=== PATIENT | male | born 1940 | race Caucasian/White ===

== ENCOUNTER 2017-07-15 05:42 | Outpatient (CLI) | payer MEDICARE, OTHER ==
[~2017-07-15] VITALS: Ht 167.6 cm; Wt 80.7 kg
[2017-07-15] MEDS ORDERED: LEVO112T55 PO (14:05)
== END 2017-07-15 14:18 ==
LOC: PREOP 05:42
PROVIDERS: ATTEND Urology
DX: Z01.818 Encounter for other preprocedural examination (principal); N40.0 Benign prostatic hyperplasia without lower urinary tract symptoms

== ENCOUNTER 2018-02-01 04:05 | Inpatient (IN) | payer MEDICARE, OTHER ==
[2018-02-01] VITALS (12 sets, daily range): BP systolic 106–178; BP diastolic 63–125
[~2018-02-01] VITALS: Ht 167.6 cm; Wt 79.9 kg
[~2018-02-01 04:05] MED LIST: LEVO112T55 PO
[2018-02-01] MEDS ORDERED: DESM0.2T2 PO (04:23)
[2018-02-01] MEDS ORDERED: METO-387 PO (04:23)
[2018-02-01] MEDS ORDERED: ATOR10TA66 PO (04:23)
--- NOTE | 2018-02-01 04:43 | ED General ---
General Chief Complaint: Cardiac/General Problems Stated Complaint: HIGH BLOOD PRESSURE, 160/88 Nursing Triage Note: reflux, leg cramps, "light headed" Nursing Sepsis Screen: No Definite Risk Source of Information: Patient, Spouse Exam Limitations: Other (PT IS EXTREMELY POOR AND VAGUE HISTORIAN AND CANNOT GIVE ANY RELEVANT INFORMATION ABOUT PT'S CURRENT CONDITION OR HISTORY EITHER. ) History of Present Illness Date Seen by Provider: February 01, 2018 Time Seen by Provider: 04:22 Initial Comments PT ARRIVES VIA POV FROM HOME STATES "STARTED OUT WITH ACID REFLUX" --STATES HE HAS HAS IT ALL EVENING. HAS FREQUENT PROBLEMS WITH THIS, BUT HAS NOT TAKEN ANYTHING FOR SYMPTOMS. CANNOT DESCRIBE HIS SYMPTOMS. HAS NOT HAD EGD OR ANY TESTING AND HAS NEVER BEEN PRESCRIBED MEDICATIONS FOR ACID REFLUX "THEN MY FEET STARTED CRAMPING" --IS CHRONIC PROBLEM, BUT TONIGHT WAS A LITTLE WORSE "THEN I ERICK HAD A WOOZY FEELING" --CANNOT DESCRIBE, BUT STATES "MAYBE ERICK NAUSEATED I THINK" AND DENIES FEELING DIZZY. PT STATES HE IS NOT HAVING ANY SYMPTOMS RIGHT NOW STATES HE HAS BEEN TAKING HIS BP TONIGHT AND IT HAS BEEN "HIGH" BUT CANNOT GIVE ANY OF HIS READINGS, NOR CAN . PT STATES "IT WAS IN THE MARGINAL AREA-IN THE YELLOW" --PT STATES HE HAS HAD A BLOOD PRESSURE MEDICATION ADDED, BUT CANNOT STATE WHAT MEDICATION IS, WHEN IT WAS PRESCRIBED OR BY WHOM. PT DOES NOT KNOW ANY OF HIS MEDICATIONS, NOR DOES . PT DOES STATE HE TAKES MEDICATION FOR BLOOD PRESSURE, THYROID AND CHOLESTEROL, BUT DOES NOT KNOW ANY OF THEIR NAMES. PT STATES HE HAS HAD ALL THESE SYMPTOMS BEFORE AND NONE OF THEM ARE A NEW PROBLEM PT STATES HE HASN'T SLEPT MUCH TONIGHT--JUST DOZED, AND LEG / FOOT CRAMPS WOULD WAKE HIM UP--AGAIN IS NOT A NEW PROBLEM, AND IS A FREQUENT PROBLEM, JUST A LITTLE WORSE TONIGHT --HAS NOT TAKEN ANYTHING FOR PAIN ONLY THING CAN REPORT IS THAT "HE JUST DOESN'T FEEL RIGHT" PT DENIES CHEST PAIN--ONLY C/O "ACID REFLUX" PT DENIES SHORTNESS OF BREATH DENIES PALPITATIONS BUT STATES HE HAS AN IRREGULAR HEARTBEAT DENIES SWEATS NO SWELLING IN LEGS/ FEET OR PAIN IN CALVES--ONLY FOOT CRAMPS BILATERALLY PT DID TAKE NORMAL DOSE OF 81 MG BABY ASPIRIN AT BEDTIME PCP: DR. GRAY BARREL PAINTER: DR. NELSON--PT STATES HE DOES NOT HAVE ANY HEART PROBLEMS. STATES HE WAS HAVING A PROBLEM WITH HIS EYES, AND HIS EYE TOLD HIM THAT HE NEEDED TO SEE A BARREL PAINTER, BUT PT / CANNOT STATE WHAT KIND OF EYE PROBLEMS HE HAS Allergies and Home Medications Allergies Coded Allergies: No Known Drug Allergies (Unverified , 07/15/17) Home Medications Levothyroxine Sodium 112 Mcg Tablet, 112 MCG PO DAILY, (Reported) Patient Home Medication List Home Medication List Reviewed: Yes (OBTAINED PER MED RECONCILIATION/EXTERNAL MED HX) Review of Systems Constitutional: see HPI Respiratory: no symptoms reported Cardiovascular: no symptoms reported Gastrointestinal: see HPI Genitourinary: no symptoms reported Musculoskeletal: see HPI Skin: no symptoms reported Psychiatric/Neurological: No Symptoms Reported Hematologic/Lymphatic: No Symptoms Reported Immunological/Allergic: no symptoms reported Past Xtirlmx-Gabfto-Rphppu Hx Patient Social History Alcohol Use: Denies Use Recreational Drug Use: No Smoking Status: Former Smoker Type Used: Cigarettes Former Smoker, Quit: Jul 15, 1974 2nd Hand Smoke Exposure: No Recent Foreign Travel: No Contact w/Someone Who Travel: No Recent Infectious Disease Expo: No Recent Hopitalizations: No Immunizations Up To Date Tetanus Booster (TDap): Unknown PED Vaccines UTD: No Date of Pneumonia Vaccine: Jul 15, 2015 Date of Influenza Vaccine: Jul 14, 2016 Seasonal Allergies Seasonal Allergies: No Past Medical History Surgeries: Yes (PILONIDAL CYST, LEFT LEG FX 5 SURGERIES TOTAL, COLONOSCOPY; TURP) Transurethral Resection Respiratory: No Currently Using CPAP: No Currently Using BIPAP: No Cardiac: Yes High Cholesterol, Hypertension Neurological: No Reproductive Disorders: No Genitourinary: Yes (S/P TURP) Benign Prostatic Hyperpl, Prostate Problems Gastrointestinal: Yes Gastroesophageal Reflux Musculoskeletal: Yes Arthritis Endocrine: Yes Hypothyroidsim HEENT: Yes Cataract Cancer: No Psychosocial: No Integumentary: No Blood Disorders: No Physical Exam Vital Signs Vital Signs - First Documented Capillary Refill : Less Than 3 Seconds General Appearance: No Apparent Distress, WD/WN, Anxious (MILDLY) Neck: Full Range of Motion, Normal Inspection, Non Tender, Supple; No Carotid Bruit, No JVD Respiratory: Chest Non Tender, Normal Breath Sounds, No Accessory Muscle Use, No Respiratory Distress Cardiovascular: No Edema, No Gallop, No JVD, No Murmur, Normal Peripheral Pulses, Irregularly Irregular Gastrointestinal: Normal Bowel Sounds, No Organomegaly, No Pulsatile Mass, Non Tender, Soft Back: No CVA Tenderness Extremity: Normal Capillary Refill, Normal Inspection, Normal Range of Motion, Non Tender, No Calf Tenderness, No Pedal Edema Neurologic/Psychiatric: Alert, Oriented x3, No Motor/Sensory Deficits, Normal Mood/Affect, epic interface analyst II-XII Norm as Tested Skin: Normal Color, Warm/Dry Progress/Results/Core Measures Suspected Sepsis Recent Fever Within 48 Hours: No Infection Criteria Present: None New/Unexplained Altered Menta: No Sepsis Screen: No Definite Risk SIRS Temperature:96.9 Pulse: 62 Respiratory Rate: 18 Laboratory Tests 02/01/18 04:30: White Blood Count 6.5 Blood Pressure 132 /113 Mean: 119 Laboratory Tests 02/01/18 04:30: Creatinine 0.74, INR Comment 0.9, Platelet Count 216, Total Bilirubin 0.8 Results/Orders Lab Results Laboratory Tests Test 02/01/18 04:30 Range/Units White Blood Count 6.5 4.3-11.0 10^3/uL Red Blood Count 3.96 L 4.35-5.85 10^6/uL Hemoglobin 12.8 L 13.3-17.7 G/DL Hematocrit 34 L 40-54 % Mean Corpuscular Volume 86 80-99 FL Mean Corpuscular Hemoglobin 32 25-34 PG Mean Corpuscular Hemoglobin Concent 38 H 32-36 G/DL Red Cell Distribution Width 11.7 10.0-14.5 % Platelet Count 216 130-400 10^3/uL Mean Platelet Volume 8.6 7.4-10.4 FL Neutrophils (%) (Auto) 61 42-75 % Lymphocytes (%) (Auto) 22 12-44 % Monocytes (%) (Auto) 11 0-12 % Eosinophils (%) (Auto) 6 0-10 % Basophils (%) (Auto) 0 0-10 % Neutrophils # (Auto) 3.9 1.8-7.8 X 10^3 Lymphocytes # (Auto) 1.5 1.0-4.0 X 10^3 Monocytes # (Auto) 0.7 0.0-1.0 X 10^3 Eosinophils # (Auto) 0.4 H 0.0-0.3 10^3/uL Basophils # (Auto) 0.0 0.0-0.1 10^3/uL Prothrombin Time 12.7 12.2-14.7 SEC INR Comment 0.9 0.8-1.4 Activated Partial Thromboplast Time 35 24-35 SEC Sodium Level 122 *L 135-145 MMOL/L Potassium Level 3.6 3.6-5.0 MMOL/L Chloride Level 89 L 98-107 MMOL/L Carbon Dioxide Level 20 L 21-32 MMOL/L Anion Gap 13 5-14 MMOL/L Blood Urea Nitrogen 9 7-18 MG/DL Creatinine 0.74 0.60-1.30 MG/DL Estimat Glomerular Filtration Rate > 60 BUN/Creatinine Ratio 12 Glucose Level 93 70-105 MG/DL Calcium Level 8.7 8.5-10.1 MG/DL Magnesium Level 1.8 1.8-2.4 MG/DL Total Bilirubin 0.8 0.1-1.0 MG/DL Aspartate Amino Transf (AST/SGOT) 24 5-34 U/L Alanine Aminotransferase (ALT/SGPT) 20 0-55 U/L Alkaline Phosphatase 55 40-136 U/L Total Creatine Kinase 205 H 30-200 U/L Creatine Kinase MB 5.5 <6.6 NG/ML Troponin I < 0.30 <0.30 NG/ML B-Type Natriuretic Peptide 102.6 H <100.0 PG/ML Total Protein 7.0 6.4-8.2 GM/DL Albumin 4.1 3.2-4.5 GM/DL Amylase Level 50 25-125 U/L Lipase 14 8-78 U/L My Orders Orders - MARNIE ZAVALA DO Amylase (02/01/18 04:36) Cbc With Automated Diff (02/01/18 04:36) Comprehensive Metabolic Panel (02/01/18 04:36) Creatine Kinase (02/01/18 04:36) Creatine Kinase Mb (02/01/18 04:36) Lipase (02/01/18 04:36) Partial Thromboplastin Time (02/01/18 04:36) Protime With Inr (02/01/18 04:36) Troponin I (02/01/18 04:36) Chest 1 View, Ap/Pa Only (02/01/18 04:36) O2 (02/01/18 04:36) Ekg Tracing (02/01/18 04:36) Aspirin Chewable Tablet (Baby Aspirin Ch (02/01/18 04:45) BNP (02/01/18 04:36) Monitor-Rhythm Ecg Trace Only (02/01/18 04:36) Magnesium (02/01/18 04:36) Pantoprazole Injection (Protonix Injecti (02/01/18 04:45) Medications Given in ED Current Medications Medications Dose Ordered Sig/Tamika Route Start Time Stop Time Status Last Admin Dose Admin Aspirin 324 mg ONCE ONCE PO 02/01/18 04:45 02/01/18 04:46 DC 02/01/18 04:45 324 MG Pantoprazole 40 mg ONCE ONCE IV 02/01/18 04:45 02/01/18 04:46 UNV 02/01/18 04:45 40 MG Vital Signs/I&O 02/01/18 02/01/18 04:23 04:23 Temp 96.9 Pulse 62 Resp 18 B/P (MAP) 132/113 (119) Pulse Ox 98 98 O2 Delivery Room Air Room Air Capillary Refill : Less Than 3 Seconds Blood Pressure Mean: 119 Progress Note : Progress Note PT DID NOT HAVE ANY COMPLAINTS DURING ER STAY ECG Initial ECG Impression Date: February 01, 2018 Initial ECG Impression Time: 04:36 Initial ECG Rate: 80 Initial ECG Rhythm: Normal Sinus (WITH PAC'S / SUPRAVENTRICULAR BIGEMINY) Initial ECG Impression: Nonspecific Changes Diagnostic Imaging Comments CXR--NO ACUTE PROCESS, PENDING RADIOLOGIST REVIEW Reviewed: Reviewed by Me Departure Communication (Admissions) [id number]--SPOKE WITH DR. GRAY, ACCEPTS PT FOR ADMIT. Impression Primary Impression: Atypical chest pain Additional Impressions: Hyponatremia HTN (hypertension) Disposition: ADMITTED INPATIENT Condition: Stable Admissions Decision to Admit Reason: Admit from ER (General) Decision to Admit/Date: February 01, 2018 Time/Decision to Admit Time: 05:10 Departure-Patient Inst. Referrals: SANJUANA GRAY DO (PCP/Family) Primary Care Physician MARNIE ZAVALA DO February 01, 2018 04:42
[2018-02-01 04:45] LABS: BASOPHILS % (AUTO) 0 % (0-10); EOSINOPHILS # (AUTO) 0.4 10^3/uL (0.0-0.3); EOSINOPHILS % (AUTO) 6 % (0-10); HEMATOCRIT 34 % (40-54); HEMOGLOBIN 12.8 G/DL (13.3-17.7); LYMPHOCYTES # (AUTO) 1.5 X 10^3 (1.0-4.0); LYMPHOCYTES % (AUTO) 22 % (12-44); MEAN CORPUSCULAR HEMOGLOBIN 32 PG (25-34); MEAN CORPUSCULAR HGB CONC 38 G/DL (32-36); MEAN CORPUSCULAR VOLUME 86 FL (80-99); MEAN PLATELET VOLUME 8.6 FL (7.4-10.4); MONOCYTES # (AUTO) 0.7 X 10^3 (0.0-1.0); MONOCYTES % (AUTO) 11 % (0-12); NEUTROPHILS # (AUTO) 3.9 X 10^3 (1.8-7.8); NEUTROPHILS % (AUTO) 61 % (42-75); PLATELET COUNT 216 10^3/uL (130-400); RED BLOOD COUNT 3.96 10^6/uL (4.35-5.85); RED CELL DISTRIBUTION WIDTH 11.7 % (10.0-14.5); WHITE BLOOD COUNT 6.5 10^3/uL (4.3-11.0)
[2018-02-01] MEDS ORDERED: PANTOPRAZOLE 40 MG/10 ML (PROTONIX) VIAL IV ONE (04:45)
[2018-02-01] MEDS ORDERED: ASPIRIN 81 MG CHEW (CHILDREN'S ASA) PO ONE (04:45)
[2018-02-01 04:50] LABS: INR 0.9 (0.8-1.4); PROTHROMBIN TIME PATIENT 12.7 SEC (12.2-14.7)
[2018-02-01 04:58] LABS: ALANINE AMINOTRANSFERASE 20 U/L (0-55); ALBUMIN 4.1 GM/DL (3.2-4.5); ALKALINE PHOSPHATASE 55 U/L (40-136); AMYLASE 50 U/L (25-125); BILIRUBIN,TOTAL 0.8 MG/DL (0.1-1.0); BUN/CREATININE RATIO 12; CALCIUM 8.7 MG/DL (8.5-10.1); CARBON DIOXIDE 20 MMOL/L (21-32); CHLORIDE 89 MMOL/L (98-107); CREATINE KINASE 205 U/L (30-200); CREATININE SERUM 0.74 MG/DL (0.60-1.30); GFR ESTIMATED > 60; GLUCOSE 93 MG/DL (70-105); LIPASE 14 U/L (8-78); MAGNESIUM 1.8 MG/DL (1.8-2.4); POTASSIUM 3.6 MMOL/L (3.6-5.0)
[2018-02-01 05:02] LABS: SODIUM 122 MMOL/L (135-145)
[2018-02-01 05:04] LABS: CREATINE KINASE MB 5.5 NG/ML (<6.6)
--- NOTE | 2018-02-01 06:04 | Diagnostic Imaging Report ---
INDICATION: Lightheaded and leg cramps. COMPARISON: None available. FINDINGS: Visualized lungs are clear. Please note that the posterior lower lobes are poorly evaluated by portable radiography. No pleural effusion or pneumothorax. Heart is on the upper limits of normal in size. Normal pulmonary vasculature. IMPRESSION: No acute cardiopulmonary process by portable radiography. Dictated by: Dictated on workstation # [id number]
[2018-02-01] MEDS ORDERED: NITROGLYCERIN 0.4 MG SL TABS BTL 25'S SL PRN (06:45)
[2018-02-01] MEDS ORDERED: morphine INJ 4 MG/ML 1 ML (VIAL/SYRINGE) IV PRN (06:45)
[2018-02-01] MEDS: NS IV 1000 ML 1,000 ML IV SCH ×2 (07:31→14:21)
--- NOTE | 2018-02-01 07:49 | Consultation-Cardiology ---
HPI-Cardiology Cardiology Consultation Date of Consultation 02/01/18 Date of Admission Time Seen by Provider: 07:44 HPI 77 years old gentleman with history of prostatism, had cataract surgery recently. Patient had an episode of sudden blurred vision in December [address] Ott in [place] and he was told that he had a poor perfusion. Had a 2-D echocardiogram and ultrasound done at [facility]. Denied any chest pain. Patient was in his usual state of health until last night when he woke up around 3 in the morning with significant leg cramps, he noted that his blood pressure was elevated. Came into the emergency room. Denied any chest pain or shortness of breath. No palpitation, no syncope or near syncopal episode. Home Medications & Allergies Allergies: Coded Allergies: No Known Drug Allergies (Unverified , 07/15/17) Home Medication List Reviewed: Yes IPX-Bhknkr-Dkldim Hx Patient Social History Marital Status: Employed/Student: retired Alcohol Use: Denies Use Recreational Drug Use: No Smoking Status: Former Smoker Type Used: Cigarettes 2nd Hand Smoke Exposure: No Recent Foreign Travel: No Recent Infectious Disease Expo: No Recent Hopitalizations: No Physical Abuse Screen: No Sexual Abuse: No Immunizations Up To Date Tetanus Booster (TDap): Unknown Date of Pneumonia Vaccine: Jul 15, 2015 Date of Influenza Vaccine: Jul 14, 2016 Past Medical History Past medical history as discussed below Family Medical History Family Medical Hx Noncontributory to his current condition Constitutional: see HPI, weakness EENTM: see HPI, vision loss; No blurred vision Respiratory: see HPI; No cough, No dyspnea on exertion, No hemoptysis, No orthopnea, No phlegm, No short of breath, No stridor, No wheezing, No other Cardiovascular: no symptoms reported, see HPI; No chest pain, No edema, No Hx of Intervention, No palpitations, No syncope, No vascular heart diseas, No other Gastrointestinal: no symptoms reported, see HPI Genitourinary: no symptoms reported, see HPI Musculoskeletal: see HPI, back pain, joint pain Skin: no symptoms reported, see HPI Psychiatric/Neurological: No Symptoms Reported, See HPI Reviewed Test Results Reviewed Test Results Lab Laboratory Tests Test 02/01/18 04:30 Range/Units White Blood Count 6.5 4.3-11.0 10^3/uL Red Blood Count 3.96 L 4.35-5.85 10^6/uL Hemoglobin 12.8 L 13.3-17.7 G/DL Hematocrit 34 L 40-54 % Mean Corpuscular Volume 86 80-99 FL Mean Corpuscular Hemoglobin 32 25-34 PG Mean Corpuscular Hemoglobin Concent 38 H 32-36 G/DL Red Cell Distribution Width 11.7 10.0-14.5 % Platelet Count 216 130-400 10^3/uL Mean Platelet Volume 8.6 7.4-10.4 FL Neutrophils (%) (Auto) 61 42-75 % Lymphocytes (%) (Auto) 22 12-44 % Monocytes (%) (Auto) 11 0-12 % Eosinophils (%) (Auto) 6 0-10 % Basophils (%) (Auto) 0 0-10 % Neutrophils # (Auto) 3.9 1.8-7.8 X 10^3 Lymphocytes # (Auto) 1.5 1.0-4.0 X 10^3 Monocytes # (Auto) 0.7 0.0-1.0 X 10^3 Eosinophils # (Auto) 0.4 H 0.0-0.3 10^3/uL Basophils # (Auto) 0.0 0.0-0.1 10^3/uL Prothrombin Time 12.7 12.2-14.7 SEC INR Comment 0.9 0.8-1.4 Activated Partial Thromboplast Time 35 24-35 SEC Sodium Level 122 *L 135-145 MMOL/L Potassium Level 3.6 3.6-5.0 MMOL/L Chloride Level 89 L 98-107 MMOL/L Carbon Dioxide Level 20 L 21-32 MMOL/L Anion Gap 13 5-14 MMOL/L Blood Urea Nitrogen 9 7-18 MG/DL Creatinine 0.74 0.60-1.30 MG/DL Estimat Glomerular Filtration Rate > 60 BUN/Creatinine Ratio 12 Glucose Level 93 70-105 MG/DL Calcium Level 8.7 8.5-10.1 MG/DL Magnesium Level 1.8 1.8-2.4 MG/DL Total Bilirubin 0.8 0.1-1.0 MG/DL Aspartate Amino Transf (AST/SGOT) 24 5-34 U/L Alanine Aminotransferase (ALT/SGPT) 20 0-55 U/L Alkaline Phosphatase 55 40-136 U/L Total Creatine Kinase 205 H 30-200 U/L Creatine Kinase MB 5.5 <6.6 NG/ML Troponin I < 0.30 <0.30 NG/ML B-Type Natriuretic Peptide 102.6 H <100.0 PG/ML Total Protein 7.0 6.4-8.2 GM/DL Albumin 4.1 3.2-4.5 GM/DL Amylase Level 50 25-125 U/L Lipase 14 8-78 U/L TSH [place] Testing 3.68 0.35-4.94 UIU/ML Physical Exam Vital Signs Vital Signs - First Documented Capillary Refill : Less Than 3 Seconds General Appearance: No Apparent Distress, WD/WN Eyes: Bilateral Eye Normal Inspection, Bilateral Eye PERRL, Bilateral Eye EOMI HEENT: PERRL/EOMI, TMs Normal, Normal ENT Inspection, Pharynx Normal Neck: Full Range of Motion, Normal Inspection, Non Tender, Supple, Carotid Bruit Respiratory: Chest Non Tender, Lungs Clear, Normal Breath Sounds, No Accessory Muscle Use, No Respiratory Distress Cardiovascular: No Edema, No Gallop, No JVD, No Murmur, Normal Peripheral Pulses, Other (Bradycardia with irregular rhythm) Gastrointestinal: Normal Bowel Sounds, No Organomegaly, No Pulsatile Mass, Non Tender, Soft Back: Normal Inspection, No CVA Tenderness, No Vertebral Tenderness Extremity: Normal Capillary Refill, Normal Inspection, Normal Range of Motion, Non Tender, No Calf Tenderness, No Pedal Edema Neurologic/Psychiatric: Alert, Oriented x3, No Motor/Sensory Deficits, Normal Mood/Affect Skin: Normal Color, Warm/Dry Lymphatic: No Adenopathy A/P-Cardiology Admission Diagnosis Hypertension Degenerative disc disease and spinal stenosis Hyperlipidemia Sinus bradycardia Atrial bigeminy Assessment/Plan Hypertension, poorly controlled, no previous history of hypertension. Started on low-dose beta blockers as an outpatient. I will restart and monitor her tolerance and response Bradycardia with atrial bigeminy, frequent atrial premature contractions. Continue to monitor telemetry after initiating beta blockers. Echocardiogram was done in December 2017 in [facility] showing mild-to- moderate left atrial dilatation measuring 4.3 cm, mild mitral regurgitation normal left ventricular function, bubble study was reported negative. Carotid ultrasound was done in [facility] in December 2017 showing mild bilateral stenosis nonobstructive disease Hyponatremia, unknown etiology. I will evaluate urine electrolytes Degenerative disc disease, MRI of the spine showed herniated disc at L2-L3, L3- L4, spinal stenosis moderate to severe. Managed by primary care physician Questionable TIA, sudden onset of blurred vision lasted for about 24 hours and resolves spontaneously occurred on December 19, 2017. Mild hyperlipidemia, lipid profile showed LDL of 134, total cholesterol of 200 Hypothyroid, managed and followed by Dr. Velez History of cataract surgery. History of benign prostatic hypertrophy, prostatism, hospitalized in July 2017 History of hemorrhoid bleed in the past. Strong family history of heart disease. Clinical Quality Measures DVT/VTE Risk/Contraindication: Risk Factor Score Per Nursin RFS Level Per Nursing on Admit: 2=Moderate MICHELLE NELSON MD February 01, 2018 07:49
[2018-02-01] MEDS: ASPIRIN E.C. 325 MG (ECOTRIN) TABLET PO SCH (08:56)
--- NOTE | 2018-02-01 08:59 | Diagnostic Imaging Report ---
INDICATION: Hyponatremia. TECHNIQUE: Two view chest 8:55 AM CORRELATION STUDY: 02/01/2018 FINDINGS: The heart size, mediastinal configuration and pulmonary vasculature are within normal limits. Irregular parenchymal density noted in the right perihilar region appears slightly changed from prior study. Remaining lung butler generally clear. Slight asymmetric areas of eventration of the diaphragm. Mildly compressed mid to lower thoracic vertebral bodies with slight accentuated thoracic kyphotic curvature. IMPRESSION: 1. Irregular parenchymal density in the right suprahilar region. This could be reflective of minimal area of atelectasis or less likely infiltrate. Mass lesion is considered less likely but not excluded at this time. Short-term followup repeat imaging is recommended for reassessment. Dictated by: Dictated on workstation # [id number]
--- NOTE | 2018-02-01 09:11 | History & Physical-Hospitalist ---
History of Present Illness HPI/Chief Complaint CC: Severe muscle cramps with palpitations HPI: This is a 77-year-old white male clinic patient of mine for the past 10 years with a past medical history of chronic orthopedic issues due to an injury of his left leg many years ago and hypothyroidism along with BPH status post management by Dr. Resendez with a TURP in the last 6 months who presented by private vehicle driven by his due to severe muscle cramps weakness and vague palpitations. Apparently I have not been in the communication loop since he was seen by Dr. Harrison ophthalmology who was concerned he had had a stroke in his left eye so is sent for heart test and he saw Dr. Jarvis and he was placed on metoprolol and was getting along fine but multiple med changes by urology included desmopressin initiated recently and that is the likely cause of the severe hyponatremia of 122 this morning. We have fluid restricted him to 1000 mL of oral fluid per day maintained a normal saline at 100 mL an hour and will hold desmopressin of which I have spoken to and updated the urologist nurse regarding that change. Source: patient, family Exam Limitations: other (vague details on medical issues chronic issue) Date Seen 02/01/18 Time Seen by Provider: 08:40 Attending Physician Jered Kaye MD PCP Katy Gray DO Referring Physician Date of Admission February 01, 2018 at 05:10 Home Medications & Allergies Home Medications Reviewed patient Home Medication Reconciliation performed by pharmacy medication reconciliations digital imaging technician and/or nursing. Patients Allergies have been reviewed. Allergies Allergies Coded Allergies No Known Drug Allergies (Onqapxnean33/2/17) Past Keyozym-Xtmldn-Topbsk Hx Past Med/Social Hx: Reviewed Nursing Past Med/Soc Hx, Reviewed and Corrections made Patient Social History Marrital Status: Employed/Student: retired Alcohol Use: Denies Use Recreational Drug Use: No Smoking Status: Former Smoker Former Smoker, Quit: Jul 15, 1974 Type Used: Cigarettes 2nd Hand Smoke Exposure: No Physical Abuse Screen: No Sexual Abuse: No Recent Foreign Travel: No Contact w/other who traveled: No Recent Hopitalizations: No Recent Infectious Disease Expo: No Immunizations Up To Date Tetanus Booster (TDap): Unknown Pediatric: No Date of Pneumonia Vaccine: Jul 15, 2015 Date of Influenza Vaccine: Jul 14, 2016 Seasonal Allergies Seasonal Allergies: No Past Medical History Surgeries: Transurethral Resection Currently Using CPAP: No Currently Using BIPAP: No Cardiac: High Cholesterol, Hypertension Reproductive: No Genitourinary: Benign Prostatic Hyperpl, Prostate Problems Gastrointestinal: Gastroesophageal Reflux Musculoskeletal: Arthritis Endocrine: Hypothyroidsim HEENT: Cataract History of Blood Disorders: No Review of Systems Constitutional: see HPI, dizziness, weakness EENTM: no symptoms reported Respiratory: no symptoms reported Cardiovascular: no symptoms reported Gastrointestinal: no symptoms reported Genitourinary: no symptoms reported Musculoskeletal: no symptoms reported Skin: no symptoms reported Psychiatric/Neurological: No Symptoms Reported All Other Systems Reviewed Negative Unless Noted: Yes Physical Exam Physical Exam Vital Signs Vital Signs - First Documented Capillary Refill : Less Than 3 Seconds General Appearance: No Apparent Distress, WD/WN, Chronically ill Eyes: Bilateral Eye Normal Inspection, Bilateral Eye PERRL HEENT: PERRL/EOMI, Normal ENT Inspection, Pharynx Normal Neck: Full Range of Motion, Normal Inspection, Non Tender, Supple, Carotid Bruit Respiratory: Chest Non Tender, Lungs Clear, Normal Breath Sounds, No Accessory Muscle Use, No Respiratory Distress Cardiovascular: Regular Rate, Rhythm, No Edema, No Gallop, No JVD, No Murmur, Normal Peripheral Pulses Gastrointestinal: Normal Bowel Sounds, No Organomegaly, No Pulsatile Mass, Non Tender, Soft Back: Normal Inspection, No CVA Tenderness, No Vertebral Tenderness Extremity: Normal Capillary Refill, Normal Inspection, Normal Range of Motion, Non Tender, No Calf Tenderness, No Pedal Edema Neurologic/Psychiatric: Alert, Oriented x3, No Motor/Sensory Deficits, Normal Mood/Affect Skin: Normal Color, Warm/Dry Lymphatic: No Adenopathy Results Results/Procedures Labs Laboratory Tests 02/01/18 04:30 Patient resulted labs reviewed. Assessment/Plan Admission Diagnosis Assessment: Severe hyponatremia Palpitations placed on BB Urinary frequency placed on Desmopressin by Dr Resendez Hypothyroidism Admission Status: Inpatient Order (span 2 midnights) Reason for Inpatient Admission: Severe hyponatremia at seizurfe risk will take 3 days of fluid restriction and NS IVF Assessment and Plan IVF Monitor sodium level Cardiology input Home meds except Desmopressin Diagnosis/Problems Diagnosis/Problems (1) Hyponatremia Status: Acute (2) Atypical chest pain Status: Acute (3) BPH (benign prostatic hyperplasia) Status: Chronic Qualifiers: Lower urinary tract symptom presence: symptoms present Lower urinary tract symptom detail: urinary frequency Qualified Codes: N40.1 - Benign prostatic hyperplasia with lower urinary tract symptoms; R35.0 - Frequency of micturition (4) S/P TURP Status: Chronic (5) Hypothyroidism Status: Chronic Qualifiers: Hypothyroidism type: acquired Qualified Codes: E03.9 - Hypothyroidism, unspecified (6) Hypertension Status: Acute Qualifiers: Hypertension type: essential hypertension Qualified Codes: I10 - Essential (primary) hypertension Clinical Quality Measures DVT/VTE Risk/Contraindication: Risk Factor Score Per Nursin RFS Level Per Nursing on Admit: 2=Moderate KATY GRAY DO February 01, 2018 09:11
[2018-02-01] MEDS ORDERED: MULT-35 PO (09:16)
[2018-02-01] MEDS ORDERED: ASPI-983 PO (09:16)
[2018-02-01] MEDS ORDERED: CALC-676 PO (09:16)
[2018-02-01] MEDS ORDERED: OMG1KC PO (09:16)
--- OUTSIDE RECORDS SUMMARY | 2018-02-01 10:03 | XMS REPORT | Continuity of Care Document ---
Author Author [facility] Organization [facility] Address Unknown Phone Unavailable Allergies Active Description Code Type Severity Reaction Onset Reported/Identified Relationship to Patient Clinical Status Yes No Known Drug Allergies [id number] Drug Allergy Unknown N/A 07/15/2017 Medications There is no data. Problems Date Dx Coded Attending Type Code Diagnosis Diagnosed By 08/21/2015 MICHAEL FERNANDEZ MD Ot M48.00 07/15/2017 DEVEN HECTOR MD Ot N40.0 BENIGN PROSTATIC HYPERPLASIA WITHOUT LOW 07/15/2017 DEVEN HECTOR MD Ot Z01.818 ENCOUNTER FOR OTHER PREPROCEDURAL EXAMIN 07/15/2017 DEVEN HECTOR MD Ot N40.0 BENIGN PROSTATIC HYPERPLASIA WITHOUT LOW 07/15/2017 DEVEN HECTOR MD Ot Z01.818 ENCOUNTER FOR OTHER PREPROCEDURAL EXAMIN 07/15/2017 DEVEN HECTOR MD Ot N40.0 BENIGN PROSTATIC HYPERPLASIA WITHOUT LOW 07/15/2017 DEVEN HECTOR MD Ot Z01.818 ENCOUNTER FOR OTHER PREPROCEDURAL EXAMIN 07/16/2017 MICHAEL FERNANDEZ MD Ot M48.00 SPINAL STENOSIS, SITE UNSPECIFIED 07/20/2017 MICHAEL FERNANDEZ MD Ot M48.00 SPINAL STENOSIS, SITE UNSPECIFIED 07/21/2017 DEVEN HECTOR MD Ot E03.9 HYPOTHYROIDISM, UNSPECIFIED 07/21/2017 DEVEN HECTOR MD, Ot N40.0 BENIGN PROSTATIC HYPERPLASIA WITHOUT LOW 07/21/2017 DEVEN HECTOR MD Ot N52.9 MALE ERECTILE DYSFUNCTION, UNSPECIFIED 07/21/2017 DEVEN HECTOR MD Ot Z23 ENCOUNTER FOR IMMUNIZATION 07/21/2017 DEVEN HECTOR MD Ot Z79.899 OTHER INSTRUCTIONAL TECHNOLOGY INSTRUCTOR (CURRENT) DRUG THERAPY 07/21/2017 DEVEN HECTOR MD Ot Z87.891 PERSONAL HISTORY OF NICOTINE DEPENDENCE 07/22/2017 DEVEN HECTOR MD Ot E03.9 HYPOTHYROIDISM, UNSPECIFIED 07/22/2017 DEVEN HECTOR MD Ot N40.0 BENIGN PROSTATIC HYPERPLASIA WITHOUT LOW 07/22/2017 DEVEN HECTOR MD Ot N52.9 MALE ERECTILE DYSFUNCTION, UNSPECIFIED 07/22/2017 DEVEN HECTOR MD Ot Z79.899 OTHER SKILLED NURSING (CURRENT) DRUG THERAPY 07/22/2017 DEVEN HECTOR MD Ot Z87.891 PERSONAL HISTORY OF NICOTINE DEPENDENCE 07/23/2017 DEVEN HECTOR MD Ot E03.9 HYPOTHYROIDISM, UNSPECIFIED 07/23/2017 DEVEN HECTOR MD Ot N40.0 BENIGN PROSTATIC HYPERPLASIA WITHOUT LOW 07/23/2017 DEVEN HECTOR MD Ot N52.9 MALE ERECTILE DYSFUNCTION, UNSPECIFIED 07/23/2017 DEVEN HECTOR MD Ot Z79.899 OTHER INSTRUCTIONAL TECHNOLOGY INSTRUCTOR (CURRENT) DRUG THERAPY 07/23/2017 DEVEN HECTOR MD Ot Z87.891 PERSONAL HISTORY OF NICOTINE DEPENDENCE 07/27/2017 DEVEN HECTOR MD Ot E03.9 HYPOTHYROIDISM, UNSPECIFIED 07/27/2017 DEVEN HECTOR MD Ot N40.0 BENIGN PROSTATIC HYPERPLASIA WITHOUT LOW 07/27/2017 DEVEN HECTOR MD Ot N52.9 MALE ERECTILE DYSFUNCTION, UNSPECIFIED 07/27/2017 DEVEN HECTOR MD Ot Z23 ENCOUNTER FOR IMMUNIZATION 07/27/2017 DEVEN HECTOR MD Ot Z79.899 OTHER INSTRUCTIONAL TECHNOLOGY INSTRUCTOR (CURRENT) DRUG THERAPY 07/27/2017 DEVEN HECTOR MD Ot Z87.891 PERSONAL HISTORY OF NICOTINE DEPENDENCE 08/04/2017 DEVEN HECTOR MD Ot E03.9 HYPOTHYROIDISM, UNSPECIFIED 08/04/2017 DEVEN HECTOR MD Ot N40.0 BENIGN PROSTATIC HYPERPLASIA WITHOUT LOW 08/04/2017 DEVEN HECTOR MD Ot N52.9 MALE ERECTILE DYSFUNCTION, UNSPECIFIED 08/04/2017 DEVEN HECTOR MD Ot Z23 ENCOUNTER FOR IMMUNIZATION 08/04/2017 DEVEN HECTOR MD Ot Z79.899 OTHER INSTRUCTIONAL TECHNOLOGY INSTRUCTOR (CURRENT) DRUG THERAPY 08/04/2017 DEVEN HECTOR MD Ot Z87.891 PERSONAL HISTORY OF NICOTINE DEPENDENCE Procedures There is no data. Results Test Result Range Methicillin resistant Staphylococcus aureus (MRSA) screening culture - 07:45 Methicillin resistant Staphylococcus aureus (MRSA) screening culture NEG NRG Automated blood complete blood count (hemogram) panel - 07/20/17 07:50 Blood leukocytes automated count (number/volume) 6.4 10*3/uL 4.3-11.0 Blood erythrocytes automated count (number/volume) 4.50 10*6/uL 4.35-5.85 Venous blood hemoglobin measurement (mass/volume) 14.4 g/dL 13.3-17.7 Blood hematocrit (volume fraction) 41 % 40-54 Automated erythrocyte mean corpuscular volume 90 [foz_us] 80-99 Automated erythrocyte mean corpuscular hemoglobin (mass per erythrocyte) 32 pg 25-34 Automated erythrocyte mean corpuscular hemoglobin concentration measurement ( mass/volume) 36 g/dL 32-36 Automated erythrocyte distribution width ratio 12.5 % 10.0-14.5 Automated blood platelet count (count/volume) 274 10*3/uL 130-400 Automated blood platelet mean volume measurement 9.0 [foz_us] 7.4-10.4 Blood type T Indirect antibody screen panel - 07/20/17 07:50 ABO+Rh group AP NRG Transfusion band number [id number] NRG Blood group antibody screen NEGATIVE NRG Encounters ACCT No. Visit Date/Time Discharge Status Pt. Type Provider Facility Loc./Unit Complaint [id number] 07/20/2017 07:20:00 07/21/2017 17:13:00 DIS Outpatient DEVEN HECTOR MD [facility] BPH; PROSTATISM [id number] 07/15/2017 05:42:00 07/15/2017 14:18:00 DIS Outpatient DEVEN HECTOR MD [facility] PREOP BPH; PROSTATISM [id number] 07/29/2015 13:37:00 07/29/2015 23:59:59 CLS Outpatient MICHAEL FERNANDEZ MD [facility] RAD STENOSIS [id number] 07/16/2017 14:31:00 Document Registration
--- OUTSIDE RECORDS SUMMARY | 2018-02-01 10:04 | XMS REPORT | Continuity of Care Document ---
Author Author [facility] Organization [facility] Address Unknown Phone Unavailable Allergies Active Description Code Type Severity Reaction Onset Reported/Identified Relationship to Patient Clinical Status Yes No Known Drug Allergies [id number] Drug Allergy Unknown N/A 07/15/2017 Medications There [...] 07/21/2017 DEVEN HECTOR MD Ot Z79.899 OTHER ALCOHOL AND DRUG COUNSELOR (CURRENT) DRUG THERAPY 07/21/2017 DEVEN HECTOR MD Ot Z87.891 PERSONAL HISTORY OF NICOTINE DEPENDENCE 07/22/2017 DEVEN HECTOR MD Ot E03.9 HYPOTHYROIDISM, UNSPECIFIED 07/22/2017 DEVEN HECTOR MD Ot N40.0 BENIGN PROSTATIC HYPERPLASIA WITHOUT LOW 07/22/2017 DEVEN HECTOR MD Ot N52.9 MALE ERECTILE DYSFUNCTION, UNSPECIFIED 07/22/2017 DEVEN HECTOR MD Ot Z79.899 OTHER LONGTERM (CURRENT) DRUG THERAPY 07/22/2017 DEVEN HECTOR MD Ot Z87.891 PERSONAL HISTORY OF NICOTINE DEPENDENCE 07/23/2017 DEVEN HECTOR MD Ot E03.9 HYPOTHYROIDISM, UNSPECIFIED 07/23/2017 DEVEN HECTOR MD Ot N40.0 BENIGN PROSTATIC HYPERPLASIA WITHOUT LOW 07/23/2017 DEVEN HECTOR MD Ot N52.9 MALE ERECTILE DYSFUNCTION, UNSPECIFIED 07/23/2017 DEVEN HECTOR MD Ot Z79.899 OTHER ALCOHOL AND DRUG COUNSELOR (CURRENT) DRUG THERAPY 07/23/2017 DEVEN HECTOR MD Ot Z87.891 PERSONAL HISTORY OF NICOTINE DEPENDENCE 07/27/2017 DEVEN HECTOR MD Ot E03.9 HYPOTHYROIDISM, UNSPECIFIED 07/27/2017 DEVEN HECTOR MD Ot N40.0 BENIGN PROSTATIC HYPERPLASIA WITHOUT LOW 07/27/2017 DEVEN HECTOR MD Ot N52.9 MALE ERECTILE DYSFUNCTION, UNSPECIFIED 07/27/2017 DEVEN HECTOR MD Ot Z23 ENCOUNTER FOR IMMUNIZATION 07/27/2017 DEVEN HECTOR MD Ot Z79.899 OTHER ALCOHOL AND DRUG COUNSELOR (CURRENT) DRUG THERAPY 07/27/2017 DEVEN HECTOR MD Ot Z87.891 PERSONAL HISTORY OF NICOTINE DEPENDENCE 08/04/2017 DEVEN HECTOR MD Ot E03.9 HYPOTHYROIDISM, UNSPECIFIED 08/04/2017 DEVEN HECTOR MD Ot N40.0 BENIGN PROSTATIC HYPERPLASIA WITHOUT LOW 08/04/2017 DEVEN HECTOR MD Ot N52.9 MALE ERECTILE DYSFUNCTION, UNSPECIFIED 08/04/2017 DEVEN HECTOR MD Ot Z23 ENCOUNTER FOR IMMUNIZATION 08/04/2017 DEVEN HECTOR MD Ot Z79.899 OTHER ALCOHOL AND DRUG COUNSELOR (CURRENT) DRUG THERAPY 08/04/2017 DEVEN HECTOR MD [...] ABO+Rh group AP NRG Transfusion band number [id number] NRG Blood group antibody screen NEGATIVE NRG Encounters ACCT No. Visit Date/Time Discharge Status Pt. Type Provider Facility Loc./Unit Complaint [id number] 07/20/2017 07:20:00 07/21/2017 17:13:00 DIS Outpatient DEVEN HECTOR MD [facility] BPH; PROSTATISM [id number] 07/15/2017 05:42:00 07/15/2017 14:18:00 DIS Outpatient DEVEN HECTOR MD [facility] PREOP BPH; PROSTATISM [id number] 07/29/2015 13:37:00 07/29/2015 23:59:59 CLS Outpatient MICHAEL FERNANDEZ MD [facility] RAD STENOSIS [id number] 07/16/2017 14:31:00 Document Registration
[2018-02-01 11:00] LABS: BILIRUBIN,URINE NEGATIVE (NEGATIVE); CLARITY,URINE SLIGHTLY CLOUDY; COLOR,URINE YELLOW; GLUCOSE, URINE (UA) NEGATIVE (NEGATIVE); KETONES,URINE 1+ (NEGATIVE); LEUKOCYTE ESTERASE ,URINE NEGATIVE (NEGATIVE); NITRITE,URINE NEGATIVE (NEGATIVE); PH,URINE 8 (5-9); PROTEIN,URINE 1+ (NEGATIVE); UROBILINOGEN,URINE NORMAL (NORMAL)
[2018-02-01 11:01] LABS: CREATINE KINASE 203 U/L (30-200)
[2018-02-01 11:10] LABS: CHLORIDE URINE RANDOM 108 MMOL/L (110-250); SODIUM URINE RANDOM 118 MMOL/L (50-200)
[2018-02-01 11:11] LABS: AMORPHOUS SEDIMENT,UR MOD AMOR PHOSPHATE /LPF; BACTERIA,URINE NEGATIVE /HPF; WBC,URINE RARE /HPF
[2018-02-01 18:01] LABS: CREATINE KINASE 242 U/L (30-200)
[2018-02-01] MEDS ORDERED: lisINopril 5 MG (PRINIVIL) TABLET PO ONE (22:00)
[2018-02-02 00:15] VITALS: BP 155/80
[2018-02-02] MEDS: NS IV 1000 ML 1,000 ML IV SCH (01:35)
[2018-02-02 03:38] VITALS: BP 148/69
[2018-02-02 03:42] LABS: BASOPHILS % (AUTO) 0 % (0-10); EOSINOPHILS # (AUTO) 0.4 10^3/uL (0.0-0.3); EOSINOPHILS % (AUTO) 5 % (0-10); HEMATOCRIT 35 % (40-54); HEMOGLOBIN 13.2 G/DL (13.3-17.7); LYMPHOCYTES # (AUTO) 1.3 X 10^3 (1.0-4.0); LYMPHOCYTES % (AUTO) 18 % (12-44); MEAN CORPUSCULAR HEMOGLOBIN 33 PG (25-34); MEAN CORPUSCULAR HGB CONC 38 G/DL (32-36); MEAN CORPUSCULAR VOLUME 86 FL (80-99); MEAN PLATELET VOLUME 9.1 FL (7.4-10.4); MONOCYTES # (AUTO) 0.8 X 10^3 (0.0-1.0); MONOCYTES % (AUTO) 11 % (0-12); NEUTROPHILS # (AUTO) 4.5 X 10^3 (1.8-7.8); NEUTROPHILS % (AUTO) 65 % (42-75); PLATELET COUNT 220 10^3/uL (130-400); RED BLOOD COUNT 4.02 10^6/uL (4.35-5.85); RED CELL DISTRIBUTION WIDTH 11.6 % (10.0-14.5)
[2018-02-02 04:09] LABS: BUN/CREATININE RATIO 8; CALCIUM 8.4 MG/DL (8.5-10.1); CARBON DIOXIDE 22 MMOL/L (21-32); CHLORIDE 99 MMOL/L (98-107); CHOLESTEROL 142 MG/DL (< 200); CREATININE SERUM 0.71 MG/DL (0.60-1.30); GFR ESTIMATED > 60; GLUCOSE 85 MG/DL (70-105); HDL CHOLESTEROL 38 MG/DL (40-60); MAGNESIUM 1.9 MG/DL (1.8-2.4); SODIUM 129 MMOL/L (135-145); TRIGLYCERIDES 132 MG/DL (<150); VLDL CHOLESTEROL 26 MG/DL (5-40)
[2018-02-02] MEDS ORDERED: lisINopril 5 MG (PRINIVIL) TABLET PO SCH (09:00)
[2018-02-02 09:38] VITALS: BP 146/82
[2018-02-02] MEDS ORDERED: lisINopril 5 MG (PRINIVIL) TABLET PO NR (09:45)
[2018-02-02] MEDS: ASPIRIN E.C. 325 MG (ECOTRIN) TABLET PO SCH (09:49)
[2018-02-02] MEDS ORDERED: LISI10TA2 PO (10:59)
--- NOTE | 2018-02-02 11:06 | Discharge Summary-Hospitalist ---
Diagnosis/Chief Complaint Date of Admission February 01, 2018 at 11:25 Date of Discharge Discharge Date: February 02, 2018 Admission Diagnosis Assessment: Severe hyponatremia Palpitations placed on BB Urinary frequency placed on Desmopressin by Dr Resendez Hypothyroidism Discharge Diagnosis (1) Hyponatremia Status: Acute (2) Atypical chest pain Status: Acute (3) BPH (benign prostatic hyperplasia) Status: Chronic (4) S/P TURP Status: Chronic (5) Hypothyroidism Status: Chronic (6) Hypertension Status: Acute Discharge Summary Discharge Physical Exam Allergies: Coded Allergies: No Known Drug Allergies (Unverified , 07/15/17) Vitals & I&Os Vital Signs Date Time Temp Pulse Resp B/P (MAP) Pulse Ox O2 Delivery O2 Flow Rate FiO2 02/02/18 09:38 97.6 55 16 146/82 (103) 97 02/02/18 09:15 Room Air General Appearance: Alert, Oriented X3, Cooperative HEENT: Atraumatic, PERRLA Respiratory: Clear to Auscultation, Normal Air Movement Cardiovascular: Regular Rate, Normal S1, Normal S2 Neuro: Normal Gait, Normal Speech, Strength at 5/5 X4 Ext Psych/Mental Status: Mental Status NL Hospital Course Hospital course: He had a brief hospital course he was admitted due to severe muscle cramps and leg pain and was found to have severe hyponatremia of 122 and the likely source of that was the desmopressin medication that was given by urology so urology was updated and I discontinue that medication immediately. He was placed on normal saline IV fluid at 100cc/hr and due to the severity of his symptoms and the severity of the hyponatremia near seizure threshold he was changed to inpatient because estimation time of correction of the sodium level in order to be able to go home would be 2-3 days but on day of discharge on 02/02 he was found to have sodium level 129 which had recovered sooner than expected and ambulating well and had no symptoms of hyponatremia and since it was past the seizure threshold he was deemed stable for discharge as cardiology approved and will have close follow-up at the clinic and check BMP on Wednesday. We will need to assess for lumbar stenosis considering his orthopedic injuries in the past and will recheck out to fourth therefore state since he had been seen by Dr. Dunne in the past for the left leg that had horrific orthopedic injury in the years past. Considering for nerve pain he was having Dr. Jarvis assessed possible source as spinal stenosis. Labs (last 24 hrs) Laboratory Tests 02/01/18 17:35: Total Creatine Kinase 242H, Troponin I < 0.30 02/02/18 03:10: White Blood Count 7.0, Red Blood Count 4.02L, Hemoglobin 13.2L, Hematocrit 35L, Mean Corpuscular Volume 86, Mean Corpuscular Hemoglobin 33, Mean Corpuscular Hemoglobin Concent 38H, Red Cell Distribution Width 11.6, Platelet Count 220, Mean Platelet Volume 9.1, Neutrophils (%) (Auto) 65, Lymphocytes (%) (Auto) 18, Monocytes (%) (Auto) 11, Eosinophils (%) (Auto) 5, Basophils (%) (Auto) 0, Neutrophils # (Auto) 4.5, Lymphocytes # (Auto) 1.3, Monocytes # (Auto) 0.8, Eosinophils # (Auto) 0.4H, Basophils # (Auto) 0.0, Sodium Level 129L, Potassium Level 4.0, Chloride Level 99, Carbon Dioxide Level 22, Anion Gap 8, Blood Urea Nitrogen 6L, Creatinine 0.71, Estimat Glomerular Filtration Rate > 60, BUN/ Creatinine Ratio 8, Glucose Level 85, Calcium Level 8.4L, Magnesium Level 1.9, Triglycerides Level 132, Cholesterol Level 142, LDL Cholesterol Direct 89, VLDL Cholesterol 26, HDL Cholesterol 38L Patient resulted labs reviewed. Pending Labs Discussion & Recommendations Discharge Planning: <30 minutes discharge planning Discharge Home Medications: Active Scripts Active Lisinopril 10 Mg Tablet 10 Mg PO DAILY@0900 Reported Fish Oil 1,000 mg Capsule ([place] 3 Polyunsat Fatty Acids) 1,000 Mg Cap 1,000 Mg PO BID Daily Multiple Vitamin (Multivitamin) 1 Each Tablet 1 Tab PO DAILY Calcium 500 + Vit D 200 Caplet (Calcium Carbonate/Vitamin D3) 1 Each Tablet 1 Tab PO BID Aspirin EC (Aspirin) 81 Mg Tablet.dr 81 Mg PO HS Metoprolol Succinate 25 Mg Tab.er.24h 25 Mg PO HS Atorvastatin Calcium 10 Mg Tablet 10 Mg PO DAILY Levothyroxine Sodium 112 Mcg Tablet 112 Mcg PO DAILY Instructions to patient/family Please see electronic discharge instructions given to patient. Clinical Quality Measures DVT/VTE Risk/Contraindication: Risk Factor Score Per Nursin RFS Level Per Nursing on Admit: 2=Moderate Problem Qualifiers (1) BPH (benign prostatic hyperplasia): Lower urinary tract symptom presence: symptoms present Lower urinary tract symptom detail: urinary frequency Qualified Codes: N40.1 - Benign prostatic hyperplasia with lower urinary tract symptoms; R35.0 - Frequency of micturition (2) Hypothyroidism: Hypothyroidism type: acquired Qualified Codes: E03.9 - Hypothyroidism, unspecified (3) Hypertension: Hypertension type: essential hypertension Qualified Codes: I10 - Essential ( primary) hypertension SANJUANA GRAY DO February 02, 2018 11:06
--- NOTE | 2018-02-02 11:28 | Cardiology Progress Note ---
Subjective Date Seen by Provider: February 02, 2018 Time Seen by Provider: 11:26 Subjective/Events-last exam Patient is laying down in bed, feeling better, sustained a fall this morning while he was trying to walk to the sink and wash his hand. Denied any injury, denied any pain. Patient has history of chronic back pain and leg pain from herniated disc in the past. Review of Systems General: No Chills, No Night Sweats, No Fatigue, No Malaise, No Appetite, No Other HEENT: No Head Aches, No Visual Changes, No Eye Pain, No Ear Pain, No Dysphasia , No Sinus Congestion, No Post Nasal Drip, No Sore Throat, No Other Pulmonary: No Dyspnea, No Cough, No Pleuritic Chest Pain, No Other Cardiovascular: No: Chest Pain, Palpitations, Orthopnea, Paroxysmal Noc. Dyspnea, Edema, Lt Headedness, Other Objective-Cardiology Exam Last Set of Vital Signs Vital Signs 02/02/18 02/02/18 09:15 09:38 Temp 97.6 Pulse 55 Resp 16 B/P (MAP) 146/82 (103) Pulse Ox 97 O2 Delivery Room Air Capillary Refill : Less Than 3 Seconds I&O Intake and Output 02/02/18 00:00 Intake Total 1780 ml Output Total 3425 ml Balance -1645 ml Intake Oral 780 ml IV Total 1000 ml Output Urine Total 3425 ml # Voids 1 Daily Weight Change No General: Alert, Oriented X3, Cooperative HEENT: Atraumatic, PERRLA Neck: Supple, No JVD, No Thyromegaly Lungs: Clear to Auscultation, Normal Air Movement Heart: Normal S1, Normal S2, No Murmurs, Other (Frequent APCs) Abdomen: Normal Bowel Sounds, Soft, No Tenderness, No Hepatosplenomegaly, No Masses Extremities: No Clubbing, No Cyanosis, No Edema, Normal Pulses, No Tenderness/ Swelling Skin: No Rashes, No Breakdown, No Significant Lesion Neuro: Normal Gait, Normal Speech, Strength at 5/5 X4 Ext, Normal Tone, Sensation Intact Psych/Mental Status: Mental Status NL, Mood NL Results Lab Laboratory Tests 02/02/18 03:10 A/P-Cardiology Admission Diagnosis Hypertension Degenerative disc disease and spinal stenosis Hyperlipidemia Sinus bradycardia Atrial bigeminy Assessment/Plan Hypertension, poorly controlled, I added lisinopril 5 mg then increase it to 10 mg daily, continue on metoprolol and monitor blood pressure as an outpatient Bradycardia with atrial bigeminy, frequent atrial premature contractions. Tolerating metoprolol well. Continue to monitor as an outpatient Echocardiogram was done in December 2017 in [facility] showing mild-to- moderate left atrial dilatation measuring 4.3 cm, mild mitral regurgitation normal left ventricular function, bubble study was reported negative. Carotid ultrasound was done in [facility] in December 2017 showing mild bilateral stenosis nonobstructive disease Hyponatremia, secondary to medication, better today. Monitor as an outpatient Degenerative disc disease, MRI of the spine showed herniated disc at L2-L3, L3- L4, spinal stenosis moderate to severe. Managed by primary care physician Questionable TIA, sudden onset of blurred vision lasted for about 24 hours and resolves spontaneously occurred on December 19, 2017. Mild hyperlipidemia, lipid profile showed LDL of 134, total cholesterol of 200 Hypothyroid, managed and followed by Dr. Velez History of cataract surgery. History of benign prostatic hypertrophy, prostatism, hospitalized in July 2017 History of hemorrhoid bleed in the past. Strong family history of heart disease. Clinical Quality Measures DVT/VTE Risk/Contraindication: Risk Factor Score Per Nursin RFS Level Per Nursing on Admit: 2=Moderate MICHELLE NELSON MD February 02, 2018 11:27
[2018-02-02 11:52] VITALS: BP 146/82
[2018-02-03] MEDS ORDERED: lisINopril 10 MG (PRINIVIL) TABLET PO SCH (09:00)
[2018-02-03] MEDS ORDERED: lisINopril 5 MG (PRINIVIL) TABLET PO SCH (09:00)
== END 2018-02-02 11:52 | disposition home or self-care (01) | DRG 641 ==
LOC: EDUNIT# 04:05 → ER 04:07 → ICU 05:10 → UNDOADMOB 05:10 → ICU 05:47 → OBSVTOIN 11:24 → INTOOBSV 11:25 → UNDODISIN 02-02 11:52
PROVIDERS: ADMIT Internal Medicine; ATTEND Internal Medicine
DX: E87.1 Hypo-osmolality and hyponatremia (principal); T38.895A Adverse effect of other hormones and synthetic substitutes, initial encounter; R07.89 Other chest pain; I10 Essential (primary) hypertension; E03.9 Hypothyroidism, unspecified; N40.0 Benign prostatic hyperplasia without lower urinary tract symptoms; R35.0 Frequency of micturition; R00.1 Bradycardia, unspecified; I49.1 Atrial premature depolarization; M51.36 Other intervertebral disc degeneration, lumbar region; M51.26 Other intervertebral disc displacement, lumbar region; M48.061 Spinal stenosis, lumbar region without neurogenic claudication; Z87.891 Personal history of nicotine dependence; Z79.899 Other long term (current) drug therapy; Z79.82 Long term (current) use of aspirin
CPT/HCPCS: 36415; 71045; 71046; 80048; 80053; 80061; 81000; 82150; 82436; 82550; 82553; 83690; 83735; 83880; 83930; 83935; 84300; 84443; 84484; 85025; 85027; 85610; 85730; 93005; 93041; 96374

== ENCOUNTER → 2018-06-06 | Outpatient (CLI) | payer MEDICARE, OTHER ==
[~2018-06-06] MED LIST changes: +ASPI-983 PO; +ATOR10TA66 PO; +CALC-676 PO; +CIPR-225 PO; +DESM0.2T2 PO; +HYDR-3870 PO; +LISI10TA2 PO; +METO-387 PO; +MULT-35 PO; +OMG1KC PO; +PHEN-640 PO
--- NOTE | 2018-06-06 16:06 | Diagnostic Imaging Report ---
PROCEDURE: CT head without contrast. TECHNIQUE: Multiple contiguous axial images were obtained through the brain without the use of intravenous contrast. INDICATION: Headache, unqualified visual loss in the left eye. FINDINGS: There is prominence of the ventricles and sulci. There is some chronic microvascular ischemic disease. There is no hydrocephalus. There is no midline shift. There is no intracranial mass, hemorrhage, or extra-axial fluid collection. Calvarium is intact. There is moderate mucosal thickening in the maxillary sinuses bilaterally. The remaining sinuses and mastoid air cells are clear. IMPRESSION: Atrophy and some chronic microvascular ischemic disease without acute intracranial abnormality. If there is high clinical concern for an acute CVA, further evaluation with MRI should be considered. Dictated by: Dictated on workstation # [id number]
== END ==
LOC: RAD 14:53
PROVIDERS: ATTEND Family Medicine
DX: I67.82 Cerebral ischemia (principal); H54.62 Unqualified visual loss, left eye, normal vision right eye; I10 Essential (primary) hypertension; R00.8 Other abnormalities of heart beat; E78.4 Other hyperlipidemia; E03.9 Hypothyroidism, unspecified
CPT/HCPCS: 70450

== ENCOUNTER 2020-11-12 02:32 | Emergency (ER) | payer MEDICARE, OTHER ==
[~2020-11-12] VITALS: Ht 170 cm; Wt 74.4 kg
[~2020-11-12 02:32] MED LIST changes: +ASPI-1238 PO; -ASPI-983 PO; -DESM0.2T2 PO; +DESM0.2T29 PO; -LISI10TA2 PO; +LISI10TA25 PO; -METO-387 PO; +MTP25TSR PO
--- NOTE | 2020-11-12 03:21 | ED General ---
General Chief Complaint: General Problems/Pain Stated Complaint: BLOOD PRESSURE ISSUES,DID NOT TAKE MEDICINE TODAY Source of Information: Patient, Family Exam Limitations: No Limitations History of Present Illness Date Seen by Provider: Nov 12, 2020 Time Seen by Provider: 02:51 Initial Comments Complicated case here with presentation of weakness, low-grade fever and overall not feeling well. We have his second dose of Materna COVID-19 vaccination yesterday at about 9 AM. At about 7 to 7:30 PM, patient was feeling quite fatigued and went to bed. At 1 AM he awoke and was almost too weak to walk. Ultimately they decided to bring him in for further evaluation. Not specifically weak to any one area but globally weak. Family noted the low-grade fever and thought fatigue and fever related to second vaccination in the time frame is consistent with typical. No recent injuries or illness otherwise. Denies chest pain, breathing problems but does have mild cough. His entire close family has recently had COVID-19 but he did not get it. He had no problems with the first vaccination series. 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 This has not interfered with him and he remains quite active typically.Last last known well time 7:30 PM last night. Of note, patient did forget to take his blood pressure medicines yesterday and his daughter gave those just prior to arrival this morning including lisinopril 10 mg and metoprolol Timing/Duration: 4-6 Hours Severity: Moderate Associated Systoms: No Chest Pain; Cough, Fever/Chills, Malaise; No Nausea/Vomiting, No Shortness of Air; Weakness Allergies and Home Medications Allergies Coded Allergies: No Known Drug Allergies (Unverified , 05/06/18) Home Medications Atorvastatin Calcium 10 Mg Tablet, 10 MG PO DAILY, (Reported) Calcium Carbonate/Vitamin D3 1 Each Tablet, 1 TAB PO BID, (Reported) Ciprofloxacin HCl 500 Mg Tablet, 500 MG PO BID Prescribed by: FANNY JANSEN on 05/11/18 112 Hydrocodone/Acetaminophen 1 Each Tablet, 1-2 EACH PO Q4H PRN for PAIN Prescribed by: FANNY JANSEN on 05/11/18 112 Levothyroxine Sodium 112 Mcg Tablet, 112 MCG PO DAILY, (Reported) Lisinopril 10 Mg Tablet, 10 MG PO DAILY@0900 Prescribed by: SANJUANA GRAY on 02/02/18 1059 Metoprolol Succinate 25 Mg Tab.er.24h, 25 MG PO HS, (Reported) Multivitamin 1 Each Tablet, 1 TAB PO DAILY, (Reported) [place] 3 Polyunsat Fatty Acids 1,000 Mg Cap, 1,000 MG PO BID, (Reported) Phenazopyridine HCl 200 Mg Tablet, 1 TAB PO TID PRN for SPASMS Prescribed by: FANNY JANSEN on 05/11/18 1127 Patient Home Medication List Home Medication List Reviewed: Yes Review of Systems Review of Systems Constitutional: see HPI; No chills; fever, weakness EENTM: No nose congestion, No throat pain Respiratory: cough; No short of breath Cardiovascular: No chest pain; vascular heart diseas Gastrointestinal: No abdominal pain, No nausea, No vomiting Genitourinary: no symptoms reported Musculoskeletal: muscle pain, muscle weakness Skin: no symptoms reported Psychiatric/Neurological: See HPI Past Mtywtuc-Tjubtk-Vovluk Hx Past Med/Social Hx: Reviewed Nursing Past Med/Soc Hx Patient Social History Alcohol Use: Denies Use Type Used: Cigarettes Former Smoker, Quit: Jul 15, 1974 2nd Hand Smoke Exposure: No Recent Hopitalizations: Yes (JANUARY 2018-LOW SODIUM) Immunizations Up To Date Tetanus Booster (TDap): Unknown PED Vaccines UTD: No Date of Pneumonia Vaccine: Jul 15, 2015 Date of Influenza Vaccine: Jun 28, 2017 Seasonal Allergies Seasonal Allergies: No Past Medical History Surgeries: Yes (PILONIDAL CYST, LEFT LEG FX 5 SURGERIES TOTAL, TURP) Transurethral Resection Respiratory: No Currently Using CPAP: No Currently Using BIPAP: No Cardiac: Yes High Cholesterol, Hypertension, Irregular Heartbeat Neurological: No Reproductive Disorders: No Sexually Transmitted Disease: No HIV/AIDS: No Genitourinary: Yes (S/P TURP) Benign Prostatic Hyperpl, Prostate Problems Gastrointestinal: No Gastroesophageal Reflux Musculoskeletal: Yes Arthritis Endocrine: Yes Hypothyroidsim HEENT: Yes Cataract Loss of Vision: Bilateral Cancer: No Psychosocial: No Integumentary: No Blood Disorders: No Adverse Reaction/Blood Tranf: No (N/A) Family Medical History Reviewed Nursing Family Hx Patient reports no known family medical history. Physical Exam-Suspected Sepsis Physical Exam Vital Signs Vital Signs - First Documented 11/12/20 02:40 Temp 38.4 Pulse 105 Resp 26 B/P (MAP) 158/68 (98) Pulse Ox 96 O2 Delivery Room Air Capillary Refill : Height, Weight, BMI Height: 5'6.00" Weight: 178lbs. 4.0oz. 80.673741ug; 28.8 BMI Method:Stated General Appearance: No Apparent Distress, WD/WN HEENT: PERRL/EOMI, TMs Normal, Pharynx Normal Neck: Non Tender, Supple Respiratory: Lungs Clear, Normal Breath Sounds Cardiovascular: Tachycardia, Other (Irregularly regular with alternating beat) Gastrointestinal: Non Tender, Soft Extremity: Normal Range of Motion, Non Tender Neurologic/Psychiatric: Alert, Oriented x3, Motor Weakness (Global) Skin: normal color, warm/dry Focused Exam Lactate Level 11/12/20 03:03: Lactic Acid Level 0.92 Lactic Acid Level Laboratory Tests Test 11/12/20 03:03 Lactic Acid Level 0.92 MMOL/L (0.50-2.00) Progress/Results/Core Measures Suspected Sepsis SIRS Temperature: Pulse: Respiratory Rate: Laboratory Tests 11/12/20 02:53: White Blood Count 10.5 Blood Pressure / Mean: 11/12/20 03:03: Lactic Acid Level 0.92 Laboratory Tests 11/12/20 02:53: Creatinine 1.03, INR Comment 1.0, Platelet Count 206, Total Bilirubin 0.6 Results/Orders Lab Results Laboratory Tests Test 11/12/20 02:53 11/12/20 03:03 11/12/20 03:08 11/12/20 04:31 Range/Units White Blood Count 10.5 4.3-11.0 10^3/uL Red Blood Count 4.13 L 4.30-5.52 10^6/uL Hemoglobin 13.1 L 13.3-17.7 g/dL Hematocrit 38 L 40-54 % Mean Corpuscular Volume 92 80-99 fL Mean Corpuscular Hemoglobin 32 25-34 pg Mean Corpuscular Hemoglobin Concent 35 32-36 g/dL Red Cell Distribution Width 12.4 10.0-14.5 % Platelet Count 206 130-400 10^3/uL Mean Platelet Volume 9.0 9.0-12.2 fL Immature Granulocyte % (Auto) 0 % Neutrophils (%) (Auto) 88 H 42-75 % Lymphocytes (%) (Auto) 5 L 12-44 % Monocytes (%) (Auto) 7 0-12 % Eosinophils (%) (Auto) 0 0-10 % Basophils (%) (Auto) 1 0-10 % Neutrophils # (Auto) 9.2 H 1.8-7.8 10^3/uL Lymphocytes # (Auto) 0.5 L 1.0-4.0 10^3/uL Monocytes # (Auto) 0.7 0.0-1.0 10^3/uL Eosinophils # (Auto) 0.0 0.0-0.3 10^3/uL Basophils # (Auto) 0.1 0.0-0.1 10^3/uL Immature Granulocyte # (Auto) 0.0 0.0-0.1 10^3/uL Neutrophils % (Manual) 89 % Lymphocytes % (Manual) 4 % Monocytes % (Manual) 6 % Basophils % (Manual) 1 % Blood Morphology Comment NORMAL Prothrombin Time 13.5 12.2-14.7 SEC INR Comment 1.0 0.8-1.4 Activated Partial Thromboplast Time 33 24-35 SEC D-Dimer 0.67 H 0.00-0.49 UG/ML Sodium Level 130 L 135-145 MMOL/L Potassium Level 4.4 3.6-5.0 MMOL/L Chloride Level 98 98-107 MMOL/L Carbon Dioxide Level 21 21-32 MMOL/L Anion Gap 11 5-14 MMOL/L Blood Urea Nitrogen 10 7-18 MG/DL Creatinine 1.03 0.60-1.30 MG/DL Estimat Glomerular Filtration Rate > 60 BUN/Creatinine Ratio 10 Glucose Level 106 H 70-105 MG/DL Calcium Level 8.9 8.5-10.1 MG/DL Corrected Calcium 8.7 8.5-10.1 MG/DL Total Bilirubin 0.6 0.1-1.0 MG/DL Aspartate Amino Transf (AST/SGOT) 26 5-34 U/L Alanine Aminotransferase (ALT/SGPT) 28 0-55 U/L Alkaline Phosphatase 71 40-136 U/L Troponin I < 0.028 <0.028 NG/ML C-Reactive Protein High Sensitivity 0.88 H 0.00-0.50 MG/DL Total Protein 7.8 6.4-8.2 GM/DL Albumin 4.3 3.2-4.5 GM/DL Procalcitonin 0.06 <0.10 NG/ML Lactic Acid Level 0.92 0.50-2.00 MMOL/L Coronavirus 2019 ([facility]) Negative Negative Urine Color YELLOW Urine Clarity CLEAR Urine pH 7.0 5-9 Urine Specific [place] 1.010 L 1.016-1.022 Urine Protein TRACE H NEGATIVE Urine Glucose (UA) NEGATIVE NEGATIVE Urine Ketones NEGATIVE NEGATIVE Urine Nitrite NEGATIVE NEGATIVE Urine Bilirubin NEGATIVE NEGATIVE Urine Urobilinogen 0.2 < = 1.0 MG/DL Urine Leukocyte Esterase NEGATIVE NEGATIVE Urine RBC (Auto) NEGATIVE NEGATIVE Urine RBC NONE /HPF Urine WBC NONE /HPF Urine Crystals NONE /LPF Urine Bacteria NEGATIVE /HPF Urine Casts NONE /LPF Urine Mucus NEGATIVE /LPF Urine Culture Indicated CULTURE PENDING Micro Results Microbiology 11/12/20 Influenza Types A,B Antigen (MATT) - Final, Complete My Orders Orders - CELESTINE CHIN MD Cbc With Automated Diff (11/12/20 03:06) Comprehensive Metabolic Panel (11/12/20 03:06) Blood Culture (11/12/20 03:06) Sputum Culture (11/12/20 03:06) Urinalysis (11/12/20 03:06) Urine Culture (11/12/20 03:06) Protime With Inr (11/12/20 03:06) Partial Thromboplastin Time (11/12/20 03:06) Chest 1 View, Ap/Pa Only (11/12/20 03:06) Ed Iv/Invasive Line Start (11/12/20 03:06) Ekg Tracing (11/12/20 03:06) Vital Signs Adult Sepsis Patie Q15M (11/12/20 03:06) Remove Rings In Anticipation O (11/12/20 03:06) Lactic Acid Analyzer (11/12/20 03:06) Influenza A And B Antigens (11/12/20 03:06) Fibrin Degradation Products (11/12/20 03:06) Procalcitonin (Pct) (11/12/20 03:06) Hs C Reactive Protein (11/12/20 03:06) Covid 19 Inhouse Test (11/12/20 03:06) Troponin I (11/12/20 03:06) Nothing By Mouth (11/12/20 Breakfast) Vital Signs Stroke Patient Q15M (11/12/20 03:06) Ct Head Wo-R/O Stroke (11/12/20 03:06) Intake & Output 06,14,22 (11/12/20 03:06) Monitor-Rhythm Ecg Trace Only (11/12/20 03:06) Dysphagia Screening Tool (11/12/20 03:06) Lipid Panel (11/13/20 06:00) Ns Iv 500 Ml (Sodium Chloride 0.9%) (11/12/20 03:30) Manual Differential (11/12/20 02:53) Ketorolac Injection (Toradol Injection) (11/12/20 04:06) Acetaminophen Tablet (Tylenol Tablet) (11/12/20 04:06) Ketorolac Injection (Toradol Injection) (11/12/20 04:02) Acetaminophen Tablet (Tylenol Tablet) (11/12/20 04:02) Medications Given in ED Current Medications Medications Dose Ordered Sig/Tamika Route Start Time Stop Time Status Last Admin Dose Admin Sodium Chloride 500 ml @ 0 mls/hr Q0M ONCE IV 11/12/20 03:30 11/12/20 03:31 DC 11/12/20 03:31 500 MLS/HR Vital Signs/I&O 11/12/20 11/12/20 11/12/20 11/12/20 02:40 03:03 04:35 04:37 Temp 38.4 38.4 38.4 38.4 Pulse 105 105 75 75 Resp 26 22 17 17 B/P (MAP) 158/68 (98) 158/68 (98) 137/82 137/82 (100) Pulse Ox 96 96 95 95 O2 Delivery Room Air Room Air Room Air Room Air 11/12/20 05:14 Temp 38.1 Pulse 77 Resp 20 B/P (MAP) 129/62 Pulse Ox 95 O2 Delivery Room Air Capillary Refill : Progress Note : Progress Note Seen and evaluated. Complicated case given history with concerns for typical vaccine reaction, stroke and or sepsis. Stroke and sepsis order sets have been initiated with addition of influenza and we will get COVID-19 rapid testing as well. Monitor patient. Patient is outside of window to give TPA and this was discussed with the patient's daughter who agrees given his last known well time was around 8 hours prior to arrival. Does not have physical exam findings suggestive of large vessel occlusion. We will get the CT head given his altered state. Does have mild low-grade fever currently. Normal saline 500 mL bolus ordered. Monitor patient. 0520: Patient did receive Toradol 30 mg IV as well as Tylenol 1 g p.o. Heart rate down to 70s. He is able to stand and transfer on own accord now. CT is negative. No other significant abnormalities. This does appear to be vaccination related illness is influenza and Covid screen are also negative. All of this was discussed with patient and family. Discharged home with return precautions. Patient and family verbalized understanding of instructions and agreement with plan. ECG Initial ECG Impression Date: Nov 12, 2020 Initial ECG Impression Time: 02:58 Initial ECG Rate: 100 Initial ECG Rhythm: S.Tach Comment Sinus tachycardia with supraventricular bigeminy and left axis deviation. Left atrial abnormality. No evidence of ST elevation [place]. Morphology similar but faster rate to 02/01/18. Interpreted by me. Diagnostic Imaging Diagonstic Imaging: Xray Plain Films/CT/US/NM/MRI: chest Comments No acute findings Reviewed: Reviewed by Me Diagonstic Imaging: CT Plain Films/CT/US/NM/MRI: head Comments No acute findings per CT report. See Darryn report for details. 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 Decision time for Depature: 05:22 Referrals: SANJUANA GRAY DO (PCP/Family) Primary Care Physician Patient Instructions: COVID-19 Vaccine (mRNA) Moderna FDA Fact Sheet, Coronavirus Disease 2019 (COVID-19) Vaccines Add. Discharge Instructions: All discharge instructions reviewed with patient and/or family. Voiced understanding. Drink plenty of fluids and get plenty of rest. You may take Tylenol and/or ibuprofen as needed for fever or pain. Diet as tolerated. Follow-up with your doctor in a few days for recheck. Return for worse pain, fever, vomiting, weakness, breathing problems or other concerns as needed. Copy Copies To 1: SANJUANA GRAY TIMOTHY D MD Nov 12, 2020 03:21
[2020-11-12 03:23] LABS: ALBUMIN 4.3 GM/DL (3.2-4.5); CHLORIDE 98 MMOL/L (98-107); POTASSIUM 4.4 MMOL/L (3.6-5.0); SODIUM 130 MMOL/L (135-145)
[2020-11-12 03:24] LABS: BASOPHILS # (AUTO) 0.1 10^3/uL (0.0-0.1); BASOPHILS % (AUTO) 1 % (0-10); CALCIUM 8.9 MG/DL (8.5-10.1); EOSINOPHILS % (AUTO) 0 % (0-10); HEMATOCRIT 38 % (40-54); HEMOGLOBIN 13.1 g/dL (13.3-17.7); LYMPHOCYTES # (AUTO) 0.5 10^3/uL (1.0-4.0); LYMPHOCYTES % (AUTO) 5 % (12-44); MEAN CORPUSCULAR HEMOGLOBIN 32 pg (25-34); MEAN CORPUSCULAR HGB CONC 35 g/dL (32-36); MEAN CORPUSCULAR VOLUME 92 fL (80-99); MONOCYTES # (AUTO) 0.7 10^3/uL (0.0-1.0); MONOCYTES % (AUTO) 7 % (0-12); NEUTROPHILS # (AUTO) 9.2 10^3/uL (1.8-7.8); NEUTROPHILS % (AUTO) 88 % (42-75); PLATELET COUNT 206 10^3/uL (130-400); WHITE BLOOD COUNT 10.5 10^3/uL (4.3-11.0)
[2020-11-12 03:26] LABS: GLUCOSE 106 MG/DL (70-105); TOTAL PROTEIN 7.8 GM/DL (6.4-8.2)
[2020-11-12 03:27] LABS: BILIRUBIN,TOTAL 0.6 MG/DL (0.1-1.0); CARBON DIOXIDE 21 MMOL/L (21-32)
[2020-11-12 03:29] LABS: ALKALINE PHOSPHATASE 71 U/L (40-136); CREATININE SERUM 1.03 MG/DL (0.60-1.30); GFR ESTIMATED > 60
[2020-11-12 03:30] LABS: BUN/CREATININE RATIO 10
[2020-11-12] MEDS ORDERED: NS IV 500 ML 500 ML IV ONE (03:30)
[2020-11-12 03:32] LABS: ALANINE AMINOTRANSFERASE 28 U/L (0-55)
[2020-11-12 03:57] LABS: BASOPHILS % (MANUAL) 1 %; LYMPHOCYTES % (MANUAL) 4 %; MONOCYTES % (MANUAL) 6 %; NEUTROPHILS % (MANUAL) 89 %; RBC MORPH NORMAL
[2020-11-12 04:00] LABS: FIBRIN DEGRADATION PRODUCTS 0.67 UG/ML (0.00-0.49); PROTHROMBIN TIME PATIENT 13.5 SEC (12.2-14.7)
[2020-11-12] MEDS ORDERED: KETOROLAC 30 MG/ML VIAL ONE (04:02)
[2020-11-12] MEDS ORDERED: ACETAMINOPHEN 500 MG TAB (TYLENOL) ONE (04:02)
[2020-11-12] MEDS ORDERED: ACETAMINOPHEN 500 MG TAB (TYLENOL) PO STA (04:06)
[2020-11-12] MEDS ORDERED: KETOROLAC 30 MG/ML VIAL IVP STA (04:06)
[2020-11-12 04:50] LABS: BILIRUBIN,URINE NEGATIVE (NEGATIVE); CLARITY,URINE CLEAR; COLOR,URINE YELLOW; GLUCOSE, URINE (UA) NEGATIVE (NEGATIVE); KETONES,URINE NEGATIVE (NEGATIVE); LEUKOCYTE ESTERASE ,URINE NEGATIVE (NEGATIVE); NITRITE,URINE NEGATIVE (NEGATIVE); PROTEIN,URINE TRACE (NEGATIVE)
[2020-11-12 04:57] LABS: BACTERIA,URINE NEGATIVE /HPF
[2020-11-12 05:34] VITALS: BP 130/70
--- NOTE | 2020-11-12 06:00 | Diagnostic Imaging Report ---
EXAMINATION: Chest 1 view HISTORY: Sepsis. Low-grade fever. COMPARISON: 02/01/2018. FINDINGS: The lung volumes are normal. No focal consolidation is seen. No large pleural effusion or pneumothorax is seen. The cardiomediastinal silhouette is normal in size and contour. No acute osseous abnormality is seen. IMPRESSION: 1. No acute pleuroparenchymal process. Dictated by: Dictated on workstation # [id number]
--- NOTE | 2020-11-12 06:02 | Diagnostic Imaging Report ---
EXAMINATION: CT head without contrast. TECHNIQUE: Multiple contiguous axial images were obtained through the brain without the use of intravenous contrast. All CT scans use one or more of the following dose optimizing techniques: automated exposure control, MA and/or KvP adjustment based on a patient size and exam type, or iterative reconstruction. HISTORY: Weakness and confusion. COMPARISON: 06/06/2018. FINDINGS: No large acute territorial ischemia, mass, or hemorrhage. No midline shift or mass effect. Decreased attenuation is seen in the periventricular and subcortical white matter. The ventricles and cortical sulci are prominent. The basilar cisterns are patent and unremarkable. The orbits are normal. Retained secretions are seen in the left maxillary sinus. Mastoid air cells are clear. No soft tissue abnormality is seen. No osseus lesions or fractures are seen. IMPRESSION: 1. No large acute territorial ischemia, mass, or hemorrhage. 2. Chronic microvascular disease. 3. Generalized parenchymal volume loss. Agree with overnight report. Dictated by: Dictated on workstation # [id number]
== END 2020-11-12 05:34 | disposition home or self-care (01) ==
LOC: EDUNIT# 02:32 → ER 02:38
DX: T88.1XXA Other complications following immunization, not elsewhere classified, initial encounter (principal); E78.00 Pure hypercholesterolemia, unspecified; E03.9 Hypothyroidism, unspecified; I10 Essential (primary) hypertension; Z20.822 Contact with and (suspected) exposure to COVID-19; Z87.891 Personal history of nicotine dependence; Z79.890 Hormone replacement therapy
CPT/HCPCS: 51702; 70450; 71045; 80053; 81000; 83605; 84145; 84484; 85007; 85027; 85379; 85610; 85730; 86141; 87040; 87088; 87804; 93005; 93041; 99284; U0002; 36415; 87635; 96361; 96374

== ENCOUNTER 2020-12-04 16:24 | Inpatient (IN) | payer MEDICARE, OTHER ==
[~2020-12-04] VITALS: Ht 175 cm; Wt 79.7 kg
[2020-12-04] MEDS ORDERED: fentaNYL INJ 100 MCG/2 ML AMP IVP ONE ×2 (16:30→17:30)
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
[2020-12-04 16:39] LABS: BASOPHILS % (AUTO) 1 % (0-10); EOSINOPHILS # (AUTO) 0.1 10^3/uL (0.0-0.3); EOSINOPHILS % (AUTO) 2 % (0-10); HEMATOCRIT 36 % (40-54); LYMPHOCYTES # (AUTO) 2.1 10^3/uL (1.0-4.0); LYMPHOCYTES % (AUTO) 34 % (12-44); MEAN CORPUSCULAR HEMOGLOBIN 32 pg (25-34); MEAN CORPUSCULAR HGB CONC 34 g/dL (32-36); MEAN CORPUSCULAR VOLUME 93 fL (80-99); MEAN PLATELET VOLUME 8.6 fL (9.0-12.2); MONOCYTES # (AUTO) 0.6 10^3/uL (0.0-1.0); MONOCYTES % (AUTO) 11 % (0-12); NEUTROPHILS # (AUTO) 3.2 10^3/uL (1.8-7.8); NEUTROPHILS % (AUTO) 53 % (42-75); PLATELET COUNT 187 10^3/uL (130-400); WHITE BLOOD COUNT 6.1 10^3/uL (4.3-11.0)
[2020-12-04 16:54] LABS: ALBUMIN 4.2 GM/DL (3.2-4.5); CHLORIDE 96 MMOL/L (98-107); POTASSIUM 3.6 MMOL/L (3.6-5.0); SODIUM 131 MMOL/L (135-145)
[2020-12-04 16:55] LABS: CALCIUM 8.9 MG/DL (8.5-10.1)
[2020-12-04 16:56] LABS: GLUCOSE 129 MG/DL (70-105)
[2020-12-04 16:57] LABS: TOTAL PROTEIN 7.4 GM/DL (6.4-8.2)
[2020-12-04 16:58] LABS: BILIRUBIN,TOTAL 0.3 MG/DL (0.1-1.0); CARBON DIOXIDE 23 MMOL/L (21-32)
[2020-12-04 17:00] LABS: ALKALINE PHOSPHATASE 66 U/L (40-136); CREATININE SERUM 0.89 MG/DL (0.60-1.30); GFR ESTIMATED > 60
[2020-12-04 17:01] LABS: BILIRUBIN,URINE NEGATIVE (NEGATIVE); CLARITY,URINE CLEAR; COLOR,URINE YELLOW; GLUCOSE, URINE (UA) NEGATIVE (NEGATIVE); KETONES,URINE NEGATIVE (NEGATIVE); LEUKOCYTE ESTERASE ,URINE NEGATIVE (NEGATIVE); NITRITE,URINE NEGATIVE (NEGATIVE); PH,URINE 7.5 (5-9); PROTEIN,URINE NEGATIVE (NEGATIVE)
[2020-12-04 17:01] LABS: BUN/CREATININE RATIO 12
[2020-12-04 17:03] LABS: ALANINE AMINOTRANSFERASE 26 U/L (0-55)
[2020-12-04 17:05] LABS: AMORPHOUS SEDIMENT,UR FEW AMOR PHOSPHATE /LPF; BACTERIA,URINE NEGATIVE /HPF; SQUAMOUS EPITHELIAL CELL,UR RARE /HPF
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
--- NOTE | 2020-12-04 17:53 | Diagnostic Imaging Report ---
INDICATION: Pain after fall. TECHNIQUE: AP pelvis along with 2 views left hip, 5:35 p.m. CORRELATION STUDY: None. FINDINGS: There is a relatively nondisplaced intertrochanteric fracture of the proximal left femur. Slight medial displacement of the lesser trochanter fragment. Femoral head acetabular relationship otherwise demonstrates minimal narrowing but maintained. The remainder of the pelvis is intact. The pectineal lines and obturator rings are preserved. Mild/moderate joint space narrowing at the right hip. IMPRESSION: Relatively nondisplaced intertrochanteric fracture involving the proximal left femur. Dictated by: Dictated on workstation # [id number]
[2020-12-04 19:51] VITALS: BP 194/93
[2020-12-04] MEDS ORDERED: ONDANSETRON 4 MG/2 ML (SDV) Z0FRAN IV PRN (20:00)
[2020-12-04] MEDS ORDERED: CATHETER FLUSH 10 ML SYR IV PRN (20:00)
[2020-12-04 20:30] VITALS: BP 151/73
[2020-12-04] MEDS ORDERED: HYDROcodone/APAP 5 MG/325 MG (LORTAB) TAB PO PRN (20:30)
[2020-12-04] MEDS: LACTATED RINGERS 1,000 ML IV SCH (20:36)
[2020-12-04] MEDS: fentaNYL INJ 100 MCG/2 ML AMP IV PRN ×2 (20:40→22:45)
[2020-12-05] VITALS (16 sets, daily range): BP systolic 99–180; BP diastolic 50–92
[2020-12-05] MEDS ORDERED: meTOprolol 5 MG/5 ML (LOPRESSOR) VIAL IV ONE (04:30)
[2020-12-05] MEDS: LACTATED RINGERS 1,000 ML IV SCH ×3 (04:34→18:29)
[2020-12-05] MEDS: meTOproloL SUCCINATE 50 MG (TOPROL XL) TAB PO SCH (08:06)
[2020-12-05] MEDS ORDERED: LIDOCAINE PF 2% 5 ML (XYLOCAINE) VIAL ONE (08:07)
[2020-12-05] MEDS ORDERED: ONDANSETRON 4 MG/2 ML (SDV) Z0FRAN ONE (08:07)
[2020-12-05] MEDS ORDERED: proPOfol 200 MG/20 ML (DIPRIVAN) VIAL IV ONE (08:07)
[2020-12-05] MEDS ORDERED: MIDAZOLAM 2 MG/2 ML (VERSED) VIAL ONE (08:07)
[2020-12-05] MEDS ORDERED: ROCURONIUM 10 MG/ML 5 ML SYRINGE IV ONE (08:07)
[2020-12-05] MEDS ORDERED: fentaNYL INJ 100 MCG/2 ML AMP ONE (08:07)
[2020-12-05] MEDS ORDERED: NEOSTIGMINE 3 MG/3 ML VIAL ONE (08:08)
[2020-12-05] MEDS ORDERED: SEVOFLURANE (ULTANE) 15 ML INHAL SOLN ONE ×3 (08:08→10:31)
[2020-12-05] MEDS ORDERED: GLYCOPYRROLATE 0.2 MG/ML (ROBINUL) 2 ML VIAL ONE (08:08)
[2020-12-05] MEDS ORDERED: lisINopril 10 MG (PRINIVIL) TABLET PO SCH (09:00)
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
[2020-12-05] MEDS ORDERED: BUPIVACAINE 0.25% 30 ML (SENSORCAINE) VIAL ONE (09:40)
[2020-12-05] MEDS: LACTATED RINGERS 1,000 ML IV PRN ×2 (09:42→12:09)
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
[2020-12-05] MEDS ORDERED: NEO/POLY/BAC (NEOSPORIN) OINT 15 GM TUBE ONE (09:50)
[2020-12-05] MEDS ORDERED: ceFAZolin 2 GM IV Premixed 50 ML ONE (09:59)
[2020-12-05] MEDS ORDERED: MEPERIDINE (DEMEROL) INJ 50 MG/ML IVP ONE (11:45)
[2020-12-05] MEDS ORDERED: fentaNYL INJ 100 MCG/2 ML AMP IVP ONE (11:45)
[2020-12-05] MEDS ORDERED: morphine INJ 10 MG/ML 1ML (SYR OR VIAL) IVP ONE (11:45)
[2020-12-05] MEDS ORDERED: ONDANSETRON 4 MG/2 ML (SDV) Z0FRAN IVP PRN (11:45)
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
--- NOTE | 2020-12-05 12:02 | Diagnostic Imaging Report ---
Fluoroscopy. Indication: Left hip pain. Fluoroscopic assistance was provided for Dr. Ovalle during his hip pinning procedure. 40.8 seconds of fluoroscopy time was utilized. 4 spot films of the left hip were received from the OR. The prior exam of 12/04/2020 noted an intertrochanteric fracture left femur with avulsion of the lesser trochanter. In the interval since the prior study an intramedullary meng and orthopedic fixation screw have been inserted into the left femur. The orthopedic hardware appears to be in good position and the main fracture fragments are near anatomic in alignment. Impression: Fluoroscopic assistance was provided for Dr. Ovalle. Dictated by: Dictated on workstation # [id number]
[2020-12-05] MEDS ORDERED: fentaNYL INJ 100 MCG/2 ML AMP IVP PRN (12:15)
[2020-12-05] MEDS ORDERED: LISI10TA25 PO (15:52)
[2020-12-05] MEDS ORDERED: MULT-1136 PO (15:52)
[2020-12-05] MEDS ORDERED: METO50TA7 PO (15:52)
[2020-12-05] MEDS ORDERED: LEVO112T55 PO (15:52)
[2020-12-05] MEDS: TAMSULOSIN 0.4 MG (FLOMAX) CAP PO SCH (18:28)
[2020-12-05] MEDS: ceFAZolin 2 GM IV Premixed 50 ML IV SCH (18:28)
[2020-12-05] MEDS: FAMOTIDINE 20 MG (PEPCID) TABLET PO SCH (20:08)
[2020-12-05] MEDS: ENOXAPARIN 40 MG/0.4 ML (LOVENOX) SYR SC SCH (23:05)
[2020-12-06] VITALS (7 sets, daily range): BP systolic 135–175; BP diastolic 64–82
[2020-12-06] MEDS: ceFAZolin 2 GM IV Premixed 50 ML IV SCH ×2 (02:55→10:19)
[2020-12-06] MEDS: LACTATED RINGERS 1,000 ML IV SCH ×3 (03:52→20:01)
[2020-12-06 05:34] LABS: HEMOGLOBIN 9.1 g/dL (13.3-17.7)
[2020-12-06] MEDS: lisINopril 20 MG (PRINIVIL) TABLET PO SCH (09:33)
[2020-12-06] MEDS: FAMOTIDINE 20 MG (PEPCID) TABLET PO SCH ×2 (09:33→20:19)
[2020-12-06] MEDS: meTOproloL SUCCINATE 50 MG (TOPROL XL) TAB PO SCH (09:33)
[2020-12-06] MEDS: LEVOTHYROXINE 112 MCG (LEVOTHROID) TAB PO SCH (09:33)
--- NOTE | 2020-12-06 09:49 | Progress Note - Ortho ---
Progress Note Subjective Date of Exam 12/06/20 Chief Complaint POD#1 Short TFN left hip for a three-part intertrochanteric fracture HPI/Events since last exam Mr. Coyle is 1 day postopShort TFN for a three-part intertrochanteric fracture. When I saw him he was up sitting in the chair and had just finished physical therapy. I talked to the therapist and she stated he had a moderate amount of pain which did limit his ability to ambulate. Knee is weightbearing as tolerated. Other than that,He states he is having no problems Review of Systems Reviewed and no additions or changes Allergies: Coded Allergies: No Known Drug Allergies (Unverified , 05/06/18) Home Meds Reported Medications Multivitamin (Multivitamin) 1 Each Tablet, 1 EACH PO DAILY, TAB 12/05/20 Metoprolol Succinate (Metoprolol Succinate) 50 Mg Tab.er.24h, 50 MG PO DAILY, TA B 12/05/20 Lisinopril (Lisinopril) 10 Mg Tablet, 10 MG PO DAILY, TAB 12/05/20 Levothyroxine Sodium (Levothyroxine Sodium) 112 Mcg Tablet, 112 MCG PO DAILY, TAB 12/05/20 Atorvastatin Calcium (Atorvastatin Calcium) 10 Mg Tablet, 10 MG PO DAILY, TAB 02/01/18 Discontinued Reported Medications [place] 3 Polyunsat Fatty Acids (Fish Oil 1,000 mg Capsule) 1,000 Mg Cap, 1000 MG PO BID, CAP 02/01/18 Multivitamin (Daily Multiple Vitamin) 1 Each Tablet, 1 TAB PO DAILY, TAB 02/01/18 Calcium Carbonate/Vitamin D3 (Calcium 500 + Vit D 200 Caplet) 1 Each Tablet, 1 TAB PO BID, TAB 02/01/18 Metoprolol Succinate (Metoprolol Succinate) 25 Mg Tab.er.24h, 25 MG PO HS, TAB 02/01/18 Levothyroxine Sodium (Levothyroxine Sodium) 112 Mcg Tablet, 112 MCG PO DAILY, TAB 07/15/17 Discontinued Scripts Hydrocodone/Acetaminophen (Lorcet 5-325 mg Tablet) 1 Each Tablet, 1-2 EACH PO Q4H PRN for PAIN, #20 TAB Prov:DEVEN HECTOR MD 05/11/18 Phenazopyridine HCl (Pyridium) 200 Mg Tablet, 1 TAB PO TID PRN for SPASMS, #15 TAB Prov:DEVEN HECTOR MD 05/11/18 Ciprofloxacin HCl (Cipro) 500 Mg Tablet, 500 MG PO BID, #14 TAB Prov:DEVEN HECTOR MD 05/11/18 Lisinopril (Lisinopril) 10 Mg Tablet, 10 MG PO DAILY@0900, #30 TAB 5 Refills Prov:SANJUANA GRAY DO 02/02/18 Objective Exam Constitutional: [] HEENT: [] Neck: [] Cardiovascular: [] Respiratory: [] Gastrointestinal: [] Genitourinary: [] Skin: [] Back/Spine: [] Extremities: [Dressing is intact.He can dorsiflex and plantarflex foot and ankle without any weakness. Normal sensation to the foot and toes. Equal pulses. No calf tenderness and negative Homans.] Neurologic: [] Psychiatric: [] Hematologic/lymphatic/immunologic: [] Vital Signs Vital Signs Date Time Temp Pulse Resp B/P (MAP) Pulse Ox O2 Delivery O2 Flow Rate FiO2 12/06/20 08:00 36.8 69 18 175/82 (113) 93 Room Air 12/06/20 08:00 Room Air 12/06/20 07:00 78 12/06/20 03:54 36.8 69 18 158/81 (106) 100 Room Air 12/06/20 01:00 71 12/05/20 23:24 98 Room Air 12/05/20 23:03 36.8 67 18 143/69 (93) 98 Room Air 12/05/20 20:00 Room Air 12/05/20 19:00 36.6 80 18 142/67 (92) 99 Room Air 12/05/20 19:00 87 12/05/20 15:56 36.2 63 18 139/67 (91) 99 Room Air 12/05/20 15:22 Nasal Cannula 1.00 12/05/20 12:56 35.5 66 146/73 (97) 100 Nasal Cannula 1.00 12/05/20 12:25 36.4 12 139/71 (93) 98 Nasal Cannula 2 12/05/20 12:25 Nasal Cannula 4 12/05/20 12:20 12 139/71 (93) 98 Nasal Cannula 2 12/05/20 12:20 Nasal Cannula 4 12/05/20 12:10 15 129/74 (92) 100 Nasal Cannula 4 12/05/20 12:05 Nasal Cannula 4 12/05/20 12:00 12 104/67 (79) 100 Nasal Cannula 4 12/05/20 11:50 15 107/67 (80) 100 Nasal Cannula 4 12/05/20 11:50 Nasal Cannula 4 12/05/20 11:40 16 99/63 (75) 100 OxyMask 5 12/05/20 11:35 OxyMask 5 12/05/20 11:30 14 112/63 (79) 100 OxyMask 5 12/05/20 11:24 OxyMask 10 12/05/20 11:24 36.3 14 102/50 (67) 99 OxyMask 10 I & O 12/06/20 07:00 Intake Total 4335 ml Output Total 3550 ml Balance 785 ml Lab Results Laboratory Tests 12/06/20 05:03: Hemoglobin 9.1#L, Hematocrit 27L Microbiology 12/05/20 MRSA Screen - Final, Complete MRSA not isolated Assessment and Plan Assessment Doing well first day postop Problem List Unchanged Plan Continue with physical therapy, walker ambulation weight-bear as tolerated on the left. Hemoglobin this morning was 9.1. Has repeat hemoglobin In the a.m. x2. Dressing change tomorrow Final Diagonsis Three-part intertrochanteric fracture left hip status post short TFN Level of the visit: Level 3 DONATO MUNGUIA MD Dec 06, 2020 09:49
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
--- NOTE | 2020-12-06 10:42 | Anesthesia-General Post-Op ---
General Patient Condition Mental Status/LOC: Same as Preop Cardiovascular: Satisfactory Nausea/Vomiting: Absent Respiratory: Satisfactory Pain: Controlled Complications: Absent Post Op Complications Complications None Follow Up Care/Instructions Patient Instructions None needed. Anesthesia/Patient Condition Patient Condition Patient is doing well, no complaints, stable vital signs, no apparent adverse anesthesia problems. No complications reported per nursing. STARLA NIETO CRNA Dec 06, 2020 10:42
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
--- NOTE | 2020-12-06 11:52 | Physical Therapy Daily Note ---
PT Daily Note-Current Subjective Patient reports unrated pain in L quad during hip flexion and knee extension. Patient consents to PT. Pain Numeric Pain Scale: 10-Worst Possible Pain Location: Left Location Body Site: Thigh Pain Description: Acute Appearance Patient was upright in chair, with call button within reach, and tray table positioned beside him post tx. Mental Status Patient Orientation: Normal For Age Attachments: Jamison Catheter, IV Transfers SCALE: Activities may be completed with or without assistive devices. 9-Uwtdfckpun-ysfiotw completes the activity by him/herself with no assistance from a helper. 5-Set-up or Clean-up Assistance-helper sets up or cleans up; patient completes activity. [place] assists only prior to or following the activity. 4-Supervision or Touching Assistance-helper provides verbal cues and/or touching/steadying and/or contact guard assistance as patient completes activity. Assistance may be provided throughout the activity or intermittently. 3-Partial/Moderate Assistance-helper does LESS THAN HALF the effort. [place] lifts, holds or supports trunk or limbs, but provides less than half the effort. 2-Substantial/Maximal Assistance-helper does MORE THAN HALF the effort. [place] lifts or holds trunk or limbs and provides more than half the effort. 7-Ldbmojgnx-ernqln does ALL the effort. Patient does none of the effort to complete the activity. Or, the assistance of 2 or more helpers is required for the patient to complete the activity. If activity was not attempted, code reason: 7-Patient Refused. 9-Not Applicable-not attempted and the patient did not perform the activity before the current illness, exacerbation or injury. 10-Not Attempted due to Environmental Limitations-(lack of equipment, weather restraints, etc.). 88-Not Attempted due to Medical Conditions or Safety Concerns. Sit to Stand (QC): 3 Min to CGA x1. Patient was able to perform sit <-> stand transfer slowly, but with less assistance required from previous treatment session earlier this morning. Weight Bearing Right Lower Extremity: Right Full Weight Bearing Left Lower Extremity: Left Weight Bearing/Tolerated Gait Training Distance: 10 Walk 10 feet (QC): 3 Gait Assistive Device: FWW Patient requires Min - CGA x1. Gait is slow and mildly unsteady. Patient is not confident with weight shifts, and has difficulty weight-bearing through the L LE . Patient also notes quad tenderness/spasm that is preventing him from moving L LE through gait cycle. Patient requires frequent rest breaks, and utilizes an antalgic, step-to gait pattern. Patient was able to ambulate a few more steps this afternoon. Exercises Seated Therapy Exercises: Long arc quads, Hip flexion (5 reps onto PF toes to simulate hip raise) Seated Reps: 15 Patient is slow with exercise repetitions, and guards movements secondary to francisco n. Assessment Current Status: Fair Progress Improve LE strength, functional mobility, and endurance to allow safe return home to spouse. PT Nursing Home Goals Bread Wrapper Goals PT Nursing Home Goals Time Frame: Dec 20, 2020 Roll Left & Right (QC): 6 Sit to Lying (QC): 6 Lying-Sitting on Side/Bed(QC): 6 Sit to Stand (QC): 6 Chair/Mpf-yc-Kmltq Xfer(QC): 6 Toilet Transfer (QC): 6 Car Transfer (QC): 6 Does the Patient Walk: Yes Walk 10 feet (QC): 6 Walk 50ft with 2 Turns (QC): 6 Walk 150 ft (QC): 6 1 Step (curb) (QC): 6 PT Plan Problem List Problem List: Activity Tolerance, Functional Strength, Safety, Balance, Gait, ROM Treatment/Plan Treatment Plan: Continue Plan of Care Treatment Plan: Bed Mobility, Education, Functional Activity Jose, Functional Strength, Gait, Therapeutic Exercise, Transfers Treatment Duration: Dec 20, 2020 Frequency: 11 times per week Estimated Hrs Per Day: .5 hour per day Patient and/or Family Agrees t: Yes Time/GCodes Time In: 1125 Time Out: 1148 Total Billed Treatment Time: 23 Total Billed Treatment 1 visit: GT: 13' EX: 10' CORONA ZAMBRANO PT Dec 06, 2020 11:52
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
[2020-12-06] MEDS: TAMSULOSIN 0.4 MG (FLOMAX) CAP PO SCH (17:36)
[2020-12-06] MEDS: ENOXAPARIN 40 MG/0.4 ML (LOVENOX) SYR SC SCH (23:37)
[2020-12-07] MEDS: LACTATED RINGERS 1,000 ML IV SCH (04:34)
[2020-12-07 04:44] VITALS: BP 101/79
[2020-12-07 04:55] LABS: HEMOGLOBIN 8.6 g/dL (13.3-17.7)
[2020-12-07 08:00] VITALS: BP 157/71
[2020-12-07] MEDS: lisINopril 20 MG (PRINIVIL) TABLET PO SCH (08:22)
[2020-12-07] MEDS: FAMOTIDINE 20 MG (PEPCID) TABLET PO SCH (08:22)
[2020-12-07] MEDS: meTOproloL SUCCINATE 50 MG (TOPROL XL) TAB PO SCH (08:23)
[2020-12-07] MEDS: LEVOTHYROXINE 112 MCG (LEVOTHROID) TAB PO SCH (08:23)
--- NOTE | 2020-12-07 08:31 | Discharge Summary ---
Diagnosis/Chief Complaint Date of Admission Dec 04, 2020 at 18:08 Date of Discharge Discharge Date: Dec 07, 2020 Primary Care Katy Velez DO Discharge Diagnosis (1) Hypothyroidism Status: Chronic (2) Hypertension Status: Chronic (3) Closed left hip fracture Status: Acute (4) BPH (benign prostatic hyperplasia) Status: Chronic (5) Hyperlipidemia Status: Chronic Discharge Summary Procedures/Consulations Ortho Discharge Physical Exam Allergies: Coded Allergies: No Known Drug Allergies (Unverified , 05/06/18) Vitals & I&Os Vital Signs Date Time Temp Pulse Resp B/P (MAP) Pulse Ox O2 Delivery O2 Flow Rate FiO2 12/07/20 08:00 36.7 77 16 157/71 (99) 100 Room Air 12/05/20 15:22 1.00 General Appearance: No Apparent Distress, Chronically ill Cardiovascular: Regular Rate, Rhythm, No Murmur Neurologic/Psychiatric: Alert, Oriented x3 Hospital Course Pt was admitted to the hospital due to left hip fracture. He underwent operative repair and did well postoperatively. He was seen by PT/OT and was deemed an appropriate candidate for IRU. He was discharged there in stable condition for continued intensive therapy. Labs (last 24 hrs) Laboratory Tests 12/07/20 04:40: Hemoglobin 8.6L, Hematocrit 26L Microbiology 12/05/20 MRSA Screen - Final, Complete MRSA not isolated Patient resulted labs reviewed. Pending Labs Discussion & Recommendations Discharge Planning: >30 minutes discharge planning Discharge Home Medications: Active Scripts Active Reported Multivitamin 1 Each Tablet 1 Each PO DAILY Metoprolol Succinate 50 Mg Tab.er.24h 50 Mg PO DAILY Lisinopril 10 Mg Tablet 10 Mg PO DAILY Levothyroxine Sodium 112 Mcg Tablet 112 Mcg PO DAILY Atorvastatin Calcium 10 Mg Tablet 10 Mg PO DAILY Instructions to patient/family Please see electronic discharge instructions given to patient. BEA MARC MD Dec 07, 2020 08:31
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
== END 2020-12-07 10:10 | DRG 482 ==
LOC: EDUNIT# 16:24 → ER 16:28 → 4TH 18:08
PROVIDERS: ADMIT Family Medicine; ATTEND Family Medicine
PROC: 0QS734Z Reposition Left Upper Femur with Internal Fixation Device, Percutaneous Approach (ICD-10-PCS; principal; 2020-12-05 10:02)
DX: S72.145A Nondisplaced intertrochanteric fracture of left femur, initial encounter for closed fracture (principal); E78.00 Pure hypercholesterolemia, unspecified; I10 Essential (primary) hypertension; N40.0 Benign prostatic hyperplasia without lower urinary tract symptoms; K21.9 Gastro-esophageal reflux disease without esophagitis; M19.90 Unspecified osteoarthritis, unspecified site; E03.9 Hypothyroidism, unspecified; F03.90 Unspecified dementia, unspecified severity, without behavioral disturbance, psychotic disturbance, mood disturbance, and anxiety; V19.9XXA Pedal cyclist (driver) (passenger) injured in unspecified traffic accident, initial encounter; Z87.891 Personal history of nicotine dependence
CPT/HCPCS: 36415; 71045; 76000; 80053; 81000; 85014; 85018; 85025; 87081; 94664; 94760

== ENCOUNTER 2020-12-07 10:25 | Inpatient (IN) | payer MEDICARE, OTHER ==
[~2020-12-07] VITALS: Ht 175.3 cm; Wt 76.2 kg
[~2020-12-07 10:25] MED LIST changes: +ALPRAZolam 0.25 MG (XANAX) TAB PO PRN; +BISACODYL 10 MG SUPP (DULCOLAX) PR PRN; +CALCIUM CARBONATE 500 MG (TUMS) TAB.CHEW PO PRN; +DOCUSATE SODIUM 100 MG (COLACE) CAP PO PRN; +FLEET ENEMA ADULT 1 EA BTL PR PRN; +LOPERAMIDE 2 MG (IMODIUM) TABLET PO PRN; +METO50TA7 PO; +MULT-1136 PO; +ONDANSETRON 4 MG (ZOFRAN) ORAL DISSOLVE TAB PO PRN; +diphenhydrAMINE 25 MG TAB (BENADRYL) PO PRN; +guaiFENesin/CODEINE (ROBITUSSIN AC) 10ML UDC PO PRN
[2020-12-07 10:30] VITALS: BP 130/82
[2020-12-07] MEDS: polyethylene glycoL POWDER 17 GM (MIRALAX) PACK PO SCH ×2 (10:33→20:43)
[2020-12-07] MEDS: SENNA W/DOCUSATE (SENOKOT S) TABLET PO SCH ×3 (10:33→20:39)
[2020-12-07] MEDS: DOCUSATE SODIUM 100 MG (COLACE) CAP PO SCH ×2 (10:33→20:39)
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
[2020-12-07] MEDS ORDERED: ONDANSETRON 4 MG/2 ML (SDV) Z0FRAN IV PRN (11:30)
[2020-12-07] MEDS ORDERED: CATHETER FLUSH 10 ML SYR IV PRN (11:30)
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
[2020-12-07 16:16] VITALS: BP 133/76
[2020-12-07] MEDS: TAMSULOSIN 0.4 MG (FLOMAX) CAP PO SCH (17:52)
[2020-12-07] MEDS: FAMOTIDINE 20 MG (PEPCID) TABLET PO SCH (20:39)
[2020-12-07] MEDS: ENOXAPARIN 40 MG/0.4 ML (LOVENOX) SYR SC SCH (22:20)
[2020-12-08 05:10] VITALS: BP 151/67
[2020-12-08 05:55] LABS: BASOPHILS % (AUTO) 1 % (0-10); EOSINOPHILS # (AUTO) 0.1 10^3/uL (0.0-0.3); EOSINOPHILS % (AUTO) 1 % (0-10); HEMATOCRIT 23 % (40-54); HEMOGLOBIN 7.7 g/dL (13.3-17.7); LYMPHOCYTES # (AUTO) 2.1 10^3/uL (1.0-4.0); LYMPHOCYTES % (AUTO) 24 % (12-44); MEAN CORPUSCULAR HEMOGLOBIN 32 pg (25-34); MEAN CORPUSCULAR HGB CONC 33 g/dL (32-36); MEAN CORPUSCULAR VOLUME 96 fL (80-99); MEAN PLATELET VOLUME 9.1 fL (9.0-12.2); MONOCYTES # (AUTO) 0.9 10^3/uL (0.0-1.0); MONOCYTES % (AUTO) 10 % (0-12); NEUTROPHILS # (AUTO) 5.4 10^3/uL (1.8-7.8); NEUTROPHILS % (AUTO) 63 % (42-75); PLATELET COUNT 168 10^3/uL (130-400); WHITE BLOOD COUNT 8.5 10^3/uL (4.3-11.0)
[2020-12-08 06:08] LABS: ALBUMIN 3.1 GM/DL (3.2-4.5); CHLORIDE 102 MMOL/L (98-107); POTASSIUM 3.9 MMOL/L (3.6-5.0); SODIUM 135 MMOL/L (135-145)
[2020-12-08 06:09] LABS: CALCIUM 8.2 MG/DL (8.5-10.1)
[2020-12-08 06:10] LABS: GLUCOSE 109 MG/DL (70-105); TOTAL PROTEIN 5.6 GM/DL (6.4-8.2)
[2020-12-08 06:11] LABS: CARBON DIOXIDE 24 MMOL/L (21-32)
[2020-12-08 06:12] LABS: BILIRUBIN,TOTAL 0.6 MG/DL (0.1-1.0)
[2020-12-08 06:14] LABS: ALKALINE PHOSPHATASE 48 U/L (40-136); CREATININE SERUM 0.72 MG/DL (0.60-1.30); GFR ESTIMATED > 60
[2020-12-08 06:15] LABS: BUN/CREATININE RATIO 17
[2020-12-08 06:17] LABS: ALANINE AMINOTRANSFERASE 17 U/L (0-55)
--- NOTE | 2020-12-08 07:19 | PM&R Progress Note ---
Subjective HPI/CC On Admission Date Seen by Provider: Dec 08, 2020 Time Seen by Provider: 13:30 Subjective/Events-last exam 12/08/20: Patient doing well Increase pain when moved left leg Difficulty ambulating Hgb low so will give 1 unit of blood today and Venofer iron infusions Baclofen will be given for muscle spasms Checked meds and labs Review of Systems General: Fatigue, Malaise Musculoskeletal: leg pain Objective Exam Vital Signs Vital Signs Date Time Temp Pulse Resp B/P (MAP) Pulse Ox O2 Delivery O2 Flow Rate FiO2 12/08/20 17:05 37.4 76 16 169/76 (107) 97 Room Air Capillary Refill : General Appearance: No Apparent Distress, WD/WN, Chronically ill, Obese HEENT: PERRL/EOMI, Normal ENT Inspection, Pharynx Normal Neck: Full Range of Motion, Normal Inspection, Non Tender, Supple, Carotid Bruit Respiratory: Chest Non Tender, Lungs Clear, Normal Breath Sounds, No Accessory Muscle Use, No Respiratory Distress Cardiovascular: Regular Rate, Rhythm, No Edema, No Gallop, No JVD, No Murmur, Normal Peripheral Pulses Gastrointestinal: Normal Bowel Sounds, No Organomegaly, No Pulsatile Mass, Non Tender, Soft Back: Normal Inspection, No CVA Tenderness, No Vertebral Tenderness Extremity: Normal Capillary Refill, Normal Inspection, Normal Range of Motion (except left leg), Non Tender, No Calf Tenderness, No Pedal Edema Neurologic/Psychiatric: Alert, Oriented x3, No Motor/Sensory Deficits, Normal Mood/Affect, Disoriented (poor recall) Skin: Normal Color, Warm/Dry Lymphatic: No Adenopathy Results/Procedures Lab Laboratory Tests 12/08/20 05:44 Patient resulted labs reviewed. FIM Transfers Therapy Code Descriptions/Definitions Functional Friendship Measure: 0=Not Assessed/NA 4=Minimal Assistance 1=Total Assistance 5=Supervision or Setup 2=Maximal Assistance 6=Modified [place] 3=Moderate Assistance 7=Complete IndependenceSCALE: Activities may be completed with or without assistive devices. 4-Mtghlggvzp-nccodbz completes the activity by him/herself with no assistance from a helper. 5-Set-up or Clean-up Assistance-helper sets up or cleans up; patient completes activity. [place] assists only prior to or following the activity. 4-Supervision or Touching Assistance-helper provides verbal cues and/or touching/steadying and/or contact guard assistance as patient completes activity. Assistance may be provided throughout the activity or intermittently. 3-Partial/Moderate Assistance-helper does LESS THAN HALF the effort. [place] lifts, holds or supports trunk or limbs, but provides less than half the effort. 2-Substantial/Maximal Assistance-helper does MORE THAN HALF the effort. [place] lifts or holds trunk or limbs and provides more than half the effort. 8-Gcuoydmoo-saicyh does ALL the effort. Patient does none of the effort to complete the activity. Or, the assistance of 2 or more helpers is required for the patient to complete the activity. If activity was not attempted, code reason: 7-Patient Refused. 9-Not Applicable-not attempted and the patient did not perform the activity before the current illness, exacerbation or injury. 10-Not Attempted due to Environmental Limitations-(lack of equipment, weather restraints, etc.). 88-Not Attempted due to Medical Conditions or Safety Concerns. Roll Left to Right (QC): 2 Sit to Lying (QC): 1 Sit to Stand (QC): 2 Chair/Qtn-gx-Rgthf Xfer(QC): 88 Car Transfer (QC): 88 Gait Training Does the Patient Walk?: Yes Walk 10 feet (QC): 88 Walk 50 ft with 2 Turns(QC): 88 Walk 150 ft (QC): 88 Walking 10ft/uneven surface-QC: 88 Gait Assistive Device: FWW Wheelchair Training Does the Pt Use a Wheelchair?: No Wheel 50 ft with 2 turns (QC): 9 Wheel 150 ft (QC): 9 Stair Training #of Steps: 0 1 Step (curb) (QC): 88 4 Steps (QC): 88 12 Steps (QC): 88 Balance Picking up an Object (QC): 88 Assessment/Plan Assessment and Plan Assess & Plan/Chief Complaint Assessment: s/p left hip fracture Post op anemia from acute blood loss requiring iron infusions and transfusion 1 unit of blood 12/08/20 HTN Hypothyroidism s/p altman cath DC Plan: Monitor pain Monitor confusion Fall risk 12/08/20: Transfuse 1 unit of blood Venofer Pain control Baclofen (1) Closed left hip fracture Status: Acute (2) BPH (benign prostatic hyperplasia) Status: Chronic (3) Hypertension Status: Chronic (4) Hypothyroidism Status: Chronic (5) Hyperlipidemia Status: Chronic SANJUANA GRAY DO Dec 08, 2020 07:19
[2020-12-08] MEDS: lisINopril 20 MG (PRINIVIL) TABLET PO SCH (08:36)
[2020-12-08] MEDS: DOCUSATE SODIUM 100 MG (COLACE) CAP PO SCH ×2 (08:36→20:05)
[2020-12-08] MEDS: SENNA W/DOCUSATE (SENOKOT S) TABLET PO SCH ×2 (08:36→20:05)
[2020-12-08] MEDS: meTOproloL SUCCINATE 50 MG (TOPROL XL) TAB PO SCH (08:36)
[2020-12-08] MEDS: FAMOTIDINE 20 MG (PEPCID) TABLET PO SCH ×2 (08:36→20:05)
[2020-12-08] MEDS: LEVOTHYROXINE 112 MCG (LEVOTHROID) TAB PO SCH (08:36)
[2020-12-08] MEDS: polyethylene glycoL POWDER 17 GM (MIRALAX) PACK PO SCH ×2 (08:37→20:06)
[2020-12-08 08:42] VITALS: BP 129/65
[2020-12-08] MEDS ORDERED: NS IV 500 ML 500 ML IV SCH ×2 (13:00)
[2020-12-08] MEDS: BACLOFEN 10 MG (LIORESAL) TAB PO SCH ×2 (13:27→20:05)
[2020-12-08 14:07] VITALS: BP 135/81
[2020-12-08 14:28] VITALS: BP 131/87
[2020-12-08] MEDS ORDERED: PATIENT MAY USE OWN MED,SINGLE MED TP PRN (15:30)
[2020-12-08 17:00] VITALS: BP 169/76
[2020-12-08 17:05] VITALS: BP 169/76
[2020-12-08] MEDS: TAMSULOSIN 0.4 MG (FLOMAX) CAP PO SCH (17:10)
[2020-12-08] MEDS: LACTULOSE SYRUP 10GM/15ML (ENULOSE) 30ML UDC PO PRN (17:13)
[2020-12-08] MEDS: [UNRECOGNIZED DRUG - REMARK] TOP PRN (17:46)
[2020-12-08] MEDS: ENOXAPARIN 40 MG/0.4 ML (LOVENOX) SYR SC SCH (22:37)
[2020-12-09 05:27] VITALS: BP 158/83
[2020-12-09 06:22] LABS: BASOPHILS # (AUTO) 0.1 10^3/uL (0.0-0.1); BASOPHILS % (AUTO) 1 % (0-10); EOSINOPHILS # (AUTO) 0.2 10^3/uL (0.0-0.3); EOSINOPHILS % (AUTO) 2 % (0-10); HEMATOCRIT 27 % (40-54); HEMOGLOBIN 9.4 g/dL (13.3-17.7); LYMPHOCYTES % (AUTO) 23 % (12-44); MEAN CORPUSCULAR HEMOGLOBIN 32 pg (25-34); MEAN CORPUSCULAR HGB CONC 35 g/dL (32-36); MEAN CORPUSCULAR VOLUME 92 fL (80-99); MEAN PLATELET VOLUME 9.1 fL (9.0-12.2); MONOCYTES # (AUTO) 0.9 10^3/uL (0.0-1.0); MONOCYTES % (AUTO) 11 % (0-12); NEUTROPHILS # (AUTO) 5.6 10^3/uL (1.8-7.8); NEUTROPHILS % (AUTO) 63 % (42-75); PLATELET COUNT 196 10^3/uL (130-400); WHITE BLOOD COUNT 8.8 10^3/uL (4.3-11.0)
[2020-12-09 06:39] LABS: ALBUMIN 3.2 GM/DL (3.2-4.5); CHLORIDE 101 MMOL/L (98-107); POTASSIUM 4.2 MMOL/L (3.6-5.0); SODIUM 134 MMOL/L (135-145)
[2020-12-09 06:41] LABS: CALCIUM 8.4 MG/DL (8.5-10.1)
[2020-12-09 06:42] LABS: GLUCOSE 106 MG/DL (70-105); TOTAL PROTEIN 6.2 GM/DL (6.4-8.2)
[2020-12-09 06:43] LABS: CARBON DIOXIDE 24 MMOL/L (21-32)
[2020-12-09 06:44] LABS: BILIRUBIN,TOTAL 0.7 MG/DL (0.1-1.0)
[2020-12-09 06:45] LABS: ALKALINE PHOSPHATASE 46 U/L (40-136); CREATININE SERUM 0.71 MG/DL (0.60-1.30); GFR ESTIMATED > 60
[2020-12-09 06:46] LABS: BUN/CREATININE RATIO 14
[2020-12-09 06:48] LABS: ALANINE AMINOTRANSFERASE 26 U/L (0-55)
[2020-12-09] MEDS: DOCUSATE SODIUM 100 MG (COLACE) CAP PO SCH ×2 (07:32→21:46)
[2020-12-09] MEDS: polyethylene glycoL POWDER 17 GM (MIRALAX) PACK PO SCH ×2 (07:32→21:45)
[2020-12-09] MEDS: LEVOTHYROXINE 112 MCG (LEVOTHROID) TAB PO SCH (07:33)
[2020-12-09] MEDS: lisINopril 20 MG (PRINIVIL) TABLET PO SCH (07:33)
[2020-12-09] MEDS: meTOproloL SUCCINATE 50 MG (TOPROL XL) TAB PO SCH (07:33)
[2020-12-09] MEDS: FAMOTIDINE 20 MG (PEPCID) TABLET PO SCH ×2 (07:33→21:48)
[2020-12-09] MEDS: IRON SUCROSE 200 MG/10 ML (VENOFER) VIAL IV SCH (07:36)
[2020-12-09] MEDS: SENNA W/DOCUSATE (SENOKOT S) TABLET PO SCH ×2 (07:36→21:46)
[2020-12-09] MEDS: BACLOFEN 10 MG (LIORESAL) TAB PO SCH ×3 (07:39→21:46)
--- NOTE | 2020-12-09 08:40 | PM&R Progress Note ---
Subjective HPI/CC On Admission Date Seen by Provider: Dec 09, 2020 Time Seen by Provider: 10:30 Subjective/Events-last exam 12/09/20: Pt doing okay Was on commode but seen after done Laxatives given since unknown when his last BM was Dementia is precluding details 12/08/20: Patient doing well Increase pain when moved left leg Difficulty ambulating Hgb low so will give 1 unit of blood today and Venofer iron infusions Baclofen will be given for muscle spasms Checked meds and labs Review of Systems General: Fatigue, Malaise Musculoskeletal: leg pain Objective Exam Vital Signs Vital Signs Date Time Temp Pulse Resp B/P (MAP) Pulse Ox O2 Delivery O2 Flow Rate FiO2 12/09/20 21:00 Room Air 12/09/20 18:00 36.2 81 18 144/66 (92) 98 Capillary Refill : General Appearance: No Apparent Distress, WD/WN, Chronically ill, Obese HEENT: PERRL/EOMI, Normal ENT Inspection, Pharynx Normal Neck: Full Range of Motion, Normal Inspection, Non Tender, Supple, Carotid Bruit Respiratory: Chest Non Tender, Lungs Clear, Normal Breath Sounds, No Accessory Muscle Use, No Respiratory Distress Cardiovascular: Regular Rate, Rhythm, No Edema, No Gallop, No JVD, No Murmur, Normal Peripheral Pulses Gastrointestinal: Normal Bowel Sounds, No Organomegaly, No Pulsatile Mass, Non Tender, Soft Back: Normal Inspection, No CVA Tenderness, No Vertebral Tenderness Extremity: Normal Capillary Refill, Normal Inspection, Normal Range of Motion (except left leg), Non Tender, No Calf Tenderness, No Pedal Edema Neurologic/Psychiatric: Alert, Oriented x3, No Motor/Sensory Deficits, Normal Mood/Affect, Disoriented (poor recall) Skin: Normal Color, Warm/Dry Lymphatic: No Adenopathy Results/Procedures Lab Laboratory Tests 12/09/20 05:51 Patient resulted labs reviewed. FIM Transfers Therapy Code Descriptions/Definitions Functional [place] Measure: 0=Not Assessed/NA 4=Minimal Assistance 1=Total Assistance 5=Supervision or Setup 2=Maximal Assistance 6=Modified [place] 3=Moderate Assistance 7=Complete IndependenceSCALE: Activities may be completed with or without assistive devices. 4-Lymabqelod-cbdntbh completes the activity by him/herself with no assistance from a helper. 5-Set-up or Clean-up Assistance-helper sets up or cleans up; patient completes activity. [place] assists only prior to or following the activity. 4-Supervision or Touching Assistance-helper provides verbal cues and/or touching/steadying and/or contact guard assistance as patient completes activity. Assistance may be provided throughout the activity or intermittently. 3-Partial/Moderate Assistance-helper does LESS THAN HALF the effort. [place] lifts, holds or supports trunk or limbs, but provides less than half the effort. 2-Substantial/Maximal Assistance-helper does MORE THAN HALF the effort. [place] lifts or holds trunk or limbs and provides more than half the effort. 2-Gtnlvsory-onzftj does ALL the effort. Patient does none of the effort to complete the activity. Or, the assistance of 2 or more helpers is required for the patient to complete the activity. If activity was not attempted, code reason: 7-Patient Refused. 9-Not Applicable-not attempted and the patient did not perform the activity before the current illness, exacerbation or injury. 10-Not Attempted due to Environmental Limitations-(lack of equipment, weather restraints, etc.). 88-Not Attempted due to Medical Conditions or Safety Concerns. Roll Left to Right (QC): 2 Sit to Lying (QC): 1 Sit to Stand (QC): 2 Chair/Sgb-pm-Rmnis Xfer(QC): 88 Car Transfer (QC): 88 Gait Training Does the Patient Walk?: Yes Walk 10 feet (QC): 88 Walk 50 ft with 2 Turns(QC): 88 Walk 150 ft (QC): 88 Walking 10ft/uneven surface-QC: 88 Gait Assistive Device: FWW Wheelchair Training Does the Pt Use a Wheelchair?: No Wheel 50 ft with 2 turns (QC): 9 Wheel 150 ft (QC): 9 Stair Training #of Steps: 0 1 Step (curb) (QC): 88 4 Steps (QC): 88 12 Steps (QC): 88 Balance Picking up an Object (QC): 88 Assessment/Plan Assessment and Plan Assess & Plan/Chief Complaint Assessment: s/p left hip fracture Post op anemia from acute blood loss requiring iron infusions and transfusion 1 unit of blood 12/08/20 HTN Hypothyroidism s/p altman cath DC Plan: Monitor pain Monitor confusion Fall risk 12/08/20: Transfuse 1 unit of blood Venofer Pain control Baclofen 12/09/20: Monitor hgb Pain control (1) Closed left hip fracture Status: Acute (2) BPH (benign prostatic hyperplasia) Status: Chronic (3) Hypertension Status: Chronic (4) Hypothyroidism Status: Chronic (5) Hyperlipidemia Status: Chronic SANJUANA GRAY DO Dec 09, 2020 08:40
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
--- NOTE | 2020-12-09 09:53 | Physical Therapy Daily Note ---
PT Daily Note-Current Subjective Patient reports 8/10 pain upon arrival. Patient laying supine in bed pre tx. Patient noted he was not sure if he had moved very much the previous day. Patient consented to therapy. Appearance Patient seated upright in chair, with call button nearby and tray table placed in front of patient. Mental Status Patient Orientation: Person, Place, Time, Normal For Age Attachments: IV Transfers SCALE: Activities may be completed with or without assistive devices. 1-Grmbhxktya-pksdqkz completes the activity by him/herself with no assistance from a helper. 5-Set-up or Clean-up Assistance-helper sets up or cleans up; patient completes activity. [place] assists only prior to or following the activity. 4-Supervision or Touching Assistance-helper provides verbal cues and/or touching/steadying and/or contact guard assistance as patient completes activity. Assistance may be provided throughout the activity or intermittently. 3-Partial/Moderate Assistance-helper does LESS THAN HALF the effort. [place] lifts, holds or supports trunk or limbs, but provides less than half the effort. 2-Substantial/Maximal Assistance-helper does MORE THAN HALF the effort. [place] lifts or holds trunk or limbs and provides more than half the effort. 0-Falvbkigf-blckbl does ALL the effort. Patient does none of the effort to complete the activity. Or, the assistance of 2 or more helpers is required for the patient to complete the activity. If activity was not attempted, code reason: 7-Patient Refused. 9-Not Applicable-not attempted and the patient did not perform the activity before the current illness, exacerbation or injury. 10-Not Attempted due to Environmental Limitations-(lack of equipment, weather restraints, etc.). 88-Not Attempted due to Medical Conditions or Safety Concerns. Roll Left & Right (QC): 3 Lying to Sitting/Side of Bed(Q: 3 Sit to Stand (QC): 1 Chair/Khc-yz-Cehdx Xfer(QC): 1 Toilet Transfer (QC): 1 Patient requires Max A x2 with transfers. Patient guards all movements secondary to pain complaints, and reports "weakness in both quads." Patient able to take a few turning steps during chair, toilet, and w/c transfers, but requires assistance with maintaining balance and weght-bearing when upright. During sit <-> stand transfer, patient winces, moans, and fidgets. Weight Bearing Left Lower Extremity: Left Weight Bearing/Tolerated Gait Training Does the Patient Walk?: No and Walking Goal IS indicated Distance: 1' Gait Persons Needed: 2 Gait Assistive Device: FWW Patient unable to take more than 1 step with ambulation. Patient self-limits due to pain and self-reported weakness. Patient also complains of weakness in bilateral UE's. Patient will not fully exhibit hip extension when standing, and is limited by excessive hip flexion with anterior COG and that makes it difficult for patient to move bilateral extremities forward. Patient does not tolerate standing position for greater than 20-30 seconds, and requests a break often. Patient attempted ambulation 3 times. Wheelchair Training Does the Pt Use a Wheelchair?: Yes Wheel 50 ft with 2 turns (QC): 4 Type of Wheelchair: Manual 120'x4 Treatments Co-treated with OT secondary to patient decreased mobility, weakness, and level of assistance required with ADL's and funcitonal activity and severe pain with activity, coordinate UE and LE during activity, safety and reduce risk of falls. PT focused on transfers to prime ambulation and with toileting, balance and weight shifting with standing, and functional mobility during session. OT focused on ADL's including bathing and dressing, UE strength for w/c and walker mobility, and energy conservation techniques. Assessment Current Status: Poor Progress Patient self-limits activity secondary to pain and weakness with all functional mobility requirements of hip. Patient will benefit from interventions involving LE strengthening, balance, and functional endurance to return to PLOF and maintain safety at home. PT Tank Stave Assembler Goals Senior Care Goals PT Senior Care Goals Time Frame: Dec 28, 2020 Roll Left & Right (QC): 5 Sit to Lying (QC): 5 Lying-Sitting on Side/Bed(QC): 5 Sit to Stand (QC): 5 Chair/Klg-pn-Qahgq Xfer(QC): 5 Toilet Transfer (QC): 5 Car Transfer (QC): 5 Does the Patient Walk: Yes Walk 10 feet (QC): 5 Walk 50ft with 2 Turns (QC): 5 Walk 150 ft (QC): 5 Walking 10ft on Uneven Surface: 5 1 Step (curb) (QC): 5 4 Steps (QC): 4 12 Steps (QC): 4 Picking up an Object (QC): 4 Wheel 50 feet with 2 turns (QC: 9 Wheel 150 feet: 9 PT Plan Problem List Problem List: Activity Tolerance, Functional Strength, Safety, Balance, Gait, Transfer, Bed Mobility, ROM Treatment/Plan Treatment Plan: Continue Plan of Care Treatment Plan: Bed Mobility, Education, Functional Activity Jose, Functional Strength, Group Therapy, Gait, Safety, Therapeutic Exercise, Transfers Treatment Duration: Dec 28, 2020 Frequency: At least 5 of 7 days/Wk (IRF) Estimated Hrs Per Day: 1.5 hours per day Patient and/or Family Agrees t: Yes Safety Risks/Education Patient Education: Gait Training, Transfer Techniques, Correct Positioning, Safety Issues Teaching Recipient: Patient Teaching Methods: Demonstration, Discussion Response to Teaching: Verbalize Understanding, Reinforcement Needed Time/GCodes Time In: 0800 Time Out: 929 Total Billed Treatment Time: 90 Total Billed Treatment 1 visit: FA 90' co-treated with OT for the whole ' JAZMIN DIEGO PT Dec 09, 2020 09:52
[2020-12-09 18:00] VITALS: BP 144/66
[2020-12-09] MEDS: TAMSULOSIN 0.4 MG (FLOMAX) CAP PO SCH (18:11)
[2020-12-09] MEDS: MELATONIN 3 MG TABLET PO PRN (21:47)
[2020-12-09] MEDS: ENOXAPARIN 40 MG/0.4 ML (LOVENOX) SYR SC SCH (22:04)
[2020-12-10 06:47] VITALS: BP 162/74
[2020-12-10] MEDS: polyethylene glycoL POWDER 17 GM (MIRALAX) PACK PO SCH ×2 (07:20→20:24)
[2020-12-10] MEDS: SENNA W/DOCUSATE (SENOKOT S) TABLET PO SCH ×2 (07:20→20:24)
[2020-12-10] MEDS: meTOproloL SUCCINATE 50 MG (TOPROL XL) TAB PO SCH (07:21)
[2020-12-10] MEDS: BACLOFEN 10 MG (LIORESAL) TAB PO SCH (07:22)
[2020-12-10] MEDS: lisINopril 20 MG (PRINIVIL) TABLET PO SCH (07:23)
[2020-12-10] MEDS: FAMOTIDINE 20 MG (PEPCID) TABLET PO SCH ×2 (07:23→20:20)
[2020-12-10] MEDS: DOCUSATE SODIUM 100 MG (COLACE) CAP PO SCH ×2 (07:23→20:24)
[2020-12-10] MEDS: LEVOTHYROXINE 112 MCG (LEVOTHROID) TAB PO SCH (07:23)
--- NOTE | 2020-12-10 08:59 | Physical Therapy Daily Note ---
PT Daily Note-Current Subjective Patient reports unrated pain in his L hip and bilateral quads. Patient constantly notes that his upper thighs "just don't want to move." Patient was seated upright in bed pre tx, and consented to PT. Will be co-treating with OT due to poor patient mobility, strength, endurance, severe pain with activity, coordinate UE and LE during activity, safety and reduce risk of falls. Appearance Patient was seated in chair post tx, with OT in room for continued treatment. Mental Status Patient Orientation: Person, Place, Time, Normal For Age Transfers SCALE: Activities may be completed with or without assistive devices. 8-Imfripmchd-voagdme completes the activity by him/herself with no assistance from a helper. 5-Set-up or Clean-up Assistance-helper sets up or cleans up; patient completes activity. [place] assists only prior to or following the activity. 4-Supervision or Touching Assistance-helper provides verbal cues and/or touching/steadying and/or contact guard assistance as patient completes activity. Assistance may be provided throughout the activity or intermittently. 3-Partial/Moderate Assistance-helper does LESS THAN HALF the effort. [place] lifts, holds or supports trunk or limbs, but provides less than half the effort. 2-Substantial/Maximal Assistance-helper does MORE THAN HALF the effort. [place] lifts or holds trunk or limbs and provides more than half the effort. 6-Kegduamxe-mpgxxb does ALL the effort. Patient does none of the effort to complete the activity. Or, the assistance of 2 or more helpers is required for the patient to complete the activity. If activity was not attempted, code reason: 7-Patient Refused. 9-Not Applicable-not attempted and the patient did not perform the activity before the current illness, exacerbation or injury. 10-Not Attempted due to Environmental Limitations-(lack of equipment, weather restraints, etc.). 88-Not Attempted due to Medical Conditions or Safety Concerns. Lying to Sitting/Side of Bed(Q: 3 Sit to Stand (QC): 1 Chair/Rud-gj-Cdpsa Xfer(QC): 1 Weight Bearing Left Lower Extremity: Left Weight Bearing/Tolerated Gait Training Does the Patient Walk?: No and Walking Goal IS indicated Distance: 5' Gait Persons Needed: 2 Gait Assistive Device: FWW Patient requires Max A x2 with ambulation. Patient requires cues to shift weight on to bilateral legs, stand up straight, and utilize upper extremities to bear weight through steps. Patient guards all movement secondary to pain, and winces with every shift in movement. Patient attempted to walk length of parallel bars 5x and was able to cumulatively attain ~8 small steps. Wheelchair Training Does the Pt Use a Wheelchair?: Yes Wheel 50 ft with 2 turns (QC): 6 Wheel 150 ft (QC): 6 Type of Wheelchair: Manual Treatments LE strengthening, gait training, endurance Assessment Current Status: Poor Progress Patient continues to demonstrate difficulty with ambulation and all functional mobility. Patient appears motivated to attempt, but self-limits activity during exercise interventions. Patient will benefit from further functional strength training to promote functional independence required to maintain safe return home and caregiver responsibilities. PT Maintenance Construction Helper Goals Correction Goals PT Correction Goals Time Frame: Dec 28, 2020 Roll Left & Right (QC): 5 Sit to Lying (QC): 5 Lying-Sitting on Side/Bed(QC): 5 Sit to Stand (QC): 5 Chair/Xii-nj-Ujfho Xfer(QC): 5 Toilet Transfer (QC): 5 Car Transfer (QC): 5 Does the Patient Walk: Yes Walk 10 feet (QC): 5 Walk 50ft with 2 Turns (QC): 5 Walk 150 ft (QC): 5 Walking 10ft on Uneven Surface: 5 1 Step (curb) (QC): 5 4 Steps (QC): 4 12 Steps (QC): 4 Picking up an Object (QC): 4 Wheel 50 feet with 2 turns (QC: 9 Wheel 150 feet: 9 PT Plan Problem List Problem List: Activity Tolerance, Functional Strength, Safety, Balance, Gait, Transfer, Bed Mobility, ROM Treatment/Plan Treatment Plan: Continue Plan of Care Treatment Plan: Bed Mobility, Education, Functional Activity Jose, Functional Strength, Group Therapy, Gait, Safety, Therapeutic Exercise, Transfers Treatment Duration: Dec 28, 2020 Frequency: At least 5 of 7 days/Wk (IRF) Estimated Hrs Per Day: 1.5 hours per day Patient and/or Family Agrees t: Yes Safety Risks/Education Patient Education: Gait Training, Transfer Techniques, Correct Positioning, Safety Issues Teaching Recipient: Patient Teaching Methods: Demonstration, Discussion Response to Teaching: Verbalize Understanding, Return Demonstration, Reinforcement Needed Time/GCodes Time In: 0800 Time Out: 0900 Total Billed Treatment Time: 60 Total Billed Treatment 1 visit: FA x4: 60' JAZMIN DIEGO PT Dec 10, 2020 08:58
--- NOTE | 2020-12-10 09:07 | Individualized Plan of Care ---
Individualized Plan of Care Rehab Nursing IPOC Order Admission Date Dec 07, 2020 at 10:25 Current Orders Orders Admission Order(Inpt,Obs,Sdc) (12/06/20 17:43) Vital Signs: Per Unit Policy ( 08,16,00 (12/06/20 17:43) Shelton Hernandez (12/06/20 17:43) Sequential Compression Device .admit (12/06/20 17:43) Bar Host-Inpt Rehab Con (12/06/20 17:43) Rehab Nursing Orders-Ipoc (12/06/20 17:43) Physical Therapy Rehab Orders (12/06/20 17:43) Occupational Therapy Rehab Ord (12/06/20 17:43) Speech Therapy Rehab Orders (12/06/20 17:43) Cbc With Automated Diff (12/08/20 06:00) Comprehensive Metabolic Panel (12/08/20 06:00) Intake & Output 06,14,22 (12/06/20 17:43) Precautions (Aru) (12/06/20 17:43) Weekly Weight WEEK (12/06/20 17:43) Rehab-Intensity Of Therapy (12/06/20 17:43) Initiate Admission Nursing Pro .admission (12/06/20 17:43) Alprazolam Tablet (Xanax Tablet) (12/06/20 17:45) Calcium Carbonate Chew Tablet (Antacid C (12/06/20 17:45) Diphenhydramine Tablet (Benadryl Tablet) (12/06/20 17:45) Docusate Sodium Capsule (Colace Capsule) (12/06/20 21:00) Docusate Sodium Capsule (Colace Capsule) (12/06/20 17:45) Bisacodyl Suppository (Dulcolax Supposit (12/06/20 17:45) Lactulose Oral Solution (Enulose Oral So (12/06/20 17:45) Na Phos/Na Biphos Enema (Fleet Enema Saroj (12/06/20 17:45) Guaifenesin/Codeine Syrup (Robitussin Ac (12/06/20 17:45) Loperamide Tablet (Imodium Tablet) (12/06/20 17:45) Melatonin Tablet (Melatonin Tablet) (12/06/20 17:45) Polyethylene Glycol Powder Pkt (Miralax (12/06/20 21:00) Ondansetron Oral Dissolve Tab (Zofran (12/06/20 17:45) Senna S Tablet (Senokot S Tablet) (12/06/20 21:00) Initiate Admission Nursing Pro .admission (12/06/20 17:43) Admission Arrival Bed Request (12/07/20 10:25) Code/Resuscitation (12/07/20 11:20) Catheter(Urinary) Discontinue (12/07/20 11:20) Incentive Spirometry (Nursing) Q2H (12/07/20 11:20) Sequential Compression Device .admit (12/07/20 11:20) Atorvastatin Tablet (Lipitor Tablet) (12/08/20 09:00) Famotidine Tablet (Pepcid Tablet) (12/07/20 21:00) Hydrocodone/Apap 10/325 Tablet (Lortab 1 (12/07/20 11:30) Levothyroxine Tablet (Synthroid Tablet) (12/08/20 09:00) Enoxaparin Injection (Lovenox Injection) (12/07/20 23:00) Ondansetron Injection (Zofran Injectio (12/07/20 11:30) Sodium Chloride Flush (Catheter Flush Sy (12/07/20 11:30) Tamsulosin Capsule (Flomax Capsule) (12/07/20 18:00) Lisinopril Tablet (Zestril Tablet) (12/08/20 09:00) Metoprolol Succinate (Xl) Tab (Toprol Xl (12/08/20 09:00) Consult Orthopedic Surgery (12/07/20 11:20) Patient Visit (12/07/20 ) Pt Eval Low Complexity (12/07/20 ) General/Regular (12/07/20 Dinner) Iron Test (Fe) (12/08/20 12:50) Vital Signs: Special (Order) (12/08/20 12:50) Consent-Obtain Consent For (12/08/20 12:50) Monitor S/S Transfusion Reacti (12/08/20 12:50) Ns Iv 500 Ml (Sodium Chloride 0.9%) (12/08/20 13:00) Type And Screen (12/08/20 12:50) Red Cells Leukocytes Reduced (12/08/20 12:50) Ns Iv 500 Ml (Sodium Chloride 0.9%) (12/08/20 13:00) Iron Sucrose Injection (Venofer Injectio (12/09/20 09:00) Baclofen Tablet (Lioresal Tablet) (12/08/20 13:00) Cbc With Automated Diff (12/09/20 06:00) Comprehensive Metabolic Panel (12/09/20 06:00) Patient May Use Own Med,Single (Patient (12/08/20 15:30) Non-Formulary Medication (Non-Formulary (12/08/20 16:00) Patient Visit (12/09/20 ) Functional Activities, Ea 15 (12/09/20 ) Baclofen Tablet (Lioresal Tablet) (12/10/20 09:00) Patient Visit (12/10/20 ) Speech Sound Lang Comp (12/10/20 ) Treat. Speech/Lang/Voice (12/10/20 ) Patient Visit (12/10/20 ) Functional Activities, Ea 15 (12/10/20 ) Exercise Therap, Ea 15 Min (12/10/20 ) Rehab Nursing Orders: Ongoing Assess. of Cognitive Status, Ongoing Assess. of Function Status, Bladder Management, Bladder Scan, Bladder Training, Bowel Management, Bowel Training, Disease Management & Educaiton, DVT Prophylaxis, Fall Prevention, Fluid/Electrolyte/Nutrition Mgmt, Infection Prevention, Medication Management & Education, Management of Risks & Complications, Management of Skin Intergrity, Nutrition Management, Pain Management, Patient/Family Support, Safety Management, Weight Bearing Precaution Intensity of Therapy to be met Patient to be seen: Min.3h per day/5 of 7d PT IPOC Problem List: Activity Tolerance, Functional Strength, Safety, Balance, Gait, Transfer, Bed Mobility, ROM Treatment Plan: Continue Plan of Care Bed Mobility, Education, Functional Activity Jose, Functional Strength, Group Therapy, Gait, Safety, Therapeutic Exercise, Transfers Treatment Duration: Dec 28, 2020 Frequency: At least 5 of 7 days/Wk (IRF) Estimated Hrs Per Day: 1.5 hours per day OT IPOC Problems: Decreased Activ Tolerance, Decreased UE Strength, Dependent Transfers, Impaired Bed Mobility, Impaired Funct Balance, Impaired I ADL's, Impaired Self-Care Skills OT Treatment, Training and Edu: Yes Plan of Care: ADL Retraining, Functional Mobility, Group Exercise/Act as Ind, UE Funct Exercise/Act Treatment Duration: Jan 03, 2021 Frequency: At least 5 of 7 days/Wk (IRF) Estimated Hrs Per Day: 1.[address] IPOC Speech Therapy Treatment Plan: Modify Plan, See Comments Treatment Duration: Dec 10, 2020 Frequency: Modified Program (IRF) Estimated Hrs Per Day: .5 hour per day Bar Host/Case Mgmt Bar Host/Case Managemen: Discharge Planning Dietitian/Cutting Machine Tender Decorative Dietitian/Cutting Machine Tender Decorative to monitor nutritional status and make changes and/or recommendations as needed and work with speech pathology on dietary upgrades as the occur. Physician IPOC Medical Issues being managed closely and that require the 24 hour availability of a physician: Recent hip fracture with dementia and high risk for falls with increased risk of issues with post op acute blood loss anemia Medical Issues: Bowel/Bladder Function, DVT Prophylaxis, Falls Precautions, Fluid/Electrolyte/Nutrition Balance, Infection Protection, Pain Management, Swallowing Precautions Brief Synthesis of Preadmission Screen, Post-Admission Evaluation, and Therapy Evaluations: PT OT and ST will hep patient regain strength and ambulation in order to return home with independent living Medical Prognosis: Fair Anticipated Length of Stay: 10 days SANJUANA GRAY DO Dec 10, 2020 09:07
--- NOTE | 2020-12-10 09:08 | PM&R Progress Note ---
Subjective HPI/CC On Admission Date Seen by Provider: Dec 10, 2020 Time Seen by Provider: 09:00 Subjective/Events-last exam 12/10/20: Pt did use the sit to stand today because of lack of strength in his legs Will DC the Baclofen but its only been 5 mg three times a day so hopefully that will help Dementia is noted Lortab used for pain His answers are really unreliable 12/09/20: Pt doing okay Was on commode but seen after done Laxatives given since unknown when his last BM was Dementia is precluding details 12/08/20: Patient doing well Increase pain when moved left leg Difficulty ambulating Hgb low so will give 1 unit of blood today and Venofer iron infusions Baclofen will be given for muscle spasms Checked meds and labs Review of Systems General: Fatigue Musculoskeletal: leg pain Neurological: Confusion Objective Exam Vital Signs Vital Signs Date Time Temp Pulse Resp B/P (MAP) Pulse Ox O2 Delivery O2 Flow Rate FiO2 12/10/20 20:15 Room Air 12/10/20 17:24 37.0 72 18 156/74 (101) 98 Capillary Refill : General Appearance: No Apparent Distress, WD/WN, Chronically ill, Obese HEENT: PERRL/EOMI, Normal ENT Inspection, Pharynx Normal Neck: Full Range of Motion, Normal Inspection, Non Tender, Supple, Carotid Bruit Respiratory: Chest Non Tender, Lungs Clear, Normal Breath Sounds, No Accessory Muscle Use, No Respiratory Distress Cardiovascular: Regular Rate, Rhythm, No Edema, No Gallop, No JVD, No Murmur, Normal Peripheral Pulses Gastrointestinal: Normal Bowel Sounds, No Organomegaly, No Pulsatile Mass, Non Tender, Soft Back: Normal Inspection, No CVA Tenderness, No Vertebral Tenderness Extremity: Normal Capillary Refill, Normal Inspection, Normal Range of Motion (except left leg), Non Tender, No Calf Tenderness, No Pedal Edema Neurologic/Psychiatric: Alert, Oriented x3, No Motor/Sensory Deficits, Normal Mood/Affect, Disoriented (poor recall) Skin: Normal Color, Warm/Dry Lymphatic: No Adenopathy Results/Procedures Lab Patient resulted labs reviewed. FIM Transfers Therapy Code Descriptions/Definitions Functional [place] Measure: 0=Not Assessed/NA 4=Minimal Assistance 1=Total Assistance 5=Supervision or Setup 2=Maximal Assistance 6=Modified [place] 3=Moderate Assistance 7=Complete IndependenceSCALE: Activities may be completed with or without assistive devices. 0-Bhgehifejw-pqqxkff completes the activity by him/herself with no assistance from a helper. 5-Set-up or Clean-up Assistance-helper sets up or cleans up; patient completes activity. [place] assists only prior to or following the activity. 4-Supervision or Touching Assistance-helper provides verbal cues and/or touching/steadying and/or contact guard assistance as patient completes activity. Assistance may be provided throughout the activity or intermittently. 3-Partial/Moderate Assistance-helper does LESS THAN HALF the effort. [place] lifts, holds or supports trunk or limbs, but provides less than half the effort. 2-Substantial/Maximal Assistance-helper does MORE THAN HALF the effort. [place] lifts or holds trunk or limbs and provides more than half the effort. 2-Zlwqeqbts-opfffi does ALL the effort. Patient does none of the effort to complete the activity. Or, the assistance of 2 or more helpers is required for the patient to complete the activity. If activity was not attempted, code reason: 7-Patient Refused. 9-Not Applicable-not attempted and the patient did not perform the activity before the current illness, exacerbation or injury. 10-Not Attempted due to Environmental Limitations-(lack of equipment, weather restraints, etc.). 88-Not Attempted due to Medical Conditions or Safety Concerns. Roll Left to Right (QC): 3 Sit to Stand (QC): 1 Chair/Eeu-mz-Dpryh Xfer(QC): 1 Car Transfer (QC): 88 Gait Training Does the Patient Walk?: No and Walking Goal IS indicated Distance: 5' Walk 10 feet (QC): 88 Walk 50 ft with 2 Turns(QC): 88 Walk 150 ft (QC): 88 Walking 10ft/uneven surface-QC: 88 Gait Persons Needed: 2 Gait Assistive Device: FWW Wheelchair Training Does the Pt Use a Wheelchair?: Yes Wheel 50 ft with 2 turns (QC): 6 Wheel 150 ft (QC): 6 Type of Wheelchair: Manual Stair Training #of Steps: 0 1 Step (curb) (QC): 88 4 Steps (QC): 88 12 Steps (QC): 88 Balance Picking up an Object (QC): 88 ADL-Treatment Eating (QC): 6 (based on clinical judgement, pt would be independent with task) Oral Hygiene (QC): 5 (Based on clinical judgement, pt would require set up assist with task.) Shower/Bathe Self (QC): 1 (Pt able to wash BUEs, chest/abdomen, and periarea. Assist x2 in stand at FWW to wash buttocks, assist with BLEs.) Upper Body Dressing (QC): 5 (set up) Lower Body Dressing (QC): 1 (Assist x2 in stand for pant hike, assist with all parts.) On/Off Footwear (QC): 1 (assist to megan/doff bilateral gripper socks.) Toileting Hygiene (QC): 1 (Assist with all parts, assist x2 in stand) Assessment/Plan Assessment and Plan Assess & Plan/Chief Complaint Assessment: s/p left hip fracture Post op anemia from acute blood loss requiring iron infusions and transfusion 1 unit of blood 12/08/20 HTN Hypothyroidism s/p altman cath DC Plan: Monitor pain Monitor confusion Fall risk 12/08/20: Transfuse 1 unit of blood Venofer Pain control Baclofen 12/09/20: Monitor hgb Pain control 11/13/20: Monitor pain DC Baclofen Monitor for falls (1) Closed left hip fracture Status: Acute (2) BPH (benign prostatic hyperplasia) Status: Chronic (3) Hypertension Status: Chronic (4) Hypothyroidism Status: Chronic (5) Hyperlipidemia Status: Chronic SANJUANA GRAY DO Dec 10, 2020 09:07
--- NOTE | 2020-12-10 09:12 | Occupational Ther Daily Note ---
OT Current Status-Daily Note Subjective Pt agreeable to OT/PT cotreat then OT tx. When OT asked pt how high his pain level got throughout tx, he states 3/10 ADL-Treatment Therapy Code Descriptions/Definitions Functional [place] Measure: 0=Not Assessed/NA 4=Minimal Assistance 1=Total Assistance 5=Supervision or Setup 2=Maximal Assistance 6=Modified [place] 3=Moderate Assistance 7=Complete IndependenceSCALE: Activities may be completed with or without assistive devices. 9-Qmncgiwymt-mayfqyq completes the activity by him/herself with no assistance from a helper. 5-Set-up or Clean-up Assistance-helper sets up or cleans up; patient completes activity. [place] assists only prior to or following the activity. 4-Supervision or Touching Assistance-helper provides verbal cues and/or touching/steadying and/or contact guard assistance as patient completes activity . Assistance may be provided throughout the activity or intermittently. 3-Partial/Moderate Assistance-helper does LESS THAN HALF the effort. [place] lifts, holds or supports trunk or limbs, but provides less than half the effort. 2-Substantial/Maximal Assistance-helper does MORE THAN HALF the effort. [place] lifts or holds trunk or limbs and provides more than half the effort. 8-Koyntgtpc-yprjai does ALL the effort. Patient does none of the effort to complete the activity. Or, the assistance of 2 or more helpers is required for the patient to complete the activity. If activity was not attempted, code reason: 7-Patient Refused. 9-Not Applicable-not attempted and the patient did not perform the activity before the current illness, exacerbation or injury. 10-Not Attempted due to Environmental Limitations-(lack of equipment, weather restraints, etc.). 88-Not Attempted due to Medical Conditions or Safety Concerns. Eating (QC): 6 (IND eating breakfast) Oral Hygiene (QC): 5 (set up at bed level.) Other Treatment [id number]: OT/PT cotreat due to skill of 2 clinicians required which a rn cardiac rehab could not perform in order to coordinate UE/LEs, decrease fall risk, and due to pt's limitations in strength, activity tolerance, mobility and transfers. OT focused on UE placement, cues for sequencing and safety and ADLs, PT focused on LE placement, gross overall movement, and mobility/transfers. Pt laying in bed, transferred supine to sit EOB, then used FWW to transfer to w/c. Pt propelled self to therapy gym and to parallel bars. Pt attempted to walk length of parallel bars x5 but only able to cumulatively attain ~8 small steps. Pt required cues for weight shifting on bilateral legs, weight bearing through UEs, and to stand up straight. Pt guards movement due to pain and states his legs "just don't want to move". Pt required max encouragement with activity in parallel bars, and max cues for sequencing of ambulation. All transfers/ambulation required max A x2 on this date. Pt propelled w/c back to room, transferring to recliner. [id number] OT tx: Pt completed oral care with set up assistance at recliner. In order to increase BUE strength and activity tolerance, pt placed x100 pegs into foam pegboard, alternating hands, 2 lb wrist weights BUEs. Pt took frequent rest breaks with task, groaning. OT asked pt what his pain was, he indicated he wasn't really in any pain at the moment, OT asked pt how high his pain got with ambulation in parallel bars, he indicated 3/10 was the highest. Moderate encouragement with task, and minimal cues to continue alternating hands.Post tx, pt seated in recliner, call light in reach and all needs met. Education OT Patient Education: Correct positioning, Modified ADL techniques, Progress toward Goal/Update tx plan, Purpose of tx/functional activities Teaching Recipient: Patient Teaching Methods: Discussion Response to Teaching: Verbalize Understanding OT Short Term Goals Short Term Goals Time Frame: Dec 20, 2020 Shower/bathe self: 3 Lower body dressin Putting on/taking off footwear: 3 OT Halfway Goals Rail Operator Goals Time Frame: Jan 03, 2021 Eating (QC): 6 Oral Hygiene (QC): 6 Toileting Hygiene (QC): 6 Shower/Bathe Self (QC): 6 Upper Body Dressing (QC): 6 Lower Body Dressing (QC): 6 On/Off Footwear (QC): 6 Additional Goals: 1-Demonstrate ADL Tasks, 2-Verbalize Understanding, 3- ImproveStrength/Jose 1=Demonstrate adherence to instructed precautions during ADL tasks. 2=Patient will verbalize/demonstrate understanding of assistive devices/modifications for ADL. 3=Patient will improve strength/tolerance for activity to enable patient to perform ADL's. OT Education/Plan Problem List/Assessment Assessment: Decreased Activ Tolerance, Decreased Safety Aware, Decreased UE Strength, Dependent Transfers, Impaired Bed Mobility, Impaired Funct Balance, Impaired I ADL's, Impaired Self-Care Skills Discharge Recommendations Plan/Recommendations: Continue POC Treatment Plan/Plan of Care Patient would benefit from OT for education, treatment and training to promote independence in ADL's, mobility, safety and/or upper extremity function for ADL's. Plan of Care: ADL Retraining, Functional Mobility, Group Exercise/Act as Ind, UE Funct Exercise/Act Treatment Duration: Jan 03, 2021 Frequency: At least 5 of 7 days/Wk (IRF) Estimated Hrs Per Day: 1.5 hours per day Rehab Potential: Fair Time/GCodes Start Time: 08:00 Stop Time: 09:30 Total Time Billed (hr/min): 90 Billed Treatment Time OT/PT cotreat [id number], OT tx [id number] 1, FA 6 ISADORA HUGHES OT Dec 10, 2020 09:12
--- NOTE | 2020-12-10 10:50 | ST Cognitive Linguistic Eval ---
Speech Evaluation-General Medical Diagnosis (L) hip fx Onset Date: Dec 04, 2020 Therapy Diagnosis Therapy Diagnosis: Cognitive-communication Referral Referring Physician: Dr. Velez Medical History Pertinent Medical History: Arthritis, HTN Reviewed History: Yes Social History Current Living Status: Significant Other Speech PLF-Current Status Prior Level of Function Patient lives at home with his who receives 24 hour care. Subjective Patient was pleasant and cooperative with the cognitive assessment. Language Eval: Auditory Comprehends Simple Yes/No Ques: Functional Indent/Objects Multiple Conti: Functional Ident/Pics in Multiple Conti: Functional Follows 1-Step Commands: Functional Follows Complex Directions: Mild Follows General Conversations: Mild Language Eval: Verbal Language Completes Spontaneous Greeting: Functional Produces Auto, Serial Info: Functional Imitates Simple Words/Phrases: Mild Word Finding: Functional Requests Basic Needs: Mild States Basic Personal Info: Moderate Expresses Complex Ideas: Moderate Objective Cognitive Domain Attention: WNL Memory: Moderate Problem Solving: Moderate Executive Functions: Moderate Visuospatial Skills: WNL Composite Severity Rating: Moderate Clock Drawing Severity Rating: Moderate Objective Formal/Standardized Tests [facility] ([facility]) Results 16/30, Moderate Dementia range of function Oral Motor/Speech Production Within Normal Limits Impression Patient is a pleasant 80 y/o male who was admitted to the ARU s/p fall with fractured hip. Patient was given the UMS with a score of 16/30 obtained. This score is within the Moderate Dementia range of function. Patient will receive skilled ST so that he may return home safer. Therapy focus will be on safety awareness, memory and problem solving. Speech Patient Assess Expression of Ideas/Wants: Frequently (2) Understanding Verbal Content: Sometimes Understands(2) Brief Interview-Mental Status: Yes Repetition of Three Words: Three (3) Temporal Orientation: Year: Correct (3) Temporal Orientation: Month: Accurate within 5 days(2) Temporal Orientation: Day: Correct (1) Recall : Wear to say "Sock": Yes,after cueing (1) Recall : Color: No, could not recall (0) Recall : Bed: No, could not recall (0) Memory/Recall Ability: Current season, That he or she is in a hsp/hsp unit Speech Short Term Goals Short Term Goals Short Term Goals 1) Patient will complete memory tasks related to his daily routine at 80% or greater with minimal cues. 2) Patient will complete safety awareness tasks related to his daily routine at 80% or greater with minimal cues. 3) Patient will complete problem solving tasks related to his daily routine at 80% or greater with minimal cues. Speech Fdc Goals Fdc Goals Patient will improve cognitive-communication skills necessary for safety and daily living tasks with minimal assist. Speech-Plan Patient/Family Goals Patient/Family Goals: Patient plans on returning to his home where he lives with his . He has other family near for support as needed. Treatment Plan Speech Therapy Treatment Plan: Continue Plan of Care Frequency: 4 times per week (Patient will receive skilled ST 4-5x per week) Estimated Hrs Per Day: .5 hour per day Rehab Potential: Fair Barriers to Learning: Patient's decreased cognitive function, confusion, age Pt/Family Agrees to Plan: Yes Safety Risks/Education Teaching Recipient: Patient Teaching Methods: Discussion Response to Teaching: Verbalize Understanding Education Topics Provided: Safety within his room, communication of wants/needs Time Speech Therapy Time In: 09:30 Speech Therapy Time Out: 10:00 Total Billed Time: 30 Billed Treatment Time 1, CHASE COOK [place] [facility] Dec 10, 2020 10:50
[2020-12-10] MEDS: LACTULOSE SYRUP 10GM/15ML (ENULOSE) 30ML UDC PO PRN (12:32)
--- NOTE | 2020-12-10 14:18 | Physical Therapy Daily Note ---
PT Daily Note-Current Subjective Patient seated upright in chair pre tx. Patient reported no pain at start of visit, but continued to demonstrate guarding with ther ex involving L hip and knee movements. Appearance Patient seated upright in chair, with call button within reach and and tray table nearby post tx. Mental Status Patient Orientation: Person, Place, Time, Normal For Age Transfers SCALE: Activities may be completed with or without assistive devices. 4-Rercfzketz-tdejosg completes the activity by him/herself with no assistance from a helper. 5-Set-up or Clean-up Assistance-helper sets up or cleans up; patient completes activity. [place] assists only prior to or following the activity. 4-Supervision or Touching Assistance-helper provides verbal cues and/or touching/steadying and/or contact guard assistance as patient completes activity. Assistance may be provided throughout the activity or intermittently. 3-Partial/Moderate Assistance-helper does LESS THAN HALF the effort. [place] lifts, holds or supports trunk or limbs, but provides less than half the effort. 2-Substantial/Maximal Assistance-helper does MORE THAN HALF the effort. [place] lifts or holds trunk or limbs and provides more than half the effort. 2-Nkrzzomru-zanajl does ALL the effort. Patient does none of the effort to complete the activity. Or, the assistance of 2 or more helpers is required for the patient to complete the activity. If activity was not attempted, code reason: 7-Patient Refused. 9-Not Applicable-not attempted and the patient did not perform the activity before the current illness, exacerbation or injury. 10-Not Attempted due to Environmental Limitations-(lack of equipment, weather restraints, etc.). 88-Not Attempted due to Medical Conditions or Safety Concerns. Weight Bearing Left Lower Extremity: Left Weight Bearing/Tolerated Exercises Seated Therapy Exercises: Ankle pumps, Long arc quads, Hip flexion, Glut set Seated Reps: 20 Patient was able to perform R LE therapeutic exercises without pain complaints and at fair pace. Patient reduced repetitions (10 reps) he could accomplish on L LE, demonstrating antalgic knee extension and hip flexion with LAQ and seated marching. Patient continued to guard movement secondary to pain. Patient tolerated glut sets well, and was able to complete ankle pumps at fair pace once he achieved a comfortable position. Treatments LE strengthening, LE ROM Assessment Current Status: Poor Progress, Fair Progress Patient will benefit from continued physical therapy interventions to promote improved functional mobility for safe return home. PT Retirement Goals Retirement Goals PT Retirement Goals Time Frame: Dec 28, 2020 Roll Left & Right (QC): 5 Sit to Lying (QC): 5 Lying-Sitting on Side/Bed(QC): 5 Sit to Stand (QC): 5 Chair/Yup-wu-Klyxv Xfer(QC): 5 Toilet Transfer (QC): 5 Car Transfer (QC): 5 Does the Patient Walk: Yes Walk 10 feet (QC): 5 Walk 50ft with 2 Turns (QC): 5 Walk 150 ft (QC): 5 Walking 10ft on Uneven Surface: 5 1 Step (curb) (QC): 5 4 Steps (QC): 4 12 Steps (QC): 4 Picking up an Object (QC): 4 Wheel 50 feet with 2 turns (QC: 9 Wheel 150 feet: 9 PT Plan Problem List Problem List: Activity Tolerance, Functional Strength, Safety, Balance, Gait, Transfer, Bed Mobility, ROM Treatment/Plan Treatment Plan: Continue Plan of Care Treatment Plan: Bed Mobility, Education, Functional Activity Jose, Functional Strength, Group Therapy, Gait, Safety, Therapeutic Exercise, Transfers Treatment Duration: Dec 28, 2020 Frequency: At least 5 of 7 days/Wk (IRF) Estimated Hrs Per Day: 1.5 hours per day Patient and/or Family Agrees t: Yes Safety Risks/Education Patient Education: Correct Positioning, Safety Issues Teaching Recipient: Patient Teaching Methods: Demonstration, Discussion Response to Teaching: Verbalize Understanding, Return Demonstration Continued to educate patient on importance of working through pain, and incorporating mobility throughout the day to avoid muscle stiffness and desensitize painful L quad. Time/GCodes Time In: 1315 Time Out: 1330 Total Billed Treatment Time: 15 Total Billed Treatment 1 visit: EX: 15' JAZMIN DIEGO PT Dec 10, 2020 14:18
[2020-12-10 17:24] VITALS: BP 156/74
[2020-12-10] MEDS: TAMSULOSIN 0.4 MG (FLOMAX) CAP PO SCH (17:53)
[2020-12-10] MEDS: ENOXAPARIN 40 MG/0.4 ML (LOVENOX) SYR SC SCH (22:46)
[2020-12-11] MEDS: [UNRECOGNIZED DRUG - REMARK] TOP PRN (03:26)
--- NOTE | 2020-12-11 05:32 | PM&R Progress Note ---
Subjective HPI/CC On Admission Date Seen by Provider: Dec 11, 2020 Time Seen by Provider: 09:00 Subjective/Events-last exam 12/11/20: Pt really not able to participate due to cognitive deficit Bowels moved on the Left lower extremity ultrasound will be evaluating for DVT that Dr. Ovalle ordered Overall cognition is causing a delay in his recovery 12/10/20: Pt did use the sit to stand today because of lack of strength in his legs Will DC the Baclofen but its only been 5 mg three times a day so hopefully that will help Dementia is noted Lortab used for pain His answers are really unreliable 12/09/20: Pt doing okay Was on commode but seen after done Laxatives given since unknown when his last BM was Dementia is precluding details 12/08/20: Patient doing well Increase pain when moved left leg Difficulty ambulating Hgb low so will give 1 unit of blood today and Venofer iron infusions Baclofen will be given for muscle spasms Checked meds and labs Review of Systems General: Fatigue Musculoskeletal: leg pain Neurological: Confusion Objective Exam Vital Signs Vital Signs Date Time Temp Pulse Resp B/P (MAP) Pulse Ox O2 Delivery O2 Flow Rate FiO2 12/12/20 05:04 36.7 73 18 156/78 (104) 96 Room Air Capillary Refill : General Appearance: No Apparent Distress, WD/WN, Chronically ill, Obese HEENT: PERRL/EOMI, Normal ENT Inspection, Pharynx Normal Neck: Full Range of Motion, Normal Inspection, Non Tender, Supple, Carotid Bruit Respiratory: Chest Non Tender, Lungs Clear, Normal Breath Sounds, No Accessory Muscle Use, No Respiratory Distress Cardiovascular: Regular Rate, Rhythm, No Edema, No Gallop, No JVD, No Murmur, Normal Peripheral Pulses Gastrointestinal: Normal Bowel Sounds, No Organomegaly, No Pulsatile Mass, Non Tender, Soft Back: Normal Inspection, No CVA Tenderness, No Vertebral Tenderness Extremity: Normal Capillary Refill, Normal Inspection, Normal Range of Motion (except left leg), Non Tender, No Calf Tenderness, No Pedal Edema Neurologic/Psychiatric: Alert, Oriented x3, No Motor/Sensory Deficits, Normal Mood/Affect, Disoriented (poor recall) Skin: Normal Color, Warm/Dry Lymphatic: No Adenopathy Results/Procedures Lab Laboratory Tests 12/12/20 03:14 Patient resulted labs reviewed. FIM Transfers Therapy Code Descriptions/Definitions Functional [place] Measure: 0=Not Assessed/NA 4=Minimal Assistance 1=Total Assistance 5=Supervision or Setup 2=Maximal Assistance 6=Modified [place] 3=Moderate Assistance 7=Complete IndependenceSCALE: Activities may be completed with or without assistive devices. 9-Lbvuglxitw-kbykamc completes the activity by him/herself with no assistance from a helper. 5-Set-up or Clean-up Assistance-helper sets up or cleans up; patient completes activity. [place] assists only prior to or following the activity. 4-Supervision or Touching Assistance-helper provides verbal cues and/or t ouching/steadying and/or contact guard assistance as patient completes activity. Assistance may be provided throughout the activity or intermittently. 3-Partial/Moderate Assistance-helper does LESS THAN HALF the effort. [place] lifts, holds or supports trunk or limbs, but provides less than half the effort. 2-Substantial/Maximal Assistance-helper does MORE THAN HALF the effort. [place] lifts or holds trunk or limbs and provides more than half the effort. 7-Wgebskftn-sodvyw does ALL the effort. Patient does none of the effort to complete the activity. Or, the assistance of 2 or more helpers is required for the patient to complete the activity. If activity was not attempted, code reason: 7-Patient Refused. 9-Not Applicable-not attempted and the patient did not perform the activity before the current illness, exacerbation or injury. 10-Not Attempted due to Environmental Limitations-(lack of equipment, weather restraints, etc.). 88-Not Attempted due to Medical Conditions or Safety Concerns. Roll Left to Right (QC): 3 Sit to Stand (QC): 1 Chair/Hwn-yr-Xqxta Xfer(QC): 1 Car Transfer (QC): 88 Gait Training Does the Patient Walk?: No and Walking Goal IS indicated Distance: 5' Walk 10 feet (QC): 88 Walk 50 ft with 2 Turns(QC): 88 Walk 150 ft (QC): 88 Walking 10ft/uneven surface-QC: 88 Gait Persons Needed: 2 Gait Assistive Device: FWW Wheelchair Training Does the Pt Use a Wheelchair?: Yes Wheel 50 ft with 2 turns (QC): 6 Wheel 150 ft (QC): 6 Type of Wheelchair: Manual Stair Training #of Steps: 0 1 Step (curb) (QC): 88 4 Steps (QC): 88 12 Steps (QC): 88 Balance Picking up an Object (QC): 88 ADL-Treatment Eating (QC): 6 (IND eating breakfast) Oral Hygiene (QC): 5 (set up at bed level.) Shower/Bathe Self (QC): 1 (Pt able to wash BUEs, chest/abdomen, and periarea. Assist x2 in stand at FWW to wash buttocks, assist with BLEs.) Upper Body Dressing (QC): 5 (set up) Lower Body Dressing (QC): 1 (Assist x2 in stand for pant hike, assist with all parts.) On/Off Footwear (QC): 1 (assist to megan/doff bilateral gripper socks.) Toileting Hygiene (QC): 1 (Assist with all parts, assist x2 in stand) Assessment/Plan Assessment and Plan Assess & Plan/Chief Complaint Assessment: s/p left hip fracture Post op anemia from acute blood loss requiring iron infusions and transfusion 1 unit of blood 12/08/20 HTN Hypothyroidism s/p altman cath DC Plan: Monitor pain Monitor confusion Fall risk 12/08/20: Transfuse 1 unit of blood Venofer Pain control Baclofen 12/09/20: Monitor hgb Pain control 12/10/20: Monitor pain DC Baclofen Monitor for falls 12/11/20: Monitor pain Monitor confusion Check labs in am Venofer as scheduled (1) Closed left hip fracture Status: Acute (2) BPH (benign prostatic hyperplasia) Status: Chronic (3) Hypertension Status: Chronic (4) Hypothyroidism Status: Chronic (5) Hyperlipidemia Status: Chronic SANJUANA GRAY DO Dec 11, 2020 05:32
[2020-12-11 06:40] VITALS: BP 164/90
[2020-12-11] MEDS: SENNA W/DOCUSATE (SENOKOT S) TABLET PO SCH ×2 (07:55→20:28)
[2020-12-11] MEDS: LEVOTHYROXINE 112 MCG (LEVOTHROID) TAB PO SCH (07:56)
[2020-12-11] MEDS: meTOproloL SUCCINATE 50 MG (TOPROL XL) TAB PO SCH (07:56)
[2020-12-11] MEDS: IRON SUCROSE 200 MG/10 ML (VENOFER) VIAL IV SCH (07:56)
[2020-12-11] MEDS: FAMOTIDINE 20 MG (PEPCID) TABLET PO SCH ×2 (07:56→20:28)
[2020-12-11] MEDS: polyethylene glycoL POWDER 17 GM (MIRALAX) PACK PO SCH ×2 (07:56→20:32)
[2020-12-11] MEDS: DOCUSATE SODIUM 100 MG (COLACE) CAP PO SCH ×2 (07:56→20:28)
[2020-12-11] MEDS: lisINopril 20 MG (PRINIVIL) TABLET PO SCH (07:56)
[2020-12-11 08:00] VITALS: BP 126/59
--- NOTE | 2020-12-11 09:01 | Physical Therapy Daily Note ---
PT Daily Note-Current Subjective Pt. up in recliner, Agrees to PT OT co Rx, pt. resistive of exercise in sit/supine and any movement change secondary to pain c/o Pain Numeric Pain Scale: 9 Location: Left Location Body Site: Hip Pain Description: Pressure Mental Status Patient Orientation: Person, Place Attachments: IV (currently getting iron infusion) Transfers SCALE: Activities may be completed with or without assistive devices. 9-Ezxewijzwn-iijocjf completes the activity by him/herself with no assistance from a helper. 5-Set-up or Clean-up Assistance-helper sets up or cleans up; patient completes activity. [place] assists only prior to or following the activity. 4-Supervision or Touching Assistance-helper provides verbal cues and/or touching/steadying and/or contact guard assistance as patient completes activity. Assistance may be provided throughout the activity or intermittently. 3-Partial/Moderate Assistance-helper does LESS THAN HALF the effort. [place] lifts, holds or supports trunk or limbs, but provides less than half the effort. 2-Substantial/Maximal Assistance-helper does MORE THAN HALF the effort. [place] lifts or holds trunk or limbs and provides more than half the effort. 6-Hiaaudxlz-vugoal does ALL the effort. Patient does none of the effort to complete the activity. Or, the assistance of 2 or more helpers is required for the patient to complete the activity. If activity was not attempted, code reason: 7-Patient Refused. 9-Not Applicable-not attempted and the patient did not perform the activity before the current illness, exacerbation or injury. 10-Not Attempted due to Environmental Limitations-(lack of equipment, weather restraints, etc.). 88-Not Attempted due to Medical Conditions or Safety Concerns. Sit to Stand (QC): 3 Chair/Znb-ks-Nrcqe Xfer(QC): 3 pt. with great difficulty progressing from sit to stand secondary to pain c/o, nursing informed. Weight Bearing Left Lower Extremity: Left Weight Bearing/Tolerated Gait Training Does the Patient Walk?: Yes Gait Persons Needed: 1 Gait Assistive Device: FWW Pt. ambulated 5 ft in approx 8 min mod assist of 2 every step and wt shift was instructed specifically. Pt. c/o pain and has some fear as well. Exercises Supine Ex: Ankle pumps, Quad Set, Glut sets, Heel Slides (assisted left), Short Arc Quads, Scooting (u[ in reclined recliner), Straight leg raise (assisted left), Hip abd/add (assisted left) Supine Reps: 15 Seated Therapy Exercises: Ankle pumps, Sit to stand, Long arc quads Seated Reps: 10 Treatments PT OT co Rx secondary to level of dependence and pain level. PT and OT coordianated use of UEs for sit to stand and gait . Assessment Current Status: Fair Progress pain level and anxiety limit Rx participation PT Alf Goals Alf Goals PT Organ Fixer Goals Time Frame: Dec 28, 2020 Roll Left & Right (QC): 5 Sit to Lying (QC): 5 Lying-Sitting on Side/Bed(QC): 5 Sit to Stand (QC): 5 Chair/Mhx-fp-Tadzc Xfer(QC): 5 Toilet Transfer (QC): 5 Car Transfer (QC): 5 Does the Patient Walk: Yes Walk 10 feet (QC): 5 Walk 50ft with 2 Turns (QC): 5 Walk 150 ft (QC): 5 Walking 10ft on Uneven Surface: 5 1 Step (curb) (QC): 5 4 Steps (QC): 4 12 Steps (QC): 4 Picking up an Object (QC): 4 Wheel 50 feet with 2 turns (QC: 9 Wheel 150 feet: 9 PT Plan Treatment/Plan Treatment Plan: Continue Plan of Care Treatment Plan: Bed Mobility, Education, Functional Activity Jose, Functional Strength, Group Therapy, Gait, Safety, Therapeutic Exercise, Transfers Treatment Duration: Dec 28, 2020 Frequency: At least 5 of 7 days/Wk (IRF) Estimated Hrs Per Day: 1.5 hours per day Patient and/or Family Agrees t: Yes Safety Risks/Education Patient Education: Gait Training, Transfer Techniques, Correct Positioning, Disease Process, Safety Issues Teaching Recipient: Patient Teaching Methods: Demonstration, Discussion Response to Teaching: Verbalize Understanding, Return Demonstration, Reinforcement Needed Time/GCodes Time In: 800 Time Out: 900 Total Billed Treatment Time: 60 Total Billed Treatment 1,FA25m,GT15m,EX20m (PT OT co Rx 60m) YOEL ANDERSON B[employer]W FILER Dec 11, 2020 09:00
--- NOTE | 2020-12-11 09:09 | Progress Note - Ortho ---
Progress Note Subjective Date of Exam 12/11/20 Chief Complaint POD#6 Short TFN left hip for a three-part intertrochanteric fracture HPI/Events since last exam Mr. Coyle is 6 days postop. He continues to struggle with ambulation with a walker. He is putting some weight on the leg but states he is having pain in his thigh.He denies any numbness or tingling.He does not remember when the pain increased. Review of Systems Reviewed and no additions or changes Allergies: Coded Allergies: No Known Drug Allergies (Unverified , 05/06/18) Home Meds Reported Medications Multivitamin (Multivitamin) 1 Each Tablet, 1 EACH PO DAILY, TAB 12/05/20 Metoprolol Succinate (Metoprolol Succinate) 50 Mg Tab.er.24h, 50 MG PO DAILY, TAB 12/05/20 Lisinopril (Lisinopril) 10 Mg Tablet, 10 MG PO DAILY, TAB 12/05/20 Levothyroxine Sodium (Levothyroxine Sodium) 112 Mcg Tablet, 112 MCG PO DAILY, TAB 12/05/20 Atorvastatin Calcium (Atorvastatin Calcium) 10 Mg Tablet, 10 MG PO DAILY, TAB 02/01/18 Discontinued Reported Medications [place] 3 Polyunsat Fatty Acids (Fish Oil 1,000 mg Capsule) 1,000 Mg Cap, 1000 MG PO BID, CAP 02/01/18 Multivitamin (Daily Multiple Vitamin) 1 Each Tablet, 1 TAB PO DAILY, TAB 02/01/18 Calcium Carbonate/Vitamin D3 (Calcium 500 + Vit D 200 Caplet) 1 Each Tablet, 1 TAB PO BID, TAB 02/01/18 Metoprolol Succinate (Metoprolol Succinate) 25 Mg Tab.er.24h, 25 MG PO HS, TAB 02/01/18 Levothyroxine Sodium (Levothyroxine Sodium) 112 Mcg Tablet, 112 MCG PO DAILY, TAB 07/15/17 Discontinued Scripts Hydrocodone/Acetaminophen (Lorcet 5-325 mg Tablet) 1 Each Tablet, 1-2 EACH PO Q4H PRN for PAIN, #20 TAB Prov:DEVEN HECTOR MD 05/11/18 Phenazopyridine HCl (Pyridium) 200 Mg Tablet, 1 TAB PO TID PRN for SPASMS, #15 TAB Prov:DEVEN HECTOR MD 05/11/18 Ciprofloxacin HCl (Cipro) 500 Mg Tablet, 500 MG PO BID, #14 TAB Prov:DEVEN HECTOR MD 05/11/18 Lisinopril (Lisinopril) 10 Mg Tablet, 10 MG PO DAILY@0900, #30 TAB 5 Refills Prov:SANJUANA GRAY DO 02/02/18 Objective Exam Constitutional: [] HEENT: [] Neck: [] Cardiovascular: [] Respiratory: [] Gastrointestinal: [] Genitourinary: [] Skin: [] Back/Spine: [] Extremities: [His dressings were changed and his wounds look good without redness or drainage. No drainage on the dressings. No Band-Aids were applied. He has pain in his thigh with palpation. No redness or warmth. Swelling is also noted. No calf tenderness and negative Homans. He has mild pain with gentle range of motion of his hip. Negative straight leg raise. He has good strength on dorsiflexion plantarflexion of the foot and ankle and has normal sensation to the foot and toes with good cap refill and good pulses] Neurologic: [] Psychiatric: [] Hematologic/lymphatic/immunologic: [] Vital Signs Vital Signs Date Time Temp Pulse Resp B/P (MAP) Pulse Ox O2 Delivery O2 Flow Rate FiO2 12/11/20 06:40 36.8 74 16 164/90 (114) 96 12/10/20 20:15 Room Air 12/10/20 17:24 37.0 72 18 156/74 (101) 98 Room Air l I & O 12/11/20 07:00 Intake Total 1310 ml Output Total 2300 ml Balance -990 ml Assessment and Plan Assessment Continued thigh pain postop hip fracture Problem List Unchanged Plan Continue with therapy walker ambulation weightbearing as tolerated. Due to his thigh pain and swelling I have Ordered a venous ultrasound of his left lower extremity to rule out DVT in his left thigh. Final Diagonsis Three-part intertrochanteric fracture left hip status post short TFN Level of the visit: Level 3 DONATO MUNGUIA MD Dec 11, 2020 09:09
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
--- NOTE | 2020-12-11 10:37 | Speech Therapy Daily Note ---
Speech Daily Progress Note Subjective Date Seen by Provider: Dec 11, 2020 Time Seen by Provider: 00:30 Patient was resting in his recliner watching tv when I entered his room. He stated he was worn out from all of the therapy he had this morning. Objective Patient completed general information questions with 75% accuracy given 25% verbal and/or visual cuing. Assessment Assessment Current Status: Fair Progress Treatment Plan Continue Plan of Care Speech Short Term Goals Short Term Goals Short Term Goals 1) Patient will complete memory tasks related to his daily routine at 80% or greater with minimal cues. 2) Patient will complete safety awareness tasks related to his daily routine at 80% or greater with minimal cues. 3) Patient will complete problem solving tasks related to his daily routine at 80% or greater with minimal cues. Speech Bread Dough Mixer Goals Bread Dough Mixer Goals Patient will improve cognitive-communication skills necessary for safety and daily living tasks with minimal assist. Speech-Plan Patient/Family Goals Patient/Family Goals: Patient plans on returning to his home where he lives with his . Family/caregivers are there 24 hours daily. Treatment Plan Speech Therapy Treatment Plan: Continue Plan of Care Treatment Duration: Dec 18, 2020 Frequency: 4 times per week (Patient will receive skilled ST 4-5x per week) Estimated Hrs Per Day: .5 hour per day Rehab Potential: Fair Barriers to Learning: Patient's decreased cognitive status, age Pt/Family Agrees to Plan: Yes Safety Risks/Education Teaching Recipient: Patient Teaching Methods: Demonstration, Discussion Response to Teaching: Verbalize Understanding, Return Demonstration Education Topics Provided: Continued safety and communication Time Speech Therapy Time In: 09:30 Speech Therapy Time Out: 10:00 Total Billed Time: 30 Billed Treatment Time 1, OSORIO Almendarez Dec 11, 2020 10:37
--- NOTE | 2020-12-11 13:11 | Diagnostic Imaging Report ---
PROCEDURE: US left lower extremity venous. TECHNIQUE: Multiple Real-time grayscale images were obtained over the left lower extremity in various projections. Additional duplex Doppler and color Doppler images were also obtained. INDICATION: Left eye swelling. Patient is postop for hip fracture repair. FINDINGS: There is no evidence of left lower extremity DVT. The left lower extremity deep venous system shows normal compressibility with normal response to augmentation and Valsalva. No fluid collection or mass is detected. IMPRESSION: No evidence of left lower extremity DVT. Dictated by: Dictated on workstation # [id number]
--- NOTE | 2020-12-11 14:08 | Physical Therapy Daily Note ---
PT Daily Note-Current Subjective Pt. supine in bed after just having visited with his . Pt. agrees to supine therex LEs. Pt. c/o only min discomfort this after L hip Pain Location: No Pain Reported Mental Status Patient Orientation: Normal For Age Transfers SCALE: Activities may be completed with or without assistive devices. 1-Bwwiburmju-ocqmlih completes the activity by him/herself with no assistance from a helper. 5-Set-up or Clean-up Assistance-helper sets up or cleans up; patient completes activity. [place] assists only prior to or following the activity. 4-Supervision or Touching Assistance-helper provides verbal cues and/or touching/steadying and/or contact guard assistance as patient completes activity. Assistance may be provided throughout the activity or intermittently. 3-Partial/Moderate Assistance-helper does LESS THAN HALF the effort. [place] lifts, holds or supports trunk or limbs, but provides less than half the effort. 2-Substantial/Maximal Assistance-helper does MORE THAN HALF the effort. [place] lifts or holds trunk or limbs and provides more than half the effort. 9-Ituqlsted-rnjdxy does ALL the effort. Patient does none of the effort to complete the activity. Or, the assistance of 2 or more helpers is required for the patient to complete the activity. If activity was not attempted, code reason: 7-Patient Refused. 9-Not Applicable-not attempted and the patient did not perform the activity before the current illness, exacerbation or injury. 10-Not Attempted due to Environmental Limitations-(lack of equipment, weather restraints, etc.). 88-Not Attempted due to Medical Conditions or Safety Concerns. pt. pulled self up in bed with instruction Weight Bearing Left Lower Extremity: Left Weight Bearing/Tolerated Exercises Supine Ex: Ankle pumps, Quad Set, Rolling, Glut sets, Heel Slides, Short Arc Quads, Scooting, Straight leg raise (assisted left), Hip abd/add (assisted left) Assessment Current Status: Good Progress PT Intermediate Goals [employer] Goals PT Intermediate Goals Time Frame: Dec 28, 2020 Roll Left & Right (QC): 5 Sit to Lying (QC): 5 Lying-Sitting on Side/Bed(QC): 5 Sit to Stand (QC): 5 Chair/Zoc-ay-Gryjg Xfer(QC): 5 Toilet Transfer (QC): 5 Car Transfer (QC): 5 Does the Patient Walk: Yes Walk 10 feet (QC): 5 Walk 50ft with 2 Turns (QC): 5 Walk 150 ft (QC): 5 Walking 10ft on Uneven Surface: 5 1 Step (curb) (QC): 5 4 Steps (QC): 4 12 Steps (QC): 4 Picking up an Object (QC): 4 Wheel 50 feet with 2 turns (QC: 9 Wheel 150 feet: 9 PT Plan Treatment/Plan Treatment Plan: Continue Plan of Care Treatment Plan: Bed Mobility, Education, Functional Activity Jose, Functional Strength, Group Therapy, Gait, Safety, Therapeutic Exercise, Transfers Treatment Duration: Dec 28, 2020 Frequency: At least 5 of 7 days/Wk (IRF) Estimated Hrs Per Day: 1.5 hours per day Patient and/or Family Agrees t: Yes Time/GCodes Time In: 1345 Time Out: 1405 Total Billed Treatment Time: 20 Total Billed Treatment 1,EX20m YOEL ANDERSON [employer] Dec 11, 2020 14:08
--- NOTE | 2020-12-11 17:23 | Diagnostic Imaging Report ---
INDICATION: Left hip pain 2 views of left hip show postoperative changes from internal fixation of intertrochanteric fracture of the left hip with avulsion of the lesser trochanter. Hardware appears to be secure. IMPRESSION: Stable internal fixation with a dynamic compression device of a comminuted intertrochanteric fracture of the left hip. Dictated by: Dictated on workstation # [id number]
[2020-12-11] MEDS: TAMSULOSIN 0.4 MG (FLOMAX) CAP PO SCH (17:39)
[2020-12-11] MEDS: LACTULOSE SYRUP 10GM/15ML (ENULOSE) 30ML UDC PO PRN (17:39)
[2020-12-11 18:26] VITALS: BP 147/66
[2020-12-11] MEDS: ENOXAPARIN 40 MG/0.4 ML (LOVENOX) SYR SC SCH (22:37)
[2020-12-12 03:36] LABS: BASOPHILS # (AUTO) 0.1 10^3/uL (0.0-0.1); BASOPHILS % (AUTO) 1 % (0-10); EOSINOPHILS # (AUTO) 0.3 10^3/uL (0.0-0.3); EOSINOPHILS % (AUTO) 3 % (0-10); HEMATOCRIT 29 % (40-54); HEMOGLOBIN 9.6 g/dL (13.3-17.7); LYMPHOCYTES # (AUTO) 2.7 10^3/uL (1.0-4.0); LYMPHOCYTES % (AUTO) 32 % (12-44); MEAN CORPUSCULAR HEMOGLOBIN 32 pg (25-34); MEAN CORPUSCULAR HGB CONC 33 g/dL (32-36); MEAN CORPUSCULAR VOLUME 96 fL (80-99); MEAN PLATELET VOLUME 8.9 fL (9.0-12.2); MONOCYTES # (AUTO) 0.9 10^3/uL (0.0-1.0); MONOCYTES % (AUTO) 10 % (0-12); NEUTROPHILS # (AUTO) 4.3 10^3/uL (1.8-7.8); NEUTROPHILS % (AUTO) 51 % (42-75); PLATELET COUNT 304 10^3/uL (130-400); WHITE BLOOD COUNT 8.5 10^3/uL (4.3-11.0)
[2020-12-12 03:54] LABS: ALANINE AMINOTRANSFERASE 41 U/L (0-55); ALBUMIN 3.2 GM/DL (3.2-4.5); ALKALINE PHOSPHATASE 52 U/L (40-136); BILIRUBIN,TOTAL 0.7 MG/DL (0.1-1.0); BUN/CREATININE RATIO 17; CALCIUM 8.8 MG/DL (8.5-10.1); CARBON DIOXIDE 24 MMOL/L (21-32); CHLORIDE 101 MMOL/L (98-107); CREATININE SERUM 0.72 MG/DL (0.60-1.30); GFR ESTIMATED > 60; GLUCOSE 99 MG/DL (70-105); POTASSIUM 4.3 MMOL/L (3.6-5.0); SODIUM 135 MMOL/L (135-145); TOTAL PROTEIN 6.4 GM/DL (6.4-8.2)
[2020-12-12 05:04] VITALS: BP 156/78
--- NOTE | 2020-12-12 05:53 | PM&R Progress Note ---
Subjective HPI/CC On Admission Date Seen by Provider: Dec 12, 2020 Time Seen by Provider: 10:30 Subjective/Events-last exam 12/12/20: Pt improved today Participating in therapy a lot better today X-ray of the hip and ultrasound were all within normal limits Labs checked and all okay 12/11/20: Pt really not able to participate due to cognitive deficit Bowels moved on the Left lower extremity ultrasound will be evaluating for DVT that Dr. Ovalle ordered Overall cognition is causing a delay in his recovery 12/10/20: Pt did use the sit to stand today because of lack of strength in his legs Will DC the Baclofen but its only been 5 mg three times a day so hopefully that will help Dementia is noted Lortab used for pain His answers are really unreliable 12/09/20: Pt doing okay Was on commode but seen after done Laxatives given since unknown when his last BM was Dementia is precluding details 12/08/20: Patient doing well Increase pain when moved left leg Difficulty ambulating Hgb low so will give 1 unit of blood today and Venofer iron infusions Baclofen will be given for muscle spasms Checked meds and labs Review of Systems General: Fatigue Musculoskeletal: leg pain Neurological: Confusion Objective Exam Vital Signs Vital Signs Date Time Temp Pulse Resp B/P (MAP) Pulse Ox O2 Delivery O2 Flow Rate FiO2 12/13/20 05:08 36.8 85 16 175/79 (111) 97 Room Air Capillary Refill : General Appearance: No Apparent Distress, WD/WN, Chronically ill, Obese HEENT: PERRL/EOMI, Normal ENT Inspection, Pharynx Normal Neck: Full Range of Motion, Normal Inspection, Non Tender, Supple, Carotid Bruit Respiratory: Chest Non Tender, Lungs Clear, Normal Breath Sounds, No Accessory Muscle Use, No Respiratory Distress Cardiovascular: Regular Rate, Rhythm, No Edema, No Gallop, No JVD, No Murmur, Normal Peripheral Pulses Gastrointestinal: Normal Bowel Sounds, No Organomegaly, No Pulsatile Mass, Non Tender, Soft Back: Normal Inspection, No CVA Tenderness, No Vertebral Tenderness Extremity: Normal Capillary Refill, Normal Inspection, Normal Range of Motion (except left leg), Non Tender, No Calf Tenderness, No Pedal Edema Neurologic/Psychiatric: Alert, Oriented x3, No Motor/Sensory Deficits, Normal Mood/Affect, Disoriented (poor recall) Skin: Normal Color, Warm/Dry Lymphatic: No Adenopathy Results/Procedures Lab Patient resulted labs reviewed. FIM Transfers Therapy Code Descriptions/Definitions Functional [place] Measure: 0=Not Assessed/NA 4=Minimal Assistance 1=Total Assistance 5=Supervision or Setup 2=Maximal Assistance 6=Modified [place] 3=Moderate Assistance 7=Complete IndependenceSCALE: Activities may be completed with or without assistive devices. 3-Uqwtvtwscj-xmmldgp completes the activity by him/herself with no assistance from a helper. 5-Set-up or Clean-up Assistance-helper sets up or cleans up; patient completes activity. [place] assists only prior to or following the activity. 4-Supervision or Touching Assistance-helper provides verbal cues and/or touching/steadying and/or contact guard assistance as patient completes activity. Assistance may be provided throughout the activity or intermittently. 3-Partial/Moderate Assistance-helper does LESS THAN HALF the effort. [place] lifts, holds or supports trunk or limbs, but provides less than half the effort. 2-Substantial/Maximal Assistance-helper does MORE THAN HALF the effort. [place] lifts or holds trunk or limbs and provides more than half the effort. 0-Xgqpfmroq-sxvruj does ALL the effort. Patient does none of the effort to complete the activity. Or, the assistance of 2 or more helpers is required for the patient to complete the activity. If activity was not attempted, code reason: 7-Patient Refused. 9-Not Applicable-not attempted and the patient did not perform the activity before the current illness, exacerbation or injury. 10-Not Attempted due to Environmental Limitations-(lack of equipment, weather restraints, etc.). 88-Not Attempted due to Medical Conditions or Safety Concerns. Roll Left to Right (QC): 3 Sit to Stand (QC): 3 Chair/Svr-qc-Etyss Xfer(QC): 3 Car Transfer (QC): 88 Gait Training Does the Patient Walk?: Yes Distance: 5' Walk 10 feet (QC): 88 Walk 50 ft with 2 Turns(QC): 88 Walk 150 ft (QC): 88 Walking 10ft/uneven surface-QC: 88 Gait Persons Needed: 1 Gait Assistive Device: FWW Wheelchair Training Does the Pt Use a Wheelchair?: Yes Wheel 50 ft with 2 turns (QC): 6 Wheel 150 ft (QC): 6 Type of Wheelchair: Manual Stair Training #of Steps: 0 1 Step (curb) (QC): 88 4 Steps (QC): 88 12 Steps (QC): 88 Balance Picking up an Object (QC): 88 ADL-Treatment Eating (QC): 6 (IND with breakfast) Oral Hygiene (QC): 5 (set up at recliner.) Shower/Bathe Self (QC): 1 (Pt able to wash BUEs, chest/abdomen, and periarea. Assist x2 in stand at FWW to wash buttocks, assist with BLEs.) Upper Body Dressing (QC): 5 (set up) Lower Body Dressing (QC): 1 (Assist x2 in stand for pant hike, assist with all parts.) On/Off Footwear (QC): 1 (assist to megan/doff bilateral gripper socks.) Toileting Hygiene (QC): 1 (Assist with all parts, assist x2 in stand) Assessment/Plan Assessment and Plan Assess & Plan/Chief Complaint Assessment: s/p left hip fracture Post op anemia from acute blood loss requiring iron infusions and transfusion 1 unit of blood 12/08/20 HTN Hypothyroidism s/p altman cath DC Plan: Monitor pain Monitor confusion Fall risk 12/08/20: Transfuse 1 unit of blood Venofer Pain control Baclofen 12/09/20: Monitor hgb Pain control 12/10/20: Monitor pain DC Baclofen Monitor for falls 12/11/20: Monitor pain Monitor confusion Check labs in am Venofer as scheduled 12/12/20: Labs good Monitor confusion (1) Closed left hip fracture Status: Acute (2) BPH (benign prostatic hyperplasia) Status: Chronic (3) Hypertension Status: Chronic (4) Hypothyroidism Status: Chronic (5) Hyperlipidemia Status: Chronic SANJUANA GRAY DO Dec 12, 2020 05:53
--- NOTE | 2020-12-12 08:55 | Physical Therapy Daily Note ---
PT Daily Note-Current Subjective Patient reports unrated pain in L hip. Sitting upright in bed pre tx. Consented to therapy. Appearance Patient seated upright in chair with OT in room post tx. Mental Status Patient Orientation: Person, Confused Transfers SCALE: Activities may be completed with or without assistive devices. 0-Wyfeekqstm-bujmkva completes the activity by him/herself with no assistance from a helper. 5-Set-up or Clean-up Assistance-helper sets up or cleans up; patient completes activity. [place] assists only prior to or following the activity. 4-Supervision or Touching Assistance-helper provides verbal cues and/or touc ronna/steadying and/or contact guard assistance as patient completes activity. Assistance may be provided throughout the activity or intermittently. 3-Partial/Moderate Assistance-helper does LESS THAN HALF the effort. [place] lifts, holds or supports trunk or limbs, but provides less than half the effort. 2-Substantial/Maximal Assistance-helper does MORE THAN HALF the effort. [place] lifts or holds trunk or limbs and provides more than half the effort. 7-Mdfezsqia-uqayhk does ALL the effort. Patient does none of the effort to complete the activity. Or, the assistance of 2 or more helpers is required for the patient to complete the activity. If activity was not attempted, code reason: 7-Patient Refused. 9-Not Applicable-not attempted and the patient did not perform the activity before the current illness, exacerbation or injury. 10-Not Attempted due to Environmental Limitations-(lack of equipment, weather restraints, etc.). 88-Not Attempted due to Medical Conditions or Safety Concerns. Lying to Sitting/Side of Bed(Q: 4 (CGA x1. Patient able to use R leg to aid L LE with bed mobility, but the process was slow and required rest breaks in between small movements.) Sit to Stand (QC): 3 Chair/Jnv-kc-Ihciy Xfer(QC): 3 Patient requires many attempts for sit <-> stand transfer before completing movement, however requires less assist than previous treatments. Weight Bearing Left Lower Extremity: Left Weight Bearing/Tolerated Gait Training Does the Patient Walk?: Yes Distance: 6' x2, 20' Walk 10 feet (QC): 3 Gait Persons Needed: 1 Gait Assistive Device: FWW Patient is slow and takes frequent rest breaks (every 1-2 steps) during ambulation. Patient required lest assist today and was able to shift weight without relying on assistance. Patient frequently complains of pain and notes "his muscles are not working" throughout gait cycle. During 20' ambulation, patient was instructed to bear weight through UE's and take step after step without rest breaks. Patient was unable to maintain fluid gait pattern, and continued to rest in between steps. Patient does not take instruction well, and can be argumentative. Treatments Transfers, LE strengthening, gait training Assessment Current Status: Fair Progress guarded movements secondary to pain complaints, requires frequent rest breaks with any mobility PT Tire Wrapper Goals Tire Wrapper Goals PT Tire Wrapper Goals Time Frame: Dec 28, 2020 Roll Left & Right (QC): 5 Sit to Lying (QC): 5 Lying-Sitting on Side/Bed(QC): 5 Sit to Stand (QC): 5 Chair/Erv-qr-Tebsq Xfer(QC): 5 Toilet Transfer (QC): 5 Car Transfer (QC): 5 Does the Patient Walk: Yes Walk 10 feet (QC): 5 Walk 50ft with 2 Turns (QC): 5 Walk 150 ft (QC): 5 Walking 10ft on Uneven Surface: 5 1 Step (curb) (QC): 5 4 Steps (QC): 4 12 Steps (QC): 4 Picking up an Object (QC): 4 Wheel 50 feet with 2 turns (QC: 9 Wheel 150 feet: 9 PT Plan Problem List Problem List: Activity Tolerance, Functional Strength, Safety, Balance, Gait, Transfer, Bed Mobility, ROM Treatment/Plan Treatment Plan: Continue Plan of Care Treatment Plan: Bed Mobility, Education, Functional Activity Jose, Functional Strength, Group Therapy, Gait, Safety, Therapeutic Exercise, Transfers Treatment Duration: Dec 28, 2020 Frequency: At least 5 of 7 days/Wk (IRF) Estimated Hrs Per Day: 1.5 hours per day Patient and/or Family Agrees t: Yes Safety Risks/Education Patient Education: Gait Training, Transfer Techniques, Correct Positioning, Safety Issues Teaching Recipient: Patient, Primary Caregiver Teaching Methods: Demonstration, Discussion Response to Teaching: Verbalize Understanding, Return Demonstration, Reinforcement Needed Time/GCodes Time In: 0800 Time Out: 0900 Total Billed Treatment Time: 60 Total Billed Treatment 1 visit: FA x2: 30 GT x2: 30 JAZMIN DIEGO PT Dec 12, 2020 08:55
[2020-12-12] MEDS: DOCUSATE SODIUM 100 MG (COLACE) CAP PO SCH ×2 (09:16→20:48)
[2020-12-12] MEDS: lisINopril 20 MG (PRINIVIL) TABLET PO SCH (09:17)
[2020-12-12] MEDS: LACTULOSE SYRUP 10GM/15ML (ENULOSE) 30ML UDC PO PRN ×2 (09:17→17:52)
[2020-12-12] MEDS: polyethylene glycoL POWDER 17 GM (MIRALAX) PACK PO SCH ×2 (09:17→20:56)
[2020-12-12] MEDS: FAMOTIDINE 20 MG (PEPCID) TABLET PO SCH ×2 (09:17→20:48)
[2020-12-12] MEDS: SENNA W/DOCUSATE (SENOKOT S) TABLET PO SCH ×2 (09:17→20:48)
[2020-12-12] MEDS: meTOproloL SUCCINATE 50 MG (TOPROL XL) TAB PO SCH (09:17)
[2020-12-12] MEDS: LEVOTHYROXINE 112 MCG (LEVOTHROID) TAB PO SCH (09:17)
--- NOTE | 2020-12-12 09:31 | Occupational Ther Daily Note ---
OT Current Status-Daily Note Subjective Pt agreeable to OT/PT cotreat, states that therapists are early today. Pt educated how therapists are there at 8 am as they have been since Wednesday. Mental Status/Objective Patient Orientation: Person, Confused ADL-Treatment Therapy Code Descriptions/Definitions Functional [place] Measure: 0=Not Assessed/NA 4=Minimal Assistance 1=Total Assistance 5=Supervision or Setup 2=Maximal Assistance 6=Modified [place] 3=Moderate Assistance 7=Complete IndependenceSCALE: Activities may be completed with or without assistive devices. 8-Ivdkwtginw-ryyvjse completes the activity by him/herself with no assistance from a helper. 5-Set-up or Clean-up Assistance-helper sets up or cleans up; patient completes activity. [place] assists only prior to or following the activity. 4-Supervision or Touching Assistance-helper provides verbal cues and/or touching/steadying and/or contact guard assistance as patient completes activity. Assistance may be provided throughout the activity or intermittently. 3-Partial/Moderate Assistance-helper does LESS THAN HALF the effort. [place] lifts, holds or supports trunk or limbs, but provides less than half the effort. 2-Substantial/Maximal Assistance-helper does MORE THAN HALF the effort. [place] lifts or holds trunk or limbs and provides more than half the effort. 4-Ntihsitqs-kklwcf does ALL the effort. Patient does none of the effort to complete the activity. Or, the assistance of 2 or more helpers is required for the patient to complete the activity. If activity was not attempted, code reason: 7-Patient Refused. 9-Not Applicable-not attempted and the patient did not perform the activity before the current illness, exacerbation or injury. 10-Not Attempted due to Environmental Limitations-(lack of equipment, weather restraints, etc.). 88-Not Attempted due to Medical Conditions or Safety Concerns. On/Off Footwear: 4 (SBA with moderate verbal cues to don/doff gripper socks using AE) Other Treatment [id number] OT/PT cotreat due to skill of 2 clinicians required which a rehabilitation tech could not perform in order to coordinate UE/LEs with tasks, in order to decrease fall risk, and due to limitations in pt's strength, activity tolerance, mobility and transfers. OT focused on ADLs, UE placement, cues for sequencing and safety, PT focused on LE placement, gross overall movements, and ambulation/transfers. Pt transferred supine to sit EOB, CGA. Pt able to advance LLE with UEs and RLE, required increased time due to frequent rest breaks with small movements. Pt transferred to w/c, then self propelled w/c to therapy gym. Pt ambulated 6'x2 in parallel bars, then 20' using FWW. Pt is slow with all mobility, requiring frequent rest breaks every 1-2 steps. Pt instructed not to take rest breaks with mobility using FWW and to bear more weight through UEs in order to maintain fluid mobility, but continued to take rest breaks with steps. Pt did not take instruction well, becoming argumentative. Pt propelled self back to room in w/c, then transferred to recliner. Pt appeared resistive to assistance with therapy, stating "let me do it", but then continued sitting without initiating movements. This occurred with most transfers, and when he was sitting in the recliner and wanted his foot rest elevated. [id number] OT tx: OT educated pt on AE for LE dressing/bathing. Pt doffed BLE gripper socks using dressing stick, then used sock aide to don socks. Moderate verbal cues required with donning in order to recall correct technique from demonstration. OT then educated pt on using long handled sponge in order to wash feet, pt able to use long handled sponge to reach tops/bottoms of feet in washing motion. OT informed pt continued education/practice of AE with occur through remainder of therapy sessions. Post tx, pt seated in recliner, call light in reach and all needs met. Education OT Patient Education: Correct positioning, Modified ADL techniques, Progress toward Goal/Update tx plan, Purpose of tx/functional activities, Rehab process, Safety issues, Transfer techniques, Use of adapted equipment Teaching Recipient: Patient Teaching Methods: Discussion Response to Teaching: Reinforcement Needed OT Short Term Goals Short Term Goals Time Frame: Dec 20, 2020 Shower/bathe self: 3 Lower body dressin Putting on/taking off footwear: 3 OT Snf Goals Financial Wellness Coach Goals Time Frame: Jan 03, 2021 Eating (QC): 6 Oral Hygiene (QC): 6 Toileting Hygiene (QC): 6 Shower/Bathe Self (QC): 6 Upper Body Dressing (QC): 6 Lower Body Dressing (QC): 6 On/Off Footwear (QC): 6 Additional Goals: 1-Demonstrate ADL Tasks, 2-Verbalize Understanding, 3- ImproveStrength/Jose 1=Demonstrate adherence to instructed precautions during ADL tasks. 2=Patient will verbalize/demonstrate understanding of assistive devices/modifications for ADL. 3=Patient will improve strength/tolerance for activity to enable patient to perform ADL's. OT Education/Plan Problem List/Assessment Assessment: Decreased Activ Tolerance, Decreased UE Strength, Impaired Bed Mobility, Impaired Cognition, Impaired Funct Balance, Impaired I ADL's, Impaired Self-Care Skills Discharge Recommendations Plan/Recommendations: Continue POC Treatment Plan/Plan of Care Patient would benefit from OT for education, treatment and training to promote independence in ADL's, mobility, safety and/or upper extremity function for ADL's. Plan of Care: ADL Retraining, Functional Mobility, Group Exercise/Act as Ind, UE Funct Exercise/Act Treatment Duration: Jan 03, 2021 Frequency: At least 5 of 7 days/Wk (IRF) Estimated Hrs Per Day: 1.5 hours per day Rehab Potential: Fair Time/GCodes Start Time: 08:00 Stop Time: 09:15 Total Time Billed (hr/min): 75 Billed Treatment Time OT/PT cotreat [id number], OT tx [id number] 1, FA 4 (60'), ADL (15') ISADORA HUGHES OT Dec 12, 2020 09:31
[2020-12-12] MEDS: [UNRECOGNIZED DRUG - REMARK] TOP PRN (09:33)
--- NOTE | 2020-12-12 11:37 | Speech Therapy Daily Note ---
Speech Daily Progress Note Subjective Date Seen by Provider: Dec 12, 2020 Time Seen by Provider: 00:30 Patient was resting in his recliner following his OT and PT. Objective Patient completed "fill in the blank" sentences presented verbally at 85% with 10% repetitions/cues. Assessment Assessment Current Status: Good Progress Treatment Plan Continue Plan of Care Speech Short Term Goals Short Term Goals Short Term Goals 1) Patient will complete memory tasks related to his daily routine at 80% or greater with minimal cues. 2) Patient will complete safety awareness tasks related to his daily routine at 80% or greater with minimal cues. 3) Patient will complete problem solving tasks related to his daily routine at 80% or greater with minimal cues. Speech Chcf Goals Chcf Goals Patient will improve cognitive-communication skills necessary for safety and daily living tasks with minimal assist. Speech-Plan Patient/Family Goals Patient/Family Goals: Patient plans on returning to his home where he lives with his . They have family and caregivers around the clock for assistance with daily needs. Treatment Plan Speech Therapy Treatment Plan: Continue Plan of Care Treatment Duration: Dec 18, 2020 Frequency: 4 times per week (Patient will receive skilled ST 4-5x per week) Estimated Hrs Per Day: .5 hour per day Rehab Potential: Fair Barriers to Learning: Patient's cognitive deficits, age Pt/Family Agrees to Plan: Yes Safety Risks/Education Teaching Recipient: Patient Teaching Methods: Demonstration, Discussion Response to Teaching: Verbalize Understanding, Return Demonstration Education Topics Provided: Continued safety within his room, communication of pain/needs to nursing Time Speech Therapy Time In: 09:30 Speech Therapy Time Out: 10:00 Total Billed Time: 30 Billed Treatment Time [address] [address] Dec 12, 2020 11:37
--- NOTE | 2020-12-12 11:56 | Physical Therapy Daily Note ---
PT Daily Note-Current Subjective Patient reports no pain pre tx, and was laying supine in bed. Patient agrees to PT. Appearance Patient laying supine, in bed, with call button within reach and tray table nearby. Mental Status Patient Orientation: Person, Confused Transfers SCALE: Activities may be completed with or without assistive devices. 8-Zjxcxrxrdb-oonjxge completes the activity by him/herself with no assistance from a helper. 5-Set-up or Clean-up Assistance-helper sets up or cleans up; patient completes a ctivity. [place] assists only prior to or following the activity. 4-Supervision or Touching Assistance-helper provides verbal cues and/or touching/steadying and/or contact guard assistance as patient completes activity. Assistance may be provided throughout the activity or intermittently. 3-Partial/Moderate Assistance-helper does LESS THAN HALF the effort. [place] lifts, holds or supports trunk or limbs, but provides less than half the effort. 2-Substantial/Maximal Assistance-helper does MORE THAN HALF the effort. [place] lifts or holds trunk or limbs and provides more than half the effort. 5-Ksslbggzv-pxtvwj does ALL the effort. Patient does none of the effort to complete the activity. Or, the assistance of 2 or more helpers is required for the patient to complete the activity. If activity was not attempted, code reason: 7-Patient Refused. 9-Not Applicable-not attempted and the patient did not perform the activity before the current illness, exacerbation or injury. 10-Not Attempted due to Environmental Limitations-(lack of equipment, weather restraints, etc.). 88-Not Attempted due to Medical Conditions or Safety Concerns. Roll Left & Right (QC): 4 SBA x1, was able to roll on right side briefly with mild pain complaints. Weight Bearing Left Lower Extremity: Left Weight Bearing/Tolerated Exercises Supine Ex: Ankle pumps, Quad Set, Glut sets, Heel Slides, Straight leg raise, Hip abd/add Supine Reps: 20 Patient was able to easily maneuver R leg through exercise progression. Patient required Min A x1 with L LE exercises, but demonstrated improvement in ROM as repetitions increased. Treatments LE strengthening, bed mobility, ROM Assessment Current Status: Fair Progress Poor L LE muscular activation for supine exercises; pain guarding decreased as exercise reps increased. PT Long-Term Goals Long-Term Goals PT Long-Term Goals Time Frame: Dec 28, 2020 Roll Left & Right (QC): 5 Sit to Lying (QC): 5 Lying-Sitting on Side/Bed(QC): 5 Sit to Stand (QC): 5 Chair/Ohq-dd-Onrfj Xfer(QC): 5 Toilet Transfer (QC): 5 Car Transfer (QC): 5 Does the Patient Walk: Yes Walk 10 feet (QC): 5 Walk 50ft with 2 Turns (QC): 5 Walk 150 ft (QC): 5 Walking 10ft on Uneven Surface: 5 1 Step (curb) (QC): 5 4 Steps (QC): 4 12 Steps (QC): 4 Picking up an Object (QC): 4 Wheel 50 feet with 2 turns (QC: 9 Wheel 150 feet: 9 PT Plan Problem List Problem List: Activity Tolerance, Functional Strength, Safety, Balance, Gait, Transfer, Bed Mobility, ROM Treatment/Plan Treatment Plan: Continue Plan of Care Treatment Plan: Bed Mobility, Education, Functional Activity Jose, Functional Strength, Group Therapy, Gait, Safety, Therapeutic Exercise, Transfers Treatment Duration: Dec 28, 2020 Frequency: At least 5 of 7 days/Wk (IRF) Estimated Hrs Per Day: 1.5 hours per day Patient and/or Family Agrees t: Yes Safety Risks/Education Patient Education: Correct Positioning Teaching Recipient: Patient Teaching Methods: Demonstration, Discussion Response to Teaching: Verbalize Understanding, Return Demonstration Time/GCodes Time In: 1100 Time Out: 1115 Total Billed Treatment Time: 15 Total Billed Treatment 1 visit: EX: 15' JAZMIN DIEGO PT Dec 12, 2020 11:56
[2020-12-12 16:00] VITALS: BP 138/78
[2020-12-12] MEDS: TAMSULOSIN 0.4 MG (FLOMAX) CAP PO SCH (17:52)
[2020-12-12] MEDS: ENOXAPARIN 40 MG/0.4 ML (LOVENOX) SYR SC SCH (22:18)
[2020-12-13 05:08] VITALS: BP 175/79
[2020-12-13 09:26] VITALS: BP 111/57
[2020-12-13] MEDS: SENNA W/DOCUSATE (SENOKOT S) TABLET PO SCH ×2 (09:26→21:09)
[2020-12-13] MEDS: DOCUSATE SODIUM 100 MG (COLACE) CAP PO SCH ×2 (09:27→21:09)
[2020-12-13] MEDS: LEVOTHYROXINE 112 MCG (LEVOTHROID) TAB PO SCH (09:27)
[2020-12-13] MEDS: FAMOTIDINE 20 MG (PEPCID) TABLET PO SCH ×2 (09:27→21:10)
[2020-12-13] MEDS: polyethylene glycoL POWDER 17 GM (MIRALAX) PACK PO SCH ×2 (09:27→21:07)
[2020-12-13] MEDS: lisINopril 20 MG (PRINIVIL) TABLET PO SCH (09:27)
[2020-12-13] MEDS: meTOproloL SUCCINATE 50 MG (TOPROL XL) TAB PO SCH (09:27)
[2020-12-13] MEDS: IRON SUCROSE 200 MG/10 ML (VENOFER) VIAL IV SCH (10:33)
--- NOTE | 2020-12-13 10:40 | Progress Note - Ortho ---
Progress Note Subjective Date of Exam 12/13/20 Chief Complaint POD#8 Short TFN left hip for a three-part intertrochanteric fracture HPI/Events since last exam Mr. Coyle is now 8 days since short TFN left hip for a three-part intertrochanteric fracture. He states the thigh pain that He was having is less. He still has some pain though. Review of Systems Reviewed and no additions or changes Allergies: Coded Allergies: No Known Drug Allergies (Unverified , 05/06/18) Home Meds Reported Medications Multivitamin (Multivitamin) 1 Each Tablet, 1 EACH PO DAILY, TAB 12/05/20 Metoprolol Succinate (Metoprolol Succinate) 50 Mg Tab.er.24h, 50 MG PO DAILY, TAB 12/05/20 Lisinopril (Lisinopril) 10 Mg Tablet, 10 MG PO DAILY, TAB 12/05/20 Levothyroxine Sodium (Levothyroxine Sodium) 112 Mcg Tablet, 112 MCG PO DAILY, TAB 12/05/20 Atorvastatin Calcium (Atorvastatin Calcium) 10 Mg Tablet, 10 MG PO DAILY, TAB 02/01/18 Objective Exam Constitutional: [] HEENT: [] Neck: [] Cardiovascular: [] Respiratory: [] Gastrointestinal: [] Genitourinary: [] Skin: [] Back/Spine: [] Extremities: [Still some mild swelling left thigh. Dressings intact. No calf tenderness and negative Homans. Normal sensation of the foot and toes with good cap refill. Good strength on dorsiflexion plantarflexion of the foot and ankle. Negative straight leg raise. Mild pain with gentle internal and external rotation of the hip.] Neurologic: [] Psychiatric: [] Hematologic/lymphatic/immunologic: [] Vital Signs Vital Signs Date Time Temp Pulse Resp B/P (MAP) Pulse Ox O2 Delivery O2 Flow Rate FiO2 12/13/20 09:26 66 111/57 (75) 12/13/20 05:08 36.8 85 16 175/79 (111) 97 Room Air 12/12/20 20:30 Room Air 12/12/20 16:00 36.4 71 16 138/78 (98) 99 I & O 12/13/20 07:00 Intake Total 1100 ml Output Total 1790 ml Balance -690 ml Assessment and Plan Assessment Slow improvement postop. X-rays show continued good alignment and venous Doppler was negativeFor DVT Problem List Unchanged Plan Continue with walker ambulation weightbearing as tolerated on left leg Final Diagonsis Three-part intertrochanteric fracture status post short TFN Level of the visit: Level 3 DONATO MUNGUIA MD Dec 13, 2020 10:40
--- NOTE | 2020-12-13 11:06 | PM&R Progress Note ---
Subjective HPI/CC On Admission Date Seen by Provider: Dec 13, 2020 Time Seen by Provider: 11:15 Subjective/Events-last exam 12/13/20: Improved status Minimal ambulation Pain is due to muscle soreness per ortho IV iron infusion today Pain ok otherwise 12/12/20: Pt improved today Participating in therapy a lot better today X-ray of the hip and ultrasound were all within normal limits Labs checked and all okay 12/11/20: Pt really not able to participate due to cognitive deficit Bowels moved on the Left lower extremity ultrasound will be evaluating for DVT that Dr. Ovalle ordered Overall cognition is causing a delay in his recovery 12/10/20: Pt did use the sit to stand today because of lack of strength in his legs Will DC the Baclofen but its only been 5 mg three times a day so hopefully that will help Dementia is noted Lortab used for pain His answers are really unreliable 12/09/20: Pt doing okay Was on commode but seen after done Laxatives given since unknown when his last BM was Dementia is precluding details 12/08/20: Patient doing well Increase pain when moved left leg Difficulty ambulating Hgb low so will give 1 unit of blood today and Venofer iron infusions Baclofen will be given for muscle spasms Checked meds and labs Review of Systems General: Fatigue Musculoskeletal: leg pain Neurological: Confusion Objective Exam Vital Signs Vital Signs Date Time Temp Pulse Resp B/P (MAP) Pulse Ox O2 Delivery O2 Flow Rate FiO2 12/14/20 06:00 36.8 62 16 177/86 (116) 97 Room Air Capillary Refill : General Appearance: No Apparent Distress, WD/WN, Chronically ill, Obese HEENT: PERRL/EOMI, Normal ENT Inspection, Pharynx Normal Neck: Full Range of Motion, Normal Inspection, Non Tender, Supple, Carotid Bruit Respiratory: Chest Non Tender, Lungs Clear, Normal Breath Sounds, No Accessory Muscle Use, No Respiratory Distress Cardiovascular: Regular Rate, Rhythm, No Edema, No Gallop, No JVD, No Murmur, Normal Peripheral Pulses Gastrointestinal: Normal Bowel Sounds, No Organomegaly, No Pulsatile Mass, Non Tender, Soft Back: Normal Inspection, No CVA Tenderness, No Vertebral Tenderness Extremity: Normal Capillary Refill, Normal Inspection, Normal Range of Motion (except left leg), Non Tender, No Calf Tenderness, No Pedal Edema Neurologic/Psychiatric: Alert, Oriented x3, No Motor/Sensory Deficits, Normal Mood/Affect, Disoriented (poor recall) Skin: Normal Color, Warm/Dry Lymphatic: No Adenopathy Results/Procedures Lab Patient resulted labs reviewed. FIM Transfers Therapy Code Descriptions/Definitions Functional [place] Measure: 0=Not Assessed/NA 4=Minimal Assistance 1=Total Assistance 5=Supervision or Setup 2=Maximal Assistance 6=Modified [place] 3=Moderate Assistance 7=Complete IndependenceSCALE: Activities may be completed with or without assistive devices. 7-Uwjruiokpg-yneozzg completes the activity by him/herself with no assistance from a helper. 5-Set-up or Clean-up Assistance-helper sets up or cleans up; patient completes activity. [place] assists only prior to or following the activity. 4-Supervision or Touching Assistance-helper provides verbal cues and/or touching/steadying and/or contact guard assistance as patient completes activity. Assistance may be provided throughout the activity or intermittently. 3-Partial/Moderate Assistance-helper does LESS THAN HALF the effort. [place] lifts, holds or supports trunk or limbs, but provides less than half the effort. 2-Substantial/Maximal Assistance-helper does MORE THAN HALF the effort. [place] lifts or holds trunk or limbs and provides more than half the effort. 1-Xojdfgldt-cacvxx does ALL the effort. Patient does none of the effort to complete the activity. Or, the assistance of 2 or more helpers is required for the patient to complete the activity. If activity was not attempted, code reason: 7-Patient Refused. 9-Not Applicable-not attempted and the patient did not perform the activity before the current illness, exacerbation or injury. 10-Not Attempted due to Environmental Limitations-(lack of equipment, weather restraints, etc.). 88-Not Attempted due to Medical Conditions or Safety Concerns. Roll Left to Right (QC): 4 Sit to Stand (QC): 3 Chair/Wsx-ls-Wmoqj Xfer(QC): 3 Car Transfer (QC): 88 Gait Training Does the Patient Walk?: Yes Distance: 6' x2, 20' Walk 10 feet (QC): 3 Walk 50 ft with 2 Turns(QC): 88 Walk 150 ft (QC): 88 Walking 10ft/uneven surface-QC: 88 Gait Persons Needed: 1 Gait Assistive Device: FWW Wheelchair Training Does the Pt Use a Wheelchair?: Yes Wheel 50 ft with 2 turns (QC): 6 Wheel 150 ft (QC): 6 Type of Wheelchair: Manual Stair Training #of Steps: 0 1 Step (curb) (QC): 88 4 Steps (QC): 88 12 Steps (QC): 88 Balance Picking up an Object (QC): 88 ADL-Treatment Eating (QC): 6 (IND with breakfast) Oral Hygiene (QC): 5 (set up at recliner.) Shower/Bathe Self (QC): 1 (Pt able to wash BUEs, chest/abdomen, and periarea. Assist x2 in stand at FWW to wash buttocks, assist with BLEs.) Upper Body Dressing (QC): 5 (set up) Lower Body Dressing (QC): 1 (Assist x2 in stand for pant hike, assist with all parts.) On/Off Footwear (QC): 4 (SBA with moderate verbal cues to don/doff gripper socks using AE) Toileting Hygiene (QC): 1 (Assist with all parts, assist x2 in stand) Assessment/Plan Assessment and Plan Assess & Plan/Chief Complaint Assessment: s/p left hip fracture Post op anemia from acute blood loss requiring iron infusions and transfusion 1 unit of blood 12/08/20 HTN Hypothyroidism s/p altman cath DC Plan: Monitor pain Monitor confusion Fall risk 12/08/20: Transfuse 1 unit of blood Venofer Pain control Baclofen 12/09/20: Monitor hgb Pain control 12/10/20: Monitor pain DC Baclofen Monitor for falls 12/11/20: Monitor pain Monitor confusion Check labs in am Venofer as scheduled 12/12/20: Labs good Monitor confusion 12/13/20: Monitor pain Monitor confusion (1) Closed left hip fracture Status: Acute (2) BPH (benign prostatic hyperplasia) Status: Chronic (3) Hypertension Status: Chronic (4) Hypothyroidism Status: Chronic (5) Hyperlipidemia Status: Chronic SANJUANA GRAY DO Dec 13, 2020 11:06
[2020-12-13] MEDS: [UNRECOGNIZED DRUG - REMARK] TOP PRN (11:11)
--- NOTE | 2020-12-13 12:01 | Physical Therapy Daily Note ---
PT Daily Note-Current Subjective Patient reports unrated pain in L LE, is seated in chair pre tx working on ADL's with OT. Patient consents to tx. Appearance Patient is seated upright, with nurse in room post tx, has nurse call. Mental Status Patient Orientation: Person, Confused Transfers SCALE: Activities may be completed with or without assistive devices. 8-Lprprzhwrv-ntlgetz completes the activity by him/herself with no assistance from a helper. 5-Set-up or Clean-up Assistance-helper sets up or cleans up; patient completes activity. [place] assists only prior to or following the activity. 4-Supervision or Touching Assistance-helper provides verbal cues and/or touching/steadying and/or contact guard assistance as patient completes activity. Assistance may be provided throughout the activity or intermittently. 3-Partial/Moderate Assistance-helper does LESS THAN HALF the effort. [place] lifts, holds or supports trunk or limbs, but provides less than half the effort. 2-Substantial/Maximal Assistance-helper does MORE THAN HALF the effort. [place] lifts or holds trunk or limbs and provides more than half the effort. 1-Fbvvxtrcy-tnyjex does ALL the effort. Patient does none of the effort to complete the activity. Or, the assistance of 2 or more helpers is required for the patient to complete the activity. If activity was not attempted, code reason: 7-Patient Refused. 9-Not Applicable-not attempted and the patient did not perform the activity before the current illness, exacerbation or injury. 10-Not Attempted due to Environmental Limitations-(lack of equipment, weather restraints, etc.). 88-Not Attempted due to Medical Conditions or Safety Concerns. Sit to Stand (QC): 4 Chair/Kef-gg-Venqh Xfer(QC): 4 CGA x1. Transfers are slow, painful, and require multiple attempts, but patient is able to complete sit <-> stand without assistance. Weight Bearing Left Lower Extremity: Left Weight Bearing/Tolerated Gait Training Does the Patient Walk?: Yes Distance: 15', 25', 50' Walk 10 feet (QC): 4 Walk 50 ft with 2 Turns(QC): 4 Gait Persons Needed: 1 Gait Assistive Device: FWW Patient requires several rest breaks, and recently begins to complain of pain/weakness in arms and shoulders secondary to bearing weight through UE's with ambulation. Patient instructed to put more weight through L LE to relieve pressure in arms. With more weight-bearing through LE's patient was able to take longer steps. Treatments Co-treated with OT secondary to patient decreased balance, fall risk, and ability to ambulate. PT focused on ambulation, and assisted with transfers and balance while OT focused on ADL's and UE endurance with mobility. Assessment Current Status: Fair Progress Patient demonstrated increased ambulation distance but is behind where he should be. PT Snf Goals Snf Goals PT [place] Supervisor Goals Time Frame: Dec 28, 2020 Roll Left & Right (QC): 5 Sit to Lying (QC): 5 Lying-Sitting on Side/Bed(QC): 5 Sit to Stand (QC): 5 Chair/Nwp-cf-Wvtfw Xfer(QC): 5 Toilet Transfer (QC): 5 Car Transfer (QC): 5 Does the Patient Walk: Yes Walk 10 feet (QC): 5 Walk 50ft with 2 Turns (QC): 5 Walk 150 ft (QC): 5 Walking 10ft on Uneven Surface: 5 1 Step (curb) (QC): 5 4 Steps (QC): 4 12 Steps (QC): 4 Picking up an Object (QC): 4 Wheel 50 feet with 2 turns (QC: 9 Wheel 150 feet: 9 PT Plan Problem List Problem List: Activity Tolerance, Functional Strength, Safety, Balance, Gait, Transfer, Bed Mobility, ROM Treatment/Plan Treatment Plan: Continue Plan of Care Treatment Plan: Bed Mobility, Education, Functional Activity Jose, Functional Strength, Group Therapy, Gait, Safety, Therapeutic Exercise, Transfers Treatment Duration: Dec 28, 2020 Frequency: At least 5 of 7 days/Wk (IRF) Estimated Hrs Per Day: 1.5 hours per day Patient and/or Family Agrees t: Yes Safety Risks/Education Patient Education: Gait Training, Transfer Techniques, Correct Positioning, Safety Issues Teaching Recipient: Patient Teaching Methods: Demonstration, Discussion Response to Teaching: Verbalize Understanding, Return Demonstration, Reinforcement Needed Time/GCodes Time In: 1100 Time Out: 1200 Total Billed Treatment Time: 60 Total Billed Treatment 1 visit: FA x2: 30' GT x2: 30' JAZMIN DIEGO PT Dec 13, 2020 12:01
--- NOTE | 2020-12-13 12:01 | Occupational Ther Daily Note ---
OT Current Status-Daily Note Subjective Pt reports 8/10 pain in shoulders at end of tx. ADL-Treatment Therapy Code Descriptions/Definitions Functional [place] Measure: 0=Not Assessed/NA 4=Minimal Assistance 1=Total Assistance 5=Supervision or Setup 2=Maximal Assistance 6=Modified [place] 3=Moderate Assistance 7=Complete IndependenceSCALE: Activities may be completed with or without assistive devices. 1-Garadkljkf-ibngjqn completes the activity by him/herself with no assistance from a helper. 5-Set-up or Clean-up Assistance-helper sets up or cleans up; patient completes activity. [place] assists only prior to or following the activity. 4-Supervision or Touching Assistance-helper provides verbal cues and/or touching/steadying and/or contact guard assistance as patient completes activity. Assistance may be provided throughout the activity or intermittently. 3-Partial/Moderate Assistance-helper does LESS THAN HALF the effort. [place] lifts, holds or supports trunk or limbs, but provides less than half the effort. 2-Substantial/Maximal Assistance-helper does MORE THAN HALF the effort. [place] lifts or holds trunk or limbs and provides more than half the effort. 4-Ekdqutoiv-whcvcg does ALL the effort. Patient does none of the effort to complete the activity. Or, the assistance of 2 or more helpers is required for the patient to complete the activity. If activity was not attempted, code reason: 7-Patient Refused. 9-Not Applicable-not attempted and the patient did not perform the activity before the current illness, exacerbation or injury. 10-Not Attempted due to Environmental Limitations-(lack of equipment, weather restraints, etc.). 88-Not Attempted due to Medical Conditions or Safety Concerns. Shower/Bathe Self (QC): 3 (Assist to wash buttocks and lower legs/feet for thoroughness. Pt used LH sponge as needed) Upper Body Dressing (QC): 5 (set up) Lower Body Dressing (QC): 3 (Min A with pant hike. Pt able to doff/don pants using AE, increased time) On/Off Footwear: 4 (SBA, pt able to doff/don gripper socks using AE, increased time) Pt required increased time with all ADLs due to frequent rest breaks Other Treatment [id number] OT tx, [id number] OT/PT cotreat due to skill of 2 clinicians required which a vocational rehabilitation specialist could not perform in order to coordinate UE/LEs with tasks, in order to decrease fall risk, and due to limitations in pt's strength, activity tolerance, mobility and transfers. OT focused on ADLs, UE placement, cues for sequencing and safety, PT focused on LE placement, gross overall moveme nts, and ambulation/transfers Pt completed sponge bath at recliner, using AE as needed. He then donned clothes as scored above. Pt then used FWW to ambulate out of his room and around [facility] common area, taking rest breaks in w/c as needed. Then returned to room to recliner. Post tx, pt seated in recliner, call light in reach and all needs met. Education OT Patient Education: Correct positioning, Energy conservation, Modified ADL techniques, Progress toward Goal/Update tx plan, Purpose of tx/functional activities, Rehab process, Safety issues, Transfer techniques, Use of adapted equipment Teaching Recipient: Patient Teaching Methods: Discussion Response to Teaching: Verbalize Understanding, Reinforcement Needed OT Short Term Goals Short Term Goals Time Frame: Dec 20, 2020 Shower/bathe self: 3 Lower body dressin Putting on/taking off footwear: 3 OT Ladle Cleaner Goals Ladle Cleaner Goals Time Frame: Jan 03, 2021 Eating (QC): 6 Oral Hygiene (QC): 6 Toileting Hygiene (QC): 6 Shower/Bathe Self (QC): 6 Upper Body Dressing (QC): 6 Lower Body Dressing (QC): 6 On/Off Footwear (QC): 6 Additional Goals: 1-Demonstrate ADL Tasks, 2-Verbalize Understanding, 3- ImproveStrength/Jose 1=Demonstrate adherence to instructed precautions during ADL tasks. 2=Patient will verbalize/demonstrate understanding of assistive devices/modifications for ADL. 3=Patient will improve strength/tolerance for activity to enable patient to perform ADL's. OT Education/Plan Problem List/Assessment Assessment: Decreased Activ Tolerance, Decreased UE Strength, Impaired Funct Balance, Impaired I ADL's, Impaired Self-Care Skills Discharge Recommendations Plan/Recommendations: Continue POC Treatment Plan/Plan of Care Patient would benefit from OT for education, treatment and training to promote independence in ADL's, mobility, safety and/or upper extremity function for ADL's. Plan of Care: ADL Retraining, Functional Mobility, Group Exercise/Act as Ind, UE Funct Exercise/Act Treatment Duration: Jan 03, 2021 Frequency: At least 5 of 7 days/Wk (IRF) Estimated Hrs Per Day: 1.5 hours per day Rehab Potential: Fair Time/GCodes Start Time: 10:45 Stop Time: 12:00 Total Time Billed (hr/min): 75 Billed Treatment Time [id number] OT tx, [id number] OT/PT cotreat 1, ADL 3 (40'), FA 2 (35') ISADORA HUGHES OT Dec 13, 2020 12:01
--- NOTE | 2020-12-13 13:40 | Speech Therapy Daily Note ---
Speech Daily Progress Note Subjective Date Seen by Provider: Dec 13, 2020 Time Seen by Provider: 00:30 Patient was sitting in his recliner following his PT. He was noted to rub his left thigh continuously during the session. He states he wanted his therapy rub cream put on his leg but nursing didn't like for him to use it. Objective Patient completed simple q/a and conversation with memory tasks related at 75% with min to mod verbal cuing. Assessment Assessment Current Status: Fair Progress Treatment Plan Continue Plan of Care Speech Short Term Goals Short Term Goals Short Term Goals 1) Patient will complete memory tasks related to his daily routine at 80% or greater with minimal cues. 2) Patient will complete safety awareness tasks related to his daily routine at 80% or greater with minimal cues. 3) Patient will complete problem solving tasks related to his daily routine at 80% or greater with minimal cues. Speech Penitentiary Goals Penitentiary Goals Patient will improve cognitive-communication skills necessary for safety and daily living tasks with minimal assist. Speech-Plan Patient/Family Goals Patient/Family Goals: Patient plans on returning to his home where he lives with his . They have 24 hour family/caregivers to assist with needs. Treatment Plan Speech Therapy Treatment Plan: Continue Plan of Care Treatment Duration: Dec 18, 2020 Frequency: 4 times per week (Patient will receive skilled ST 4-5x per week) Estimated Hrs Per Day: .5 hour per day Rehab Potential: Fair Barriers to Learning: Patient's decreased cognitive status Pt/Family Agrees to Plan: Yes Safety Risks/Education Teaching Recipient: Patient Teaching Methods: Demonstration, Discussion Response to Teaching: Verbalize Understanding, Return Demonstration Education Topics Provided: Continued safety and communication Time Speech Therapy Time In: 09:30 Speech Therapy Time Out: 10:00 Total Billed Time: 30 Billed Treatment Time 1, SLOSORIO Benedict Dec 13, 2020 13:40
--- NOTE | 2020-12-13 14:54 | Physical Therapy Daily Note ---
PT Daily Note-Current Subjective Patient was asleep in bed pre tx. Patient reported no pain and consented to tx. Appearance Patient was laying supine in bed post tx, with call button within reach and tray table positioned nearby. Mental Status Patient Orientation: Person, Confused Patient reported the same story ~8 min apart within tx session. Transfers SCALE: Activities may be completed with or without assistive devices. 8-Ervcoegktz-lziggra completes the activity by him/herself with no assistance from a helper. 5-Set-up or Clean-up Assistance-helper sets up or cleans up; patient completes activity. [place] assists only prior to or following the activity. 4-Supervision or Touching Assistance-helper provides verbal cues and/or touching/steadying and/or contact guard assistance as patient completes activity. Assistance may be provided throughout the activity or intermittently. 3-Partial/Moderate Assistance-helper does LESS THAN HALF the effort. [place] lifts, holds or supports trunk or limbs, but provides less than half the effort. 2-Substantial/Maximal Assistance-helper does MORE THAN HALF the effort. [place] lifts or holds trunk or limbs and provides more than half the effort. 8-Ndhrknivk-segfdr does ALL the effort. Patient does none of the effort to com plete the activity. Or, the assistance of 2 or more helpers is required for the patient to complete the activity. If activity was not attempted, code reason: 7-Patient Refused. 9-Not Applicable-not attempted and the patient did not perform the activity before the current illness, exacerbation or injury. 10-Not Attempted due to Environmental Limitations-(lack of equipment, weather restraints, etc.). 88-Not Attempted due to Medical Conditions or Safety Concerns. Weight Bearing Left Lower Extremity: Left Weight Bearing/Tolerated Exercises Supine Ex: Ankle pumps, Quad Set, Glut sets, Heel Slides, Short Arc Quads (small blue bolster), Straight leg raise, Hip abd/add Supine Reps: 20 SAQ on L LE: patient was limited with ROM initially by pain, but after the first 5 reps the patient gave no indication that pain was contributing, and his range of extension improved. When asked if pain improved after first few reps, patient agreed that it seemed to have gotten better after the intitial movement. Treatments LE strengthening, ROM Assessment Current Status: Fair Progress Patient will benefit from increased mobility to affected LE to help with pain desensitization and improved functional mobility. 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 Time Frame: Dec 28, 2020 Roll Left & Right (QC): 5 Sit to Lying (QC): 5 Lying-Sitting on Side/Bed(QC): 5 Sit to Stand (QC): 5 Chair/Lsh-km-Kgmqh Xfer(QC): 5 Toilet Transfer (QC): 5 Car Transfer (QC): 5 Does the Patient Walk: Yes Walk 10 feet (QC): 5 Walk 50ft with 2 Turns (QC): 5 Walk 150 ft (QC): 5 Walking 10ft on Uneven Surface: 5 1 Step (curb) (QC): 5 4 Steps (QC): 4 12 Steps (QC): 4 Picking up an Object (QC): 4 Wheel 50 feet with 2 turns (QC: 9 Wheel 150 feet: 9 PT Plan Problem List Problem List: Activity Tolerance, Functional Strength, Safety, Balance, Gait, Transfer, Bed Mobility, ROM Treatment/Plan Treatment Plan: Continue Plan of Care Treatment Plan: Bed Mobility, Education, Functional Activity Jose, Functional Strength, Group Therapy, Gait, Safety, Therapeutic Exercise, Transfers Treatment Duration: Dec 28, 2020 Frequency: At least 5 of 7 days/Wk (IRF) Estimated Hrs Per Day: 1.5 hours per day Patient and/or Family Agrees t: Yes Safety Risks/Education Patient Education: Correct Positioning, Safety Issues Teaching Recipient: Patient Teaching Methods: Demonstration, Discussion Response to Teaching: Verbalize Understanding, Return Demonstration Time/GCodes Time In: 1425 Time Out: 1440 Total Billed Treatment Time: 15 Total Billed Treatment 1 visit: EX: JAZMIN GRANDA PT Dec 13, 2020 14:54
[2020-12-13 16:25] VITALS: BP 159/71
[2020-12-13] MEDS: TAMSULOSIN 0.4 MG (FLOMAX) CAP PO SCH (18:44)
[2020-12-13] MEDS: MELATONIN 3 MG TABLET PO PRN (21:10)
[2020-12-13] MEDS: BACLOFEN 10 MG (LIORESAL) TAB PO PRN (21:10)
[2020-12-13] MEDS: ENOXAPARIN 40 MG/0.4 ML (LOVENOX) SYR SC SCH (23:16)
[2020-12-14 06:00] VITALS: BP 177/86
[2020-12-14 08:00] VITALS: BP 128/63
[2020-12-14] MEDS: LEVOTHYROXINE 112 MCG (LEVOTHROID) TAB PO SCH (08:23)
[2020-12-14] MEDS: SENNA W/DOCUSATE (SENOKOT S) TABLET PO SCH ×2 (08:23→21:01)
[2020-12-14] MEDS: DOCUSATE SODIUM 100 MG (COLACE) CAP PO SCH ×2 (08:23→21:00)
[2020-12-14] MEDS: meTOproloL SUCCINATE 50 MG (TOPROL XL) TAB PO SCH (08:23)
[2020-12-14] MEDS: lisINopril 20 MG (PRINIVIL) TABLET PO SCH (08:24)
[2020-12-14] MEDS: FAMOTIDINE 20 MG (PEPCID) TABLET PO SCH ×2 (08:24→21:00)
[2020-12-14] MEDS: polyethylene glycoL POWDER 17 GM (MIRALAX) PACK PO SCH ×2 (08:26→21:02)
[2020-12-14] MEDS ORDERED: CATHETER FLUSH 10 ML SYR IV PRN (08:30)
--- NOTE | 2020-12-14 08:30 | Physical Therapy Daily Note ---
PT Daily Note-Current Subjective Agreeable to PT. "I'm having a hard time waking up." Transfers SCALE: Activities may be completed with or without assistive devices. 0-Izxnvjhzqe-rdauxlm completes the activity by him/herself with no assistance from a helper. 5-Set-up or Clean-up Assistance-helper sets up or cleans up; patient completes activity. [place] assists only prior to or following the activity. 4-Supervision or Touching Assistance-helper provides verbal cues and/or touching/steadying and/or contact guard assistance as patient completes activity. Assistance may be provided throughout the activity or intermittently. 3-Partial/Moderate Assistance-helper does LESS THAN HALF the effort. [place] lifts, holds or supports trunk or limbs, but provides less than half the effort. 2-Substantial/Maximal Assistance-helper does MORE THAN HALF the effort. [place] lifts or holds trunk or limbs and provides more than half the effort. 1-Bvsayzfcl-zrjoac does ALL the effort. Patient does none of the effort to complete the activity. Or, the assistance of 2 or more helpers is required for the patient to complete the activity. If activity was not attempted, code reason: 7-Patient Refused. 9-Not Applicable-not attempted and the patient did not perform the activity before the current illness, exacerbation or injury. 10-Not Attempted due to Environmental Limitations-(lack of equipment, weather restraints, etc.). 88-Not Attempted due to Medical Conditions or Safety Concerns. Lying to Sitting/Side of Bed(Q: 4 (takes extra time and skilled cues to sequen ce and initiate transfer; uses bed rail ) Sit to Stand (QC): 3 (varies from min to CGA; skilled cues for hand placement and seqeuncing) Chair/Zyj-ud-Guxui Xfer(QC): 3 (CGA for safety.) Sit to stand multiple reps this date; able to stand with SB-CGA from elevated surface; needs min assist from wheelchair. Weight Bearing Left Lower Extremity: Left Weight Bearing/Tolerated Gait Training Gait Assistive Device: FWW Pt ambulated x 15 ft x 2 reps with FWW with CGA and cues to stay on task. Slightly forward flexed at hips and difficulty with WB on the left. Treatments Functional transfers and gait. Pt up in recliner post treatment with chair alarm activated, needs met and breakfast in front of him.. Call light in reach. Assessment Current Status: Good Progress Improved progression of transfers and gait this date. 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 Time Frame: Dec 28, 2020 Roll Left & Right (QC): 5 Sit to Lying (QC): 5 Lying-Sitting on Side/Bed(QC): 5 Sit to Stand (QC): 5 Chair/Mel-lh-Ritnr Xfer(QC): 5 Toilet Transfer (QC): 5 Car Transfer (QC): 5 Does the Patient Walk: Yes Walk 10 feet (QC): 5 Walk 50ft with 2 Turns (QC): 5 Walk 150 ft (QC): 5 Walking 10ft on Uneven Surface: 5 1 Step (curb) (QC): 5 4 Steps (QC): 4 12 Steps (QC): 4 Picking up an Object (QC): 4 Wheel 50 feet with 2 turns (QC: 9 Wheel 150 feet: 9 PT Plan Problem List Problem List: Activity Tolerance, Functional Strength, Safety, Balance, Gait, Transfer, Bed Mobility Treatment/Plan Treatment Plan: Continue Plan of Care Treatment Plan: Bed Mobility, Education, Functional Activity Jose, Functional Strength, Group Therapy, Gait, Safety, Therapeutic Exercise, Transfers Treatment Duration: Dec 28, 2020 Frequency: At least 5 of 7 days/Wk (IRF) Estimated Hrs Per Day: 1.5 hours per day Patient and/or Family Agrees t: Yes Safety Risks/Education Patient Education: Transfer Techniques, Safety Issues Teaching Recipient: Patient Teaching Methods: Demonstration, Discussion Response to Teaching: Reinforcement Needed Discharge Recommendations Therapy Discharge Recommendati: Post Acute PT Time/GCodes Time In: 730 Time Out: 800 Total Billed Treatment Time: 30 Total Billed Treatment visit FA 15 GT 15 DANIELA RODRIGUEZ PT Dec 14, 2020 08:29
--- NOTE | 2020-12-14 12:34 | PM&R Progress Note ---
Subjective HPI/CC On Admission Date Seen by Provider: Dec 14, 2020 Time Seen by Provider: 12:40 Subjective/Events-last exam 12/14/20: Patient is much improved today and walking more with therapy Incision looks good Irregular pulse per RN? 12/13/20: Improved status Minimal ambulation Pain is due to muscle soreness per ortho IV iron infusion today Pain ok otherwise 12/12/20: Pt improved today Participating in therapy a lot better today X-ray of the hip and ultrasound were all within normal limits Labs checked and all okay 12/11/20: Pt really not able to participate due to cognitive deficit Bowels moved on the Left lower extremity ultrasound will be evaluating for DVT that Dr. Ovalle ordered Overall cognition is causing a delay in his recovery 12/10/20: Pt did use the sit to stand today because of lack of strength in his legs Will DC the Baclofen but its only been 5 mg three times a day so hopefully that will help Dementia is noted Lortab used for pain His answers are really unreliable 12/09/20: Pt doing okay Was on commode but seen after done Laxatives given since unknown when his last BM was Dementia is precluding details 12/08/20: Patient doing well Increase pain when moved left leg Difficulty ambulating Hgb low so will give 1 unit of blood today and Venofer iron infusions Baclofen will be given for muscle spasms Checked meds and labs Review of Systems General: Fatigue, Malaise Musculoskeletal: leg pain Objective Exam Vital Signs Vital Signs Date Time Temp Pulse Resp B/P (MAP) Pulse Ox O2 Delivery O2 Flow Rate FiO2 12/15/20 05:58 36.4 79 17 149/70 (96) 97 Room Air Capillary Refill : General Appearance: No Apparent Distress, WD/WN, Chronically ill, Obese HEENT: PERRL/EOMI, Normal ENT Inspection, Pharynx Normal Neck: Full Range of Motion, Normal Inspection, Non Tender, Supple, Carotid Bruit Respiratory: Chest Non Tender, Lungs Clear, Normal Breath Sounds, No Accessory Muscle Use, No Respiratory Distress Cardiovascular: Regular Rate, Rhythm, No Edema, No Gallop, No JVD, No Murmur, Normal Peripheral Pulses Gastrointestinal: Normal Bowel Sounds, No Organomegaly, No Pulsatile Mass, Non Tender, Soft Back: Normal Inspection, No CVA Tenderness, No Vertebral Tenderness Extremity: Normal Capillary Refill, Normal Inspection, Normal Range of Motion (except left leg), Non Tender, No Calf Tenderness, No Pedal Edema Neurologic/Psychiatric: Alert, Oriented x3, No Motor/Sensory Deficits, Normal Mood/Affect, Disoriented (poor recall) Skin: Normal Color, Warm/Dry Lymphatic: No Adenopathy Results/Procedures Lab Patient resulted labs reviewed. FIM Transfers Therapy Code Descriptions/Definitions Functional [place] Measure: 0=Not Assessed/NA 4=Minimal Assistance 1=Total Assistance 5=Supervision or Setup 2=Maximal Assistance 6=Modified [place] 3=Moderate Assistance 7=Complete IndependenceSCALE: Activities may be completed with or without assistive devices. 5-Vveorujdgf-yadjmxu completes the activity by him/herself with no assistance from a helper. 5-Set-up or Clean-up Assistance-helper sets up or cleans up; patient completes activity. [place] assists only prior to or following the activity. 4-Supervision or Touching Assistance-helper provides verbal cues and/or touching/steadying and/or contact guard assistance as patient completes activity. Assistance may be provided throughout the activity or intermittently. 3-Partial/Moderate Assistance-helper does LESS THAN HALF the effort. [place] lifts, holds or supports trunk or limbs, but provides less than half the effort. 2-Substantial/Maximal Assistance-helper does MORE THAN HALF the effort. [place] lifts or holds trunk or limbs and provides more than half the effort. 5-Llshnyamu-opesph does ALL the effort. Patient does none of the effort to complete the activity. Or, the assistance of 2 or more helpers is required for the patient to complete the activity. If activity was not attempted, code reason: 7-Patient Refused. 9-Not Applicable-not attempted and the patient did not perform the activity before the current illness, exacerbation or injury. 10-Not Attempted due to Environmental Limitations-(lack of equipment, weather restraints, etc.). 88-Not Attempted due to Medical Conditions or Safety Concerns. Roll Left to Right (QC): 4 Sit to Stand (QC): 3 Chair/Rfz-xa-Ywrby Xfer(QC): 3 Car Transfer (QC): 88 Gait Training Does the Patient Walk?: Yes Distance: 15', 25', 50' Walk 10 feet (QC): 4 Walk 50 ft with 2 Turns(QC): 4 Walk 150 ft (QC): 88 Walking 10ft/uneven surface-QC: 88 Gait Persons Needed: 1 Gait Assistive Device: FWW Wheelchair Training Does the Pt Use a Wheelchair?: Yes Wheel 50 ft with 2 turns (QC): 6 Wheel 150 ft (QC): 6 Type of Wheelchair: Manual Stair Training #of Steps: 0 1 Step (curb) (QC): 88 4 Steps (QC): 88 12 Steps (QC): 88 Balance Picking up an Object (QC): 88 ADL-Treatment Eating (QC): 6 (IND with breakfast) Oral Hygiene (QC): 5 (set up at recliner.) Shower/Bathe Self (QC): 3 (Assist to wash buttocks and lower legs/feet for thoroughness. Pt used LH sponge as needed) Upper Body Dressing (QC): 5 (set up) Lower Body Dressing (QC): 3 (Min A with pant hike. Pt able to doff/don pants using AE, increased time) On/Off Footwear (QC): 4 (SBA, pt able to doff/don gripper socks using AE, increased time) Toileting Hygiene (QC): 1 (Assist with all parts, assist x2 in stand) Assessment/Plan Assessment and Plan Assess & Plan/Chief Complaint Assessment: s/p left hip fracture Post op anemia from acute blood loss requiring iron infusions and transfusion 1 unit of blood 12/08/20 HTN Hypothyroidism s/p altman cath DC Plan: Monitor pain Monitor confusion Fall risk 12/08/20: Transfuse 1 unit of blood Venofer Pain control Baclofen 12/09/20: Monitor hgb Pain control 12/10/20: Monitor pain DC Baclofen Monitor for falls 12/11/20: Monitor pain Monitor confusion Check labs in am Venofer as scheduled 12/12/20: Labs good Monitor confusion 12/13/20: Monitor pain Monitor confusion 12/14/20: Monitor pain Monitor hgb (1) Closed left hip fracture Status: Acute (2) BPH (benign prostatic hyperplasia) Status: Chronic (3) Hypertension Status: Chronic (4) Hypothyroidism Status: Chronic (5) Hyperlipidemia Status: Chronic SANJUANA GRAY DO Dec 14, 2020 12:34
[2020-12-14] MEDS: CATHETER FLUSH 10 ML SYR IV SCH ×2 (14:22→22:48)
[2020-12-14 17:10] VITALS: BP 119/6
[2020-12-14] MEDS: TAMSULOSIN 0.4 MG (FLOMAX) CAP PO SCH (17:41)
[2020-12-14] MEDS: BACLOFEN 10 MG (LIORESAL) TAB PO PRN (21:01)
[2020-12-14] MEDS: MELATONIN 3 MG TABLET PO PRN (21:02)
[2020-12-14] MEDS: ENOXAPARIN 40 MG/0.4 ML (LOVENOX) SYR SC SCH (22:48)
[2020-12-15 05:58] VITALS: BP 149/70
[2020-12-15] MEDS: CATHETER FLUSH 10 ML SYR IV SCH ×3 (06:26→21:46)
[2020-12-15] MEDS: lisINopril 20 MG (PRINIVIL) TABLET PO SCH (10:16)
[2020-12-15] MEDS: SENNA W/DOCUSATE (SENOKOT S) TABLET PO SCH ×2 (10:16→20:19)
[2020-12-15] MEDS: meTOproloL SUCCINATE 50 MG (TOPROL XL) TAB PO SCH (10:16)
[2020-12-15] MEDS: IRON SUCROSE 200 MG/10 ML (VENOFER) VIAL IV SCH (10:16)
[2020-12-15] MEDS: FAMOTIDINE 20 MG (PEPCID) TABLET PO SCH ×2 (10:16→20:19)
[2020-12-15] MEDS: DOCUSATE SODIUM 100 MG (COLACE) CAP PO SCH ×2 (10:16→20:19)
[2020-12-15] MEDS: LEVOTHYROXINE 112 MCG (LEVOTHROID) TAB PO SCH (10:17)
[2020-12-15] MEDS: polyethylene glycoL POWDER 17 GM (MIRALAX) PACK PO SCH ×2 (10:17→20:19)
[2020-12-15] MEDS: BACLOFEN 10 MG (LIORESAL) TAB PO PRN (10:50)
--- NOTE | 2020-12-15 14:08 | PM&R Progress Note ---
Subjective HPI/CC On Admission Date Seen by Provider: Dec 15, 2020 Time Seen by Provider: 14:15 Subjective/Events-last exam 12/15/20: Patient moving pretty well today Pain still an issues Baclofen given this am Incision looks good 4th Venofer infusion today 12/14/20: Patient is much improved today and walking more with therapy Incision looks good Irregular pulse per RN? 12/13/20: Improved status Minimal ambulation Pain is due to muscle soreness per ortho IV iron infusion today Pain ok otherwise 12/12/20: Pt improved today Participating in therapy a lot better today X-ray of the hip and ultrasound were all within normal limits Labs checked and all okay 12/11/20: Pt really not able to participate due to cognitive deficit Bowels moved on the Left lower extremity ultrasound will be evaluating for DVT that Dr. Ovalle ordered Overall cognition is causing a delay in his recovery 12/10/20: Pt did use the sit to stand today because of lack of strength in his legs Will DC the Baclofen but its only been 5 mg three times a day so hopefully that will help Dementia is noted Lortab used for pain His answers are really unreliable 12/09/20: Pt doing okay Was on commode but seen after done Laxatives given since unknown when his last BM was Dementia is precluding details 12/08/20: Patient doing well Increase pain when moved left leg Difficulty ambulating Hgb low so will give 1 unit of blood today and Venofer iron infusions Baclofen will be given for muscle spasms Checked meds and labs Review of Systems General: Fatigue Neurological: Weakness Objective Exam Vital Signs Vital Signs Date Time Temp Pulse Resp B/P (MAP) Pulse Ox O2 Delivery O2 Flow Rate FiO2 12/15/20 16:03 36.6 69 16 122/61 (81) 97 12/15/20 08:47 Room Air Capillary Refill : General Appearance: No Apparent Distress, WD/WN, Chronically ill, Obese HEENT: PERRL/EOMI, Normal ENT Inspection, Pharynx Normal Neck: Full Range of Motion, Normal Inspection, Non Tender, Supple, Carotid Bruit Respiratory: Chest Non Tender, Lungs Clear, Normal Breath Sounds, No Accessory Muscle Use, No Respiratory Distress Cardiovascular: Regular Rate, Rhythm, No Edema, No Gallop, No JVD, No Murmur, Normal Peripheral Pulses Gastrointestinal: Normal Bowel Sounds, No Organomegaly, No Pulsatile Mass, Non Tender, Soft Back: Normal Inspection, No CVA Tenderness, No Vertebral Tenderness Extremity: Normal Capillary Refill, Normal Inspection, Normal Range of Motion (except left leg), Non Tender, No Calf Tenderness, No Pedal Edema Neurologic/Psychiatric: Alert, Oriented x3, No Motor/Sensory Deficits, Normal Mood/Affect, Disoriented (poor recall) Skin: Normal Color, Warm/Dry Lymphatic: No Adenopathy Results/Procedures Lab Patient resulted labs reviewed. FIM Transfers Therapy Code Descriptions/Definitions Functional [place] Measure: 0=Not Assessed/NA 4=Minimal Assistance 1=Total Assistance 5=Supervision or Setup 2=Maximal Assistance 6=Modified [facility] 3=Moderate Assistance 7=Complete IndependenceSCALE: Activities may be completed with or without assistive devices. 0-Dyivrdnyxu-ctszjom completes the activity by him/herself with no assistance from a helper. 5-Set-up or Clean-up Assistance-helper sets up or cleans up; patient completes activity. [place] assists only prior to or following the activity. 4-Supervision or Touching Assistance-helper provides verbal cues and/or touching/steadying and/or contact guard assistance as patient completes activity. Assistance may be provided throughout the activity or intermittently. 3-Partial/Moderate Assistance-helper does LESS THAN HALF the effort. [place] lifts, holds or supports trunk or limbs, but provides less than half the effort. 2-Substantial/Maximal Assistance-helper does MORE THAN HALF the effort. [place] lifts or holds trunk or limbs and provides more than half the effort. 5-Sdcokibhf-luejsx does ALL the effort. Patient does none of the effort to complete the activity. Or, the assistance of 2 or more helpers is required for the patient to complete the activity. If activity was not attempted, code reason: 7-Patient Refused. 9-Not Applicable-not attempted and the patient did not perform the activity before the current illness, exacerbation or injury. 10-Not Attempted due to Environmental Limitations-(lack of equipment, weather restraints, etc.). 88-Not Attempted due to Medical Conditions or Safety Concerns. Roll Left to Right (QC): 4 Sit to Stand (QC): 3 Chair/Dfj-ds-Gygbq Xfer(QC): 3 Car Transfer (QC): 88 Gait Training Does the Patient Walk?: Yes Distance: 15', 25', 50' Walk 10 feet (QC): 4 Walk 50 ft with 2 Turns(QC): 4 Walk 150 ft (QC): 88 Walking 10ft/uneven surface-QC: 88 Gait Persons Needed: 1 Gait Assistive Device: FWW Wheelchair Training Does the Pt Use a Wheelchair?: Yes Wheel 50 ft with 2 turns (QC): 6 Wheel 150 ft (QC): 6 Type of Wheelchair: Manual Stair Training #of Steps: 0 1 Step (curb) (QC): 88 4 Steps (QC): 88 12 Steps (QC): 88 Balance Picking up an Object (QC): 88 ADL-Treatment Eating (QC): 6 (IND with breakfast) Oral Hygiene (QC): 5 (set up at recliner.) Shower/Bathe Self (QC): 3 (Assist to wash buttocks and lower legs/feet for thoroughness. Pt used LH sponge as needed) Upper Body Dressing (QC): 5 (set up) Lower Body Dressing (QC): 3 (Min A with pant hike. Pt able to doff/don pants using AE, increased time) On/Off Footwear (QC): 4 (SBA, pt able to doff/don gripper socks using AE, inc reased time) Toileting Hygiene (QC): 1 (Assist with all parts, assist x2 in stand) Assessment/Plan Assessment and Plan Assess & Plan/Chief Complaint Assessment: s/p left hip fracture Post op anemia from acute blood loss requiring iron infusions and transfusion 1 unit of blood 12/08/20 HTN Hypothyroidism s/p altman cath DC Plan: Monitor pain Monitor confusion Fall risk 12/08/20: Transfuse 1 unit of blood Venofer Pain control Baclofen 12/09/20: Monitor hgb Pain control 12/10/20: Monitor pain DC Baclofen Monitor for falls 12/11/20: Monitor pain Monitor confusion Check labs in am Venofer as scheduled 12/12/20: Labs good Monitor confusion 12/13/20: Monitor pain Monitor confusion 12/14/20: Monitor pain Monitor hgb 12/15/20: Monitor pain Transfers improved (1) Closed left hip fracture Status: Acute (2) BPH (benign prostatic hyperplasia) Status: Chronic (3) Hypertension Status: Chronic (4) Hypothyroidism Status: Chronic (5) Hyperlipidemia Status: Chronic SANJUANA GRAY DO Dec 15, 2020 14:08
[2020-12-15 16:03] VITALS: BP 122/61
[2020-12-15] MEDS: TAMSULOSIN 0.4 MG (FLOMAX) CAP PO SCH (17:55)
[2020-12-15] MEDS: ENOXAPARIN 40 MG/0.4 ML (LOVENOX) SYR SC SCH (23:00)
[2020-12-16] MEDS: CATHETER FLUSH 10 ML SYR IV SCH ×3 (05:12→20:54)
[2020-12-16 05:23] VITALS: BP 132/61
[2020-12-16 05:30] LABS: BASOPHILS # (AUTO) 0.1 10^3/uL (0.0-0.1); BASOPHILS % (AUTO) 1 % (0-10); EOSINOPHILS # (AUTO) 0.3 10^3/uL (0.0-0.3); EOSINOPHILS % (AUTO) 3 % (0-10); HEMATOCRIT 31 % (40-54); HEMOGLOBIN 10.3 g/dL (13.3-17.7); LYMPHOCYTES # (AUTO) 2.2 10^3/uL (1.0-4.0); LYMPHOCYTES % (AUTO) 25 % (12-44); MEAN CORPUSCULAR HEMOGLOBIN 32 pg (25-34); MEAN CORPUSCULAR HGB CONC 33 g/dL (32-36); MEAN CORPUSCULAR VOLUME 96 fL (80-99); MEAN PLATELET VOLUME 8.5 fL (9.0-12.2); MONOCYTES # (AUTO) 0.7 10^3/uL (0.0-1.0); MONOCYTES % (AUTO) 8 % (0-12); NEUTROPHILS # (AUTO) 5.1 10^3/uL (1.8-7.8); NEUTROPHILS % (AUTO) 59 % (42-75); PLATELET COUNT 374 10^3/uL (130-400); WHITE BLOOD COUNT 8.7 10^3/uL (4.3-11.0)
[2020-12-16 05:46] LABS: ALANINE AMINOTRANSFERASE 42 U/L (0-55); ALBUMIN 3.3 GM/DL (3.2-4.5); ALKALINE PHOSPHATASE 90 U/L (40-136); BILIRUBIN,TOTAL 0.6 MG/DL (0.1-1.0); BUN/CREATININE RATIO 17; CALCIUM 8.7 MG/DL (8.5-10.1); CARBON DIOXIDE 23 MMOL/L (21-32); CHLORIDE 103 MMOL/L (98-107); CREATININE SERUM 0.76 MG/DL (0.60-1.30); GFR ESTIMATED > 60; GLUCOSE 95 MG/DL (70-105); POTASSIUM 4.2 MMOL/L (3.6-5.0); SODIUM 135 MMOL/L (135-145); TOTAL PROTEIN 6.5 GM/DL (6.4-8.2)
[2020-12-16 08:00] VITALS: BP 113/64
--- NOTE | 2020-12-16 08:07 | PM&R Progress Note ---
Subjective HPI/CC On Admission Date Seen by Provider: Dec 16, 2020 Time Seen by Provider: 09:00 Subjective/Events-last exam 12/16/20: Pt having no issues Ambulating better Bowels moved yesterday Pain is controlled 12/15/20: Patient moving pretty well today Pain still an issues Baclofen given this am Incision looks good 4th Venofer infusion today 12/14/20: Patient is much improved today and walking more with therapy Incision looks good Irregular pulse per RN? 12/13/20: Improved status Minimal ambulation Pain is due to muscle soreness per ortho IV iron infusion today Pain ok otherwise 12/12/20: Pt improved today Participating in therapy a lot better today X-ray of the hip and ultrasound were all within normal limits Labs checked and all okay 12/11/20: Pt really not able to participate due to cognitive deficit Bowels moved on the Left lower extremity ultrasound will be evaluating for DVT that Dr. Ovalle ordered Overall cognition is causing a delay in his recovery 12/10/20: Pt did use the sit to stand today because of lack of strength in his legs Will DC the Baclofen but its only been 5 mg three times a day so hopefully that will help Dementia is noted Lortab used for pain His answers are really unreliable 12/09/20: Pt doing okay Was on commode but seen after done Laxatives given since unknown when his last BM was Dementia is precluding details 12/08/20: Patient doing well Increase pain when moved left leg Difficulty ambulating Hgb low so will give 1 unit of blood today and Venofer iron infusions Baclofen will be given for muscle spasms Checked meds and labs Review of Systems General: Fatigue, Malaise Neurological: Weakness Objective Exam Vital Signs Vital Signs Date Time Temp Pulse Resp B/P (MAP) Pulse Ox O2 Delivery O2 Flow Rate FiO2 12/16/20 20:15 96 Room Air 12/16/20 16:00 36.9 66 16 130/74 (92) Capillary Refill : General Appearance: No Apparent Distress, WD/WN, Chronically ill, Obese HEENT: PERRL/EOMI, Normal ENT Inspection, Pharynx Normal Neck: Full Range of Motion, Normal Inspection, Non Tender, Supple, Carotid Bruit Respiratory: Chest Non Tender, Lungs Clear, Normal Breath Sounds, No Accessory Muscle Use, No Respiratory Distress Cardiovascular: Regular Rate, Rhythm, No Edema, No Gallop, No JVD, No Murmur, Normal Peripheral Pulses Gastrointestinal: Normal Bowel Sounds, No Organomegaly, No Pulsatile Mass, Non Tender, Soft Back: Normal Inspection, No CVA Tenderness, No Vertebral Tenderness Extremity: Normal Capillary Refill, Normal Inspection, Normal Range of Motion (except left leg), Non Tender, No Calf Tenderness, No Pedal Edema Neurologic/Psychiatric: Alert, Oriented x3, No Motor/Sensory Deficits, Normal Mood/Affect, Disoriented (poor recall) Skin: Normal Color, Warm/Dry Lymphatic: No Adenopathy Results/Procedures Lab Laboratory Tests 12/16/20 05:10 Patient resulted labs reviewed. FIM Transfers Therapy Code Descriptions/Definitions Functional [place] Measure: 0=Not Assessed/NA 4=Minimal Assistance 1=Total Assistance 5=Supervision or Setup 2=Maximal Assistance 6=Modified [place] 3=Moderate Assistance 7=Complete IndependenceSCALE: Activities may be completed with or without assistive devices. 6-Rotptuhzit-bxhynbt completes the activity by him/herself with no assistance from a helper. 5-Set-up or Clean-up Assistance-helper sets up or cleans up; patient completes activity. [place] assists only prior to or following the activity. 4-Supervision or Touching Assistance-helper provides verbal cues and/or touching/steadying and/or contact guard assistance as patient completes activity. Assistance may be provided throughout the activity or intermittently. 3-Partial/Moderate Assistance-helper does LESS THAN HALF the effort. [place] lifts, holds or supports trunk or limbs, but provides less than half the effort. 2-Substantial/Maximal Assistance-helper does MORE THAN HALF the effort. [place] lifts or holds trunk or limbs and provides more than half the effort. 3-Mzjjqciut-kbndbn does ALL the effort. Patient does none of the effort to complete the activity. Or, the assistance of 2 or more helpers is required for the patient to complete the activity. If activity was not attempted, code reason: 7-Patient Refused. 9-Not Applicable-not attempted and the patient did not perform the activity before the current illness, exacerbation or injury. 10-Not Attempted due to Environmental Limitations-(lack of equipment, weather restraints, etc.). 88-Not Attempted due to Medical Conditions or Safety Concerns. Roll Left to Right (QC): 4 Sit to Stand (QC): 3 Chair/Bgv-om-Bthtr Xfer(QC): 3 Car Transfer (QC): 88 Gait Training Does the Patient Walk?: Yes Distance: 15', 25', 50' Walk 10 feet (QC): 4 Walk 50 ft with 2 Turns(QC): 4 Walk 150 ft (QC): 88 Walking 10ft/uneven surface-QC: 88 Gait Persons Needed: 1 Gait Assistive Device: FWW Wheelchair Training Does the Pt Use a Wheelchair?: Yes Wheel 50 ft with 2 turns (QC): 6 Wheel 150 ft (QC): 6 Type of Wheelchair: Manual Stair Training #of Steps: 0 1 Step (curb) (QC): 88 4 Steps (QC): 88 12 Steps (QC): 88 Balance Picking up an Object (QC): 88 ADL-Treatment Eating (QC): 6 (IND with breakfast) Oral Hygiene (QC): 5 (set up at recliner.) Shower/Bathe Self (QC): 3 (Assist to wash buttocks and lower legs/feet for thoroughness. Pt used LH sponge as needed) Upper Body Dressing (QC): 5 (set up) Lower Body Dressing (QC): 3 (Min A with pant hike. Pt able to doff/don pants using AE, increased time) On/Off Footwear (QC): 4 (SBA, pt able to doff/don gripper socks using AE, increased time) Toileting Hygiene (QC): 1 (Assist with all parts, assist x2 in stand) Assessment/Plan Assessment and Plan Assess & Plan/Chief Complaint Assessment: s/p left hip fracture Post op anemia from acute blood loss requiring iron infusions and transfusion 1 unit of blood 12/08/20 HTN Hypothyroidism s/p altman cath DC Plan: Monitor pain Monitor confusion Fall risk 12/08/20: Transfuse 1 unit of blood Venofer Pain control Baclofen 12/09/20: Monitor hgb Pain control 12/10/20: Monitor pain DC Baclofen Monitor for falls 12/11/20: Monitor pain Monitor confusion Check labs in am Venofer as scheduled 12/12/20: Labs good Monitor confusion 12/13/20: Monitor pain Monitor confusion 12/14/20: Monitor pain Monitor hgb 12/15/20: Monitor pain Transfers improved 12/16/20: Pain control Ambulate IRF protocol (1) Closed left hip fracture Status: Acute (2) BPH (benign prostatic hyperplasia) Status: Chronic (3) Hypertension Status: Chronic (4) Hypothyroidism Status: Chronic (5) Hyperlipidemia Status: Chronic SANJUANA GRAY DO Dec 16, 2020 08:07
--- NOTE | 2020-12-16 08:54 | Physical Therapy Daily Note ---
PT Daily Note-Current Subjective Patient seated upright in chair pre tx. Patient consented to PT, noted "I feel especially weak today for some reason" and noted 6/10 pain in quad. Patient needs dressed and puts on his shirt himself but needs max assist for lowers. Appearance Patient seated upright in w/c post tx, with call button within reach. Patient declined wanted tray table nearby. Mental Status Patient Orientation: Person, Confused, Place Transfers SCALE: Activities may be completed with or without assistive devices. 5-Obcdoolmxq-hzdffce completes the activity by him/herself with no assistance from a helper. 5-Set-up or Clean-up Assistance-helper sets up or cleans up; patient completes activity. [place] assists only prior to or following the activity. 4-Supervision or Touching Assistance-helper provides verbal cues and/or touching/steadying and/or contact guard assistance as patient completes activity. Assistance may be provided throughout the activity or intermittently. 3-Partial/Moderate Assistance-helper does LESS THAN HALF the effort. [place] lifts, holds or supports trunk or limbs, but provides less than half the effort. 2-Substantial/Maximal Assistance-helper does MORE THAN HALF the effort. [place] lifts or holds trunk or limbs and provides more than half the effort. 8-Ebsydfjov-ayyuer does ALL the effort. Patient does none of the effort to complete the activity. Or, the assistance of 2 or more helpers is required for the patient to complete the activity. If activity was not attempted, code reason: 7-Patient Refused. 9-Not Applicable-not attempted and the patient did not perform the activity before the current illness, exacerbation or injury. 10-Not Attempted due to Environmental Limitations-(lack of equipment, weather restraints, etc.). 88-Not Attempted due to Medical Conditions or Safety Concerns. Sit to Stand (QC): 4 Chair/Ldi-xz-Lmfpy Xfer(QC): 4 CGA x1 to SBA x1, patient demonstrated requiring fewer attempts at sit <-> stand before accomplishing transfer. Weight Bearing Left Lower Extremity: Left Weight Bearing/Tolerated Gait Training Does the Patient Walk?: Yes Distance: 120', 30' Walk 10 feet (QC): 4 Walk 50 ft with 2 Turns(QC): 4 Gait Assistive Device: FWW Patient continues to only partially bear weight through L LE, and takes up a lot of weight with B UE's. Patient constantly reports "my arms are giving out" with gait, but is hesitant to put more weight through L LE during stance phase of gait. Exercises NuStep Minutes: 15 (Patient was guarded with movement during first few minutes, but began to fasten pace as time elapsed.) NuStep Workload: 3 Treatments LE strengthening, ROM, gait training, endurance, dressing Assessment Current Status: Fair Progress Patient demonstrates increased endurance with gait, only requiring 2 standing rest breaks during first 120' of ambulation. Patient continues to complain of quad pain and weakness, but pain tolerance seems to improve as activity is increased. PT Detention Goals Detention Goals PT [employer] Goals Time Frame: Dec 28, 2020 Roll Left & Right (QC): 5 Sit to Lying (QC): 5 Lying-Sitting on Side/Bed(QC): 5 Sit to Stand (QC): 5 Chair/Jke-yv-Mcrfk Xfer(QC): 5 Toilet Transfer (QC): 5 Car Transfer (QC): 5 Does the Patient Walk: Yes Walk 10 feet (QC): 5 Walk 50ft with 2 Turns (QC): 5 Walk 150 ft (QC): 5 Walking 10ft on Uneven Surface: 5 1 Step (curb) (QC): 5 4 Steps (QC): 4 12 Steps (QC): 4 Picking up an Object (QC): 4 Wheel 50 feet with 2 turns (QC: 9 Wheel 150 feet: 9 PT Plan Problem List Problem List: Activity Tolerance, Functional Strength, Safety, Balance, Gait, Transfer, Bed Mobility, ROM Treatment/Plan Treatment Plan: Continue Plan of Care Treatment Plan: Bed Mobility, Education, Functional Activity Jose, Functional Strength, Group Therapy, Gait, Safety, Therapeutic Exercise, Transfers Treatment Duration: Dec 28, 2020 Frequency: At least 5 of 7 days/Wk (IRF) Estimated Hrs Per Day: 1.5 hours per day Patient and/or Family Agrees t: Yes Safety Risks/Education Patient Education: Gait Training, Transfer Techniques, Reviewed Precautions, Correct Positioning, Safety Issues Teaching Recipient: Patient Teaching Methods: Demonstration, Discussion Response to Teaching: Verbalize Understanding, Return Demonstration, Reinforcement Needed Time/GCodes Time In: 0800 Time Out: 0900 Total Billed Treatment Time: 60 Total Billed Treatment 1 visit: FA x3: 45' EX: 15' JAZMIN DIEGO PT Dec 16, 2020 08:54
[2020-12-16] MEDS: lisINopril 20 MG (PRINIVIL) TABLET PO SCH (09:43)
[2020-12-16] MEDS: FAMOTIDINE 20 MG (PEPCID) TABLET PO SCH ×2 (09:43→20:53)
[2020-12-16] MEDS: polyethylene glycoL POWDER 17 GM (MIRALAX) PACK PO SCH ×2 (09:43→21:00)
[2020-12-16] MEDS: SENNA W/DOCUSATE (SENOKOT S) TABLET PO SCH ×2 (09:43→20:53)
[2020-12-16] MEDS: LEVOTHYROXINE 112 MCG (LEVOTHROID) TAB PO SCH (09:43)
[2020-12-16] MEDS: meTOproloL SUCCINATE 50 MG (TOPROL XL) TAB PO SCH (09:44)
[2020-12-16] MEDS: DOCUSATE SODIUM 100 MG (COLACE) CAP PO SCH ×2 (09:45→20:54)
--- NOTE | 2020-12-16 10:30 | Occupational Ther Daily Note ---
OT Current Status-Daily Note Subjective Pt agreeable to OT tx with focus on showering. ADL-Treatment Therapy Code Descriptions/Definitions Functional [place] Measure: 0=Not Assessed/NA 4=Minimal Assistance 1=Total Assistance 5=Supervision or Setup 2=Maximal Assistance 6=Modified [place] 3=Moderate Assistance 7=Complete IndependenceSCALE: Activities may be completed with or without assistive devices. 5-Dwhnaeljiq-qbdpcdp completes the activity by him/herself with no assistance from a helper. 5-Set-up or Clean-up Assistance-helper sets up or cleans up; patient completes activity. [place] assists only prior to or following the activity. 4-Supervision or Touching Assistance-helper provides verbal cues and/or touching/steadying and/or contact guard assistance as patient completes activity. Assistance may be provided throughout the activity or intermittently. 3-Partial/Moderate Assistance-helper does LESS THAN HALF the effort. [place] lifts, holds or supports trunk or limbs, but provides less than half the effort. 2-Substantial/Maximal Assistance-helper does MORE THAN HALF the effort. [place] lifts or holds trunk or limbs and provides more than half the effort. 8-Qqxhgsgbr-crxnjn does ALL the effort. Patient does none of the effort to complete the activity. Or, the assistance of 2 or more helpers is required for the patient to complete the activity. If activity was not attempted, code reason: 7-Patient Refused. 9-Not Applicable-not attempted and the patient did not perform the activity before the current illness, exacerbation or injury. 10-Not Attempted due to Environmental Limitations-(lack of equipment, weather restraints, etc.). 88-Not Attempted due to Medical Conditions or Safety Concerns. Oral Hygiene (QC): 6 (IND seated at sink.) Shower/Bathe Self (QC): 4 (CGA in stand at GBS, pt required 1 verbal cue to wash buttocks (pt states he had already washed everything)) Upper Body Dressing (QC): 5 (set up) Lower Body Dressing (QC): 3 (min A with doffing pants using AE, CGA with donning.) On/Off Footwear: 3 (Pt able to doff using AEmin A to don LLE gripper sock using AE. Mod verbal cues overall for sequencing.) Other Treatment Pt seated in w/c, transferred from w/c to shower using GBs. Pt doffed clothes, then showered. Pt turned water off saying he was finished, OT asked if he had washed his buttocks, he replied no. CGA in stand at GBs in order for pt to wash buttocks, he then transferred to w/c to don clothes. Pt used AE as needed with LE clothing. Pt sat at sink for oral care and hair brushing, independent. Pt used FWW to ambulate to recliner, CGA. Post tx, pt seated in recliner, call light in reach and all needs met. Education OT Patient Education: Correct positioning, Energy conservation, Modified ADL techniques, Progress toward Goal/Update tx plan, Purpose of tx/functional activities, Safety issues, Transfer techniques, Use of adapted equipment Teaching Recipient: Patient Teaching Methods: Discussion Response to Teaching: Verbalize Understanding OT Short Term Goals Short Term Goals Time Frame: Dec 20, 2020 Shower/bathe self: 3 Lower body dressin Putting on/taking off footwear: 3 OT Mcfp Goals Flow Match Sofa Cutter Goals Time Frame: Jan 03, 2021 Eating (QC): 6 Oral Hygiene (QC): 6 Toileting Hygiene (QC): 6 Shower/Bathe Self (QC): 6 Upper Body Dressing (QC): 6 Lower Body Dressing (QC): 6 On/Off Footwear (QC): 6 Additional Goals: 1-Demonstrate ADL Tasks, 2-Verbalize Understanding, 3- ImproveStrength/Jose 1=Demonstrate adherence to instructed precautions during ADL tasks. 2=Patient will verbalize/demonstrate understanding of assistive devices/modifications for ADL. 3=Patient will improve strength/tolerance for activity to enable patient to perform ADL's. OT Education/Plan Problem List/Assessment Assessment: Decreased Activ Tolerance, Decreased UE Strength, Impaired Cognition, Impaired I ADL's, Impaired Self-Care Skills Discharge Recommendations Plan/Recommendations: Continue POC Treatment Plan/Plan of Care Patient would benefit from OT for education, treatment and training to promote independence in ADL's, mobility, safety and/or upper extremity function for ADL's. Plan of Care: ADL Retraining, Functional Mobility, Group Exercise/Act as Ind, UE Funct Exercise/Act Treatment Duration: Jan 03, 2021 Frequency: At least 5 of 7 days/Wk (IRF) Estimated Hrs Per Day: 1.5 hours per day Rehab Potential: Fair Time/GCodes Start Time: :00 Stop Time: 10:15 Total Time Billed (hr/min): 75 Billed Treatment Time 1, ADL 5 ISADORA HUGHES OT Dec 16, 2020 10:30
--- NOTE | 2020-12-16 11:17 | Progress Note - Ortho ---
Progress Note Subjective Date of Exam 12/16/20 Chief Complaint POD#11 Short TFN left hip for a three-part intertrochanteric fracture HPI/Events since last exam Mr. Coyle is 11 days postop short TFN left hip for a three-part intertrochanteric fracture. When I went and saw him his therapist was working with him and she states he is doing a lot better. He states he is having less pain still has some weakness and does not think he is able to put full weight on the leg because of a combination of the 2 Review of Systems Reviewed and no additions or change Allergies: Coded Allergies: No Known Drug Allergies (Unverified , 05/06/18) Home Meds Reported Medications Multivitamin (Multivitamin) 1 Each Tablet, 1 EACH PO DAILY, TAB 12/05/20 Metoprolol Succinate (Metoprolol Succinate) 50 Mg Tab.er.24h, 50 MG PO DAILY, TAB 12/05/20 Lisinopril (Lisinopril) 10 Mg Tablet, 10 MG PO DAILY, TAB 12/05/20 Levothyroxine Sodium (Levothyroxine Sodium) 112 Mcg Tablet, 112 MCG PO DAILY, TAB 12/05/20 Atorvastatin Calcium (Atorvastatin Calcium) 10 Mg Tablet, 10 MG PO DAILY, TAB 02/01/18 Objective Exam Constitutional: [] HEENT: [] Neck: [] Cardiovascular: [] Respiratory: [] Gastrointestinal: [] Genitourinary: [] Skin: [] Back/Spine: [] Extremities: [Still limited internal and external rotation with pain on extremes of motion. Still some anterior proximal to mid thigh pain. No calf tenderness negative Homans. Negative straight leg raise.] Neurologic: [] Psychiatric: [] Hematologic/lymphatic/immunologic: [] Vital Signs Vital Signs Date Time Temp Pulse Resp B/P (MAP) Pulse Ox O2 Delivery O2 Flow Rate FiO2 12/16/20 05:23 36.9 68 18 132/61 (84) 96 Room Air 12/15/20 20:27 Room Air 12/15/20 16:03 36.6 69 16 122/61 (81) 97 I & O 12/16/20 07:00 Intake Total 1230 ml Output Total 2425 ml Balance -1195 ml Lab Results Laboratory Tests 12/16/20 05:10: White Blood Count 8.7, Red Blood Count 3.21L, Hemoglobin 10.3L, Hematocrit 31L, Mean Corpuscular Volume 96, Mean Corpuscular Hemoglobin 32, Mean Corpuscular Hemoglobin Concent 33, Red Cell Distribution Width 13.4, Platelet Count 374, Mean Platelet Volume 8.5L, Immature Granulocyte % (Auto) 4, Neutrophils (%) (Auto) 59, Lymphocytes (%) (Auto) 25, Monocytes (%) (Auto) 8, Eosinophils (%) (Auto) 3, Basophils (%) (Auto) 1, Neutrophils # (Auto) 5.1, Lymphocytes # (Auto) 2.2, Monocytes # (Auto) 0.7, Eosinophils # (Auto) 0.3, Basophils # (Auto) 0.1, Immature Granulocyte # (Auto) 0.3H, Sodium Level 135, Potassium Level 4.2, Chloride Level 103, Carbon Dioxide Level 23, Anion Gap 9, Blood Urea Nitrogen 13, Creatinine 0.76, Estimat Glomerular Filtration Rate > 60, BUN/Creatinine Ratio 17, Glucose Level 95, Calcium Level 8.7, Corrected Calcium 9.3, Total Bi lirubin 0.6, Aspartate Amino Transf (AST/SGOT) 35H, Alanine Aminotransferase (ALT/SGPT) 42, Alkaline Phosphatase 90, Total Protein 6.5, Albumin 3.3 Assessment and Plan Assessment Slow gradual improvement 11 days postop Problem List Unchanged Plan Continue present treatment Final Diagonsis Three-part intertrochanteric fracture left hip status post short TFN Level of the visit: Level 3 DONATO MUNGUIA MD Dec 16, 2020 11:17
--- NOTE | 2020-12-16 14:12 | Physical Therapy Daily Note ---
PT Daily Note-Current Subjective Patient seated upright in chair pre tx. Patient reported mild unrated pain in L quad. Patient consented to tx. Appearance Patient seated upright in chair, with call button within reach and tray table in front of patient. Mental Status Patient Orientation: Person, Confused Transfers SCALE: Activities may be completed with or without assistive devices. 5-Fqdzezjopj-berdxjr completes the activity by him/herself with no assistance from a helper. 5-Set-up or Clean-up Assistance-helper sets up or cleans up; patient completes activity. [place] assists only prior to or following the activity. 4-Supervision or Touching Assistance-helper provides verbal cues and/or touching/steadying and/or contact guard assistance as patient completes activity. Assistance may be provided throughout the activity or intermittently. 3-Partial/Moderate Assistance-helper does LESS THAN HALF the effort. [place] lifts, holds or supports trunk or limbs, but provides less than half the effort. 2-Substantial/Maximal Assistance-helper does MORE THAN HALF the effort. [place] lifts or holds trunk or limbs and provides more than half the effort. 2-Naxvrsuhg-zhbsvy does ALL the effort. Patient does none of the effort to complete the activity. Or, the assistance of 2 or more helpers is required for the patient to complete the activity. If activity was not attempted, code reason: 7-Patient Refused. 9-Not Applicable-not attempted and the patient did not perform the activity before the current illness, exacerbation or injury. 10-Not Attempted due to Environmental Limitations-(lack of equipment, weather restraints, etc.). 88-Not Attempted due to Medical Conditions or Safety Concerns. Weight Bearing Left Lower Extremity: Left Weight Bearing/Tolerated Exercises Seated Therapy Exercises: Ankle pumps, Long arc quads, Hip flexion, Hip abd/add (RTB, small ball), Glut set Seated Reps: 15 (2 sets) Neuromuscular LE strengthening, ROM Assessment Current Status: Fair Progress Patient required increased rest breaks between reps with L LE exercises, specifically LAQs and hip flexion. Patient could only tolerate ~5 reps before needing a break. PT Skilled Nursing Goals Skilled Nursing Goals PT Skilled Nursing Goals Time Frame: Dec 28, 2020 Roll Left & Right (QC): 5 Sit to Lying (QC): 5 Lying-Sitting on Side/Bed(QC): 5 Sit to Stand (QC): 5 Chair/Kql-xo-Rioql Xfer(QC): 5 Toilet Transfer (QC): 5 Car Transfer (QC): 5 Does the Patient Walk: Yes Walk 10 feet (QC): 5 Walk 50ft with 2 Turns (QC): 5 Walk 150 ft (QC): 5 Walking 10ft on Uneven Surface: 5 1 Step (curb) (QC): 5 4 Steps (QC): 4 12 Steps (QC): 4 Picking up an Object (QC): 4 Wheel 50 feet with 2 turns (QC: 9 Wheel 150 feet: 9 PT Plan Problem List Problem List: Activity Tolerance, Functional Strength, Safety, Balance, Gait, Transfer, Bed Mobility, ROM Treatment/Plan Treatment Plan: Continue Plan of Care Treatment Plan: Bed Mobility, Education, Functional Activity Jose, Functional Strength, Group Therapy, Gait, Safety, Therapeutic Exercise, Transfers Treatment Duration: Dec 28, 2020 Frequency: At least 5 of 7 days/Wk (IRF) Estimated Hrs Per Day: 1.5 hours per day Patient and/or Family Agrees t: Yes Safety Risks/Education Patient Education: Correct Positioning, Safety Issues Teaching Recipient: Patient Teaching Methods: Demonstration, Discussion Response to Teaching: Verbalize Understanding, Return Demonstration Time/GCodes Time In: 1105 Time Out: 1120 Total Billed Treatment Time: 15 Total Billed Treatment 1 visit: EX: JAZMIN GRANDA PT Dec 16, 2020 14:12
--- NOTE | 2020-12-16 15:31 | Speech Therapy Daily Note ---
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 Objective Patient completed categorical naming series of 3's with 75% given 20% verbal cues. Assessment Assessment Current Status: Good Progress Treatment Plan Continue Plan of Care Speech Short Term Goals Short Term Goals Short Term Goals 1) Patient will complete memory tasks related to his daily routine at 80% or greater with minimal cues. 2) Patient will complete safety awareness tasks related to his daily routine at 80% or greater with minimal cues. 3) Patient will complete problem solving tasks related to his daily routine at 80% or greater with minimal cues. Speech Agricultural Inspector Goals Half-Way Goals Patient will improve cognitive-communication skills necessary for safety and daily living tasks with minimal assist. Speech-Plan Patient/Family Goals Patient/Family Goals: Patient plans on returning to his home where he lives with his . They have family/caregivers present for assistance as needed 05/04. Treatment Plan Speech Therapy Treatment Plan: Continue Plan of Care Treatment Duration: Dec 20, 2020 Frequency: 4 times per week (Patient will receive skilled ST 4-5x per week) Estimated Hrs Per Day: .5 hour per day Rehab Potential: Fair Barriers to Learning: Patient's cognitive deficits, age Pt/Family Agrees to Plan: Yes Safety Risks/Education Teaching Recipient: Patient Teaching Methods: Demonstration, Discussion Response to Teaching: Verbalize Understanding, Return Demonstration Education Topics Provided: Continued safety and communication of wants/needs Time Speech Therapy Time In: 14:00 Speech Therapy Time Out: 14:30 Total Billed Time: 30 Billed Treatment Time 1, SLOSORIO Benedict Dec 16, 2020 15:31
[2020-12-16 16:00] VITALS: BP 130/74
[2020-12-16] MEDS: TAMSULOSIN 0.4 MG (FLOMAX) CAP PO SCH (17:55)
[2020-12-16] MEDS: ENOXAPARIN 40 MG/0.4 ML (LOVENOX) SYR SC SCH (23:20)
--- NOTE | 2020-12-17 05:27 | PM&R Progress Note ---
Subjective HPI/CC On Admission Date Seen by Provider: Dec 17, 2020 Time Seen by Provider: 10:00 Subjective/Events-last exam 12/17/20: Pt doing much better Back to one assist Erica will be removed on Much improved overall status 12/16/20: Pt having no issues Ambulating better Bowels moved yesterday Pain is controlled 12/15/20: Patient moving pretty well today Pain still an issues Baclofen given this am Incision looks good 4th Venofer infusion today 12/14/20: Patient is much improved today and walking more with therapy Incision looks good Irregular pulse per RN? 12/13/20: Improved status Minimal ambulation Pain is due to muscle soreness per ortho IV iron infusion today Pain ok otherwise 12/12/20: Pt improved today Participating in therapy a lot better today X-ray of the hip and ultrasound were all within normal limits Labs checked and all okay 12/11/20: Pt really not able to participate due to cognitive deficit Bowels moved on the Left lower extremity ultrasound will be evaluating for DVT that Dr. Ovalle ordered Overall cognition is causing a delay in his recovery 12/10/20: Pt did use the sit to stand today because of lack of strength in his legs Will DC the Baclofen but its only been 5 mg three times a day so hopefully that will help Dementia is noted Lortab used for pain His answers are really unreliable 12/09/20: Pt doing okay Was on commode but seen after done Laxatives given since unknown when his last BM was Dementia is precluding details 12/08/20: Patient doing well Increase pain when moved left leg Difficulty ambulating Hgb low so will give 1 unit of blood today and Venofer iron infusions Baclofen will be given for muscle spasms Checked meds and labs Review of Systems General: Fatigue, Malaise Musculoskeletal: leg pain Objective Exam Vital Signs Vital Signs Date Time Temp Pulse Resp B/P (MAP) Pulse Ox O2 Delivery O2 Flow Rate FiO2 12/17/20 21:00 96 Room Air 12/17/20 16:23 36.6 69 16 145/70 (95) Capillary Refill : General Appearance: No Apparent Distress, WD/WN, Chronically ill, Obese HEENT: PERRL/EOMI, Normal ENT Inspection, Pharynx Normal Neck: Full Range of Motion, Normal Inspection, Non Tender, Supple, Carotid Bruit Respiratory: Chest Non Tender, Lungs Clear, Normal Breath Sounds, No Accessory Muscle Use, No Respiratory Distress Cardiovascular: Regular Rate, Rhythm, No Edema, No Gallop, No JVD, No Murmur, Normal Peripheral Pulses Gastrointestinal: Normal Bowel Sounds, No Organomegaly, No Pulsatile Mass, Non Tender, Soft Back: Normal Inspection, No CVA Tenderness, No Vertebral Tenderness Extremity: Normal Capillary Refill, Normal Inspection, Normal Range of Motion (except left leg), Non Tender, No Calf Tenderness, No Pedal Edema Neurologic/Psychiatric: Alert, Oriented x3, No Motor/Sensory Deficits, Normal M ood/Affect, Disoriented (poor recall) Skin: Normal Color, Warm/Dry Lymphatic: No Adenopathy Results/Procedures Lab Patient resulted labs reviewed. FIM Transfers Therapy Code Descriptions/Definitions Functional [place] Measure: 0=Not Assessed/NA 4=Minimal Assistance 1=Total Assistance 5=Supervision or Setup 2=Maximal Assistance 6=Modified [place] 3=Moderate Assistance 7=Complete IndependenceSCALE: Activities may be completed with or without assistive devices. 7-Hafbyauofq-qrbdzvz completes the activity by him/herself with no assistance from a helper. 5-Set-up or Clean-up Assistance-helper sets up or cleans up; patient completes activity. [place] assists only prior to or following the activity. 4-Supervision or Touching Assistance-helper provides verbal cues and/or touching/steadying and/or contact guard assistance as patient completes activity. Assistance may be provided throughout the activity or intermittently. 3-Partial/Moderate Assistance-helper does LESS THAN HALF the effort. [place] lifts, holds or supports trunk or limbs, but provides less than half the effort. 2-Substantial/Maximal Assistance-helper does MORE THAN HALF the effort. [place] lifts or holds trunk or limbs and provides more than half the effort. 0-Smmwrlslm-nsmekw does ALL the effort. Patient does none of the effort to comp lete the activity. Or, the assistance of 2 or more helpers is required for the patient to complete the activity. If activity was not attempted, code reason: 7-Patient Refused. 9-Not Applicable-not attempted and the patient did not perform the activity before the current illness, exacerbation or injury. 10-Not Attempted due to Environmental Limitations-(lack of equipment, weather restraints, etc.). 88-Not Attempted due to Medical Conditions or Safety Concerns. Roll Left to Right (QC): 4 Sit to Stand (QC): 4 Chair/Yxv-il-Kgwhk Xfer(QC): 4 Car Transfer (QC): 88 Gait Training Does the Patient Walk?: Yes Distance: 120', 30' Walk 10 feet (QC): 4 Walk 50 ft with 2 Turns(QC): 4 Walk 150 ft (QC): 88 Walking 10ft/uneven surface-QC: 88 Gait Persons Needed: 1 Gait Assistive Device: FWW Wheelchair Training Does the Pt Use a Wheelchair?: Yes Wheel 50 ft with 2 turns (QC): 6 Wheel 150 ft (QC): 6 Type of Wheelchair: Manual Stair Training #of Steps: 0 1 Step (curb) (QC): 88 4 Steps (QC): 88 12 Steps (QC): 88 Balance Picking up an Object (QC): 88 ADL-Treatment Eating (QC): 6 (IND with breakfast) Oral Hygiene (QC): 6 (IND seated at sink.) Shower/Bathe Self (QC): 4 (CGA in stand at GBS, pt required 1 verbal cue to wash buttocks (pt states he had already washed everything)) Upper Body Dressing (QC): 5 (set up) Lower Body Dressing (QC): 3 (min A with doffing pants using AE, CGA with donning.) On/Off Footwear (QC): 3 (Pt able to doff using AEmin A to don LLE gripper sock using AE. Mod verbal cues overall for sequencing.) Toileting Hygiene (QC): 1 (Assist with all parts, assist x2 in stand) Assessment/Plan Assessment and Plan Assess & Plan/Chief Complaint Assessment: s/p left hip fracture Post op anemia from acute blood loss requiring iron infusions and transfusion 1 unit of blood 12/08/20 HTN Hypothyroidism s/p altman cath DC Plan: Monitor pain Monitor confusion Fall risk 12/08/20: Transfuse 1 unit of blood Venofer Pain control Baclofen 12/09/20: Monitor hgb Pain control 12/10/20: Monitor pain DC Baclofen Monitor for falls 12/11/20: Monitor pain Monitor confusion Check labs in am Venofer as scheduled 12/12/20: Labs good Monitor confusion 12/13/20: Monitor pain Monitor confusion 12/14/20: Monitor pain Monitor hgb 12/15/20: Monitor pain Transfers improved 12/16/20: Pain control Ambulate IRF protocol 12/17/20: Improving more each day Pain controlled (1) Closed left hip fracture Status: Acute (2) BPH (benign prostatic hyperplasia) Status: Chronic (3) Hypertension Status: Chronic (4) Hypothyroidism Status: Chronic (5) Hyperlipidemia Status: Chronic SANJUANA GRAY DO Dec 17, 2020 05:27
[2020-12-17] MEDS: CATHETER FLUSH 10 ML SYR IV SCH ×3 (06:11→22:26)
[2020-12-17 06:20] VITALS: BP 156/73
[2020-12-17 08:00] VITALS: BP 153/54
[2020-12-17] MEDS: DOCUSATE SODIUM 100 MG (COLACE) CAP PO SCH ×2 (08:00→21:08)
[2020-12-17] MEDS: IRON SUCROSE 200 MG/10 ML (VENOFER) VIAL IV SCH (08:00)
[2020-12-17] MEDS: FAMOTIDINE 20 MG (PEPCID) TABLET PO SCH ×2 (08:01→21:09)
[2020-12-17] MEDS: polyethylene glycoL POWDER 17 GM (MIRALAX) PACK PO SCH ×2 (08:01→21:08)
[2020-12-17] MEDS: meTOproloL SUCCINATE 50 MG (TOPROL XL) TAB PO SCH (08:01)
[2020-12-17] MEDS: lisINopril 20 MG (PRINIVIL) TABLET PO SCH (08:01)
[2020-12-17] MEDS: SENNA W/DOCUSATE (SENOKOT S) TABLET PO SCH ×2 (08:01→21:08)
[2020-12-17] MEDS: LEVOTHYROXINE 112 MCG (LEVOTHROID) TAB PO SCH (08:01)
--- NOTE | 2020-12-17 09:14 | Physical Therapy Daily Note ---
PT Daily Note-Current Subjective Pt. states he has no pain unless he starts exercise or activity/walking and TRFs. Rated 8/10 with TRF, nurse brought meds and after Rx pt. states pain was 6/10. Pt. resists activity to a point , needs much encouragement and declined steps today. Pt. has steps and ramp as entrance to home. Pain Numeric Pain Scale: 8 Location: Left Location Body Site: Hip Pain Description: Ache Mental Status Patient Orientation: Person, Place, Time Attachments: Other-See Comments (msk out of room) Transfers SCALE: Activities may be completed with or without assistive devices. 1-Zcnhfazbso-axmxhux completes the activity by him/herself with no assistance from a helper. 5-Set-up or Clean-up Assistance-helper sets up or cleans up; patient completes activity. [place] assists only prior to or following the activity. 4-Supervision or Touching Assistance-helper provides verbal cues and/or touching/steadying and/or contact guard assistance as patient completes activity. Assistance may be provided throughout the activity or intermittently. 3-Partial/Moderate Assistance-helper does LESS THAN HALF the effort. [place] lifts, holds or supports trunk or limbs, but provides less than half the effort. 2-Substantial/Maximal Assistance-helper does MORE THAN HALF the effort. [place] lifts or holds trunk or limbs and provides more than half the effort. 5-Fiizefswp-cvlcid does ALL the effort. Patient does none of the effort to complete the activity. Or, the assistance of 2 or more helpers is required for the patient to complete the activity. If activity was not attempted, code reason: 7-Patient Refused. 9-Not Applicable-not attempted and the patient did not perform the activity before the current illness, exacerbation or injury. 10-Not Attempted due to Environmental Limitations-(lack of equipment, weather restraints, etc.). 88-Not Attempted due to Medical Conditions or Safety Concerns. Roll Left & Right (QC): 5 Lying to Sitting/Side of Bed(Q: 5 Sit to Stand (QC): 5 pt. uses right toes and foot to lift left foot out of bed , pt did not cross legs for this manuever Weight Bearing Left Lower Extremity: Left Weight Bearing/Tolerated Gait Training Does the Patient Walk?: Yes Walk 10 feet (QC): 4 Walk 50 ft with 2 Turns(QC): 4 Walk 150 ft (QC): 4 Gait Persons Needed: 1 Gait Assistive Device: FWW pt. with leg length discrepency ( left shorter) wt bears on toes/forefoot of left foot and states he has done this for al very long time and has never used a shoe lift etc. Pt. ambulates with heavy wt bearing on UEs and RLE., careful and takes small steps, c/o increased discomfort. Pt. this date was taken to the ramp for gait , descended 50 ft and ascended 50 ft with good control CGA Wheelchair Training Does the Pt Use a Wheelchair?: Yes Wheel 50 ft with 2 turns (QC): 5 Wheel 150 ft (QC): 5 Type of Wheelchair: Manual needed reminded to use brakes Exercises Supine Ex: Ankle pumps, Quad Set, Rolling, Glut sets, Heel Slides (with 5sec hold for stretch at end range x 5 reps), Scooting (up in bed), Straight leg raise (assisted Left), Hip abd/add (assisted left) Supine Reps: 12 Seated Therapy Exercises: Long arc quads Seated Reps: 12 NuStep Minutes: 10 NuStep Workload: 3 Assessment Current Status: Good Progress pt. is self limiting, at times confused and forgetful, needs much encouragement to participate in Rx PT Halfway Goals Halfway Goals PT Color Television Console Monitor Goals Time Frame: Dec 28, 2020 Roll Left & Right (QC): 5 Sit to Lying (QC): 5 Lying-Sitting on Side/Bed(QC): 5 Sit to Stand (QC): 5 Chair/Tku-yy-Kmvvi Xfer(QC): 5 Toilet Transfer (QC): 5 Car Transfer (QC): 5 Does the Patient Walk: Yes Walk 10 feet (QC): 5 Walk 50ft with 2 Turns (QC): 5 Walk 150 ft (QC): 5 Walking 10ft on Uneven Surface: 5 1 Step (curb) (QC): 5 4 Steps (QC): 4 12 Steps (QC): 4 Picking up an Object (QC): 4 Wheel 50 feet with 2 turns (QC: 9 Wheel 150 feet: 9 PT Plan Treatment/Plan Treatment Plan: Continue Plan of Care Treatment Plan: Bed Mobility, Education, Functional Activity Jose, Functional Strength, Group Therapy, Gait, Safety, Therapeutic Exercise, Transfers Treatment Duration: Dec 28, 2020 Frequency: At least 5 of 7 days/Wk (IRF) Estimated Hrs Per Day: 1.5 hours per day Patient and/or Family Agrees t: Yes Safety Risks/Education Patient Education: Gait Training, Transfer Techniques, Correct Positioning, W/C Management, Disease Process, Safety Issues Teaching Recipient: Patient Teaching Methods: Demonstration, Discussion Response to Teaching: Verbalize Understanding, Return Demonstration, Reinforcem ent Needed Time/GCodes Time In: 800 Time Out: 915 Total Billed Treatment Time: 75 Total Billed Treatment 1.FA15m,EX25m,WC15m,GT20m YOEL ANDERSON WAFER POLISHING LEAD WORKER Dec 17, 2020 09:14
--- NOTE | 2020-12-17 09:42 | Occupational Ther Daily Note ---
OT Current Status-Daily Note Subjective Pt on toilet with nursing, agreeable to OT Tx. Pt states he doesn't think he can do much more therapy as he is already tired. Pt already had PT tx this AM. ADL-Treatment Therapy Code Descriptions/Definitions Functional [place] Measure: 0=Not Assessed/NA 4=Minimal Assistance 1=Total Assistance 5=Supervision or Setup 2=Maximal Assistance 6=Modified [place] 3=Moderate Assistance 7=Complete IndependenceSCALE: Activities may be completed with or without assistive devices. 7-Qdgznhtaie-stytopf completes the activity by him/herself with no assistance from a helper. 5-Set-up or Clean-up Assistance-helper sets up or cleans up; patient completes activity. [place] assists only prior to or following the activity. 4-Supervision or Touching Assistance-helper provides verbal cues and/or touching/steadying and/or contact guard assistance as patient completes activity. Assistance may be provided throughout the activity or intermittently. 3-Partial/Moderate Assistance-helper does LESS THAN HALF the effort. [place] lifts, holds or supports trunk or limbs, but provides less than half the effort. 2-Substantial/Maximal Assistance-helper does MORE THAN HALF the effort. [place] lifts or holds trunk or limbs and provides more than half the effort. 1-Uinxbvrle-qqjvnj does ALL the effort. Patient does none of the effort to complete the activity. Or, the assistance of 2 or more helpers is required for the patient to complete the activity. If activity was not attempted, code reason: 7-Patient Refused. 9-Not Applicable-not attempted and the patient did not perform the activity before the current illness, exacerbation or injury. 10-Not Attempted due to Environmental Limitations-(lack of equipment, weather restraints, etc.). 88-Not Attempted due to Medical Conditions or Safety Concerns. Toileting Hygiene (QC): 4 (CGA, pt able to complete hygiene on toilet, and manage pants up in stand with CGA) Toilet Transfer (QC): 4 (CGA off of BSC over toilet) Other Treatment Pt seated on toilet, completed toileting (pt reports unable to have BM at this time). Then used FWW to ambulate towards therapy gym, CGA with 1 seated rest break. In order to increase BUE strength and functional endurance, pt completed x5 mins on arm bike, min resistance. Pt states urgent need to use bathroom, returned to room using FWW, CGA (no rest breaks). Pt completed toileting, then returned to therapy gym using FWW to return to therapy gym, CGA (1 seated rest break). Pt continued completing arm bike, x10 more minutes, with rest breaks as needed. Pt required moderate encouragement during session with functional mobility, and with UE activities. Pt returned to his room using FWW. Post tx, pt seated in recliner, call light in reach and all needs met. Education OT Patient Education: Correct positioning, Modified ADL techniques, Progress toward Goal/Update tx plan, Purpose of tx/functional activities Teaching Recipient: Patient Teaching Methods: Discussion Response to Teaching: Verbalize Understanding OT Short Term Goals Short Term Goals Time Frame: Dec 20, 2020 Shower/bathe self: 3 Lower body dressin Putting on/taking off footwear: 3 OT Correction Goals Jacquard Lace Weaver Goals Time Frame: Jan 03, 2021 Eating (QC): 6 Oral Hygiene (QC): 6 Toileting Hygiene (QC): 6 Shower/Bathe Self (QC): 6 Upper Body Dressing (QC): 6 Lower Body Dressing (QC): 6 On/Off Footwear (QC): 6 Additional Goals: 1-Demonstrate ADL Tasks, 2-Verbalize Understanding, 3- ImproveStrength/Jose 1=Demonstrate adherence to instructed precautions during ADL tasks. 2=Patient will verbalize/demonstrate understanding of assistive devices/modifications for ADL. 3=Patient will improve strength/tolerance for activity to enable patient to perform ADL's. OT Education/Plan Problem List/Assessment Assessment: Decreased Activ Tolerance, Decreased Safety Aware, Decreased UE Strength, Impaired Funct Balance, Impaired I ADL's, Impaired Self-Care Skills Discharge Recommendations Plan/Recommendations: Continue POC Treatment Plan/Plan of Care Patient would benefit from OT for education, treatment and training to promote independence in ADL's, mobility, safety and/or upper extremity function for ADL's. Plan of Care: ADL Retraining, Functional Mobility, Group Exercise/Act as Ind, UE Funct Exercise/Act Treatment Duration: Jan 03, 2021 Frequency: At least 5 of 7 days/Wk (IRF) Estimated Hrs Per Day: 1.5 hours per day Rehab Potential: Fair Time/GCodes Start Time: 09:15 Stop Time: 10:30 Total Time Billed (hr/min): 75 Billed Treatment Time 1, ADL 2 (30'), FA 2 (30'), EX (15') ISADORA HUGHES OT Dec 17, 2020 09:42
--- NOTE | 2020-12-17 11:52 | Speech Therapy Daily Note ---
Speech Daily Progress Note Subjective Date Seen by Provider: Dec 17, 2020 Time Seen by Provider: 00:30 Pt. was alert, watching television in the recliner. Objective During a word sequencing activity, Pt. required minimal verbal cueing (10%) and noted self-correction at 100%. Assessment Assessment Current Status: Good Progress Treatment Plan Continue Plan of Care Speech Short Term Goals Short Term Goals Short Term Goals 1) Patient will complete memory tasks related to his daily routine at 80% or greater with minimal cues. 2) Patient will complete safety awareness tasks related to his daily routine at 80% or greater with minimal cues. 3) Patient will complete problem solving tasks related to his daily routine at 80% or greater with minimal cues. Speech Longterm Goals Longterm Goals Patient will improve cognitive-communication skills necessary for safety and daily living tasks with minimal assist. Speech-Plan Patient/Family Goals Patient/Family Goals: Will return home to his with 24/7 at-home care. Treatment Plan Speech Therapy Treatment Plan: Continue Plan of Care Treatment Duration: Dec 20, 2020 Frequency: 4 times per week (Patient will receive skilled ST 4-5x per week) Estimated Hrs Per Day: .5 hour per day Rehab Potential: Fair Barriers to Learning: Cognitive deficits and age Pt/Family Agrees to Plan: Yes Safety Risks/Education Teaching Recipient: Patient Teaching Methods: Demonstration, Discussion Response to Teaching: Verbalize Understanding, Return Demonstration Education Topics Provided: Communication and continued safety Time Speech Therapy Time In: 11:00 Speech Therapy Time Out: 11:30 Total Billed Time: 30 Billed Treatment Time 1, SLOSORIO Benedict Dec 17, 2020 11:52
[2020-12-17 16:23] VITALS: BP 145/70
[2020-12-17] MEDS: TAMSULOSIN 0.4 MG (FLOMAX) CAP PO SCH (17:59)
[2020-12-17] MEDS: MELATONIN 3 MG TABLET PO PRN (21:09)
[2020-12-17] MEDS: BACLOFEN 10 MG (LIORESAL) TAB PO PRN (21:09)
[2020-12-17] MEDS: ENOXAPARIN 40 MG/0.4 ML (LOVENOX) SYR SC SCH (22:27)
[2020-12-18 05:57] VITALS: BP 152/71
[2020-12-18] MEDS: CATHETER FLUSH 10 ML SYR IV SCH ×3 (06:29→21:10)
[2020-12-18] MEDS: polyethylene glycoL POWDER 17 GM (MIRALAX) PACK PO SCH ×2 (07:32→20:28)
[2020-12-18] MEDS: LEVOTHYROXINE 112 MCG (LEVOTHROID) TAB PO SCH (08:29)
[2020-12-18] MEDS: lisINopril 20 MG (PRINIVIL) TABLET PO SCH (08:29)
[2020-12-18] MEDS: meTOproloL SUCCINATE 50 MG (TOPROL XL) TAB PO SCH (08:29)
[2020-12-18] MEDS: SENNA W/DOCUSATE (SENOKOT S) TABLET PO SCH ×2 (08:29→20:28)
[2020-12-18] MEDS: FAMOTIDINE 20 MG (PEPCID) TABLET PO SCH ×2 (08:29→20:27)
[2020-12-18] MEDS: DOCUSATE SODIUM 100 MG (COLACE) CAP PO SCH ×2 (08:29→20:28)
--- NOTE | 2020-12-18 08:41 | PM&R Progress Note ---
Subjective HPI/CC On Admission Date Seen by Provider: Dec 18, 2020 Time Seen by Provider: 08:45 Subjective/Events-last exam 12/18/20: Pt doing pretty well Vinson out tomorrow I dont note an irregular heart beat on exam when the nurses report that Discharge planned for Wednesday12/17/20: Pt doing much better Back to one assist Vinson will be removed on Much improved overall status 12/16/20: Pt having no issues Ambulating better Bowels moved yesterday Pain is controlled 12/15/20: Patient moving pretty well today Pain still an issues Baclofen given this am Incision looks good 4th Venofer infusion today 12/14/20: Patient is much improved today and walking more with therapy Incision looks good Irregular pulse per RN? 12/13/20: Improved status Minimal ambulation Pain is due to muscle soreness per ortho IV iron infusion today Pain ok otherwise 12/12/20: Pt improved today Participating in therapy a lot better today X-ray of the hip and ultrasound were all within normal limits Labs checked and all okay 12/11/20: Pt really not able to participate due to cognitive deficit Bowels moved on the Left lower extremity ultrasound will be evaluating for DVT that Dr. Ovalle order ed Overall cognition is causing a delay in his recovery 12/10/20: Pt did use the sit to stand today because of lack of strength in his legs Will DC the Baclofen but its only been 5 mg three times a day so hopefully that will help Dementia is noted Lortab used for pain His answers are really unreliable 12/09/20: Pt doing okay Was on commode but seen after done Laxatives given since unknown when his last BM was Dementia is precluding details 12/08/20: Patient doing well Increase pain when moved left leg Difficulty ambulating Hgb low so will give 1 unit of blood today and Venofer iron infusions Baclofen will be given for muscle spasms Checked meds and labs Review of Systems General: Fatigue, Malaise Musculoskeletal: leg pain Neurological: Weakness Objective Exam Vital Signs Vital Signs Date Time Temp Pulse Resp B/P (MAP) Pulse Ox O2 Delivery O2 Flow Rate FiO2 12/18/20 20:34 Room Air 12/18/20 18:00 36.6 77 16 159/74 (102) 94 Capillary Refill : General Appearance: No Apparent Distress, WD/WN, Chronically ill, Obese HEENT: PERRL/EOMI, Normal ENT Inspection, Pharynx Normal Neck: Full Range of Motion, Normal Inspection, Non Tender, Supple, Carotid Bruit Respiratory: Chest Non Tender, Lungs Clear, Normal Breath Sounds, No Accessory Muscle Use, No Respiratory Distress Cardiovascular: Regular Rate, Rhythm, No Edema, No Gallop, No JVD, No Murmur, Normal Peripheral Pulses Gastrointestinal: Normal Bowel Sounds, No Organomegaly, No Pulsatile Mass, Non Tender, Soft Back: Normal Inspection, No CVA Tenderness, No Vertebral Tenderness Extremity: Normal Capillary Refill, Normal Inspection, Normal Range of Motion (except left leg), Non Tender, No Calf Tenderness, No Pedal Edema Neurologic/Psychiatric: Alert, Oriented x3, No Motor/Sensory Deficits, Normal Mood/Affect, Disoriented (poor recall) Skin: Normal Color, Warm/Dry Lymphatic: No Adenopathy Results/Procedures Lab Patient resulted labs reviewed. FIM Transfers Therapy Code Descriptions/Definitions Functional [place] Measure: 0=Not Assessed/NA 4=Minimal Assistance 1=Total Assistance 5=Supervision or Setup 2=Maximal Assistance 6=Modified [place] 3=Moderate Assistance 7=Complete IndependenceSCALE: Activities may be completed with or without assistive devices. 1-Mgddxiacjj-ivhlcxm completes the activity by him/herself with no assistance from a helper. 5-Set-up or Clean-up Assistance-helper sets up or cleans up; patient completes activity. [place] assists only prior to or following the activity. 4-Supervision or Touching Assistance-helper provides verbal cues and/or touching/steadying and/or contact guard assistance as patient completes activity. Assistance may be provided throughout the activity or intermittently. 3-Partial/Moderate Assistance-helper does LESS THAN HALF the effort. [place] lifts, holds or supports trunk or limbs, but provides less than half the effort. 2-Substantial/Maximal Assistance-helper does MORE THAN HALF the effort. [place] lifts or holds trunk or limbs and provides more than half the effort. 6-Xshjomonb-biuejn does ALL the effort. Patient does none of the effort to complete the activity. Or, the assistance of 2 or more helpers is required for the patient to complete the activity. If activity was not attempted, code reason: 7-Patient Refused. 9-Not Applicable-not attempted and the patient did not perform the activity before the current illness, exacerbation or injury. 10-Not Attempted due to Environmental Limitations-(lack of equipment, weather restraints, etc.). 88-Not Attempted due to Medical Conditions or Safety Concerns. Roll Left to Right (QC): 5 Sit to Stand (QC): 5 Chair/Tah-mz-Falhm Xfer(QC): 4 Car Transfer (QC): 88 Gait Training Does the Patient Walk?: Yes Distance: 120', 30' Walk 10 feet (QC): 4 Walk 50 ft with 2 Turns(QC): 4 Walk 150 ft (QC): 4 Walking 10ft/uneven surface-QC: 88 Gait Persons Needed: 1 Gait Assistive Device: FWW Wheelchair Training Does the Pt Use a Wheelchair?: Yes Wheel 50 ft with 2 turns (QC): 5 Wheel 150 ft (QC): 5 Type of Wheelchair: Manual Stair Training #of Steps: 0 1 Step (curb) (QC): 88 4 Steps (QC): 88 12 Steps (QC): 88 Balance Picking up an Object (QC): 88 ADL-Treatment Eating (QC): 6 (IND with breakfast) Oral Hygiene (QC): 6 (IND seated at sink.) Shower/Bathe Self (QC): 4 (CGA in stand at GBS, pt required 1 verbal cue to wash buttocks (pt states he had already washed everything)) Upper Body Dressing (QC): 5 (set up) Lower Body Dressing (QC): 3 (min A with doffing pants using AE, CGA with donning.) On/Off Footwear (QC): 3 (Pt able to doff using AEmin A to don LLE gripper sock using AE. Mod verbal cues overall for sequencing.) Toileting Hygiene (QC): 4 (CGA, pt able to complete hygiene on toilet, and manage pants up in stand with CGA) Toilet Transfer (QC): 4 (CGA off of BSC over toilet) Assessment/Plan Assessment and Plan Assess & Plan/Chief Complaint Assessment: s/p left hip fracture Post op anemia from acute blood loss requiring iron infusions and transfusion 1 unit of blood 12/08/20 HTN Hypothyroidism s/p altman cath DC Plan: Monitor pain Monitor confusion Fall risk 12/08/20: Transfuse 1 unit of blood Venofer Pain control Baclofen 12/09/20: Monitor hgb Pain control 12/10/20: Monitor pain DC Baclofen Monitor for falls 12/11/20: Monitor pain Monitor confusion Check labs in am Venofer as scheduled 12/12/20: Labs good Monitor confusion 12/13/20: Monitor pain Monitor confusion 12/14/20: Monitor pain Monitor hgb 12/15/20: Monitor pain Transfers improved 12/16/20: Pain control Ambulate IRF protocol 12/17/20: Improving more each day Pain controlled 12/18/20: Monitor lungs Pain meds (1) Closed left hip fracture Status: Acute (2) BPH (benign prostatic hyperplasia) Status: Chronic (3) Hypertension Status: Chronic (4) Hypothyroidism Status: Chronic (5) Hyperlipidemia Status: Chronic SANJUANA GRAY DO Dec 18, 2020 08:40
--- NOTE | 2020-12-18 09:15 | Physical Therapy Daily Note ---
PT Daily Note-Current Subjective Pt. agrees to Rx, and stated initially that he felt like he could go home but during course of Rx pt. decided he was not. Pt. c/o increased pain in left hip that he did not rate. Pain Location: Left Location Body Site: Hip Pain Description: Ache Comment: pt. c/o pain but did not rate Mental Status Patient Orientation: Person, Place, Situation Attachments: Other-See Comments (mask while out of room) pt. has some difficulty with problem solving and safety awareness Transfers SCALE: Activities may be completed with or without assistive devices. 5-Eiygimcfim-jcrpxqr completes the activity by him/herself with no assistance from a helper. 5-Set-up or Clean-up Assistance-helper sets up or cleans up; patient completes activity. [place] assists only prior to or following the activity. 4-Supervision or Touching Assistance-helper provides verbal cues and/or touching /steadying and/or contact guard assistance as patient completes activity. Assistance may be provided throughout the activity or intermittently. 3-Partial/Moderate Assistance-helper does LESS THAN HALF the effort. [place] lifts, holds or supports trunk or limbs, but provides less than half the effort. 2-Substantial/Maximal Assistance-helper does MORE THAN HALF the effort. [place] lifts or holds trunk or limbs and provides more than half the effort. 5-Wubkdvzcx-gazqbs does ALL the effort. Patient does none of the effort to complete the activity. Or, the assistance of 2 or more helpers is required for the patient to complete the activity. If activity was not attempted, code reason: 7-Patient Refused. 9-Not Applicable-not attempted and the patient did not perform the activity before the current illness, exacerbation or injury. 10-Not Attempted due to Environmental Limitations-(lack of equipment, weather restraints, etc.). 88-Not Attempted due to Medical Conditions or Safety Concerns. Roll Left & Right (QC): 6 Sit to Lying (QC): 6 Lying to Sitting/Side of Bed(Q: 6 Sit to Stand (QC): 5 Chair/Ryc-ip-Sgast Xfer(QC): 5 Toilet Transfer (QC): 5 Car Transfer (QC): 4 needed assist with LEs in to car Weight Bearing Left Lower Extremity: Left Weight Bearing/Tolerated Gait Training Does the Patient Walk?: Yes Walk 10 feet (QC): 5 Walk 50 ft with 2 Turns(QC): 5 Walk 150 ft (QC): 4 Gait Persons Needed: 1 Gait Assistive Device: FWW pt. continues to protect LLE and only partially wt bears at times. gait is antalgic and heavy wt bearing on UEs Stair Training Stair Training: Handrails/: uses walker #of Steps: 1 Stairs: Pattern: Step to pt. was taken to steps where he felt he could not attempt them, small step was placed on floor and pt. was able to ascend it with CGA to min assist and skilled verbal instruction for sequence Exercises Seated Therapy Exercises: Ankle pumps, Sit to stand, Long arc quads, Hip flexion, Hamstring Curls Seated Reps: 15 NuStep Minutes: 10 NuStep Workload: 3 Neuromuscular Nustep with some encouragement to increase left hip flexion. Treatments toileted with assist for clean up Assessment Current Status: Good Progress pt. would likely need FT care after DC 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 Group Home Goals 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 Time Frame: Dec 28, 2020 Roll Left & Right (QC): 5 Sit to Lying (QC): 5 Lying-Sitting on Side/Bed(QC): 5 Sit to Stand (QC): 5 Chair/Ofm-qz-Mufdy Xfer(QC): 5 Toilet Transfer (QC): 5 Car Transfer (QC): 5 Does the Patient Walk: Yes Walk 10 feet (QC): 5 Walk 50ft with 2 Turns (QC): 5 Walk 150 ft (QC): 5 Walking 10ft on Uneven Surface: 5 1 Step (curb) (QC): 5 4 Steps (QC): 4 12 Steps (QC): 4 Picking up an Object (QC): 4 Wheel 50 feet with 2 turns (QC: 9 Wheel 150 feet: 9 PT Plan Treatment/Plan Treatment Plan: Continue Plan of Care Treatment Plan: Bed Mobility, Education, Functional Activity Jose, Functional Strength, Group Therapy, Gait, Safety, Therapeutic Exercise, Transfers Treatment Duration: Dec 28, 2020 Frequency: At least 5 of 7 days/Wk (IRF) Estimated Hrs Per Day: 1.5 hours per day Patient and/or Family Agrees t: Yes Safety Risks/Education Patient Education: Gait Training, Transfer Techniques, Steps, Correct Positioning, Disease Process, Safety Issues Teaching Recipient: Patient Teaching Methods: Demonstration, Discussion Response to Teaching: Verbalize Understanding, Return Demonstration, Reinforcement Needed Time/GCodes Time In: 800 Time Out: 915 Total Billed Treatment Time: 75 Total Billed Treatment 1,FA30m,GT25m,EX20m YOEL ANDERSON FOOD QUALITY TECHNICIAN Dec 18, 2020 09:15
--- NOTE | 2020-12-18 10:44 | Progress Note - Ortho ---
Progress Note Subjective Date of Exam 12/18/20 Chief Complaint POD#13 Short TFN for three-part intertrochanteric fracture left hip HPI/Events since last exam Mr. Coyle is 13 days postop short TFN left hip. He is gradually improving. Still has some left hip pain. When I saw him he was sitting on the shower stool bathing. Review of Systems Reviewed and no additions or change Allergies: Coded Allergies: No Known Drug Allergies (Unverified , 05/06/18) Home Meds Reported Medications Multivitamin (Multivitamin) 1 Each Tablet, 1 EACH PO DAILY, TAB 12/05/20 Metoprolol Succinate (Metoprolol Succinate) 50 Mg Tab.er.24h, 50 MG PO DAILY, TAB 12/05/20 Lisinopril (Lisinopril) 10 Mg Tablet, 10 MG PO DAILY, TAB 12/05/20 Levothyroxine Sodium (Levothyroxine Sodium) 112 Mcg Tablet, 112 MCG PO DAILY, TAB 12/05/20 Atorvastatin Calcium (Atorvastatin Calcium) 10 Mg Tablet, 10 MG PO DAILY, TAB 02/01/18 Objective Exam Constitutional: [] HEENT: [] Neck: [] Cardiovascular: [] Respiratory: [] Gastrointestinal: [] Genitourinary: [] Skin: [] Back/Spine: [] Extremities: Band-Aids are intact to left hip wounds. No calf tenderness negative Homans.] Neurologic: [] Psychiatric: [] Hematologic/lymphatic/immunologic: [] Vital Signs Vital Signs Date Time Temp Pulse Resp B/P (MAP) Pulse Ox O2 Delivery O2 Flow Rate FiO2 12/18/20 09:11 Room Air 12/18/20 05:57 36.5 73 16 152/71 (98) 100 12/17/20 21:00 96 Room Air 12/17/20 17:28 Room Air 12/17/20 16:23 36.6 69 16 145/70 (95) 100 I & O 12/18/20 07:00 Intake Total 900 ml Output Total 825 ml Balance 75 ml Assessment and Plan Assessment Continued improvement from left hip fracture Problem List Unchanged Plan Continue present treatment. Erica out tomorrow. Repeat x-rays tomorrow Final Diagonsis Three-part intertrochanteric fracture status post short TFN left hip Level of the visit: Level 3 DONATO MUNGUIA MD Dec 18, 2020 10:44
--- NOTE | 2020-12-18 10:45 | Occupational Ther Daily Note ---
OT Current Status-Daily Note Subjective Pt seated in recliner, on phone stating he was unable to locate phone hearing impaired teacher. Pt indicates he cannot remember if he has it here at the hospital or not, OT located phone hearing impaired teacher beside pt's bed. Pt then agreeable to OT tx. During session, pt reports lightheadedness, BP taken 99/58, Nurse notified. ADL-Treatment Therapy Code Descriptions/Definitions Functional [place] Measure: 0=Not Assessed/NA 4=Minimal Assistance 1=Total Assistance 5=Supervision or Setup 2=Maximal Assistance 6=Modified [place] 3=Moderate Assistance 7=Complete IndependenceSCALE: Activities may be completed with or without assistive devices. 2-Wfucdjjuxq-eivysef completes the activity by him/herself with no assistance from a helper. 5-Set-up or Clean-up Assistance-helper sets up or cleans up; patient completes activity. [place] assists only prior to or following the activity. 4-Supervision or Touching Assistance-helper provides verbal cues and/or touching/steadying and/or contact guard assistance as patient completes activity. Assistance may be provided throughout the activity or intermittently. 3-Partial/Moderate Assistance-helper does LESS THAN HALF the effort. [place] lifts, holds or supports trunk or limbs, but provides less than half the effort. 2-Substantial/Maximal Assistance-helper does MORE THAN HALF the effort. [place] lifts or holds trunk or limbs and provides more than half the effort. 7-Boqldslkf-uithaw does ALL the effort. Patient does none of the effort to complete the activity. Or, the assistance of 2 or more helpers is required for the patient to complete the activity. If activity was not attempted, code reason: 7-Patient Refused. 9-Not Applicable-not attempted and the patient did not perform the activity before the current illness, exacerbation or injury. 10-Not Attempted due to Environmental Limitations-(lack of equipment, weather restraints, etc.). 88-Not Attempted due to Medical Conditions or Safety Concerns. Shower/Bathe Self (QC): 4 (Pt completed sponge bath, CGA in stand. Cues to use LH sponge to wash feet.) Upper Body Dressing (QC): 5 Lower Body Dressing (QC): 4 (CGA in stand, pt able to doff/don pants/underwear) Other Treatment Pt seated in recliner, used FWW to ambulate into bathroom and onto SC, CGA. pt doffed clothes and reported weakness, agreeable to sponge bath instead of shower. Pt indicates he is unable to reach his feet to wash, requiring cue to u se LH sponge. During sponge bath, pt reports lightheadedness, BP taken 99/58, nurse notified. Pt donned clothes, (OT completed footwear in order for pt to get back to bed). Pt then used FWW to transfer to bed, CGA. With sit to supine, pt able to use RLE to assist LLE into bed. Post tx, pt laying in bed, call light in reach and all needs met. Education OT Patient Education: Correct positioning, Modified ADL techniques, Progress toward Goal/Update tx plan, Purpose of tx/functional activities, Rehab process, Safety issues, Transfer techniques, Use of adapted equipment Teaching Recipient: Patient Teaching Methods: Discussion Response to Teaching: Verbalize Understanding OT Short Term Goals Short Term Goals Time Frame: Dec 20, 2020 Shower/bathe self: 3 Lower body dressin Putting on/taking off footwear: 3 OT Fpc Goals Fpc Goals Time Frame: Jan 03, 2021 Eating (QC): 6 Oral Hygiene (QC): 6 Toileting Hygiene (QC): 6 Shower/Bathe Self (QC): 6 Upper Body Dressing (QC): 6 Lower Body Dressing (QC): 6 On/Off Footwear (QC): 6 Additional Goals: 1-Demonstrate ADL Tasks, 2-Verbalize Understanding, 3- ImproveStrength/Jose 1=Demonstrate adherence to instructed precautions during ADL tasks. 2=Patient will verbalize/demonstrate understanding of assistive devices/modifications for ADL. 3=Patient will improve strength/tolerance for activity to enable patient to perform ADL's. OT Education/Plan Problem List/Assessment Assessment: Decreased Activ Tolerance, Decreased UE Strength, Impaired Funct Balance, Impaired I ADL's, Impaired Self-Care Skills Discharge Recommendations Plan/Recommendations: Continue POC Treatment Plan/Plan of Care Patient would benefit from OT for education, treatment and training to promote independence in ADL's, mobility, safety and/or upper extremity function for ADL's. Plan of Care: ADL Retraining, Functional Mobility, Group Exercise/Act as Ind, UE Funct Exercise/Act Treatment Duration: Jan 03, 2021 Frequency: At least 5 of 7 days/Wk (IRF) Estimated Hrs Per Day: 1.5 hours per day Rehab Potential: Fair Time/GCodes Start Time: 09:15 Stop Time: 10:00 Total Time Billed (hr/min): 45 Billed Treatment Time 1, ADL 3 ISADORA HUGHES OT Dec 18, 2020 10:45
--- NOTE | 2020-12-18 11:06 | Speech Therapy Daily Note ---
Speech Daily Progress Note Subjective Date Seen by Provider: Dec 18, 2020 Time Seen by Provider: 00:30 Pt. was in his bed after completing other therapies. Pt was alert and talkative Objective Pt completed categorical naming tasks with 90% accuracy with no cueing needed. Assessment Assessment Current Status: Good Progress Treatment Plan Continue Plan of Care Speech Short Term Goals Short Term Goals Short Term Goals 1) Patient will complete memory tasks related to his daily routine at 80% or greater with minimal cues. 2) Patient will complete safety awareness tasks related to his daily routine at 80% or greater with minimal cues. 3) Patient will complete problem solving tasks related to his daily routine at 80% or greater with minimal cues. Speech Prison Goals Collision Mechanic Goals Patient will improve cognitive-communication skills necessary for safety and daily living tasks with minimal assist. Speech-Plan Patient/Family Goals Patient/Family Goals: Pt plans to return home to his where he will recieve home-health services. Treatment Plan Speech Therapy Treatment Plan: Continue Plan of Care Treatment Duration: Dec 20, 2020 Frequency: 4 times per week (Patient will receive skilled ST 4-5x per week) Estimated Hrs Per Day: .5 hour per day Rehab Potential: Fair Barriers to Learning: Cognitve deficits and age Pt/Family Agrees to Plan: Yes Safety Risks/Education Teaching Recipient: Patient Teaching Methods: Demonstration, Discussion Response to Teaching: Verbalize Understanding Education Topics Provided: safety and functional communincation Time Speech Therapy Time In: 10:30 Speech Therapy Time Out: 11:00 Total Billed Time: 30 Billed Treatment Time 1, OSORIO Almendarez Dec 18, 2020 11:06
--- NOTE | 2020-12-18 11:48 | Occupational Ther Daily Note ---
OT Current Status-Daily Note Subjective Pt laying in bed, agreeable to OT Tx. ADL-Treatment Therapy Code Descriptions/Definitions Functional [place] Measure: 0=Not Assessed/NA 4=Minimal Assistance 1=Total Assistance 5=Supervision or Setup 2=Maximal Assistance 6=Modified [place] 3=Moderate Assistance 7=Complete IndependenceSCALE: Activities may be completed with or without assistive devices. 5-Upucexuvrm-grgzndu completes the activity by him/herself with no assistance from a helper. 5-Set-up or Clean-up Assistance-helper sets up or cleans up; patient completes activity. [place] assists only prior to or following the activity. 4-Supervision or Touching Assistance-helper provides verbal cues and/or touching/steadying and/or contact guard assistance as patient completes activity. Assistance may be provided throughout the activity or intermittently. 3-Partial/Moderate Assistance-helper does LESS THAN HALF the effort. [place] lifts, holds or supports trunk or limbs, but provides less than half the effort. 2-Substantial/Maximal Assistance-helper does MORE THAN HALF the effort. [place] lifts or holds trunk or limbs and provides more than half the effort. 9-Vyrcxscxw-dioila does ALL the effort. Patient does none of the effort to com plete the activity. Or, the assistance of 2 or more helpers is required for the patient to complete the activity. If activity was not attempted, code reason: 7-Patient Refused. 9-Not Applicable-not attempted and the patient did not perform the activity before the current illness, exacerbation or injury. 10-Not Attempted due to Environmental Limitations-(lack of equipment, weather restraints, etc.). 88-Not Attempted due to Medical Conditions or Safety Concerns. Other Treatment Pt transferred supine to sit EOB, SBA (pt able to use RLE to assist LLE out of bed). Pt stood from EOB, CGA, then used FWW to ambulate to therapy gym, [facility]. In order to increase BUE strength and functional endurance, pt completed x15 mins on arm bike, min resistance, rest breaks as needed. Pt returned to his room using FWW, CGA and transferred to recliner. Post tx, pt seated in recliner, call light in reach and all needs met. Education OT Patient Education: Correct positioning, Modified ADL techniques, Progress toward Goal/Update tx plan, Purpose of tx/functional activities Teaching Recipient: Patient Teaching Methods: Discussion Response to Teaching: Verbalize Understanding OT Short Term Goals Short Term Goals Time Frame: Dec 20, 2020 Shower/bathe self: 3 Lower body dressin Putting on/taking off footwear: 3 OT Tactical Intelligence Officer Goals Tactical Intelligence Officer Goals Time Frame: Jan 03, 2021 Eating (QC): 6 Oral Hygiene (QC): 6 Toileting Hygiene (QC): 6 Shower/Bathe Self (QC): 6 Upper Body Dressing (QC): 6 Lower Body Dressing (QC): 6 On/Off Footwear (QC): 6 Additional Goals: 1-Demonstrate ADL Tasks, 2-Verbalize Understanding, 3- ImproveStrength/Jose 1=Demonstrate adherence to instructed precautions during ADL tasks. 2=Patient will verbalize/demonstrate understanding of assistive devices/modifications for ADL. 3=Patient will improve strength/tolerance for activity to enable patient to perform ADL's. OT Education/Plan Problem List/Assessment Assessment: Decreased Activ Tolerance, Decreased UE Strength, Impaired Funct Balance, Impaired I ADL's, Impaired Self-Care Skills Discharge Recommendations Plan/Recommendations: Continue POC Treatment Plan/Plan of Care Patient would benefit from OT for education, treatment and training to promote independence in ADL's, mobility, safety and/or upper extremity function for ADL's. Plan of Care: ADL Retraining, Functional Mobility, Group Exercise/Act as Ind, UE Funct Exercise/Act Treatment Duration: Jan 03, 2021 Frequency: At least 5 of 7 days/Wk (IRF) Estimated Hrs Per Day: 1.5 hours per day Rehab Potential: Fair Time/GCodes Start Time: 11:30 Stop Time: 12:00 Total Time Billed (hr/min): 30 Billed Treatment Time 1, FA (10'), EX (20') ISADORA HUGHES OT Dec 18, 2020 11:48
[2020-12-18 13:45] VITALS: BP 132/68
[2020-12-18 18:00] VITALS: BP 159/74
[2020-12-18] MEDS: TAMSULOSIN 0.4 MG (FLOMAX) CAP PO SCH (18:36)
[2020-12-18] MEDS: ENOXAPARIN 40 MG/0.4 ML (LOVENOX) SYR SC SCH (23:24)
[2020-12-19] MEDS: CATHETER FLUSH 10 ML SYR IV SCH ×2 (05:24→11:19)
[2020-12-19 05:29] VITALS: BP 140/70
[2020-12-19] MEDS: lisINopril 20 MG (PRINIVIL) TABLET PO SCH (07:20)
[2020-12-19] MEDS: meTOproloL SUCCINATE 50 MG (TOPROL XL) TAB PO SCH (07:20)
[2020-12-19] MEDS: DOCUSATE SODIUM 100 MG (COLACE) CAP PO SCH ×2 (07:21→20:06)
[2020-12-19] MEDS: FAMOTIDINE 20 MG (PEPCID) TABLET PO SCH ×2 (07:21→20:06)
[2020-12-19] MEDS: polyethylene glycoL POWDER 17 GM (MIRALAX) PACK PO SCH ×2 (07:21→21:08)
[2020-12-19] MEDS: SENNA W/DOCUSATE (SENOKOT S) TABLET PO SCH ×2 (07:21→21:08)
[2020-12-19] MEDS: LEVOTHYROXINE 112 MCG (LEVOTHROID) TAB PO SCH (07:21)
--- NOTE | 2020-12-19 08:18 | Occupational Ther Daily Note ---
OT Current Status-Daily Note Subjective Pt laying in bed, states he is tired but slept pretty well overall ADL-Treatment Therapy Code Descriptions/Definitions Functional [place] Measure: 0=Not Assessed/NA 4=Minimal Assistance 1=Total Assistance 5=Supervision or Setup 2=Maximal Assistance 6=Modified [place] 3=Moderate Assistance 7=Complete IndependenceSCALE: Activities may be completed with or without assistive devices. 7-Srxsjotsug-jevtowp completes the activity by him/herself with no assistance from a helper. 5-Set-up or Clean-up Assistance-helper sets up or cleans up; patient completes activity. [place] assists only prior to or following the activity. 4-Supervision or Touching Assistance-helper provides verbal cues and/or to uching/steadying and/or contact guard assistance as patient completes activity. Assistance may be provided throughout the activity or intermittently. 3-Partial/Moderate Assistance-helper does LESS THAN HALF the effort. [place] lifts, holds or supports trunk or limbs, but provides less than half the effort. 2-Substantial/Maximal Assistance-helper does MORE THAN HALF the effort. [place] lifts or holds trunk or limbs and provides more than half the effort. 6-Qigjzvsqd-swgxdi does ALL the effort. Patient does none of the effort to complete the activity. Or, the assistance of 2 or more helpers is required for the patient to complete the activity. If activity was not attempted, code reason: 7-Patient Refused. 9-Not Applicable-not attempted and the patient did not perform the activity before the current illness, exacerbation or injury. 10-Not Attempted due to Environmental Limitations-(lack of equipment, weather restraints, etc.). 88-Not Attempted due to Medical Conditions or Safety Concerns. Oral Hygiene (QC): 4 (SBA at sink) Other Treatment Pt transferred supine to sit EOB, SBA. SBA sit to stand transfer from EOB, then pt used FWW to ambulate to therapy gym with CGA. In order to increase BUE strength and functional endurance, pt completed arm bike x15 mins, min resistance. Pt reports too easy at first, so pt turned up resistance on arm bike. After a couple mins, pt states he can really feel it working his shoulders, OT turned resistance back to min resistance. Pt took rest breaks as needed. He then completed fine motor task, removing beads from moderate resistance theraputty in order to increase fine motor strength. Pt completed graded clothes pin task (1-5lb), placing/removing all clothespins first with R hand, then repeating with L hand. Pt used FWW to return to his room, CGA. He stood at sink to complete oral care, SBA. Pt requests coffee, using FWW to ambulate to kitchen, pt able to get a cup, then pour coffee into cup. Pt took a seated rest break in ARU common area before returning to recliner in his room. Post tx, pt seated in recliner, call light in reach and all needs met. Education OT Patient Education: Correct positioning, Modified ADL techniques, Progress toward Goal/Update tx plan, Purpose of tx/functional activities Teaching Recipient: Patient Teaching Methods: Discussion Response to Teaching: Verbalize Understanding OT Short Term Goals Short Term Goals Time Frame: Dec 20, 2020 Shower/bathe self: 3 Lower body dressin Putting on/taking off footwear: 3 OT Pattern Hanger Goals Pattern Hanger Goals Time Frame: Jan 03, 2021 Eating (QC): 6 Oral Hygiene (QC): 6 Toileting Hygiene (QC): 6 Shower/Bathe Self (QC): 6 Upper Body Dressing (QC): 6 Lower Body Dressing (QC): 6 On/Off Footwear (QC): 6 Additional Goals: 1-Demonstrate ADL Tasks, 2-Verbalize Understanding, 3- ImproveStrength/Jose 1=Demonstrate adherence to instructed precautions during ADL tasks. 2=Patient will verbalize/demonstrate understanding of assistive devices /modifications for ADL. 3=Patient will improve strength/tolerance for activity to enable patient to perform ADL's. OT Education/Plan Problem List/Assessment Assessment: Decreased Activ Tolerance, Decreased UE Strength, Impaired Funct Balance, Impaired I ADL's, Impaired Self-Care Skills Discharge Recommendations Plan/Recommendations: Continue POC Treatment Plan/Plan of Care Patient would benefit from OT for education, treatment and training to promote independence in ADL's, mobility, safety and/or upper extremity function for ADL's. Plan of Care: ADL Retraining, Functional Mobility, Group Exercise/Act as Ind, UE Funct Exercise/Act Treatment Duration: Jan 03, 2021 Frequency: At least 5 of 7 days/Wk (IRF) Estimated Hrs Per Day: 1.5 hours per day Rehab Potential: Fair Time/GCodes Start Time: 08:00 Stop Time: 09:15 Total Time Billed (hr/min): 75 Billed Treatment Time 1, EX (15'), FA 3 (45'), ADL (15') ISADORA HUGHES OT Dec 19, 2020 08:18
--- NOTE | 2020-12-19 11:14 | Physical Therapy Daily Note ---
PT Daily Note-Current Subjective Pt sitting in recliner upon arrival. Pt agrees to PT. Upon arrival pt states pain is 3/10. While amb pt describes pain as biting on the inside of his thigh. Pain Numeric Pain Scale: 3 Location: Left Location Body Site: Hip Pain Description: Ache Mental Status Patient Orientation: Person, Place, Time, Situation Transfers SCALE: Activities may be completed with or without assistive devices. 0-Gztzbsdgzq-yvxtwee completes the activity by him/herself with no assistance from a helper. 5-Set-up or Clean-up Assistance-helper sets up or cleans up; patient completes activity. [place] assists only prior to or following the activity. 4-Supervision or Touching Assistance-helper provides verbal cues and/or touching/steadying and/or contact guard assistance as patient completes activity. Assistance may be provided throughout the activity or intermittently. 3-Partial/Moderate Assistance-helper does LESS THAN HALF the effort. [place] lifts, holds or supports trunk or limbs, but provides less than half the effort. 2-Substantial/Maximal Assistance-helper does MORE THAN HALF the effort. [place] lifts or holds trunk or limbs and provides more than half the effort. 2-Zwhznhjgr-kobqdd does ALL the effort. Patient does none of the effort to complete the activity. Or, the assistance of 2 or more helpers is required for the patient to complete the activity. If activity was not attempted, code reason: 7-Patient Refused. 9-Not Applicable-not attempted and the patient did not perform the activity before the current illness, exacerbation or injury. 10-Not Attempted due to Environmental Limitations-(lack of equipment, weather restraints, etc.). 88-Not Attempted due to Medical Conditions or Safety Concerns. Sit to Lying (QC): 5 Lying to Sitting/Side of Bed(Q: 5 Sit to Stand (QC): 5 Weight Bearing Left Lower Extremity: Left Weight Bearing/Tolerated Gait Training Does the Patient Walk?: Yes Distance: 150' Walk 10 feet (QC): 4 Walk 50 ft with 2 Turns(QC): 4 Walk 150 ft (QC): 4 Gait Persons Needed: 1 Gait Assistive Device: FWW Wheelchair Training Does the Pt Use a Wheelchair?: No Stair Training #of Steps: 1 1 Step (curb) (QC): 4 Stairs: Pattern: Step to Exercises Supine Ex: Short Arc Quads (2 sets of 15), Straight leg raise (R side), Hip abd/add Supine Reps: 15 Seated Therapy Exercises: Ankle pumps, Sit to stand, Long arc quads, Hip f lexion, Kicking activity, Hamstring Curls, Glut set Seated Reps: 15 NuStep Minutes: 12 NuStep Workload: 4 Treatments TF to standing, completes 1 single step followed by amb. in hallway. Pt uses NuStep then completes Seated Ex at Therapy Mat. Pt completes Supine Ex on mat as well.Amb back to room, completes 1 single step prior to entering room and then TF to recliner. Assessment Current Status: Good Progress AAROM for L LE for AB/ADD EX. Pt demonstrated pain is more controlled today and did not need any pain meds. Pt was not able to perform full ROM while performing LAQ because of HS tightness. While performing HS stretch and nustep pt was able to improve hip flex more then previous days. PT Senior Java Software Developer Goals Senior Java Software Developer Goals PT Usp Goals Time Frame: Dec 28, 2020 Roll Left & Right (QC): 5 Sit to Lying (QC): 5 Lying-Sitting on Side/Bed(QC): 5 Sit to Stand (QC): 5 Chair/Auu-jl-Qtsqy Xfer(QC): 5 Toilet Transfer (QC): 5 Car Transfer (QC): 5 Does the Patient Walk: Yes Walk 10 feet (QC): 5 Walk 50ft with 2 Turns (QC): 5 Walk 150 ft (QC): 5 Walking 10ft on Uneven Surface: 5 1 Step (curb) (QC): 5 4 Steps (QC): 4 12 Steps (QC): 4 Picking up an Object (QC): 4 Wheel 50 feet with 2 turns (QC: 9 Wheel 150 feet: 9 PT Plan Treatment/Plan Treatment Plan: Continue Plan of Care Treatment Plan: Bed Mobility, Education, Functional Activity Jose, Functional Strength, Group Therapy, Gait, Safety, Therapeutic Exercise, Transfers Treatment Duration: Dec 28, 2020 Frequency: At least 5 of 7 days/Wk (IRF) Estimated Hrs Per Day: 1.5 hours per day Patient and/or Family Agrees t: Yes Safety Risks/Education Patient Education: Steps Teaching Recipient: Patient Teaching Methods: Discussion Response to Teaching: Verbalize Understanding Time/GCodes Time In: 1100 Time Out: 1200 Total Billed Treatment Time: 60 Total Billed Treatment 1, GT(15m), EXx3(45m) VALENTE STANFORD HOME THEATER SPECIALIST Dec 19, 2020 11:14
--- NOTE | 2020-12-19 12:00 | PM&R Progress Note ---
Subjective HPI/CC On Admission Date Seen by Provider: Dec 19, 2020 Time Seen by Provider: 11:00 Subjective/Events-last exam 12/19/20: Patient doing well Daypass at 330 BM+ Completed 5 doses of Venofer 12/18/20: Pt doing pretty well Erica out tomorrow I dont note an irregular heart beat on exam when the nurses report that Discharge planned for Wednesday12/17/20: Pt doing much better Back to one assist Oliver will be removed on Much improved overall status 12/16/20: Pt having no issues Ambulating better Bowels moved yesterday Pain is controlled 12/15/20: Patient moving pretty well today Pain still an issues Baclofen given this am Incision looks good 4th Venofer infusion today 12/14/20: Patient is much improved today and walking more with therapy Incision looks good Irregular pulse per RN? 12/13/20: Improved status Minimal ambulation Pain is due to muscle soreness per ortho IV iron infusion today Pain ok otherwise 12/12/20: Pt improved today Participating in therapy a lot better today X-ray of the hip and ultrasound were all within normal limits Labs checked and all okay 12/11/20: Pt really not able to participate due to cognitive deficit Bowels moved on the Left lower extremity ultrasound will be evaluating for DVT that Dr. Ovalle ordered Overall cognition is causing a delay in his recovery 12/10/20: Pt did use the sit to stand today because of lack of strength in his legs Will DC the Baclofen but its only been 5 mg three times a day so hopefully that will help Dementia is noted Lortab used for pain His answers are really unreliable 12/09/20: Pt doing okay Was on commode but seen after done Laxatives given since unknown when his last BM was Dementia is precluding details 12/08/20: Patient doing well Increase pain when moved left leg Difficulty ambulating Hgb low so will give 1 unit of blood today and Venofer iron infusions Baclofen will be given for muscle spasms Checked meds and labs Review of Systems General: Fatigue, Malaise Musculoskeletal: leg pain Objective Exam Vital Signs Vital Signs Date Time Temp Pulse Resp B/P (MAP) Pulse Ox O2 Delivery O2 Flow Rate FiO2 12/19/20 20:11 Room Air 12/19/20 17:11 36.6 61 18 133/85 (101) 96 Capillary Refill : General Appearance: No Apparent Distress, WD/WN, Chronically ill, Obese HEENT: PERRL/EOMI, Normal ENT Inspection, Pharynx Normal Neck: Full Range of Motion, Normal Inspection, Non Tender, Supple, Carotid Bruit Respiratory: Chest Non Tender, Lungs Clear, Normal Breath Sounds, No Accessory Muscle Use, No Respiratory Distress Cardiovascular: Regular Rate, Rhythm, No Edema, No Gallop, No JVD, No Murmur, Normal Peripheral Pulses Gastrointestinal: Normal Bowel Sounds, No Organomegaly, No Pulsatile Mass, Non Tender, Soft Back: Normal Inspection, No CVA Tenderness, No Vertebral Tenderness Extremity: Normal Capillary Refill, Normal Inspection, Normal Range of Motion (except left leg), Non Tender, No Calf Tenderness, No Pedal Edema Neurologic/Psychiatric: Alert, Oriented x3, No Motor/Sensory Deficits, Normal Mood/Affect, Disoriented (poor recall) Skin: Normal Color, Warm/Dry Lymphatic: No Adenopathy Results/Procedures Lab Patient resulted labs reviewed. FIM Transfers Therapy Code Descriptions/Definitions Functional [place] Measure: 0=Not Assessed/NA 4=Minimal Assistance 1=Total Assistance 5=Supervision or Setup 2=Maximal Assistance 6=Modified [place] 3=Moderate Assistance 7=Complete IndependenceSCALE: Activities may be completed with or without assistive devices. 7-Eodlhxevdt-ewefupy completes the activity by him/herself with no assistance from a helper. 5-Set-up or Clean-up Assistance-helper sets up or cleans up; patient completes activity. [place] assists only prior to or following the activity. 4-Supervision or Touching Assistance-helper provides verbal cues and/or touching/steadying and/or contact guard assistance as patient completes activity. Assistance may be provided throughout the activity or intermittently. 3-Partial/Moderate Assistance-helper does LESS THAN HALF the effort. [place] lifts, holds or supports trunk or limbs, but provides less than half the effort. 2-Substantial/Maximal Assistance-helper does MORE THAN HALF the effort. [place] lifts or holds trunk or limbs and provides more than half the effort. 1-Gaucasgtn-zocqyl does ALL the effort. Patient does none of the effort to complete the activity. Or, the assistance of 2 or more helpers is required for the patient to complete the activity. If activity was not attempted, code reason: 7-Patient Refused. 9-Not Applicable-not attempted and the patient did not perform the activity before the current illness, exacerbation or injury. 10-Not Attempted due to Environmental Limitations-(lack of equipment, weather restraints, etc.). 88-Not Attempted due to Medical Conditions or Safety Concerns. Roll Left to Right (QC): 6 Sit to Lying (QC): 6 Sit to Stand (QC): 5 Chair/Pgb-rc-Boahu Xfer(QC): 5 Car Transfer (QC): 4 Gait Training Does the Patient Walk?: Yes Distance: 150' Walk 10 feet (QC): 4 Walk 50 ft with 2 Turns(QC): 4 Walk 150 ft (QC): 4 Walking 10ft/uneven surface-QC: 88 Gait Persons Needed: 1 Gait Assistive Device: FWW Wheelchair Training Does the Pt Use a Wheelchair?: No Wheel 50 ft with 2 turns (QC): 5 Wheel 150 ft (QC): 5 Type of Wheelchair: Manual Stair Training Stair Training: Handrails/: uses walker #of Steps: 1 1 Step (curb) (QC): 4 4 Steps (QC): 88 12 Steps (QC): 88 Stairs: Pattern: Step to Balance Picking up an Object (QC): 88 ADL-Treatment Eating (QC): 6 (IND with breakfast) Oral Hygiene (QC): 4 (SBA at sink) Shower/Bathe Self (QC): 4 (Pt completed sponge bath, CGA in stand. Cues to use LH sponge to wash feet.) Upper Body Dressing (QC): 5 Lower Body Dressing (QC): 4 (CGA in stand, pt able to doff/don pants/underwear) On/Off Footwear (QC): 3 (Pt able to doff using AEmin A to don LLE gripper sock using AE. Mod verbal cues overall for sequencing.) Toileting Hygiene (QC): 4 (CGA, pt able to complete hygiene on toilet, and manage pants up in stand with CGA) Toilet Transfer (QC): 4 (CGA off of BSC over toilet) Assessment/Plan Assessment and Plan Assess & Plan/Chief Complaint Assessment: s/p left hip fracture Post op anemia from acute blood loss requiring iron infusions and transfusion 1 unit of blood 12/08/20 HTN Hypothyroidism s/p altman cath DC Plan: Monitor pain Monitor confusion Fall risk 12/08/20: Transfuse 1 unit of blood Venofer Pain control Baclofen 12/09/20: Monitor hgb Pain control 12/10/20: Monitor pain DC Baclofen Monitor for falls 12/11/20: Monitor pain Monitor confusion Check labs in am Venofer as scheduled 12/12/20: Labs good Monitor confusion 12/13/20: Monitor pain Monitor confusion 12/14/20: Monitor pain Monitor hgb 12/15/20: Monitor pain Transfers improved 12/16/20: Pain control Ambulate IRF protocol 12/17/20: Improving more each day Pain controlled 12/18/20: Monitor lungs Pain meds 12/19/20: Monitor closely Pain control (1) Closed left hip fracture Status: Acute (2) BPH (benign prostatic hyperplasia) Status: Chronic (3) Hypertension Status: Chronic (4) Hypothyroidism Status: Chronic (5) Hyperlipidemia Status: Chronic SANJUANA GRAY DO Dec 19, 2020 12:00
--- NOTE | 2020-12-19 14:10 | Speech Therapy Daily Note ---
Speech Daily Progress Note Subjective Date Seen by Provider: Dec 19, 2020 Time Seen by Provider: 00:30 Pt was alert and pleasant. Pt. was eager to watch his twin lana's [employer]! game. Objective Pt answered general information cognitive questions with 80% given 10% cues. Assessment Assessment Current Status: Good Progress Treatment Plan Continue Plan of Care Speech Short Term Goals Short Term Goals Short Term Goals 1) Patient will complete memory tasks related to his daily routine at 80% or greater with minimal cues. 2) Patient will complete safety awareness tasks related to his daily routine at 80% or greater with minimal cues. 3) Patient will complete problem solving tasks related to his daily routine at 80% or greater with minimal cues. Speech Bullet Lubricant Mixer Goals Bullet Lubricant Mixer Goals Patient will improve cognitive-communication skills necessary for safety and daily living tasks with minimal assist. Speech-Plan Patient/Family Goals Patient/Family Goals: Pt. plans to return home to his . Treatment Plan Speech Therapy Treatment Plan: Continue Plan of Care Treatment Duration: Dec 20, 2020 Frequency: 4 times per week (Patient will receive skilled ST 4-5x per week) Estimated Hrs Per Day: .5 hour per day Rehab Potential: Fair Barriers to Learning: Decreased cognitive function and age. Pt/Family Agrees to Plan: Yes Safety Risks/Education Teaching Recipient: Patient Teaching Methods: Discussion Response to Teaching: Verbalize Understanding, Return Demonstration Education Topics Provided: Importance of medication schedule as ordered and safety. Time Speech Therapy Time In: 10:30 Speech Therapy Time Out: 11:00 Total Billed Time: 30 Billed Treatment Time 1, OSORIO Almendarez Dec 19, 2020 14:10
--- NOTE | 2020-12-19 14:41 | Diagnostic Imaging Report ---
INDICATION: Postop left hip. TIME OF EXAM: 1:11 PM CORRELATION is made with prior study from 12/11/2020. Intramedullary meng and compression screw transfix the intertrochanteric left hip fracture. Alignment is stable when compared with prior exam. Femoral acetabular alignment is normal. IMPRESSION: Satisfactory postoperative appearance to the left hip. Dictated by: Dictated on workstation # [id number]
--- NOTE | 2020-12-19 15:50 | Physical Therapy Daily Note ---
PT Daily Note-Current Subjective Pt was at EOB upon arrival. Pt agrees to PT to get ready for planned outing. Pain Location: Left Location Body Site: Hip Comment: pt reported pain did not rate Mental Status Patient Orientation: Person, Place, Time, Situation Transfers SCALE: Activities may be completed with or without assistive devices. 4-Zhliasodzm-ljpiizb completes the activity by him/herself with no assistance from a helper. 5-Set-up or Clean-up Assistance-helper sets up or cleans up; patient completes activity. [place] assists only prior to or following the activity. 4-Supervision or Touching Assistance-helper provides verbal cues and/or touching/steadying and/or contact guard assistance as patient completes activity. Assistance may be provided throughout the activity or intermittently. 3-Partial/Moderate Assistance-helper does LESS THAN HALF the effort. [place] lifts, holds or supports trunk or limbs, but provides less than half the effort. 2-Substantial/Maximal Assistance-helper does MORE THAN HALF the effort. [place] lifts or holds trunk or limbs and provides more than half the effort. 3-Olroakzqs-byyivm does ALL the effort. Patient does none of the effort to complete the activity. Or, the assistance of 2 or more helpers is required for the patient to complete the activity. If activity was not attempted, code reason: 7-Patient Refused. 9-Not Applicable-not attempted and the patient did not perform the activity before the current illness, exacerbation or injury. 10-Not Attempted due to Environmental Limitations-(lack of equipment, weather restraints, etc.). 88-Not Attempted due to Medical Conditions or Safety Concerns. Sit to Stand (QC): 5 Toilet Transfer (QC): 5 Weight Bearing Left Lower Extremity: Left Weight Bearing/Tolerated Gait Training Does the Patient Walk?: Yes Walk 10 feet (QC): 5 Gait Assistive Device: FWW Wheelchair Training Does the Pt Use a Wheelchair?: No Treatments Pt TF from bed to use BR returning to EOB to dress for planned outing. Pt dons and doffs clothes w/ SBA. Assessment Current Status: Good Progress Pt reports L hip discomfort upon dressing. PT Snf Goals [employer] Goals PT Snf Goals Time Frame: Dec 28, 2020 Roll Left & Right (QC): 5 Sit to Lying (QC): 5 Lying-Sitting on Side/Bed(QC): 5 Sit to Stand (QC): 5 Chair/Kqa-ua-Zkhek Xfer(QC): 5 Toilet Transfer (QC): 5 Car Transfer (QC): 5 Does the Patient Walk: Yes Walk 10 feet (QC): 5 Walk 50ft with 2 Turns (QC): 5 Walk 150 ft (QC): 5 Walking 10ft on Uneven Surface: 5 1 Step (curb) (QC): 5 4 Steps (QC): 4 12 Steps (QC): 4 Picking up an Object (QC): 4 Wheel 50 feet with 2 turns (QC: 9 Wheel 150 feet: 9 PT Plan Treatment/Plan Treatment Plan: Continue Plan of Care Treatment Plan: Bed Mobility, Education, Functional Activity Jose, Functional Strength, Group Therapy, Gait, Safety, Therapeutic Exercise, Transfers Treatment Duration: Dec 28, 2020 Frequency: At least 5 of 7 days/Wk (IRF) Estimated Hrs Per Day: 1.5 hours per day Patient and/or Family Agrees t: Yes Time/GCodes Time In: 1445 Time Out: 1510 Total Billed Treatment Time: 25 Total Billed Treatment 1, FAVALENTE Harp HEAVY EQUIPMENT OPERATOR APPRENTICE Dec 19, 2020 15:50
[2020-12-19] MEDS: TAMSULOSIN 0.4 MG (FLOMAX) CAP PO SCH (16:16)
[2020-12-19 17:11] VITALS: BP 133/85
[2020-12-20] MEDS: ENOXAPARIN 40 MG/0.4 ML (LOVENOX) SYR SC SCH ×2 (00:32→23:02)
[2020-12-20 05:58] VITALS: BP 171/80
[2020-12-20 06:39] VITALS: BP 137/68
[2020-12-20] MEDS: FAMOTIDINE 20 MG (PEPCID) TABLET PO SCH ×2 (08:59→21:17)
[2020-12-20] MEDS: DOCUSATE SODIUM 100 MG (COLACE) CAP PO SCH ×2 (08:59→21:17)
[2020-12-20] MEDS: lisINopril 20 MG (PRINIVIL) TABLET PO SCH (08:59)
[2020-12-20] MEDS: SENNA W/DOCUSATE (SENOKOT S) TABLET PO SCH ×2 (08:59→21:14)
[2020-12-20] MEDS: meTOproloL SUCCINATE 50 MG (TOPROL XL) TAB PO SCH (08:59)
[2020-12-20] MEDS: polyethylene glycoL POWDER 17 GM (MIRALAX) PACK PO SCH ×2 (09:00→21:13)
[2020-12-20] MEDS: LEVOTHYROXINE 112 MCG (LEVOTHROID) TAB PO SCH (09:00)
--- NOTE | 2020-12-20 10:19 | Occupational Ther Daily Note ---
OT Current Status-Daily Note Subjective Pt up in recliner, agreeable to OT Tx. ADL-Treatment Therapy Code Descriptions/Definitions Functional [place] Measure: 0=Not Assessed/NA 4=Minimal Assistance 1=Total Assistance 5=Supervision or Setup 2=Maximal Assistance 6=Modified [place] 3=Moderate Assistance 7=Complete IndependenceSCALE: Activities may be completed with or without assistive devices. 1-Xahxexynuc-egsimct completes the activity by him/herself with no assistance from a helper. 5-Set-up or Clean-up Assistance-helper sets up or cleans up; patient completes activity. [place] assists only prior to or following the activity. 4-Supervision or Touching Assistance-helper provides verbal cues and/or touching/steadying and/or contact guard assistance as patient completes activity. Assistance may be provided throughout the activity or intermittently. 3-Partial/Moderate Assistance-helper does LESS THAN HALF the effort. [place] lifts, holds or supports trunk or limbs, but provides less than half the effort. 2-Substantial/Maximal Assistance-helper does MORE THAN HALF the effort. [place] lifts or holds trunk or limbs and provides more than half the effort. 8-Qvbaehttg-hkdqzq does ALL the effort. Patient does none of the effort to co mplete the activity. Or, the assistance of 2 or more helpers is required for the patient to complete the activity. If activity was not attempted, code reason: 7-Patient Refused. 9-Not Applicable-not attempted and the patient did not perform the activity before the current illness, exacerbation or injury. 10-Not Attempted due to Environmental Limitations-(lack of equipment, weather restraints, etc.). 88-Not Attempted due to Medical Conditions or Safety Concerns. Oral Hygiene (QC): 4 (SBA standing at sink) Shower/Bathe Self (QC): 4 (CGA, 1 LOB noted when standing at GBs) Upper Body Dressing (QC): 5 Lower Body Dressing (QC): 4 (CGA in stand, 1 LOB in stand) On/Off Footwear: 4 (cues to use sock aide) Other Treatment Pt seated in recliner, used FWW to ambulate to MT using FWW, SBA. Pt doffed clothes and completed shower. Pt stood at GBs to transfer to chair, 1 LOB in stand requiring CGA. Pt donned clothes at chair, poor retention of AE between tx. OT asked pt how he has been completing his socks, but unable to recall. OT provided pt with sock aide and he replies that he has "only used that once", although pt has used over multiple sessions. Pt then able to use sock aide to don socks. 1 LOB when pt stood to perform pant hike, pt stood without walker in front of him, CGA. OT educated pt on making sure walker is in front of him prior to all stands. Pt stood at sink to complete oral care and hair brushing, SBA. Pt ambulated to therapy gym, CGA using FWW. In order to increase BUE strength and functional endurance, pt completed x10 mins on arm bike, min resistance. OT/PT cotreat due to skill of 2 clinicians required which a rehabilitation caseworker could not perform in order to coordinate UE/LEs, decrease fall risk, and focus on higher level balance tasks. OT focused on UE placement, cues for sequencing and safety, PT focused on LE placement and dynamic standing balance. Pt stood at FWW to hit balloon back and forth with OT. Pt able to hit balloon with 1 hand off of walker at a time, 2 LOB noted with task requiring close SBA, pt able to hold onto walker with 1 hand in order to self correct. Post tx, pt seated in gym with PT, all needs met. Education OT Patient Education: Correct positioning, Energy conservation, Modified ADL techniques, Progress toward Goal/Update tx plan, Purpose of tx/functional activities Teaching Recipient: Patient Teaching Methods: Discussion Response to Teaching: Verbalize Understanding OT Short Term Goals Short Term Goals Time Frame: Dec 20, 2020 Shower/bathe self: 3 Lower body dressin Putting on/taking off footwear: 3 OT Change Attendant Goals Nursing Home Goals Time Frame: Jan 03, 2021 Eating (QC): 6 Oral Hygiene (QC): 6 Toileting Hygiene (QC): 6 Shower/Bathe Self (QC): 6 Upper Body Dressing (QC): 6 Lower Body Dressing (QC): 6 On/Off Footwear (QC): 6 Additional Goals: 1-Demonstrate ADL Tasks, 2-Verbalize Understanding, 3-ImproveStrength/Jose 1=Demonstrate adherence to instructed precautions during ADL tasks. 2=Patient will verbalize/demonstrate understanding of assistive devices/modifications for ADL. 3=Patient will improve strength/tolerance for activity to enable patient to perform ADL's. OT Education/Plan Problem List/Assessment Assessment: Decreased Activ Tolerance, Decreased UE Strength, Impaired Funct Balance, Impaired I ADL's, Impaired Self-Care Skills Discharge Recommendations Plan/Recommendations: Continue POC Treatment Plan/Plan of Care Patient would benefit from OT for education, treatment and training to promote independence in ADL's, mobility, safety and/or upper extremity function for ADL's. Plan of Care: ADL Retraining, Functional Mobility, Group Exercise/Act as Ind, UE Funct Exercise/Act Treatment Duration: Jan 03, 2021 Frequency: At least 5 of 7 days/Wk (IRF) Estimated Hrs Per Day: 1.5 hours per day Rehab Potential: Fair Time/GCodes Start Time: 09:00 Stop Time: 10:15 Total Time Billed (hr/min): 75 Billed Treatment Time 1, ADL 3 (50'), EX (10'), FA (15') ISADORA HUGHES OT Dec 20, 2020 10:19
--- NOTE | 2020-12-20 11:10 | Physical Therapy Daily Note ---
PT Daily Note-Current Subjective Pt in Therapy Gym working with OT upon arrival. Pt agrees to short PT/OT co- treat for higher functioning activity. Pain Numeric Pain Scale: 4 Location: Left Location Body Site: Hip Pain Description: Ache Mental Status Patient Orientation: Person, Place, Time, Situation Transfers SCALE: Activities may be completed with or without assistive devices. 3-Wktlsmsqdn-qnzaxxb completes the activity by him/herself with no assistance from a helper. 5-Set-up or Clean-up Assistance-helper sets up or cleans up; patient completes activity. [place] assists only prior to or following the activity. 4-Supervision or Touching Assistance-helper provides verbal cues and/or touching/steadying and/or contact guard assistance as patient completes activity. Assistance may be provided throughout the activity or intermittently. 3-Partial/Moderate Assistance-helper does LESS THAN HALF the effort. [place] lifts, holds or supports trunk or limbs, but provides less than half the effort. 2-Substantial/Maximal Assistance-helper does MORE THAN HALF the effort. [place] lifts or holds trunk or limbs and provides more than half the effort. 8-Ybvjyhkct-skqfgm does ALL the effort. Patient does none of the effort to complete the activity. Or, the assistance of 2 or more helpers is required for the patient to complete the activity. If activity was not attempted, code reason: 7-Patient Refused. 9-Not Applicable-not attempted and the patient did not perform the activity before the current illness, exacerbation or injury. 10-Not Attempted due to Environmental Limitations-(lack of equipment, weather restraints, etc.). 88-Not Attempted due to Medical Conditions or Safety Concerns. Sit to Stand (QC): 5 Weight Bearing Left Lower Extremity: Left Weight Bearing/Tolerated Gait Training Does the Patient Walk?: Yes Distance: 150' Walk 10 feet (QC): 5 Walk 50 ft with 2 Turns(QC): 5 Walk 150 ft (QC): 5 Gait Persons Needed: 1 Gait Assistive Device: FWW Wheelchair Training Does the Pt Use a Wheelchair?: No Treatments [id number]: OT/PT cotreat due to skill of 2 clinicians required which a administrative technician could not perform in order to coordinate UE/LEs, decrease fall risk, and focus on higher level balance tasks. OT focused on UE placement, cues for sequencing and safety, PT focused on LE placement and dynamic standing balance. Pt stood at FWW to hit balloon back and forth with OT. Pt able to hit balloon with 1 hand off of walker at a time, 2 LOB noted with task requiring close SBA, pt able to hold onto walker with 1 hand in order to self correct. [id number]: Pt uses NuStep then completes Seated Ex. Pt completes couple of Standing EX at //bar before amb. in hallway back to room. All needs met, call light in hand. Assessment Current Status: Good Progress Pt is fatigued by end of tx. PT Landscape Photographer Goals Group Home Goals 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 Time Frame: Dec 28, 2020 Roll Left & Right (QC): 5 Sit to Lying (QC): 5 Lying-Sitting on Side/Bed(QC): 5 Sit to Stand (QC): 5 Chair/Dqo-pw-Nnrip Xfer(QC): 5 Toilet Transfer (QC): 5 Car Transfer (QC): 5 Does the Patient Walk: Yes Walk 10 feet (QC): 5 Walk 50ft with 2 Turns (QC): 5 Walk 150 ft (QC): 5 Walking 10ft on Uneven Surface: 5 1 Step (curb) (QC): 5 4 Steps (QC): 4 12 Steps (QC): 4 Picking up an Object (QC): 4 Wheel 50 feet with 2 turns (QC: 9 Wheel 150 feet: 9 PT Plan Problem List Problem List: Activity Tolerance Treatment/Plan Treatment Plan: Continue Plan of Care Treatment Plan: Bed Mobility, Education, Functional Activity Jose, Functional Strength, Group Therapy, Gait, Safety, Therapeutic Exercise, Transfers Treatment Duration: Dec 28, 2020 Frequency: At least 5 of 7 days/Wk (IRF) Estimated Hrs Per Day: 1.5 hours per day Patient and/or Family Agrees t: Yes Safety Risks/Education Patient Education: Correct Positioning Teaching Recipient: Patient Teaching Methods: Discussion Response to Teaching: Verbalize Understanding Time/GCodes Time In: 1000 Time Out: 1100 Total Billed Treatment Time: 60 Total Billed Treatment 1, FA (15m), EX x2 (30m) & GT (15m) Co-treat w/OT for 15m ([id number]) VALENTE STANFORD ESCROW CLERK Dec 20, 2020 11:10
--- NOTE | 2020-12-20 12:23 | PM&R Progress Note ---
Subjective HPI/CC On Admission Date Seen by Provider: Dec 20, 2020 Time Seen by Provider: 12:13 Subjective/Events-last exam 12/20/20: Patient doing well BM+ Monitored closely Improved status 12/19/20: Patient doing well Daypass at 330 BM+ Completed 5 doses of Venofer 12/18/20: Pt doing pretty well [place] out tomorrow I dont note an irregular heart beat on exam when the nurses report that Discharge planned for Wednesday12/17/20: Pt doing much better Back to one assist [place] will be removed on Much improved overall status 12/16/20: Pt having no issues Ambulating better Bowels moved yesterday Pain is controlled 12/15/20: Patient moving pretty well today Pain still an issues Baclofen given this am Incision looks good 4th Venofer infusion today 12/14/20: Patient is much improved today and walking more with therapy Incision looks good Irregular pulse per RN? 12/13/20: Improved status Minimal ambulation Pain is due to muscle soreness per ortho IV iron infusion today Pain ok otherwise 12/12/20: Pt improved today Participating in therapy a lot better today X-ray of the hip and ultrasound were all within normal limits Labs checked and all okay 12/11/20: Pt really not able to participate due to cognitive deficit Bowels moved on the Left lower extremity ultrasound will be evaluating for DVT that Dr. Ovalle ordered Overall cognition is causing a delay in his recovery 12/10/20: Pt did use the sit to stand today because of lack of strength in his legs Will DC the Baclofen but its only been 5 mg three times a day so hopefully that will help Dementia is noted Lortab used for pain His answers are really unreliable 12/09/20: Pt doing okay Was on commode but seen after done Laxatives given since unknown when his last BM was Dementia is precluding details 12/08/20: Patient doing well Increase pain when moved left leg Difficulty ambulating Hgb low so will give 1 unit of blood today and Venofer iron infusions Baclofen will be given for muscle spasms Checked meds and labs Review of Systems General: Fatigue Musculoskeletal: leg pain, foot pain Objective Exam Vital Signs Vital Signs Date Time Temp Pulse Resp B/P (MAP) Pulse Ox O2 Delivery O2 Flow Rate FiO2 12/20/20 20:00 99 Room Air 12/20/20 17:06 36.7 67 18 136/64 (88) Capillary Refill : General Appearance: No Apparent Distress, WD/WN, Chronically ill, Obese HEENT: PERRL/EOMI, Normal ENT Inspection, Pharynx Normal Neck: Full Range of Motion, Normal Inspection, Non Tender, Supple, Carotid Bruit Respiratory: Chest Non Tender, Lungs Clear, Normal Breath Sounds, No Accessory Muscle Use, No Respiratory Distress Cardiovascular: Regular Rate, Rhythm, No Edema, No Gallop, No JVD, No Murmur, Normal Peripheral Pulses Gastrointestinal: Normal Bowel Sounds, No Organomegaly, No Pulsatile Mass, Non Tender, Soft Back: Normal Inspection, No CVA Tenderness, No Vertebral Tenderness Extremity: Normal Capillary Refill, Normal Inspection, Normal Range of Motion (except left leg), Non Tender, No Calf Tenderness, No Pedal Edema Neurologic/Psychiatric: Alert, Oriented x3, No Motor/Sensory Deficits, Normal Mood/Affect, Disoriented (poor recall) Skin: Normal Color, Warm/Dry Lymphatic: No Adenopathy Results/Procedures Lab Patient resulted labs reviewed. FIM Transfers Therapy Code Descriptions/Definitions Functional [place] Measure: 0=Not Assessed/NA 4=Minimal Assistance 1=Total Assistance 5=Supervision or Setup 2=Maximal Assistance 6=Modified [place] 3=Moderate Assistance 7=Complete IndependenceSCALE: Activities may be completed with or without assistive devices. 4-Vpifocoyyj-dekxtym completes the activity by him/herself with no assistance from a helper. 5-Set-up or Clean-up Assistance-helper sets up or cleans up; patient completes activity. [place] assists only prior to or following the activity. 4-Supervision or Touching Assistance-helper provides verbal cues and/or touching/steadying and/or contact guard assistance as patient completes activity. Assistance may be provided throughout the activity or intermittently. 3-Partial/Moderate Assistance-helper does LESS THAN HALF the effort. [place] lifts, holds or supports trunk or limbs, but provides less than half the effort. 2-Substantial/Maximal Assistance-helper does MORE THAN HALF the effort. [place] lifts or holds trunk or limbs and provides more than half the effort. 7-Uqtxelvci-ahgqzx does ALL the effort. Patient does none of the effort to complete the activity. Or, the assistance of 2 or more helpers is required for the patient to complete the activity. If activity was not attempted, code reason: 7-Patient Refused. 9-Not Applicable-not attempted and the patient did not perform the activity before the current illness, exacerbation or injury. 10-Not Attempted due to Environmental Limitations-(lack of equipment, weather restraints, etc.). 88-Not Attempted due to Medical Conditions or Safety Concerns. Roll Left to Right (QC): 6 Sit to Lying (QC): 5 Sit to Stand (QC): 5 Chair/Uhb-bw-Hprsk Xfer(QC): 5 Car Transfer (QC): 4 Gait Training Does the Patient Walk?: Yes Distance: 150' Walk 10 feet (QC): 5 Walk 50 ft with 2 Turns(QC): 5 Walk 150 ft (QC): 5 Walking 10ft/uneven surface-QC: 88 Gait Persons Needed: 1 Gait Assistive Device: FWW Wheelchair Training Does the Pt Use a Wheelchair?: No Wheel 50 ft with 2 turns (QC): 5 Wheel 150 ft (QC): 5 Type of Wheelchair: Manual Stair Training Stair Training: Handrails/: uses walker #of Steps: 1 1 Step (curb) (QC): 4 4 Steps (QC): 88 12 Steps (QC): 88 Stairs: Pattern: Step to Balance Picking up an Object (QC): 88 ADL-Treatment Eating (QC): 6 (IND with breakfast) Oral Hygiene (QC): 4 (SBA standing at sink) Shower/Bathe Self (QC): 4 (CGA, 1 LOB noted when standing at GBs) Upper Body Dressing (QC): 5 Lower Body Dressing (QC): 4 (CGA in stand, 1 LOB in stand) On/Off Footwear (QC): 4 (cues to use sock aide) Toileting Hygiene (QC): 4 (CGA, pt able to complete hygiene on toilet, and manage pants up in stand with CGA) Toilet Transfer (QC): 4 (CGA off of BSC over toilet) Assessment/Plan Assessment and Plan Assess & Plan/Chief Complaint Assessment: s/p left hip fracture Post op anemia from acute blood loss requiring iron infusions and transfusion 1 unit of blood 12/08/20 HTN Hypothyroidism s/p altman cath DC Plan: Monitor pain Monitor confusion Fall risk 12/08/20: Transfuse 1 unit of blood Venofer Pain control Baclofen 12/09/20: Monitor hgb Pain control 12/10/20: Monitor pain DC Baclofen Monitor for falls 12/11/20: Monitor pain Monitor confusion Check labs in am Venofer as scheduled 12/12/20: Labs good Monitor confusion 12/13/20: Monitor pain Monitor confusion 12/14/20: Monitor pain Monitor hgb 12/15/20: Monitor pain Transfers improved 12/16/20: Pain control Ambulate IRF protocol 12/17/20: Improving more each day Pain controlled 12/18/20: Monitor lungs Pain meds 12/19/20: Monitor closely Pain control 12/20/20: Monitor closely Pain control Improved status (1) Closed left hip fracture Status: Acute (2) BPH (benign prostatic hyperplasia) Status: Chronic (3) Hypertension Status: Chronic (4) Hypothyroidism Status: Chronic (5) Hyperlipidemia Status: Chronic SANJUANA GRAY DO Dec 20, 2020 12:23
--- NOTE | 2020-12-20 13:22 | Speech Therapy Daily Note ---
Speech Daily Progress Note Subjective Date Seen by Provider: Dec 20, 2020 Time Seen by Provider: 00:30 Pt was pleasant and alert, lying in the bed. He was talkative about his grandchildren's softball game the day prior. Objective On short-term memory tasks, pt recalled new information at 50% using moderate cueing (30%). Treatment Plan Continue Plan of Care Speech Short Term Goals Short Term Goals Short Term Goals 1) Patient will complete memory tasks related to his daily routine at 80% or greater with minimal cues. 2) Patient will complete safety awareness tasks related to his daily routine at 80% or greater with minimal cues. 3) Patient will complete problem solving tasks related to his daily routine at 80% or greater with minimal cues. Speech Crosscutter Goals Crosscutter Goals Patient will improve cognitive-communication skills necessary for safety and daily living tasks with minimal assist. Speech-Plan Patient/Family Goals Patient/Family Goals: Pt plans to go home to his on 12/24. Treatment Plan Speech Therapy Treatment Plan: Continue Plan of Care Treatment Duration: Dec 20, 2020 Frequency: 4 times per week (Patient will receive skilled ST 4-5x per week) Estimated Hrs Per Day: .5 hour per day Rehab Potential: Fair Barriers to Learning: Decreased cognition, difficulty with recall of new information Pt/Family Agrees to Plan: Yes Safety Risks/Education Teaching Recipient: Patient Teaching Methods: Demonstration, Discussion Response to Teaching: Verbalize Understanding, Reinforcement Needed Education Topics Provided: Safety and compensatory memory strategies. Time Speech Therapy Time In: 13:00 Speech Therapy Time Out: 13:30 Total Billed Time: 30 Billed Treatment Time 1, OSORIO Almendarez Dec 20, 2020 13:22
--- NOTE | 2020-12-20 14:02 | Physical Therapy Daily Note ---
PT Daily Note-Current Subjective Pt sitting in recliner upon arrival. Pt agrees to PT. Pain Numeric Pain Scale: 4 Location: Left Location Body Site: Hip Pain Description: Ache Mental Status Patient Orientation: Person, Place, Time, Situation Transfers SCALE: Activities may be completed with or without assistive devices. 4-Mwgudohifc-wqeaysb completes the activity by him/herself with no assistance from a helper. 5-Set-up or Clean-up Assistance-helper sets up or cleans up; patient completes activity. [place] assists only prior to or following the activity. 4-Supervision or Touching Assistance-helper provides verbal cues and/or touching/steadying and/or contact guard assistance as patient completes activity. Assistance may be provided throughout the activity or intermittently. 3-Partial/Moderate Assistance-helper does LESS THAN HALF the effort. [place] lifts, holds or supports trunk or limbs, but provides less than half the effort. 2-Substantial/Maximal Assistance-helper does MORE THAN HALF the effort. [place] lifts or holds trunk or limbs and provides more than half the effort. 7-Smmholdtr-bifsck does ALL the effort. Patient does none of the effort to comp lete the activity. Or, the assistance of 2 or more helpers is required for the patient to complete the activity. If activity was not attempted, code reason: 7-Patient Refused. 9-Not Applicable-not attempted and the patient did not perform the activity before the current illness, exacerbation or injury. 10-Not Attempted due to Environmental Limitations-(lack of equipment, weather restraints, etc.). 88-Not Attempted due to Medical Conditions or Safety Concerns. Sit to Lying (QC): 5 Sit to Stand (QC): 5 Weight Bearing Left Lower Extremity: Left Weight Bearing/Tolerated Gait Training Does the Patient Walk?: Yes Distance: 150' Walk 10 feet (QC): 5 Walk 50 ft with 2 Turns(QC): 5 Walk 150 ft (QC): 5 Gait Persons Needed: 1 Gait Assistive Device: FWW Wheelchair Training Does the Pt Use a Wheelchair?: No Stair Training Stair Training: Handrails/: uses walker #of Steps: 2 1 Step (curb) (QC): 4 Stairs: Pattern: Step to Pt completes single step due to feeling as though his L LE could not WB to lift R LE onto step. Treatments TF to standing and declines needing to use BR. Pt amb. in hallway. Pt attempts staircase x2 w/o success. Pt completes single step x2 with VC for sequencing. Pt returns to room to rest in bed at end of tx. All needs met, call light in hand. Assessment Current Status: Fair Progress Pt is more in afternoon tx. Pt demonstrates anxiousness w/steps but reports having ramp to enter house after DC. 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 Maintenance Truck Driver Goals Time Frame: Dec 28, 2020 Roll Left & Right (QC): 5 Sit to Lying (QC): 5 Lying-Sitting on Side/Bed(QC): 5 Sit to Stand (QC): 5 Chair/Otp-wf-Cmgwo Xfer(QC): 5 Toilet Transfer (QC): 5 Car Transfer (QC): 5 Does the Patient Walk: Yes Walk 10 feet (QC): 5 Walk 50ft with 2 Turns (QC): 5 Walk 150 ft (QC): 5 Walking 10ft on Uneven Surface: 5 1 Step (curb) (QC): 5 4 Steps (QC): 4 12 Steps (QC): 4 Picking up an Object (QC): 4 Wheel 50 feet with 2 turns (QC: 9 Wheel 150 feet: 9 PT Plan Problem List Problem List: Activity Tolerance Treatment/Plan Treatment Plan: Continue Plan of Care Treatment Plan: Bed Mobility, Education, Functional Activity Jose, Functional Strength, Group Therapy, Gait, Safety, Therapeutic Exercise, Transfers Treatment Duration: Dec 28, 2020 Frequency: At least 5 of 7 days/Wk (IRF) Estimated Hrs Per Day: 1.5 hours per day Patient and/or Family Agrees t: Yes Safety Risks/Education Patient Education: Steps, Correct Positioning, Safety Issues Teaching Recipient: Patient Teaching Methods: Discussion Response to Teaching: Verbalize Understanding Time/GCodes Time In: 1330 Time Out: 1400 Total Billed Treatment Time: 30 Total Billed Treatment 1, GT (15m) & FA (15m) VALENTE ST[facility]ORD [employer]GR Dec 20, 2020 14:02
[2020-12-20 17:06] VITALS: BP 136/64
[2020-12-20] MEDS: TAMSULOSIN 0.4 MG (FLOMAX) CAP PO SCH (17:53)
[2020-12-20] MEDS: MELATONIN 3 MG TABLET PO PRN (23:02)
[2020-12-21 06:15] VITALS: BP 148/71
[2020-12-21] MEDS: lisINopril 20 MG (PRINIVIL) TABLET PO SCH (07:51)
[2020-12-21] MEDS: SENNA W/DOCUSATE (SENOKOT S) TABLET PO SCH ×2 (07:51→21:22)
[2020-12-21] MEDS: meTOproloL SUCCINATE 50 MG (TOPROL XL) TAB PO SCH (07:51)
[2020-12-21] MEDS: LEVOTHYROXINE 112 MCG (LEVOTHROID) TAB PO SCH (07:51)
[2020-12-21] MEDS: DOCUSATE SODIUM 100 MG (COLACE) CAP PO SCH ×2 (07:51→21:22)
[2020-12-21] MEDS: polyethylene glycoL POWDER 17 GM (MIRALAX) PACK PO SCH ×2 (07:52→21:23)
[2020-12-21] MEDS: FAMOTIDINE 20 MG (PEPCID) TABLET PO SCH ×2 (07:52→21:23)
--- NOTE | 2020-12-21 11:49 | Physical Therapy Daily Note ---
PT Daily Note-Current Subjective Pt is up in chair in lobby drinking coffee at beginning of session, pt agreeable to PT and states his hip is bothering him "just a little." However, with ambulation he states "it sometimes bites and jumps up to 4/10." Appearance Post session, pt up in chair at table in lobby, waiting for lunch, all needs met at current time. Mental Status Patient Orientation: Person, Place, Situation Transfers SCALE: Activities may be completed with or without assistive devices. 8-Zsfbycsilb-gledlus completes the activity by him/herself with no assistance from a helper. 5-Set-up or Clean-up Assistance-helper sets up or cleans up; patient completes activity. [place] assists only prior to or following the activity. 4-Supervision or Touching Assistance-helper provides verbal cues and/or touching/steadying and/or contact guard assistance as patient completes activity. Assistance may be provided throughout the activity or intermittently. 3-Partial/Moderate Assistance-helper does LESS THAN HALF the effort. [place] lifts, holds or supports trunk or limbs, but provides less than half the effort. 2-Substantial/Maximal Assistance-helper does MORE THAN HALF the effort. [place] lifts or holds trunk or limbs and provides more than half the effort. 9-Pxxumzhox-iolgag does ALL the effort. Patient does none of the effort to complete the activity. Or, the assistance of 2 or more helpers is required for the patient to complete the activity. If activity was not attempted, code reason: 7-Patient Refused. 9-Not Applicable-not attempted and the patient did not perform the activity before the current illness, exacerbation or injury. 10-Not Attempted due to Environmental Limitations-(lack of equipment, weather restraints, etc.). 88-Not Attempted due to Medical Conditions or Safety Concerns. Sit to Stand (QC): 5 Weight Bearing Left Lower Extremity: Left Weight Bearing/Tolerated Gait Training Distance: 250' Walk 10 feet (QC): 5 Walk 50 ft with 2 Turns(QC): 5 Walk 150 ft (QC): 5 Gait Assistive Device: FWW Assessment Current Status: Good Progress Pt with good activity tolerance this date, tolerated treatment well. 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 Scientist Goals Time Frame: Dec 28, 2020 Roll Left & Right (QC): 5 Sit to Lying (QC): 5 Lying-Sitting on Side/Bed(QC): 5 Sit to Stand (QC): 5 Chair/Hmc-ir-Pznsi Xfer(QC): 5 Toilet Transfer (QC): 5 Car Transfer (QC): 5 Does the Patient Walk: Yes Walk 10 feet (QC): 5 Walk 50ft with 2 Turns (QC): 5 Walk 150 ft (QC): 5 Walking 10ft on Uneven Surface: 5 1 Step (curb) (QC): 5 4 Steps (QC): 4 12 Steps (QC): 4 Picking up an Object (QC): 4 Wheel 50 feet with 2 turns (QC: 9 Wheel 150 feet: 9 PT Plan Problem List Problem List: Activity Tolerance, Functional Strength, Safety, Balance, Gait, Transfer, Bed Mobility, ROM Treatment/Plan Treatment Plan: Continue Plan of Care Treatment Plan: Bed Mobility, Education, Functional Activity Jose, Functional Strength, Group Therapy, Gait, Safety, Therapeutic Exercise, Transfers Treatment Duration: Dec 28, 2020 Frequency: At least 5 of 7 days/Wk (IRF) Estimated Hrs Per Day: 1.5 hours per day Patient and/or Family Agrees t: Yes Time/GCodes Time In: 1135 Time Out: 1145 Total Billed Treatment Time: 10 Total Billed Treatment 1 visit GT (10') SONJA KANG PT Dec 21, 2020 11:49
--- NOTE | 2020-12-21 13:37 | PM&R Progress Note ---
Subjective HPI/CC On Admission Date Seen by Provider: Dec 21, 2020 Time Seen by Provider: 12:40 Subjective/Events-last exam 12/21/20: Patient doing very well No pain reported today Eating and drinking well 12/20/20: Patient doing well BM+ Monitored closely Improved status 12/19/20: Patient doing well Daypass at 330 BM+ Completed 5 doses of Venofer 12/18/20: Pt doing pretty well Fallon out tomorrow I dont note an irregular heart beat on exam when the nurses report that Discharge planned for Wednesday12/17/20: Pt doing much better Back to one assist Fallon will be removed on Much improved overall status 12/16/20: Pt having no issues Ambulating better Bowels moved yesterday Pain is controlled 12/15/20: Patient moving pretty well today Pain still an issues Baclofen given this am Incision looks good 4th Venofer infusion today 12/14/20: Patient is much improved today and walking more with therapy Incision looks good Irregular pulse per RN? 12/13/20: Improved status Minimal ambulation Pain is due to muscle soreness per ortho IV iron infusion today Pain ok otherwise 12/12/20: Pt improved today Participating in therapy a lot better today X-ray of the hip and ultrasound were all within normal limits Labs checked and all okay 12/11/20: Pt really not able to participate due to cognitive deficit Bowels moved on the Left lower extremity ultrasound will be evaluating for DVT that Dr. Ovalle ordered Overall cognition is causing a delay in his recovery 12/10/20: Pt did use the sit to stand today because of lack of strength in his legs Will DC the Baclofen but its only been 5 mg three times a day so hopefully that will help Dementia is noted Lortab used for pain His answers are really unreliable 12/09/20: Pt doing okay Was on commode but seen after done Laxatives given since unknown when his last BM was Dementia is precluding details 12/08/20: Patient doing well Increase pain when moved left leg Difficulty ambulating Hgb low so will give 1 unit of blood today and Venofer iron infusions Baclofen will be given for muscle spasms Checked meds and labs Review of Systems General: Fatigue Musculoskeletal: leg pain Objective Exam Vital Signs Vital Signs Date Time Temp Pulse Resp B/P (MAP) Pulse Ox O2 Delivery O2 Flow Rate FiO2 4/10/21 09:00 Room Air 12/21/20 06:15 36.2 60 18 148/71 (96) 97 Capillary Refill : General Appearance: No Apparent Distress, WD/WN, Chronically ill, Obese HEENT: PERRL/EOMI, Normal ENT Inspection, Pharynx Normal Neck: Full Range of Motion, Normal Inspection, Non Tender, Supple, Carotid Bruit Respiratory: Chest Non Tender, Lungs Clear, Normal Breath Sounds, No Accessory Muscle Use, No Respiratory Distress Cardiovascular: Regular Rate, Rhythm, No Edema, No Gallop, No JVD, No Murmur, Normal Peripheral Pulses Gastrointestinal: Normal Bowel Sounds, No Organomegaly, No Pulsatile Mass, Non Tender, Soft Back: Normal Inspection, No CVA Tenderness, No Vertebral Tenderness Extremity: Normal Capillary Refill, Normal Inspection, Normal Range of Motion (except left leg), Non Tender, No Calf Tenderness, No Pedal Edema Neurologic/Psychiatric: Alert, Oriented x3, No Motor/Sensory Deficits, Normal Mood/Affect, Disoriented (poor recall) Skin: Normal Color, Warm/Dry Lymphatic: No Adenopathy Results/Procedures Lab Patient resulted labs reviewed. FIM Transfers Therapy Code Descriptions/Definitions Functional [place] Measure: 0=Not Assessed/NA 4=Minimal Assistance 1=Total Assistance 5=Supervision or Setup 2=Maximal Assistance 6=Modified [place] 3=Moderate Assistance 7=Complete IndependenceSCALE: Activities may be completed with or without assistive devices. 7-Gvqaxbqzni-zttmphk completes the activity by him/herself with no assistance from a helper. 5-Set-up or Clean-up Assistance-helper sets up or cleans up; patient completes activity. [place] assists only prior to or following the activity. 4-Supervision or Touching Assistance-helper provides verbal cues and/or touching/steadying and/or contact guard assistance as patient completes activity. Assistance may be provided throughout the activity or intermittently. 3-Partial/Moderate Assistance-helper does LESS THAN HALF the effort. [place] lifts, holds or supports trunk or limbs, but provides less than half the effort. 2-Substantial/Maximal Assistance-helper does MORE THAN HALF the effort. [place] lifts or holds trunk or limbs and provides more than half the effort. 6-Nrxboebna-rkvfek does ALL the effort. Patient does none of the effort to complete the activity. Or, the assistance of 2 or more helpers is required for the patient to complete the activity. If activity was not attempted, code reason: 7-Patient Refused. 9-Not Applicable-not attempted and the patient did not perform the activity before the current illness, exacerbation or injury. 10-Not Attempted due to Environmental Limitations-(lack of equipment, weather restraints, etc.). 88-Not Attempted due to Medical Conditions or Safety Concerns. Roll Left to Right (QC): 6 Sit to Lying (QC): 5 Sit to Stand (QC): 5 Chair/Gcg-xo-Kgdmu Xfer(QC): 5 Car Transfer (QC): 4 Gait Training Does the Patient Walk?: Yes Distance: 250' Walk 10 feet (QC): 5 Walk 50 ft with 2 Turns(QC): 5 Walk 150 ft (QC): 5 Walking 10ft/uneven surface-QC: 88 Gait Persons Needed: 1 Gait Assistive Device: FWW Wheelchair Training Does the Pt Use a Wheelchair?: No Wheel 50 ft with 2 turns (QC): 5 Wheel 150 ft (QC): 5 Type of Wheelchair: Manual Stair Training Stair Training: Handrails/: uses walker #of Steps: 2 1 Step (curb) (QC): 4 4 Steps (QC): 88 12 Steps (QC): 88 Stairs: Pattern: Step to Balance Picking up an Object (QC): 88 ADL-Treatment Eating (QC): 6 (IND with breakfast) Oral Hygiene (QC): 4 (SBA standing at sink) Shower/Bathe Self (QC): 4 (CGA, 1 LOB noted when standing at GBs) Upper Body Dressing (QC): 5 Lower Body Dressing (QC): 4 (CGA in stand, 1 LOB in stand) On/Off Footwear (QC): 4 (cues to use sock aide) Toileting Hygiene (QC): 4 (CGA, pt able to complete hygiene on toilet, and manage pants up in stand with CGA) Toilet Transfer (QC): 4 (CGA off of BSC over toilet) Assessment/Plan Assessment and Plan Assess & Plan/Chief Complaint Assessment: s/p left hip fracture Post op anemia from acute blood loss requiring iron infusions and transfusion 1 unit of blood 12/08/20 HTN Hypothyroidism s/p altman cath DC Plan: Monitor pain Monitor confusion Fall risk 12/08/20: Transfuse 1 unit of blood Venofer Pain control Baclofen 12/09/20: Monitor hgb Pain control 12/10/20: Monitor pain DC Baclofen Monitor for falls 12/11/20: Monitor pain Monitor confusion Check labs in am Venofer as scheduled 12/12/20: Labs good Monitor confusion 12/13/20: Monitor pain Monitor confusion 12/14/20: Monitor pain Monitor hgb 12/15/20: Monitor pain Transfers improved 12/16/20: Pain control Ambulate IRF protocol 12/17/20: Improving more each day Pain controlled 12/18/20: Monitor lungs Pain meds 12/19/20: Monitor closely Pain control 12/20/20: Monitor closely Pain control Improved status 12/21/20: Monitor pain Fall risk (1) Closed left hip fracture Status: Acute (2) BPH (benign prostatic hyperplasia) Status: Chronic (3) Hypertension Status: Chronic (4) Hypothyroidism Status: Chronic (5) Hyperlipidemia Status: Chronic SANJUANA GRAY DO Dec 21, 2020 13:37
[2020-12-21] MEDS: TAMSULOSIN 0.4 MG (FLOMAX) CAP PO SCH (17:46)
[2020-12-21 18:02] VITALS: BP 162/75
[2020-12-21] MEDS: MELATONIN 3 MG TABLET PO PRN (23:36)
[2020-12-21] MEDS: ENOXAPARIN 40 MG/0.4 ML (LOVENOX) SYR SC SCH (23:36)
[2020-12-22 06:00] VITALS: BP 150/78
--- NOTE | 2020-12-22 07:06 | PM&R Progress Note ---
Subjective HPI/CC On Admission Date Seen by Provider: Dec 22, 2020 Time Seen by Provider: 12:30 Subjective/Events-last exam 12/22/20: No major issues Patient feels good Pain in legs is now at baseline 12/21/20: Patient doing very well No pain reported today Eating and drinking well 12/20/20: Patient doing well BM+ Monitored closely Improved status 12/19/20: Patient doing well Daypass at 330 BM+ Completed 5 doses of Venofer 12/18/20: Pt doing pretty well Erica out tomorrow I dont note an irregular heart beat on exam when the nurses report that Discharge planned for Wednesday12/17/20: Pt doing much better Back to one assist Erica will be removed on Much improved overall status 12/16/20: Pt having no issues Ambulating better Bowels moved yesterday Pain is controlled 12/15/20: Patient moving pretty well today Pain still an issues Baclofen given this am Incision looks good 4th Venofer infusion today 12/14/20: Patient is much improved today and walking more with therapy Incision looks good Irregular pulse per RN? 12/13/20: Improved status Minimal ambulation Pain is due to muscle soreness per ortho IV iron infusion today Pain ok otherwise 12/12/20: Pt improved today Participating in therapy a lot better today X-ray of the hip and ultrasound were all within normal limits Labs checked and all okay 12/11/20: Pt really not able to participate due to cognitive deficit Bowels moved on the Left lower extremity ultrasound will be evaluating for DVT that Dr. Ovalle ordered Overall cognition is causing a delay in his recovery 12/10/20: Pt did use the sit to stand today because of lack of strength in his legs Will DC the Baclofen but its only been 5 mg three times a day so hopefully that will help Dementia is noted Lortab used for pain His answers are really unreliable 12/09/20: Pt doing okay Was on commode but seen after done Laxatives given since unknown when his last BM was Dementia is precluding details 12/08/20: Patient doing well Increase pain when moved left leg Difficulty ambulating Hgb low so will give 1 unit of blood today and Venofer iron infusions Baclofen will be given for muscle spasms Checked meds and labs Review of Systems Musculoskeletal: leg pain Objective Exam Vital Signs Vital Signs Date Time Temp Pulse Resp B/P (MAP) Pulse Ox O2 Delivery O2 Flow Rate FiO2 12/22/20 17:15 36.6 79 16 164/69 (100) 98 Room Air Capillary Refill : General Appearance: No Apparent Distress, WD/WN, Chronically ill, Obese HEENT: PERRL/EOMI, Normal ENT Inspection, Pharynx Normal Neck: Full Range of Motion, Normal Inspection, Non Tender, Supple, Carotid Bruit Respiratory: Chest Non Tender, Lungs Clear, Normal Breath Sounds, No Accessory Muscle Use, No Respiratory Distress Cardiovascular: Regular Rate, Rhythm, No Edema, No Gallop, No JVD, No Murmur, Normal Peripheral Pulses Gastrointestinal: Normal Bowel Sounds, No Organomegaly, No Pulsatile Mass, Non Tender, Soft Back: Normal Inspection, No CVA Tenderness, No Vertebral Tenderness Extremity: Normal Capillary Refill, Normal Inspection, Normal Range of Motion (except left leg), Non Tender, No Calf Tenderness, No Pedal Edema Neurologic/Psychiatric: Alert, Oriented x3, No Motor/Sensory Deficits, Normal Mood/Affect, Disoriented (poor recall) Skin: Normal Color, Warm/Dry Lymphatic: No Adenopathy Results/Procedures Lab Patient resulted labs reviewed. FIM Transfers Therapy Code Descriptions/Definitions Functional [place] Measure: 0=Not Assessed/NA 4=Minimal Assistance 1=Total Assistance 5=Supervision or Setup 2=Maximal Assistance 6=Modified [place] 3=Moderate Assistance 7=Complete IndependenceSCALE: Activities may be completed with or without assistive devices. 0-Mynymhfkah-xwksflu completes the activity by him/herself with no assistance from a helper. 5-Set-up or Clean-up Assistance-helper sets up or cleans up; patient completes activity. [place] assists only prior to or following the activity. 4-Supervision or Touching Assistance-helper provides verbal cues and/or touching/steadying and/or contact guard assistance as patient completes activity. Assistance may be provided throughout the activity or intermittently. 3-Partial/Moderate Assistance-helper does LESS THAN HALF the effort. [place] lifts, holds or supports trunk or limbs, but provides less than half the effort. 2-Substantial/Maximal Assistance-helper does MORE THAN HALF the effort. [place] lifts or holds trunk or limbs and provides more than half the effort. 1-Scfjqbeiu-zwomqu does ALL the effort. Patient does none of the effort to complete the activity. Or, the assistance of 2 or more helpers is required for the patient to complete the activity. If activity was not attempted, code reason: 7-Patient Refused. 9-Not Applicable-not attempted and the patient did not perform the activity before the current illness, exacerbation or injury. 10-Not Attempted due to Environmental Limitations-(lack of equipment, weather restraints, etc.). 88-Not Attempted due to Medical Conditions or Safety Concerns. Roll Left to Right (QC): 6 Sit to Lying (QC): 5 Sit to Stand (QC): 5 Chair/Uao-ki-Syzyg Xfer(QC): 5 Car Transfer (QC): 4 Gait Training Does the Patient Walk?: Yes Distance: 250' Walk 10 feet (QC): 5 Walk 50 ft with 2 Turns(QC): 5 Walk 150 ft (QC): 5 Walking 10ft/uneven surface-QC: 88 Gait Persons Needed: 1 Gait Assistive Device: FWW Wheelchair Training Does the Pt Use a Wheelchair?: No Wheel 50 ft with 2 turns (QC): 5 Wheel 150 ft (QC): 5 Type of Wheelchair: Manual Stair Training Stair Training: Handrails/: uses walker #of Steps: 2 1 Step (curb) (QC): 4 4 Steps (QC): 88 12 Steps (QC): 88 Stairs: Pattern: Step to Balance Picking up an Object (QC): 88 ADL-Treatment Eating (QC): 6 (IND with breakfast) Oral Hygiene (QC): 4 (SBA standing at sink) Shower/Bathe Self (QC): 4 (CGA, 1 LOB noted when standing at GBs) Upper Body Dressing (QC): 5 Lower Body Dressing (QC): 4 (CGA in stand, 1 LOB in stand) On/Off Footwear (QC): 4 (cues to use sock aide) Toileting Hygiene (QC): 4 (CGA, pt able to complete hygiene on toilet, and manage pants up in stand with CGA) Toilet Transfer (QC): 4 (CGA off of BSC over toilet) Assessment/Plan Assessment and Plan Assess & Plan/Chief Complaint Assessment: s/p left hip fracture Post op anemia from acute blood loss requiring iron infusions and transfusion 1 unit of blood 12/08/20 HTN Hypothyroidism s/p altman cath DC Plan: Monitor pain Monitor confusion Fall risk 12/08/20: Transfuse 1 unit of blood Venofer Pain control Baclofen 12/09/20: Monitor hgb Pain control 12/10/20: Monitor pain DC Baclofen Monitor for falls 12/11/20: Monitor pain Monitor confusion Check labs in am Venofer as scheduled 12/12/20: Labs good Monitor confusion 12/13/20: Monitor pain Monitor confusion 12/14/20: Monitor pain Monitor hgb 12/15/20: Monitor pain Transfers improved 12/16/20: Pain control Ambulate IRF protocol 12/17/20: Improving more each day Pain controlled 12/18/20: Monitor lungs Pain meds 12/19/20: Monitor closely Pain control 12/20/20: Monitor closely Pain control Improved status 12/21/20: Monitor pain Fall risk 12/22/20: Monitor pain Monitor for falls (1) Closed left hip fracture Status: Acute (2) BPH (benign prostatic hyperplasia) Status: Chronic (3) Hypertension Status: Chronic (4) Hypothyroidism Status: Chronic (5) Hyperlipidemia Status: Chronic SANJUANA GRAY DO Dec 22, 2020 07:06
[2020-12-22] MEDS: DOCUSATE SODIUM 100 MG (COLACE) CAP PO SCH ×2 (07:31→21:26)
[2020-12-22] MEDS: SENNA W/DOCUSATE (SENOKOT S) TABLET PO SCH ×2 (07:31→21:26)
[2020-12-22] MEDS: LEVOTHYROXINE 112 MCG (LEVOTHROID) TAB PO SCH (07:32)
[2020-12-22] MEDS: FAMOTIDINE 20 MG (PEPCID) TABLET PO SCH ×2 (07:32→21:26)
[2020-12-22] MEDS: lisINopril 20 MG (PRINIVIL) TABLET PO SCH (07:32)
[2020-12-22] MEDS: meTOproloL SUCCINATE 50 MG (TOPROL XL) TAB PO SCH (07:36)
[2020-12-22] MEDS: polyethylene glycoL POWDER 17 GM (MIRALAX) PACK PO SCH ×2 (07:44→21:26)
[2020-12-22 17:15] VITALS: BP 164/69
[2020-12-22] MEDS: TAMSULOSIN 0.4 MG (FLOMAX) CAP PO SCH (17:19)
[2020-12-22] MEDS: ENOXAPARIN 40 MG/0.4 ML (LOVENOX) SYR SC SCH (23:24)
[2020-12-22] MEDS: MELATONIN 3 MG TABLET PO PRN (23:25)
[2020-12-23 05:49] LABS: BASOPHILS # (AUTO) 0.1 10^3/uL (0.0-0.1); BASOPHILS % (AUTO) 1 % (0-10); EOSINOPHILS # (AUTO) 0.2 10^3/uL (0.0-0.3); EOSINOPHILS % (AUTO) 4 % (0-10); HEMATOCRIT 33 % (40-54); LYMPHOCYTES # (AUTO) 1.9 10^3/uL (1.0-4.0); LYMPHOCYTES % (AUTO) 33 % (12-44); MEAN CORPUSCULAR HEMOGLOBIN 32 pg (25-34); MEAN CORPUSCULAR HGB CONC 33 g/dL (32-36); MEAN CORPUSCULAR VOLUME 97 fL (80-99); MONOCYTES # (AUTO) 0.7 10^3/uL (0.0-1.0); MONOCYTES % (AUTO) 12 % (0-12); NEUTROPHILS # (AUTO) 2.9 10^3/uL (1.8-7.8); NEUTROPHILS % (AUTO) 49 % (42-75); PLATELET COUNT 338 10^3/uL (130-400); WHITE BLOOD COUNT 5.8 10^3/uL (4.3-11.0)
[2020-12-23 05:58] VITALS: BP 137/67
[2020-12-23 06:08] LABS: ALANINE AMINOTRANSFERASE 26 U/L (0-55); ALBUMIN 3.6 GM/DL (3.2-4.5); ALKALINE PHOSPHATASE 182 U/L (40-136); BILIRUBIN,TOTAL 0.5 MG/DL (0.1-1.0); BUN/CREATININE RATIO 14; CALCIUM 8.8 MG/DL (8.5-10.1); CARBON DIOXIDE 23 MMOL/L (21-32); CHLORIDE 103 MMOL/L (98-107); CREATININE SERUM 0.86 MG/DL (0.60-1.30); GFR ESTIMATED > 60; GLUCOSE 88 MG/DL (70-105); POTASSIUM 4.2 MMOL/L (3.6-5.0); SODIUM 134 MMOL/L (135-145); TOTAL PROTEIN 6.7 GM/DL (6.4-8.2)
[2020-12-23 08:30] VITALS: BP 110/61
--- NOTE | 2020-12-23 09:28 | Progress Note - Ortho ---
Progress Note Subjective Date of Exam 12/23/20 Chief Complaint POD#19Short TFN left hip for 3 part intertrochanteric fracture HPI/Events since last exam Mr. Coyle is 19 days postop. He states his hip and thighs doing fairly well. He is ambulating with a walker. States he still has some anterior thigh muscle pain. Review of Systems Reviewed and no additions or changes Allergies: Coded Allergies: No Known Drug Allergies (Unverified , 05/06/18) Home Meds Reported Medications Multivitamin (Multivitamin) 1 Each Tablet, 1 EACH PO DAILY, TAB 12/05/20 Metoprolol Succinate (Metoprolol Succinate) 50 Mg Tab.er.24h, 50 MG PO DAILY, TAB 12/05/20 Lisinopril (Lisinopril) 10 Mg Tablet, 10 MG PO DAILY, TAB 12/05/20 Levothyroxine Sodium (Levothyroxine Sodium) 112 Mcg Tablet, 112 MCG PO DAILY, TAB 12/05/20 Atorvastatin Calcium (Atorvastatin Calcium) 10 Mg Tablet, 10 MG PO DAILY, TAB 02/01/18 Objective Exam Constitutional: [] HEENT: [] Neck: [] Cardiovascular: [] Respiratory: [] Gastrointestinal: [] Genitourinary: [] Skin: [] Back/Spine: [] Extremities: [Hip incisions are healing well without redness or drainage. Erica have been removed. Good motion of the hip with minimal pain. Negative straight leg raise. No calf tenderness negative Homans. No weakness on dorsiflexion or plantarflexion of the foot and ankle. Normal sensation to the foot and toes] Neurologic: [] Psychiatric: [] Hematologic/lymphatic/immunologic: [] Vital Signs Vital Signs Date Time Temp Pulse Resp B/P (MAP) Pulse Ox O2 Delivery O2 Flow Rate FiO2 12/23/20 05:58 36.6 61 16 137/67 (90) 95 Room Air 12/22/20 20:15 98 Room Air 12/22/20 17:15 36.6 79 16 164/69 (100) 98 Room Air I & O 12/23/20 07:00 Intake Total 1960 ml Balance 1960 ml Lab Results Laboratory Tests 12/23/20 05:13: White Blood Count 5.8, Red Blood Count 3.44L, Hemoglobin 11.0L, Hematocrit 33L, Mean Corpuscular Volume 97, Mean Corpuscular Hemoglobin 32, Mean Corpuscular Hemoglobin Concent 33, Red Cell Distribution Width 13.5, Platelet Count 338, Mean Platelet Volume 9.0, Immature Granulocyte % (Auto) 1, Neutrophils (%) (Auto) 49, Lymphocytes (%) (Auto) 33, Monocytes (%) (Auto) 12, Eosinophils (%) (Auto) 4, Basophils (%) (Auto) 1, Neutrophils # (Auto) 2.9, Lymphocytes # (Auto) 1.9, Monocytes # (Auto) 0.7, Eosinophils # (Auto) 0.2, Basophils # (Auto) 0.1, Immature Granulocyte # (Auto) 0.1, Sodium Level 134L, Potassium Level 4.2, Chloride Level 103, Carbon Dioxide Level 23, Anion Gap 8, Blood Urea Nitrogen 12, Creatinine 0.86, Estimat Glomerular Filtration Rate > 60, BUN/Creatinine Ratio 14, Glucose Level 88, Calcium Level 8.8, Corrected Calcium 9.1, Total Bilirubin 0.5, Aspartate Amino Transf (AST/SGOT) 23, Alanine Aminotransferase (ALT/SGPT) 26, Alkaline Phosphatase 182H, Total Protein 6.7, Albumin 3.6 Assessment and Plan Assessment Doing well postop Problem List Unchanged Plan Patient states he is going home tomorrow. If that is the case we will see him next Wednesday In the office for repeat x-rays Final Diagonsis Three-part intertrochanteric fracture left hip status post short TFN Level of the visit: Level 3 DONATO MUNGUIA MD Dec 23, 2020 09:28
[2020-12-23] MEDS: LEVOTHYROXINE 112 MCG (LEVOTHROID) TAB PO SCH (09:31)
[2020-12-23] MEDS: polyethylene glycoL POWDER 17 GM (MIRALAX) PACK PO SCH ×2 (09:31→21:44)
[2020-12-23] MEDS: meTOproloL SUCCINATE 50 MG (TOPROL XL) TAB PO SCH (09:31)
[2020-12-23] MEDS: lisINopril 20 MG (PRINIVIL) TABLET PO SCH (09:31)
[2020-12-23] MEDS: FAMOTIDINE 20 MG (PEPCID) TABLET PO SCH ×2 (09:31→21:41)
[2020-12-23] MEDS: SENNA W/DOCUSATE (SENOKOT S) TABLET PO SCH ×2 (09:32→21:45)
[2020-12-23] MEDS: DOCUSATE SODIUM 100 MG (COLACE) CAP PO SCH ×2 (09:32→21:44)
--- NOTE | 2020-12-23 10:15 | Physical Therapy Daily Note ---
PT Daily Note-Current Subjective Pt. states he is feeling much better and is very ready to DC. Pt. declines pain meds when nurse offers them before Rx. At steps pt. hesitates but with much encouragement pt. agrees to attempt and did very well Pain Numeric Pain Scale: 3 Location: Left Location Body Site: Hip Pain Description: Ache Mental Status Patient Orientation: Normal For Age Attachments: Other-See Comments (mask) Transfers SCALE: Activities may be completed with or without assistive devices. 7-Bebekoykcp-xsndnyt completes the activity by him/herself with no assistance from a helper. 5-Set-up or Clean-up Assistance-helper sets up or cleans up; patient completes activity. [place] assists only prior to or following the activity. 4-Supervision or Touching Assistance-helper provides verbal cues and/or touching/steadying and/or contact guard assistance as patient completes activity. Assistance may be provided throughout the activity or intermittently. 3-Partial/Moderate Assistance-helper does LESS THAN HALF the effort. [place] lifts, holds or supports trunk or limbs, but provides less than half the effort. 2-Substantial/Maximal Assistance-helper does MORE THAN HALF the effort. [place] lifts or holds trunk or limbs and provides more than half the effort. 7-Iiprffckd-kqvfdz does ALL the effort. Patient does none of the effort to complete the activity. Or, the assistance of 2 or more helpers is required for the patient to complete the activity. If activity was not attempted, code reason: 7-Patient Refused. 9-Not Applicable-not attempted and the patient did not perform the activity before the current illness, exacerbation or injury. 10-Not Attempted due to Environmental Limitations-(lack of equipment, weather restraints, etc.). 88-Not Attempted due to Medical Conditions or Safety Concerns. Roll Left & Right (QC): 6 Sit to Lying (QC): 6 Lying to Sitting/Side of Bed(Q: 6 Sit to Stand (QC): 6 Chair/Vrj-bm-Hvozd Xfer(QC): 6 Toilet Transfer (QC): 6 Car Transfer (QC): 6 Weight Bearing Left Lower Extremity: Left Weight Bearing/Tolerated Gait Training Does the Patient Walk?: Yes Walk 10 feet (QC): 5 Walk 50 ft with 2 Turns(QC): 5 Walk 150 ft (QC): 5 Walking 10ft/uneven surface-QC: 5 Gait Persons Needed: 1 Gait Assistive Device: FWW pt. wore athletic shoes for gait this date noting increased support. pt. with leg length discrepency but declines use of lift states he has used one previously but it is "too much trouble" Stair Training Stair Training: Handrails/: 2 handrails #of Steps: 4 1 Step (curb) (QC): 4 4 Steps (QC): 4 12 Steps (QC): 7 Stairs: Pattern: Step to instruction required for all aspects of steps , sequence and wt bearing and wt shift etc. Pt. exhibited some anxiety but completed this well. Balance Picking up an Object (QC): 88 Exercises Supine Ex: Ankle pumps, Quad Set, Rolling, Glut sets, Heel Slides, Short Arc Quads, Scooting, Straight leg raise, Hip abd/add Supine Reps: 15 NuStep Minutes: 8 NuStep Workload: 3 Assessment Current Status: Good Progress PT Custodial Goals Reel Film Inspector Goals PT Custodial Goals Time Frame: Dec 28, 2020 Roll Left & Right (QC): 5 Sit to Lying (QC): 5 Lying-Sitting on Side/Bed(QC): 5 Sit to Stand (QC): 5 Chair/Ooc-zx-Rmmxg Xfer(QC): 5 Toilet Transfer (QC): 5 Car Transfer (QC): 5 Does the Patient Walk: Yes Walk 10 feet (QC): 5 Walk 50ft with 2 Turns (QC): 5 Walk 150 ft (QC): 5 Walking 10ft on Uneven Surface: 5 1 Step (curb) (QC): 5 4 Steps (QC): 4 12 Steps (QC): 4 Picking up an Object (QC): 4 Wheel 50 feet with 2 turns (QC: 9 Wheel 150 feet: 9 PT Plan Treatment/Plan Treatment Plan: Continue Plan of Care Treatment Plan: Bed Mobility, Education, Functional Activity Jose, Functional Strength, Group Therapy, Gait, Safety, Therapeutic Exercise, Transfers Treatment Duration: Dec 28, 2020 Frequency: At least 5 of 7 days/Wk (IRF) Estimated Hrs Per Day: 1.5 hours per day Patient and/or Family Agrees t: Yes Safety Risks/Education Patient Education: Gait Training, Transfer Techniques, Steps, Correct Positioning, Disease Process, Safety Issues Teaching Recipient: Patient Teaching Methods: Demonstration, Discussion Response to Teaching: Verbalize Understanding, Return Demonstration, Reinforcement Needed Time/GCodes Time In: 930 Time Out: 1015 Total Billed Treatment Time: 45 Total Billed Treatment 1,GT15m,EX15m,FA15m YOEL ANDERSON COMMERCIAL SALES CONSULTANT Dec 23, 2020 10:15
--- NOTE | 2020-12-23 10:22 | PM&R Progress Note ---
Subjective HPI/CC On Admission Date Seen by Provider: Dec 23, 2020 Time Seen by Provider: 10:30 Subjective/Events-last exam 12/23/20: Pt ready for discharge Hemoglobin 11.0 Overall doing really well No pain is reported 12/22/20: No major issues Patient feels good Pain in legs is now at baseline 12/21/20: Patient doing very well No pain reported today Eating and drinking well 12/20/20: Patient doing well BM+ Monitored closely Improved status 12/19/20: Patient doing well Daypass at 330 BM+ Completed 5 doses of Venofer 12/18/20: Pt doing pretty well [place] out tomorrow I dont note an irregular heart beat on exam when the nurses report that Discharge planned for Wednesday12/17/20: Pt doing much better Back to one assist [place] will be removed on Much improved overall status 12/16/20: Pt having no issues Ambulating better Bowels moved yesterday Pain is controlled 12/15/20: Patient moving pretty well today Pain still an issues Baclofen given this am Incision looks good 4th Venofer infusion today 12/14/20: Patient is much improved today and walking more with therapy Incision looks good Irregular pulse per RN? 12/13/20: Improved status Minimal ambulation Pain is due to muscle soreness per ortho IV iron infusion today Pain ok otherwise 12/12/20: Pt improved today Participating in therapy a lot better today X-ray of the hip and ultrasound were all within normal limits Labs checked and all okay 12/11/20: Pt really not able to participate due to cognitive deficit Bowels moved on the Left lower extremity ultrasound will be evaluating for DVT that Dr. Ovalle ordered Overall cognition is causing a delay in his recovery 12/10/20: Pt did use the sit to stand today because of lack of strength in his legs Will DC the Baclofen but its only been 5 mg three times a day so hopefully that will help Dementia is noted Lortab used for pain His answers are really unreliable 12/09/20: Pt doing okay Was on commode but seen after done Laxatives given since unknown when his last BM was Dementia is precluding details 12/08/20: Patient doing well Increase pain when moved left leg Difficulty ambulating Hgb low so will give 1 unit of blood today and Venofer iron infusions Baclofen will be given for muscle spasms Checked meds and labs Review of Systems General: Fatigue, Malaise Musculoskeletal: leg pain Objective Exam Vital Signs Vital Signs Date Time Temp Pulse Resp B/P (MAP) Pulse Ox O2 Delivery O2 Flow Rate FiO2 12/23/20 16:56 36.1 61 16 167/76 (106) 100 Room Air Capillary Refill : General Appearance: No Apparent Distress, WD/WN, Chronically ill, Obese HEENT: PERRL/EOMI, Normal ENT Inspection, Pharynx Normal Neck: Full Range of Motion, Normal Inspection, Non Tender, Supple, Carotid Bruit Respiratory: Chest Non Tender, Lungs Clear, Normal Breath Sounds, No Accessory Muscle Use, No Respiratory Distress Cardiovascular: Regular Rate, Rhythm, No Edema, No Gallop, No JVD, No Murmur, Normal Peripheral Pulses Gastrointestinal: Normal Bowel Sounds, No Organomegaly, No Pulsatile Mass, Non Tender, Soft Back: Normal Inspection, No CVA Tenderness, No Vertebral Tenderness Extremity: Normal Capillary Refill, Normal Inspection, Normal Range of Motion (except left leg), Non Tender, No Calf Tenderness, No Pedal Edema Neurologic/Psychiatric: Alert, Oriented x3, No Motor/Sensory Deficits, Normal Mood/Affect, Disoriented (poor recall) Skin: Normal Color, Warm/Dry Lymphatic: No Adenopathy Results/Procedures Lab Laboratory Tests 12/23/20 05:13 Patient resulted labs reviewed. FIM Transfers Therapy Code Descriptions/Definitions Functional [place] Measure: 0=Not Assessed/NA 4=Minimal Assistance 1=Total Assistance 5=Supervision or Setup 2=Maximal Assistance 6=Modified [place] 3=Moderate Assistance 7=Complete IndependenceSCALE: Activities may be completed with or without assistive devices. 6-Hsiuxodlnb-aqusrfr completes the activity by him/herself with no assistance from a helper. 5-Set-up or Clean-up Assistance-helper sets up or cleans up; patient completes activity. [place] assists only prior to or following the activity. 4-Supervision or Touching Assistance-helper provides verbal cues and/or touching/steadying and/or contact guard assistance as patient completes activity. Assistance may be provided throughout the activity or intermittently. 3-Partial/Moderate Assistance-helper does LESS THAN HALF the effort. [place] l ifts, holds or supports trunk or limbs, but provides less than half the effort. 2-Substantial/Maximal Assistance-helper does MORE THAN HALF the effort. [place] lifts or holds trunk or limbs and provides more than half the effort. 7-Gxeutfeqj-vlifwj does ALL the effort. Patient does none of the effort to complete the activity. Or, the assistance of 2 or more helpers is required for the patient to complete the activity. If activity was not attempted, code reason: 7-Patient Refused. 9-Not Applicable-not attempted and the patient did not perform the activity before the current illness, exacerbation or injury. 10-Not Attempted due to Environmental Limitations-(lack of equipment, weather restraints, etc.). 88-Not Attempted due to Medical Conditions or Safety Concerns. Roll Left to Right (QC): 6 Sit to Lying (QC): 6 Sit to Stand (QC): 6 Chair/Mnu-kt-Rdams Xfer(QC): 6 Car Transfer (QC): 6 Gait Training Does the Patient Walk?: Yes Distance: 250' Walk 10 feet (QC): 5 Walk 50 ft with 2 Turns(QC): 5 Walk 150 ft (QC): 5 Walking 10ft/uneven surface-QC: 5 Gait Persons Needed: 1 Gait Assistive Device: FWW Wheelchair Training Does the Pt Use a Wheelchair?: No Wheel 50 ft with 2 turns (QC): 5 Wheel 150 ft (QC): 5 Type of Wheelchair: Manual Stair Training Stair Training: Handrails/: 2 handrails #of Steps: 4 1 Step (curb) (QC): 4 4 Steps (QC): 4 12 Steps (QC): 7 Stairs: Pattern: Step to Balance Picking up an Object (QC): 88 ADL-Treatment Eating (QC): 6 (IND with breakfast) Oral Hygiene (QC): 4 (SBA standing at sink) Shower/Bathe Self (QC): 4 (CGA, 1 LOB noted when standing at GBs) Upper Body Dressing (QC): 5 Lower Body Dressing (QC): 4 (CGA in stand, 1 LOB in stand) On/Off Footwear (QC): 4 (cues to use sock aide) Toileting Hygiene (QC): 4 (CGA, pt able to complete hygiene on toilet, and manage pants up in stand with CGA) Toilet Transfer (QC): 4 (CGA off of BS over toilet) Assessment/Plan Assessment and Plan Assess & Plan/Chief Complaint Assessment: s/p left hip fracture Post op anemia from acute blood loss requiring iron infusions and transfusion 1 unit of blood 12/08/20 HTN Hypothyroidism s/p altman cath DC Plan: Monitor pain Monitor confusion Fall risk 12/08/20: Transfuse 1 unit of blood Venofer Pain control Baclofen 12/09/20: Monitor hgb Pain control 12/10/20: Monitor pain DC Baclofen Monitor for falls 12/11/20: Monitor pain Monitor confusion Check labs in am Venofer as scheduled 12/12/20: Labs good Monitor confusion 12/13/20: Monitor pain Monitor confusion 12/14/20: Monitor pain Monitor hgb 12/15/20: Monitor pain Transfers improved 12/16/20: Pain control Ambulate IRF protocol 12/17/20: Improving more each day Pain controlled 12/18/20: Monitor lungs Pain meds 12/19/20: Monitor closely Pain control 12/20/20: Monitor closely Pain control Improved status 12/21/20: Monitor pain Fall risk 12/22/20: Monitor pain Monitor for falls 12/23/20: DC home tomorrow The patient has a mobility limitation that significantly impairs his/her ability to do one or more mobility-related activities of daily living in customary locations in the home. The patients mobility limitation is one that: 1. Prevents the patient from accomplishing the mobility-related activity entirely, or 2. Places the patient at reasonably determined heightened risk of morbidity or mortality secondary to the attempts to perform the mobility-related activity, or 3. Prevents the patient from completing the mobility-related activity within a reasonable time frame. The patient is safely able to use the walker as demonstrated during skilled rehabilitation. The functional mobility deficit can be sufficiently resolved with use of a walker. (1) Closed left hip fracture Status: Acute (2) BPH (benign prostatic hyperplasia) Status: Chronic (3) Hypertension Status: Chronic (4) Hypothyroidism Status: Chronic (5) Hyperlipidemia Status: Chronic SANJUANA GRAY DO Dec 23, 2020 10:22
[2020-12-23] MEDS ORDERED: SENN1TAB76 PO (10:31)
[2020-12-23] MEDS ORDERED: LISI20TA26 PO (10:31)
[2020-12-23] MEDS ORDERED: ACHYD1T PO (10:31)
[2020-12-23] MEDS ORDERED: BACL10TA PO (10:31)
[2020-12-23] MEDS ORDERED: TMSL.4C PO (10:31)
[2020-12-23] MEDS ORDERED: FAMO20TA5 PO (10:31)
--- NOTE | 2020-12-23 10:33 | D/C HH Face to Face Order ---
D/C Face to Face Orders Reconcile Patient Problems Problems Reviewed?: Yes Instructions for Patient [facility], Patient Instructions/FollowUp: Dr Mauro [address] Ovalle as scheduled Physician to follow Patient: Zunilda Discharge Diet for Home: No Restrictions Patient Problems: Left hip fracture Patient Data-Allergies,Ht & Wt Patient Allergies: Coded Allergies: No Known Drug Allergies (Unverified , 05/06/18) Height (Feet): 5 Height (Inches): 6.00 Weight (Pounds): 178 Weight (Ounces): 4.0 Home Health Need/Face to Face Date of Face to Face: Dec 23, 2020 Clinical Findings: Generalized weakness and fatigue, Instability, Muscle weakness, Pain with ambulation, Unsteady gait I have seen Pt uwkj-mp-xqqn: Yes Discharged To: Home Diagnosis/Conditions: Left hip fracture Patient is Homebound due to: CognItive deficits, [place] fall risk due to instabilty, Muscle weakness, Pain w/ambulation Homebound Status Due to the above stated illness, injury or surgical procedure (medical condition or diagnosis) and associated clinical findings, the patient is homebound because of his/her inability to leave home except with aid of a supportive device and/or person AND leaving the home requires a considerable and taxing effort or is medically contraindicated. Pt req the following assistanc: Walker [facility] Nursing Orders Home Health Services Order: Nursing Services, Whiteprinting Machine Operator-Evaluate & Treat, Physical Therapy-Evaluate & Treat Certify Stmt I certify that this patient is under my care and that I, a nurse practitioner or a physician; a clinical education assistant working with me, had a face to face encounter that - meets the physician face to face encounter requirements with this patient as dated. SANJUANA GRAY DO Dec 23, 2020 10:33
--- NOTE | 2020-12-23 11:08 | Occupational Ther Daily Note ---
OT Current Status-Daily Note Subjective Pt seated in recliner, agreeable to OT tx. ADL-Treatment Therapy Code Descriptions/Definitions Functional [place] Measure: 0=Not Assessed/NA 4=Minimal Assistance 1=Total Assistance 5=Supervision or Setup 2=Maximal Assistance 6=Modified [place] 3=Moderate Assistance 7=Complete IndependenceSCALE: Activities may be completed with or without assistive devices. 8-Zvsztxghzp-sknelah completes the activity by him/herself with no assistance from a helper. 5-Set-up or Clean-up Assistance-helper sets up or cleans up; patient completes activity. [place] assists only prior to or following the activity. 4-Supervision or Touching Assistance-helper provides verbal cues and/or touching/steadying and/or contact guard assistance as patient completes activity. Assistance may be provided throughout the activity or intermittently. 3-Partial/Moderate Assistance-helper does LESS THAN HALF the effort. [place] lifts, holds or supports trunk or limbs, but provides less than half the effort. 2-Substantial/Maximal Assistance-helper does MORE THAN HALF the effort. [place] lifts or holds trunk or limbs and provides more than half the effort. 5-Rwdvvpvcw-qiibou does ALL the effort. Patient does none of the effort to complete the activity. Or, the assistance of 2 or more helpers is required for the patient to complete the activity. If activity was not attempted, code reason: 7-Patient Refused. 9-Not Applicable-not attempted and the patient did not perform the activity before the current illness, exacerbation or injury. 10-Not Attempted due to Environmental Limitations-(lack of equipment, weather restraints, etc.). 88-Not Attempted due to Medical Conditions or Safety Concerns. Eating (QC): 6 (Per pt report) Oral Hygiene (QC): 4 (supervision standing at sink) Shower/Bathe Self (QC): 4 (supervision in stand, pt able to wash/dry all parts) Upper Body Dressing (QC): 5 (set up) Lower Body Dressing (QC): 4 (SBA, pt able to doff/don pants and underwear. Required 1 verbal cue to put pants on after his underwear) On/Off Footwear: 4 (SBA, pt able to doff shoes and don gripper socks, min verbal cues for recall of AE.) Toileting Hygiene (QC): 4 (SBA) Toilet Transfer (QC): 4 Other Treatment Pt seated in recliner, used FWW to ambulate into bathroom and onto SC. Pt doffed clothes, completed shower, then transferred to chair to don clothes. After pt donned underwear, he asked what was next, OT had to cue pt to don pants prior to leaving his room. Pt then donned slacks, but too small so switched into jeans. Jeans were too small as well, so pt put on his lounge pants. Pt then stood at sink to complete oral care, transferring to recliner for rest break. Pt then used FWW to perform functional mobility to therapy gym, SBA. In order to increase BUE strength and activity tolerance, OT instructed pt to complete arm bike x15 mins (min resistance). At 13 mins, pt asked OT how long he is supposed to go, OT educated pt on 15 mins. Pt continued to complete arm bike for 18 mins total, OT asked pt if he could recall how long he was instructed to go, he was unable to. Pt used FWW to return to his room, transferring to recliner with SBA. Post tx, pt seated in recliner, call light in reach and all needs met. Education OT Patient Education: Correct positioning, Modified ADL techniques, Progress toward Goal/Update tx plan, Purpose of tx/functional activities Teaching Recipient: Patient Teaching Methods: Discussion Response to Teaching: Verbalize Understanding OT Short Term Goals Short Term Goals Time Frame: Dec 20, 2020 Shower/bathe self: 3 Lower body dressin Putting on/taking off footwear: 3 OT [facility] Goals [facility] Goals Time Frame: Jan 03, 2021 Eating (QC): 6 (met) Oral Hygiene (QC): 6 (not met, supervision) Toileting Hygiene (QC): 6 (not met, SBA) Shower/Bathe Self (QC): 6 (not met, supervision) Upper Body Dressing (QC): 6 (not met, set up) Lower Body Dressing (QC): 6 (not met, SBA) On/Off Footwear (QC): 6 (not met, SBA) Additional Goals: 1-Demonstrate ADL Tasks, 2-Verbalize Understanding, 3-ImproveStrength/Jose 1=Demonstrate adherence to instructed precautions during ADL tasks. 2=Patient will verbalize/demonstrate understanding of assistive devices/modifications for ADL. 3=Patient will improve strength/tolerance for activity to enable patient to perform ADL's. OT Education/Plan Problem List/Assessment Assessment: Decreased Activ Tolerance, Decreased UE Strength, Impaired Funct Balance, Impaired I ADL's, Impaired Self-Care Skills Discharge Recommendations Plan/Recommendations: Continue POC Treatment Plan/Plan of Care Patient would benefit from OT for education, treatment and training to promote independence in ADL's, mobility, safety and/or upper extremity function for ADL's. Plan of Care: ADL Retraining, Functional Mobility, Group Exercise/Act as Ind, UE Funct Exercise/Act Treatment Duration: Jan 03, 2021 Frequency: At least 5 of 7 days/Wk (IRF) Estimated Hrs Per Day: 1.5 hours per day Rehab Potential: Fair Time/GCodes Start Time: 10:15 Stop Time: 11:30 Total Time Billed (hr/min): 75 Billed Treatment Time 1, ADL 4 (55'), EX (20') ISADORA HUGHES OT Dec 23, 2020 11:07
--- NOTE | 2020-12-23 14:09 | Speech Therapy Daily Note ---
Speech Daily Progress Note Subjective Date Seen by Provider: Dec 23, 2020 Time Seen by Provider: 00:30 Pt was pleasant and alert, sitting in the recliner. Objective Patient completed intermediate manager memory tasks at 80% or greater with no cues. Treatment Plan Continue Plan of Care Speech Short Term Goals Short Term Goals Short Term Goals 1) Patient will complete memory tasks related to his daily routine at 80% or greater with minimal cues. 2) Patient will complete safety awareness tasks related to his daily routine at 80% or greater with minimal cues. 3) Patient will complete problem solving tasks related to his daily routine at 80% or greater with minimal cues. Speech Timber Deadener Goals Timber Deadener Goals Patient will improve cognitive-communication skills necessary for safety and daily living tasks with minimal assist. Speech-Plan Patient/Family Goals Patient/Family Goals: Pt plans to go home to his on 12/24. Treatment Plan Speech Therapy Treatment Plan: Continue Plan of Care Treatment Duration: Dec 20, 2020 Frequency: 4 times per week (Patient will receive skilled ST 4-5x per week) Estimated Hrs Per Day: .5 hour per day Rehab Potential: Fair Barriers to Learning: Decreased cognition, difficulty with recall of new information Pt/Family Agrees to Plan: Yes Safety Risks/Education Teaching Recipient: Patient Teaching Methods: Demonstration, Discussion Education Topics Provided: Safety and compensatory memory strategies. Time Speech Therapy Time In: 13:30 Speech Therapy Time Out: 14:00 Total Billed Time: 30 Billed Treatment Time 1, SLTS No QUALITY CODES: EXPRESSION OF IDEAS/WANTS: 4 UNDERSTANDING VERBAL CONTENT: 4 BRIEF INTERVIEW MENTAL STATUS: YES REPETITION OF 3 WORDS: 3 TEMPORAL ORIENTATION: YEAR:CORRECT, MONTH: CORRECT, DAY: CORRECT RECALL SOCK: WITH CUE, COLOR: NO, BED: NO MEMORY/RECALL ABILITY: SEASON, THAT HE IS IN THE [facility] FOOTE Dec 23, 2020 14:09
--- NOTE | 2020-12-23 14:34 | Physical Therapy Daily Note ---
PT Daily Note-Current Subjective Agrees to PT. No complaints. Reports he is going home tomorrow and reports he feels ready. Transfers SCALE: Activities may be completed with or without assistive devices. 8-Gvvkdibpgq-vbuaguh completes the activity by him/herself with no assistance from a helper. 5-Set-up or Clean-up Assistance-helper sets up or cleans up; patient completes activity. Patterson assists only prior to or following the activity. 4-Supervision or Touching Assistance-helper provides verbal cues and/or touching/steadying and/or contact guard assistance as patient completes activity. Assistance may be provided throughout the activity or intermittently. 3-Partial/Moderate Assistance-helper does LESS THAN HALF the effort. Patterson lifts, holds or supports trunk or limbs, but provides less than half the effort. 2-Substantial/Maximal Assistance-helper does MORE THAN HALF the effort. Patterson lifts or holds trunk or limbs and provides more than half the effort. 8-Sjxjkgppt-wexmpa does ALL the effort. Patient does none of the effort to complete the activity. Or, the assistance of 2 or more helpers is required for the patient to complete the activity. If activity was not attempted, code reason: 7-Patient Refused. 9-Not Applicable-not attempted and the patient did not perform the activity before the current illness, exacerbation or injury. 10-Not Attempted due to Environmental Limitations-(lack of equipment, weather restraints, etc.). 88-Not Attempted due to Medical Conditions or Safety Concerns. Sit to Lying (QC): 6 Sit to Stand (QC): 6 Chair/Sbx-ju-Ocztz Xfer(QC): 6 Weight Bearing Left Lower Extremity: Left Weight Bearing/Tolerated Gait Training Gait Assistive Device: FWW Pt ambulated 150 ft x 2 and 50 ft x 2 with FWW mod indep. Antalgic gait with step to pattern. Stair Training 4 Steps (QC): 4 (Up/down 4 steps with SBA with cues for sequencing. ) Exercises NuStep Minutes: 15 (to promote LE strength and functional activity tolerance. ) Treatments Pt in bed post treatment with needs met and bed alarm activated. Assessment Current Status: Good Progress Safe and steady gait without noted LOB. PT Housekeeping Room Inspector Goals Skilled Nursing Goals PT Skilled Nursing Goals Time Frame: Dec 28, 2020 Roll Left & Right (QC): 5 Sit to Lying (QC): 5 Lying-Sitting on Side/Bed(QC): 5 Sit to Stand (QC): 5 Chair/Eeh-iy-Driow Xfer(QC): 5 Toilet Transfer (QC): 5 Car Transfer (QC): 5 Does the Patient Walk: Yes Walk 10 feet (QC): 5 Walk 50ft with 2 Turns (QC): 5 Walk 150 ft (QC): 5 Walking 10ft on Uneven Surface: 5 1 Step (curb) (QC): 5 4 Steps (QC): 4 12 Steps (QC): 4 Picking up an Object (QC): 4 Wheel 50 feet with 2 turns (QC: 9 Wheel 150 feet: 9 PT Plan Problem List Problem List: Activity Tolerance, Functional Strength, Safety Treatment/Plan Treatment Plan: Continue Plan of Care Treatment Plan: Bed Mobility, Education, Functional Activity Jose, Functional Strength, Group Therapy, Gait, Safety, Therapeutic Exercise, Transfers Treatment Duration: Dec 28, 2020 Frequency: At least 5 of 7 days/Wk (IRF) Estimated Hrs Per Day: 1.5 hours per day Patient and/or Family Agrees t: Yes Safety Risks/Education Patient Education: Gait Training, Safety Issues Teaching Recipient: Patient Teaching Methods: Discussion Response to Teaching: Reinforcement Needed Discharge Recommendations Therapy Discharge Recommendati: Post Acute PT ([facility]HC PT) Time/GCodes Time In: 1400 Time Out: 1433 Total Billed Treatment Time: 33 Total Billed Treatment visit EX 15 GT 18 DANIELA RODRIGUEZ PT Dec 23, 2020 14:34
[2020-12-23 16:56] VITALS: BP 167/76
[2020-12-23] MEDS: TAMSULOSIN 0.4 MG (FLOMAX) CAP PO SCH (17:21)
[2020-12-23] MEDS: MELATONIN 3 MG TABLET PO PRN (21:41)
[2020-12-23] MEDS: ENOXAPARIN 40 MG/0.4 ML (LOVENOX) SYR SC SCH (23:14)
--- NOTE | 2020-12-24 05:30 | Discharge Summary ---
Diagnosis/Chief Complaint Date of Admission Dec 07, 2020 at 10:25 Date of Discharge Discharge Date: Dec 24, 2020 Discharge Diagnosis Assessment: s/p left hip fracture Post op anemia from acute blood loss requiring iron infusions and transfusion 1 unit of blood 12/08/20 HTN Hypothyroidism s/p altman cath DC Plan: Monitor pain Monitor confusion Fall risk 12/08/20: Transfuse 1 unit of blood Venofer Pain control Baclofen 12/09/20: Monitor hgb Pain control 12/10/20: Monitor pain DC Baclofen Monitor for falls 12/11/20: Monitor pain Monitor confusion Check labs in am Venofer as scheduled 12/12/20: Labs good Monitor confusion 12/13/20: Monitor pain Monitor confusion 12/14/20: Monitor pain Monitor hgb 12/15/20: Monitor pain Transfers improved 12/16/20: Pain control Ambulate IRF protocol 12/17/20: Improving more each day Pain controlled 12/18/20: Monitor lungs Pain meds 12/19/20: Monitor closely Pain control 12/20/20: Monitor closely Pain control Improved status 12/21/20: Monitor pain Fall risk 12/22/20: Monitor pain Monitor for falls 12/23/20: DC home tomorrow The patient has a mobility limitation that significantly impairs his/her ability to do one or more mobility-related activities of daily living in customary locations in the home. The patients mobility limitation is one that: 1. Prevents the patient from accomplishing the mobility-related activity entirely, or 2. Places the patient at reasonably determined heightened risk of morbidity or mortality secondary to the attempts to perform the mobility-related activity, or 3. Prevents the patient from completing the mobility-related activity within a reasonable time frame. The patient is safely able to use the walker as demonstrated during skilled rehabilitation. The functional mobility deficit can be sufficiently resolved with use of a wa lker. (1) Closed left hip fracture Status: Acute (2) BPH (benign prostatic hyperplasia) Status: Chronic (3) Hypertension Status: Chronic (4) Hypothyroidism Status: Chronic (5) Hyperlipidemia Status: Chronic Discharge Summary Discharge Physical Examination Allergies: Coded Allergies: No Known Drug Allergies (Unverified , 05/06/18) Vitals & I&Os Vital Signs Date Time Temp Pulse Resp B/P (MAP) Pulse Ox O2 Delivery O2 Flow Rate FiO2 12/24/20 11:50 36.5 59 20 114/67 97 Room Air General Appearance: Alert, Oriented X3, Cooperative Respiratory: Clear to Auscultation Cardiovascular: Regular Rate Neuro: Normal Gait, Normal Speech, Strength at 5/5 X4 Ext Psych/Mental Status: Mental Status NL Hospital Course Was the Problem List Reviewed?: Yes Hospital Course: Pt had an uneventful hospital course for 17 days after left hip fracture debility. Pain was an issue and a very slow recovery but pt received 1 unit of blood for severe anemia post-op acute blood loss and was given IV iron of 200mg for five doses total. He dramatically improved and was able to be discharged on home care with PT and nursing and will need close follow up with PCP Dr. Mauro. Labs (last 24 hrs) Laboratory Tests 12/08/20 05:44: White Blood Count 8.5, Red Blood Count 2.43L, Hemoglobin 7.7L, Hematocrit 23L, Mean Corpuscular Volume 96, Mean Corpuscular Hemoglobin 32, Mean Corpuscular Hemoglobin Concent 33, Red Cell Distribution Width 12.5, Platelet Count 168, Mean Platelet Volume 9.1, Immature Granulocyte % (Auto) 1, Neutrophils (%) (Auto) 63, Lymphocytes (%) (Auto) 24, Monocytes (%) (Auto) 10, Eosinophils (%) (Auto) 1, Basophils (%) (Auto) 1, Neutrophils # (Auto) 5.4, Lymphocytes # (Auto) 2.1, Monocytes # (Auto) 0.9, Eosinophils # (Auto) 0.1, Basophils # (Auto) 0.0, Immature Granulocyte # (Auto) 0.1, Sodium Level 135, Potassium Level 3.9, Chloride Level 102, Carbon Dioxide Level 24, Anion Gap 9, Blood Urea Nitrogen 12, Creatinine 0.72, Estimat Glomerular Filtration Rate > 60, BUN/Creatinine Ratio 17, Glucose Level 109H, Calcium Level 8.2L, Corrected Calcium 8.9, Total Bilirubin 0.6, Aspartate Amino Transf (AST/SGOT) 26, Alanine Aminotransferase (ALT/SGPT) 17, Alkaline Phosphatase 48, Total Protein 5.6L, Albumin 3.1L 12/08/20 13:10: Iron Level 16L 12/09/20 05:51: White Blood Count 8.8, Red Blood Count 2.91L, Hemoglobin 9.4#L, Hematocrit 27L, Mean Corpuscular Volume 92, Mean Corpuscular Hemoglobin 32, Mean Corpuscular Hemoglobin Concent 35, Red Cell Distribution Width 12.5, Platelet Count 196, Mean Platelet Volume 9.1, Immature Granulocyte % (Auto) 1, Neutrophils (%) (Auto) 63, Lymphocytes (%) (Auto) 23, Monocytes (%) (Auto) 11, Eosinophils (%) (Auto) 2, Basophils (%) (Auto) 1, Neutrophils # (Auto) 5.6, Lymphocytes # (Auto) 2.0, Monocytes # (Auto) 0.9, Eosinophils # (Auto) 0.2, Basophils # (Auto) 0.1, Immature Granulocyte # (Auto) 0.1, Sodium Level 134L, Potassium Level 4.2, Chloride Level 101, Carbon Dioxide Level 24, Anion Gap 9, Blood Urea Nitrogen 10, Creatinine 0.71, Estimat Glomerular Filtration Rate > 60, BUN/Creatinine Ratio 14, Glucose Level 106H, Calcium Level 8.4L, Corrected Calcium 9.0, Total Bilirubin 0.7, Aspartate Amino Transf (AST/SGOT) 31, Alanine Aminotransferase (ALT/SGPT) 26, Alkaline Phosphatase 46, Total Protein 6.2L, Albumin 3.2 12/12/20 03:14: White Blood Count 8.5, Red Blood Count 3.02L, Hemoglobin 9.6L, Hematocrit 29L, Mean Corpuscular Volume 96, Mean Corpuscular Hemoglobin 32, Mean Corpuscular Hemoglobin Concent 33, Red Cell Distribution Width 12.8, Platelet Count 304, Mean Platelet Volume 8.9L, Immature Granulocyte % (Auto) 3, Neutrophils (%) (Auto) 51, Lymphocytes (%) (Auto) 32, Monocytes (%) (Auto) 10, Eosinophils (%) (Auto) 3, Basophils (%) (Auto) 1, Neutrophils # (Auto) 4.3, Lymphocytes # (Auto) 2.7, Monocytes # (Auto) 0.9, Eosinophils # (Auto) 0.3, Basophils # (Auto) 0.1, Immature Granulocyte # (Auto) 0.3H, Sodium Level 135, Potassium Level 4.3, Chloride Level 101, Carbon Dioxide Level 24, Anion Gap 10, Blood Urea Nitrogen 12, Creatinine 0.72, Estimat Glomerular Filtration Rate > 60, BUN/Creatinine Ratio 17, Glucose Level 99, Calcium Level 8.8, Corrected Calcium 9.4, Total B ilirubin 0.7, Aspartate Amino Transf (AST/SGOT) 37H, Alanine Aminotransferase (ALT/SGPT) 41, Alkaline Phosphatase 52, Total Protein 6.4, Albumin 3.2 12/16/20 05:10: White Blood Count 8.7, Red Blood Count 3.21L, Hemoglobin 10.3L, Hematocrit 31L, Mean Corpuscular Volume 96, Mean Corpuscular Hemoglobin 32, Mean Corpuscular Hemoglobin Concent 33, Red Cell Distribution Width 13.4, Platelet Count 374, Mean Platelet Volume 8.5L, Immature Granulocyte % (Auto) 4, Neutrophils (%) (Auto) 59, Lymphocytes (%) (Auto) 25, Monocytes (%) (Auto) 8, Eosinophils (%) (Auto) 3, Basophils (%) (Auto) 1, Neutrophils # (Auto) 5.1, Lymphocytes # (Auto) 2.2, Monocytes # (Auto) 0.7, Eosinophils # (Auto) 0.3, Basophils # (Auto) 0.1, Immature Granulocyte # (Auto) 0.3H, Sodium Level 135, Potassium Level 4.2, Chloride Level 103, Carbon Dioxide Level 23, Anion Gap 9, Blood Urea Nitrogen 13, Creatinine 0.76, Estimat Glomerular Filtration Rate > 60, BUN/Creatinine Ratio 17, Glucose Level 95, Calcium Level 8.7, Corrected Calcium 9.3, Total Bilirubin 0.6, Aspartate Amino Transf (AST/SGOT) 35H, Alanine Aminotransferase (ALT/SGPT) 42, Alkaline Phosphatase 90, Total Protein 6.5, Albumin 3.3 12/23/20 05:13: White Blood Count 5.8, Red Blood Count 3.44L, Hemoglobin 11.0L, Hematocrit 33L, Mean Corpuscular Volume 97, Mean Corpuscular Hemoglobin 32, Mean Corpuscular Hemoglobin Concent 33, Red Cell Distribution Width 13.5, Platelet Count 338, Mean Platelet Volume 9.0, Immature Granulocyte % (Auto) 1, Neutrophils (%) (Auto) 49, Lymphocytes (%) (Auto) 33, Monocytes (%) (Auto) 12, Eosinophils (%) (Auto) 4, Basophils (%) (Auto) 1, Neutrophils # (Auto) 2.9, Lymphocytes # (Auto) 1.9, Monocytes # (Auto) 0.7, Eosinophils # (Auto) 0.2, Basophils # (Auto) 0.1, Immature Granulocyte # (Auto) 0.1, Sodium Level 134L, Potassium Level 4.2, Chloride Level 103, Carbon Dioxide Level 23, Anion Gap 8, Blood Urea Nitrogen 12, Creatinine 0.86, Estimat Glomerular Filtration Rate > 60, BUN/Creatinine Ratio 14, Glucose Level 88, Calcium Level 8.8, Corrected Calcium 9.1, Total Bilirubin 0.5, Aspartate Amino Transf (AST/SGOT) 23, Alanine Aminotransferase (ALT/SGPT) 26, Alkaline Phosphatase 182H, Total Protein 6.7, Albumin 3.6 Pending Labs Laboratory Tests 12/08/20 05:44: White Blood Count 8.5, Red Blood Count 2.43, Hemoglobin 7.7, Hematocrit 23, Mean Corpuscular Volume 96, Mean Corpuscular Hemoglobin 32, Mean Corpuscular Hemoglobin Concent 33, Red Cell Distribution Width 12.5, Platelet Count 168, Mean Platelet Volume 9.1, Immature Granulocyte % (Auto) 1, Neutrophils (%) (Auto) 63, Lymphocytes (%) (Auto) 24, Monocytes (%) (Auto) 10, Eosinophils (%) (Auto) 1, Basophils (%) (Auto) 1, Neutrophils # (Auto) 5.4, Lymphocytes # (Auto) 2.1, Monocytes # (Auto) 0.9, Eosinophils # (Auto) 0.1, Basophils # (Auto) 0.0, Immature Granulocyte # (Auto) 0.1, Sodium Level 135, Potassium Level 3.9, Chloride Level 102, Carbon Dioxide Level 24, Anion Gap 9, Blood Urea Nitrogen 12, Creatinine 0.72, Estimat Glomerular Filtration Rate > 60, BUN/Creatinine Ratio 17, Glucose Level 109, Calcium Level 8.2, Corrected Calcium 8.9, Total Bilirubin 0.6, Aspartate Amino Transf (AST/SGOT) 26, Alanine Aminotransferase (ALT/SGPT) 17, Alkaline Phosphatase 48, Total Protein 5.6, Albumin 3.1 12/08/20 13:10: Iron Level 16 12/09/20 05:51: White Blood Count 8.8, Red Blood Count 2.91, Hemoglobin 9.4, Hematocrit 27, Mean Corpuscular Volume 92, Mean Corpuscular Hemoglobin 32, Mean Corpuscular Hemoglobin Concent 35, Red Cell Distribution Width 12.5, Platelet Count 196, Mean Platelet Volume 9.1, Immature Granulocyte % (Auto) 1, Neutrophils (%) (Auto ) 63, Lymphocytes (%) (Auto) 23, Monocytes (%) (Auto) 11, Eosinophils (%) (Auto) 2, Basophils (%) (Auto) 1, Neutrophils # (Auto) 5.6, Lymphocytes # (Auto) 2.0, Monocytes # (Auto) 0.9, Eosinophils # (Auto) 0.2, Basophils # (Auto) 0.1, Immature Granulocyte # (Auto) 0.1, Sodium Level 134, Potassium Level 4.2, Chloride Level 101, Carbon Dioxide Level 24, Anion Gap 9, Blood Urea Nitrogen 10, Creatinine 0.71, Estimat Glomerular Filtration Rate > 60, BUN/Creatinine Ratio 14, Glucose Level 106, Calcium Level 8.4, Corrected Calcium 9.0, Total Bilirubin 0.7, Aspartate Amino Transf (AST/SGOT) 31, Alanine Aminotransferase (ALT/SGPT) 26, Alkaline Phosphatase 46, Total Protein 6.2, Albumin 3.2 12/12/20 03:14: White Blood Count 8.5, Red Blood Count 3.02, Hemoglobin 9.6, Hematocrit 29, Mean Corpuscular Volume 96, Mean Corpuscular Hemoglobin 32, Mean Corpuscular Hemoglobin Concent 33, Red Cell Distribution Width 12.8, Platelet Count 304, Mean Platelet Volume 8.9, Immature Granulocyte % (Auto) 3, Neutrophils (%) (Auto) 51, Lymphocytes (%) (Auto) 32, Monocytes (%) (Auto) 10, Eosinophils (%) (Auto) 3, Basophils (%) (Auto) 1, Neutrophils # (Auto) 4.3, Lymphocytes # (Auto) 2.7, Monocytes # (Auto) 0.9, Eosinophils # (Auto) 0.3, Basophils # (Auto) 0.1, Immature Granulocyte # (Auto) 0.3, Sodium Level 135, Potassium Level 4.3, Chloride Level 101, Carbon Dioxide Level 24, Anion Gap 10, Blood Urea Nitrogen 12, Creatinine 0.72, Estimat Glomerular Filtration Rate > 60, BUN/Creatinine Ratio 17, Glucose Level 99, Calcium Level 8.8, Corrected Calcium 9.4, Total Bilirubin 0.7, Aspartate Amino Transf (AST/SGOT) 37, Alanine Aminotransferase (ALT/SGPT) 41, Alkaline Phosphatase 52, Total Protein 6.4, Albumin 3.2 12/16/20 05:10: White Blood Count 8.7, Red Blood Count 3.21, Hemoglobin 10.3, Hematocrit 31, Mean Corpuscular Volume 96, Mean Corpuscular Hemoglobin 32, Mean Corpuscular Hemoglobin Concent 33, Red Cell Distribution Width 13.4, Platelet Count 374, Mean Platelet Volume 8.5, Immature Granulocyte % (Auto) 4, Neutrophils (%) (Auto) 59, Lymphocytes (%) (Auto) 25, Monocytes (%) (Auto) 8, Eosinophils (%) (Auto) 3, Basophils (%) (Auto) 1, Neutrophils # (Auto) 5.1, Lymphocytes # (Auto) 2.2, Monocytes # (Auto) 0.7, Eosinophils # (Auto) 0.3, Basophils # (Auto) 0.1, Immature Granulocyte # (Auto) 0.3, Sodium Level 135, Potassium Level 4.2, Chloride Level 103, Carbon Dioxide Level 23, Anion Gap 9, Blood Urea Nitrogen 13, Creatinine 0.76, Estimat Glomerular Filtration Rate > 60, BUN/Creatinine Ratio 17, Glucose Level 95, Calcium Level 8.7, Corrected Calcium 9.3, Total Bilirubin 0.6, Aspartate Amino Transf (AST/SGOT) 35, Alanine Aminotransferase ( ALT/SGPT) 42, Alkaline Phosphatase 90, Total Protein 6.5, Albumin 3.3 12/23/20 05:13: White Blood Count 5.8, Red Blood Count 3.44, Hemoglobin 11.0, Hematocrit 33, Mean Corpuscular Volume 97, Mean Corpuscular Hemoglobin 32, Mean Corpuscular Hemoglobin Concent 33, Red Cell Distribution Width 13.5, Platelet Count 338, Mean Platelet Volume 9.0, Immature Granulocyte % (Auto) 1, Neutrophils (%) (Auto) 49, Lymphocytes (%) (Auto) 33, Monocytes (%) (Auto) 12, Eosinophils (%) (Auto) 4, Basophils (%) (Auto) 1, Neutrophils # (Auto) 2.9, Lymphocytes # (Auto) 1.9, Monocytes # (Auto) 0.7, Eosinophils # (Auto) 0.2, Basophils # (Auto) 0.1, Immature Granulocyte # (Auto) 0.1, Sodium Level 134, Potassium Level 4.2, Chloride Level 103, Carbon Dioxide Level 23, Anion Gap 8, Blood Urea Nitrogen 12, Creatinine 0.86, Estimat Glomerular Filtration Rate > 60, BUN/Creatinine Ratio 14, Glucose Level 88, Calcium Level 8.8, Corrected Calcium 9.1, Total Bilirubin 0.5, Aspartate Amino Transf (AST/SGOT) 23, Alanine Aminotransferase (ALT/SGPT) 26, Alkaline Phosphatase 182, Total Protein 6.7, Albumin 3.6 Discharge Home Medications: Active Scripts Active Famotidine 20 Mg Tablet 20 Mg PO BID Stool Softener-Laxative Tablet (Sennosides/Docusate Sodium) 1 Each Tablet 1 Ea PO BID HYDROcodone/APAP 10/325 TABLET (Acetaminophen/Hydrocodone Bitart) 1 Ea Tab 1 Ea PO Q4H PRN Lisinopril 20 Mg Tablet 20 Mg PO DAILY Baclofen 10 Mg Tablet 5 Mg PO TID PRN Flomax (Tamsulosin HCl) 0.4 Mg Cap 0.4 Mg PO DAILY@1800 Reported Multivitamin 1 Each Tablet 1 Each PO DAILY Metoprolol Succinate 50 Mg Tab.er.24h 50 Mg PO DAILY Levothyroxine Sodium 112 Mcg Tablet 112 Mcg PO DAILY Atorvastatin Calcium 10 Mg Tablet 10 Mg PO DAILY Instructions to patient/family Please see electronic discharge instructions given to patient. Diagnosis/Problems Diagnosis/Problems (1) Closed left hip fracture Status: Acute (2) BPH (benign prostatic hyperplasia) Status: Chronic (3) Hypertension Status: Chronic (4) Hypothyroidism Status: Chronic (5) Hyperlipidemia Status: Chronic SANJUANA GRAY DO Dec 24, 2020 05:30
[2020-12-24 06:44] VITALS: BP 114/67
--- NOTE | 2020-12-24 08:18 | Therapy Team Discharge Summary ---
Therapy Discharge Summary Discharge Recommendations Date of Discharge Physical Therapy Patient came to rehab following a (L) hip fx. Upon evaluation patient performed bed mobility with max assist, supine <-> sit dependent, sit <-> stand max assist, no ambulation or transfers at this time. Patient has been performing bed mobility and transfer training, balance and endurance training, functional strengthening, stair training, gait training, and education. 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 Now, patient performs bed mobility and transfers with independence, car transfer independent, ambulates 150' with a rolling walker with setup (including 50' with at least 2 turns of 90 degrees and 10' over an uneven surface), and can go up and down 4 steps using 2 handrails with CGA. Patient is discharging from this facility today and will be discharged from PT at this time. Occupational Therapy Decreased Activ Tolerance, Decreased UE Strength, Impaired Funct Balance, Impaired I ADL's, Impaired Self-Care Skills PT Half-Way Goals Store Deli Manager Goals PT Half-Way Goals Time Frame: Dec 28, 2020 Roll Left to Right (QC): 5 Sit to Lying (QC): 5 Lying-Sitting on Side/Bed(QC): 5 Sit to Stand (QC): 5 Chair/Vts-yb-Gupso Xfer(QC): 5 Car Transfer (QC): 5 Does the Patient Walk: Yes Walk 10 feet (QC): 5 Walk 10ft-Uneven Surface(QC): 5 Walk 50ft with 2 Turns (QC): 5 Walk 150 ft (QC): 5 Wheel 50 feet with 2 turns (QC: 9 1 Step (curb) (QC): 5 4 Steps (QC): 4 12 Steps (QC): 4 Picking up an Object (QC): 4 OT Store Deli Manager Goals Half-Way Goals Time Frame: Jan 03, 2021 Eating (FIM): 6 Eating (QC): 6 (met) Oral Hygiene (QC): 6 (not met, supervision) Shower/Bathe Self (QC): 6 (not met, supervision) Upper Body Dressing (QC): 6 (not met, set up) Lower Body Dressing (QC): 6 (not met, SBA) On/Off Footwear (QC): 6 (not met, SBA) Toileting(FIM): 6 Toileting Hygiene (QC): 6 (not met, SBA) Toilet/Commode Transfer (QC): 5 Additional Goals: 1-Demonstrate ADL Tasks, 2-Verbalize Understanding, 3- ImproveStrength/Jose 1=Demonstrate adherence to instructed precautions during ADL tasks. 2=Patient will verbalize/demonstrate understanding of assistive devices/modifications for ADL. 3=Patient will improve strength/tolerance for activity to enable patient to perform ADL's. Speech Half-Way Goals Store Deli Manager Goals Patient will improve cognitive-communication skills necessary for safety and daily living tasks with minimal assist. JAZMIN DIEGO PT Dec 24, 2020 08:18
--- NOTE | 2020-12-24 09:55 | Therapy Team Discharge Summary ---
Therapy Discharge Summary Discharge Recommendations Date of Discharge Occupational Therapy Decreased Activ Tolerance, Decreased UE Strength, Impaired Funct Balance, Impaired I ADL's, Impaired Self-Care Skills Speech-Language Pathology Patient was admitted to the ARU s/p hip fracture. Patient was given the SLUMS with a moderate dementia range of function score. Patient received skilled ST with focus on safety and memory so that he could return home safer. He is discharging today to his home where he lives with his . They have 24/7 care/assistance for daily needs. 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 Halfway Goals PT Halfway Goals Time Frame: Dec 28, 2020 Roll Left to Right (QC): 5 Sit to Lying (QC): 5 Lying-Sitting on Side/Bed(QC): 5 Sit to Stand (QC): 5 Chair/Kpw-gz-Bsgub Xfer(QC): 5 Car Transfer (QC): 5 Does the Patient Walk: Yes Walk 10 feet (QC): 5 Walk 10ft-Uneven Surface(QC): 5 Walk 50ft with 2 Turns (QC): 5 Walk 150 ft (QC): 5 Wheel 50 feet with 2 turns (QC: 9 1 Step (curb) (QC): 5 4 Steps (QC): 4 12 Steps (QC): 4 Picking up an Object (QC): 4 OT Fuel Oil Clerk Goals Halfway Goals Time Frame: Jan 03, 2021 Eating (FIM): 6 Eating (QC): 6 (met) Oral Hygiene (QC): 6 (not met, supervision) Shower/Bathe Self (QC): 6 (not met, supervision) Upper Body Dressing (QC): 6 (not met, set up) Lower Body Dressing (QC): 6 (not met, SBA) On/Off Footwear (QC): 6 (not met, SBA) Toileting(FIM): 6 Toileting Hygiene (QC): 6 (not met, SBA) Toilet/Commode Transfer (QC): 5 Additional Goals: 1-Demonstrate ADL Tasks, 2-Verbalize Understanding, 3- ImproveStrength/Jose 1=Demonstrate adherence to instructed precautions during ADL tasks. 2=Patient will verbalize/demonstrate understanding of assistive devices/modifications for ADL. 3=Patient will improve strength/tolerance for activity to enable patient to perform ADL's. Speech Fuel Oil Clerk Goals Halfway Goals Patient will improve cognitive-communication skills necessary for safety and daily living tasks with minimal assist. OSORIO FOOTE Dec 24, 2020 09:55
[2020-12-24] MEDS: meTOproloL SUCCINATE 50 MG (TOPROL XL) TAB PO SCH (09:56)
[2020-12-24] MEDS: FAMOTIDINE 20 MG (PEPCID) TABLET PO SCH (09:56)
[2020-12-24] MEDS: LEVOTHYROXINE 112 MCG (LEVOTHROID) TAB PO SCH (09:56)
[2020-12-24] MEDS: lisINopril 20 MG (PRINIVIL) TABLET PO SCH (09:56)
[2020-12-24] MEDS: DOCUSATE SODIUM 100 MG (COLACE) CAP PO SCH (09:57)
[2020-12-24] MEDS: SENNA W/DOCUSATE (SENOKOT S) TABLET PO SCH (09:58)
[2020-12-24] MEDS: polyethylene glycoL POWDER 17 GM (MIRALAX) PACK PO SCH (09:58)
[2020-12-24 11:50] VITALS: BP 114/67
--- NOTE | 2020-12-25 15:40 | Therapy Team Discharge Summary ---
Therapy Discharge Summary Discharge Recommendations Date of Discharge Dec 24, 2020 at 11:15 Occupational Therapy Pt admitted to ARU s/p hip fx. At PLOF, pt was independent with bathing/dress ing/toileting and has assistance cleaning and cooking. Upon initial evaluation, pt was independent with eating, required set up assist oral care, total assist showering, set up upper body dressing, and total assist lower body dressing/footwear and toileting. OT tx focused on increasing safety and independence with ADLS and functional mobility, education on AE, and increasing BUE strength and functional endurance. At discharge, pt was independent with eating, required supervision with oral care and showering, set up assist upper body dressing, and SBA lower body dressing/footwear and toileting. Pt made functional progress towards all goals, but only met independent level with feeding. 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 Operator Helper Goals PT Detention Goals Time Frame: Dec 28, 2020 Roll Left to Right (QC): 5 Sit to Lying (QC): 5 Lying-Sitting on Side/Bed(QC): 5 Sit to Stand (QC): 5 Chair/Vdk-hh-Rbmun Xfer(QC): 5 Car Transfer (QC): 5 Does the Patient Walk: Yes Walk 10 feet (QC): 5 Walk 10ft-Uneven Surface(QC): 5 Walk 50ft with 2 Turns (QC): 5 Walk 150 ft (QC): 5 Wheel 50 feet with 2 turns (QC: 9 1 Step (curb) (QC): 5 4 Steps (QC): 4 12 Steps (QC): 4 Picking up an Object (QC): 4 OT Detention Goals Detention Goals Time Frame: Jan 03, 2021 Eating (FIM): 6 Eating (QC): 6 (met) Oral Hygiene (QC): 6 (not met, supervision) Shower/Bathe Self (QC): 6 (not met, supervision) Upper Body Dressing (QC): 6 (not met, set up) Lower Body Dressing (QC): 6 (not met, SBA) On/Off Footwear (QC): 6 (not met, SBA) Toileting(FIM): 6 Toileting Hygiene (QC): 6 (not met, SBA) Toilet/Commode Transfer (QC): 5 Additional Goals: 1-Demonstrate ADL Tasks, 2-Verbalize Understanding, 3- ImproveStrength/Jose 1=Demonstrate adherence to instructed precautions during ADL tasks. 2=Patient will verbalize/demonstrate understanding of assistive devices/modifications for ADL. 3=Patient will improve strength/tolerance for activity to enable patient to perform ADL's. Speech Detention Goals Detention Goals Patient will improve cognitive-communication skills necessary for safety and daily living tasks with minimal assist. ISADORA HUGHSE OT Dec 25, 2020 15:40
== END 2020-12-24 11:15 | disposition home health service (06) | DRG 560 ==
PROVIDERS: ADMIT Internal Medicine; ATTEND Internal Medicine
DX: S72.142D Displaced intertrochanteric fracture of left femur, subsequent encounter for closed fracture with routine healing (principal); D62 Acute posthemorrhagic anemia; F03.90 Unspecified dementia, unspecified severity, without behavioral disturbance, psychotic disturbance, mood disturbance, and anxiety; E78.00 Pure hypercholesterolemia, unspecified; E78.5 Hyperlipidemia, unspecified; I10 Essential (primary) hypertension; N40.0 Benign prostatic hyperplasia without lower urinary tract symptoms; K21.9 Gastro-esophageal reflux disease without esophagitis; M19.91 Primary osteoarthritis, unspecified site; M54.9 Dorsalgia, unspecified; E03.9 Hypothyroidism, unspecified; H54.3 Unqualified visual loss, both eyes; V18.0XXD Pedal cycle driver injured in noncollision transport accident in nontraffic accident, subsequent encounter
CPT/HCPCS: 36415; 73502; 80053; 83540; 85025; 86850; 86900; 86901; 86920; 94664

== ENCOUNTER → 2021-01-01 | Outpatient (CLI) | payer MEDICARE, OTHER ==
[~2021-01-01] MED LIST changes: +ACHYD1T PO; -ALPRAZolam 0.25 MG (XANAX) TAB PO PRN; +BACL10TA PO; -BISACODYL 10 MG SUPP (DULCOLAX) PR PRN; -CALCIUM CARBONATE 500 MG (TUMS) TAB.CHEW PO PRN; -DOCUSATE SODIUM 100 MG (COLACE) CAP PO PRN; +FAMO20TA5 PO; -FLEET ENEMA ADULT 1 EA BTL PR PRN; +LISI20TA26 PO; -LOPERAMIDE 2 MG (IMODIUM) TABLET PO PRN; -ONDANSETRON 4 MG (ZOFRAN) ORAL DISSOLVE TAB PO PRN; +SENN1TAB76 PO; +TMSL.4C PO; -diphenhydrAMINE 25 MG TAB (BENADRYL) PO PRN; -guaiFENesin/CODEINE (ROBITUSSIN AC) 10ML UDC PO PRN
--- NOTE | 2021-01-01 11:32 | Diagnostic Imaging Report ---
HISTORY: Intertrochanteric fracture of the left femur. TECHNIQUE: Two views of the left hip. COMPARISON: 12/19/2020. FINDINGS: There is internal fixation of the proximal left femur fracture with a short femoral nail, helical blade screw, and distal interlocking screw. There is mild medial displacement of the lesser trochanter which has mild healing changes present. No hardware complication is seen. There are degenerative changes in the left hip and the femoral head is well-seated in the acetabulum. IMPRESSION: Internal fixation of the healing left proximal femur fracture with no hardware complication seen. Dictated by: Dictated on workstation # [id number]
== END ==
LOC: ORTHO 09:33
PROVIDERS: ATTEND Orthopaedic Surgery
DX: S72.142D Displaced intertrochanteric fracture of left femur, subsequent encounter for closed fracture with routine healing (principal); X58.XXXD Exposure to other specified factors, subsequent encounter
CPT/HCPCS: 73502

== ENCOUNTER → 2021-01-27 | Outpatient (CLI) | payer MEDICARE, OTHER ==
--- NOTE | 2021-01-27 09:48 | Diagnostic Imaging Report ---
INDICATION: Followup of the open reduction internal fixation of left trochanteric fracture. Comparison with 01/01/2021. FINDINGS: Gamma nail with the femoral head screw and interlocking nail all are unchanged in position with no evidence of hardware complication. The intertrochanteric fracture is unchanged in position. There has been continued bony bridging callus develop over the interim. Femoral head remains in good articulation with the acetabulum with moderate arthritic changes. IMPRESSION: 1. No evidence of hardware complication with internal fixation of the left hip. There has been progressive bony bridging callus since previous exam. Dictated by: Dictated on workstation # [id number]
== END ==
LOC: ORTHO 09:13
PROVIDERS: ATTEND Orthopaedic Surgery
DX: S72.142D Displaced intertrochanteric fracture of left femur, subsequent encounter for closed fracture with routine healing (principal); X58.XXXD Exposure to other specified factors, subsequent encounter
CPT/HCPCS: 73502

== ENCOUNTER 2021-01-31 13:10 | Outpatient (RCR) | payer MEDICARE, OTHER | END 2021-05-01 | disposition home or self-care (01) | LOC: CARD 13:10 | PROVIDERS: ATTEND Nurse Practitioner Family | DX: R00.1 Bradycardia, unspecified (principal); I10 Essential (primary) hypertension | CPT/HCPCS: 93225; 93226 ==

== ENCOUNTER → 2021-01-31 | Outpatient (CLI) | payer MEDICARE, OTHER | LOC: CARD 13:09 | PROVIDERS: ATTEND Physician Assistant | DX: I10 Essential (primary) hypertension (principal); I25.10 Atherosclerotic heart disease of native coronary artery without angina pectoris; I34.0 Nonrheumatic mitral (valve) insufficiency | CPT/HCPCS: 93306 ==

== ENCOUNTER → 2021-03-10 | Outpatient (CLI) | payer MEDICARE, OTHER ==
--- NOTE | 2021-03-10 14:35 | Diagnostic Imaging Report ---
INDICATION: Followup of the gamma nail fixation of trochanteric fracture on the left. FINDINGS: Intertrochanteric fracture remains in near-anatomic alignment. Gamma nail is in good position without evidence of loosening. Femoral head is in normal articulation with the acetabulum. There has been some early bony callus formation. IMPRESSION: Healing intertrochanteric fracture left hip with no evidence of hardware complication. Dictated by: Dictated on workstation # [id number]
== END ==
LOC: ORTHO 09:27
PROVIDERS: ATTEND Orthopaedic Surgery
DX: S72.142D Displaced intertrochanteric fracture of left femur, subsequent encounter for closed fracture with routine healing (principal); X58.XXXD Exposure to other specified factors, subsequent encounter
CPT/HCPCS: 73502

== ENCOUNTER 2022-09-18 18:26 | Observation (INO) | payer MEDICARE, OTHER ==
[~2022-09-18] VITALS: Ht 177 cm; Wt 78.5 kg
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
--- NOTE | 2022-09-18 19:08 | Diagnostic Imaging Report ---
EXAMINATION: Left hip unilateral 2 or 3 views (w/pelvis when done). HISTORY: Fall, pain. COMPARISON: 12/04/2020. FINDINGS: Left hip postoperative changes noted and unremarkable. Previously noted fracture demonstrates changes of healing. There is a vague irregularity along the left inferior pubic ramus and also noted along the left superior pubic ramus at the level of the acetabulum suspicious for nondisplaced fractures. Right hip intact. IMPRESSION: Suspected left superior and inferior pubic ramus fractures with the superior pubic ramus fracture possibly extending through the acetabulum. Dictated by: Dictated on workstation # [id number]
--- NOTE | 2022-09-18 19:51 | Diagnostic Imaging Report ---
Procedure: CT pelvis without contrast. Technique: Multiple contiguous axial images were obtained through the pelvis without the use of intravenous contrast. Sagittal and coronal reformations were performed. Auto Exposure Controls were utilized during the CT exam to meet ALARA standards for radiation dose reduction. Date: September 18, 2022. Indication: 82-year-old male, fall. Left pelvic pain. Comparison: Radiographs September 18, 2022. Findings: There is hardware in the left proximal femur with intact imaged portions of the hardware. There is a healed prior left intertrochanteric femur fracture deformity. There is a comminuted mildly displaced fracture involving the base of the left suprapubic ramus also involving the left anterior acetabulum without gross offset of the articulating surface. There is a minimally displaced acute fracture of the left inferior pubic ramus. There is a very mildly displaced vertically oriented fracture of the left sacral ala. The sacroiliac joints are normally aligned as is the pubic symphysis. Hips are not dislocated. There is moderate to severe disc height loss at L3-L4. There is mild disc height loss at L4-L5. There are facet degenerative changes of the imaged lower lumbar spine. There are atherosclerotic calcifications. There is stranding in the left side of the pelvis likely reflecting a small amount of blood products. There is no sizable volume of blood product within the intraperitoneal cavity. There are small bilateral fat-containing inguinal hernias. There is a cartilage matrix lesion of the right intertrochanteric femur likely reflecting an enchondroma measuring 11 mm in size. Impression: 1. Comminuted minimally displaced fracture involving the base of the left superior pubic ramus extending to the left acetabulum without offset of the articulating surface. 2. Minimally displaced acute fracture of the left inferior pubic ramus. 3. Mildly displaced vertically oriented fracture of the left sacral ala. 4. Normally aligned sacroiliac joints and pubic symphysis. 5. Small amount of acute blood product in the left side of the pelvis. Dictated by: Dictated on workstation # [id number]
[2022-09-18 20:15] LABS: BASOPHILS # (AUTO) 0.1 10^3/uL (0.0-0.1); BASOPHILS % (AUTO) 0 % (0-10); EOSINOPHILS % (AUTO) 0 % (0-10); HEMATOCRIT 35 % (40-54); HEMOGLOBIN 12.6 g/dL (13.3-17.7); LYMPHOCYTES % (AUTO) 6 % (12-44); MEAN CORPUSCULAR HEMOGLOBIN 33 pg (25-34); MEAN CORPUSCULAR HGB CONC 36 g/dL (32-36); MEAN CORPUSCULAR VOLUME 92 fL (80-99); MEAN PLATELET VOLUME 8.9 fL (9.0-12.2); MONOCYTES # (AUTO) 0.8 10^3/uL (0.0-1.0); MONOCYTES % (AUTO) 5 % (0-12); NEUTROPHILS # (AUTO) 14.8 10^3/uL (1.8-7.8); NEUTROPHILS % (AUTO) 88 % (42-75); PLATELET COUNT 198 10^3/uL (130-400); WHITE BLOOD COUNT 16.8 10^3/uL (4.3-11.0)
[2022-09-18 20:29] LABS: ALBUMIN 4.1 GM/DL (3.2-4.5)
[2022-09-18] MEDS ORDERED: LACTATED RINGERS 1,000 ML IV SCH (20:30)
[2022-09-18 20:31] LABS: CALCIUM 9.1 MG/DL (8.5-10.1)
[2022-09-18 20:32] LABS: PROTHROMBIN TIME PATIENT 13.7 SEC (12.2-14.7); TOTAL PROTEIN 7.1 GM/DL (6.4-8.2)
[2022-09-18 20:34] LABS: BILIRUBIN,TOTAL 0.6 MG/DL (0.1-1.0)
[2022-09-18 20:35] LABS: CREATININE SERUM 0.77 MG/DL (0.60-1.30)
[2022-09-18 20:41] LABS: LYMPHOCYTES % (MANUAL) 8 %; MONOCYTES % (MANUAL) 1 %; NEUTROPHILS % (MANUAL) 91 %; RBC MORPH NORMAL
[2022-09-18] MEDS ORDERED: CATHETER FLUSH 10 ML SYR IVP PRN (22:00)
[2022-09-18] MEDS: fentaNYL INJ 100 MCG/2 ML AMP IV PRN (22:16)
[2022-09-19] VITALS (8 sets, daily range): BP systolic 123–165; BP diastolic 63–89
[2022-09-19] MEDS: DOCUSATE SODIUM 100 MG (COLACE) CAP PO SCH ×3 (00:11→20:15)
[2022-09-19] MEDS: CATHETER FLUSH 10 ML SYR IVP SCH ×4 (00:11→20:16)
[2022-09-19] MEDS: fentaNYL INJ 100 MCG/2 ML AMP IV PRN (05:04)
[2022-09-19 05:47] LABS: BASOPHILS # (AUTO) 0.1 10^3/uL (0.0-0.1); BASOPHILS % (AUTO) 0 % (0-10); EOSINOPHILS # (AUTO) 0.1 10^3/uL (0.0-0.3); EOSINOPHILS % (AUTO) 1 % (0-10); HEMATOCRIT 32 % (40-54); HEMOGLOBIN 11.4 g/dL (13.3-17.7); LYMPHOCYTES # (AUTO) 1.6 10^3/uL (1.0-4.0); LYMPHOCYTES % (AUTO) 11 % (12-44); MEAN CORPUSCULAR HEMOGLOBIN 33 pg (25-34); MEAN CORPUSCULAR HGB CONC 36 g/dL (32-36); MEAN CORPUSCULAR VOLUME 93 fL (80-99); MEAN PLATELET VOLUME 9.3 fL (9.0-12.2); MONOCYTES # (AUTO) 0.8 10^3/uL (0.0-1.0); MONOCYTES % (AUTO) 6 % (0-12); NEUTROPHILS # (AUTO) 11.9 10^3/uL (1.8-7.8); NEUTROPHILS % (AUTO) 81 % (42-75); PLATELET COUNT 171 10^3/uL (130-400); WHITE BLOOD COUNT 14.6 10^3/uL (4.3-11.0)
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
[2022-09-19 08:53] LABS: POTASSIUM 3.9 MMOL/L (3.6-5.0)
[2022-09-19 08:54] LABS: CALCIUM 8.4 MG/DL (8.5-10.1)
[2022-09-19 08:58] LABS: CREATININE SERUM 0.81 MG/DL (0.60-1.30)
[2022-09-19] MEDS ORDERED: lisINopril 20 MG (PRINIVIL) TABLET PO SCH (10:00)
[2022-09-19] MEDS: HYDROcodone/APAP 7.5 MG/325 MG (LORTAB, LORCET PLUS) TABLET PO SCH ×3 (10:33→21:48)
[2022-09-19] MEDS: meTOproloL SUCCINATE 50 MG (TOPROL XL) TAB PO SCH (10:34)
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
[2022-09-19] MEDS ORDERED: SENNA W/DOCUSATE (SENOKOT S) TABLET PO SCH (18:00)
[2022-09-19] MEDS ORDERED: TAMSULOSIN 0.4 MG (FLOMAX) CAP PO SCH (18:00)
[2022-09-19 20:12] LABS: BILIRUBIN,URINE NEGATIVE (NEGATIVE); CLARITY,URINE CLEAR; COLOR,URINE YELLOW; GLUCOSE, URINE (UA) NEGATIVE (NEGATIVE); KETONES,URINE NEGATIVE (NEGATIVE); LEUKOCYTE ESTERASE ,URINE NEGATIVE (NEGATIVE); NITRITE,URINE NEGATIVE (NEGATIVE); PROTEIN,URINE NEGATIVE (NEGATIVE)
[2022-09-19] MEDS: FAMOTIDINE 20 MG (PEPCID) TABLET PO SCH (20:16)
[2022-09-19 20:20] LABS: BACTERIA,URINE NEGATIVE /HPF
[2022-09-19] MEDS ORDERED: AtorvaSTATin TABLET 10 MG TABLET PO SCH (21:00)
[2022-09-20 03:40] VITALS: BP 171/86
[2022-09-20] MEDS: HYDROcodone/APAP 7.5 MG/325 MG (LORTAB, LORCET PLUS) TABLET PO SCH ×2 (03:58→09:49)
[2022-09-20 04:35] VITALS: BP 189/78
[2022-09-20] MEDS ORDERED: lisINopril 40 MG (PRINIVIL) TABLET PO ONE (04:45)
[2022-09-20] MEDS ORDERED: amLODIPine 5 MG (NORVASC) TAB PO ONE (04:45)
[2022-09-20] MEDS ORDERED: lisINopril 20 MG (PRINIVIL) TABLET PO ONE ×2 (05:00→09:00)
[2022-09-20 05:45] LABS: HEMATOCRIT 35 % (40-54); HEMOGLOBIN 12.2 g/dL (13.3-17.7); MEAN CORPUSCULAR HEMOGLOBIN 33 pg (25-34); MEAN CORPUSCULAR HGB CONC 35 g/dL (32-36); MEAN CORPUSCULAR VOLUME 94 fL (80-99); MEAN PLATELET VOLUME 9.5 fL (9.0-12.2); PLATELET COUNT 173 10^3/uL (130-400); WHITE BLOOD COUNT 9.3 10^3/uL (4.3-11.0)
[2022-09-20 06:06] VITALS: BP 169/78
[2022-09-20] MEDS: CATHETER FLUSH 10 ML SYR IVP SCH (06:06)
[2022-09-20] MEDS ORDERED: LEVOTHYROXINE 112 MCG (LEVOTHROID) TAB PO SCH (06:30)
[2022-09-20 07:09] VITALS: BP 142/77
[2022-09-20] MEDS: DOCUSATE SODIUM 100 MG (COLACE) CAP PO SCH (08:42)
[2022-09-20] MEDS: FAMOTIDINE 20 MG (PEPCID) TABLET PO SCH (08:43)
[2022-09-20] MEDS: meTOproloL SUCCINATE 50 MG (TOPROL XL) TAB PO SCH (08:43)
[2022-09-20] MEDS ORDERED: lisINopril 40 MG (PRINIVIL) TABLET PO SCH (09:00)
[2022-09-20] MEDS ORDERED: PANTOPRAZOLE 40 MG (PROTONIX) TAB PO SCH (09:00)
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
[2022-09-20] MEDS ORDERED: LISI40TA9 PO (09:24)
[2022-09-20 11:20] VITALS: BP 166/74
--- NOTE | 2022-09-20 11:56 | Physical Therapy Daily Note ---
PT Daily Note-Current Subjective Pt denies pain while at rest. Pain elicited with sit to stand and toilet transfer. Pain Numeric Pain Scale: 7 Location: Left Location Body Site: Hip Pain Description: Stabbing Comment: Pain only with sit to stand. Section J - Health Conditions 1. Rarely or not at all 2. Occasionally 3. Frequently 4. Almost constantly 8. Unable to answer Pain Effect on Sleep: 2 Pain Interference with Therapy: 2 Pain Interference w/Day-to-Day: 2 Mental Status Patient Orientation: Person, Place, Time, Situation Transfers SCALE: Activities may be completed with or without assistive devices. 1-Jarsztdzdw-ryvgnve completes the activity by him/herself with no assistance from a helper. 5-Set-up or Clean-up Assistance-helper sets up or cleans up; patient completes activity. [place] assists only prior to or following the activity. 4-Supervision or Touching Assistance-helper provides verbal cues and/or touching/steadying and/or contact guard assistance as patient completes activity. Assistance may be provided throughout the activity or intermittently. 3-Partial/Moderate Assistance-helper does LESS THAN HALF the effort. [place] lifts, holds or supports trunk or limbs, but provides less than half the effort. 2-Substantial/Maximal Assistance-helper does MORE THAN HALF the effort. [place] lifts or holds trunk or limbs and provides more than half the effort. 3-Lfwoseqbp-zimzmt does ALL the effort. Patient does none of the effort to complete the activity. Or, the assistance of 2 or more helpers is required for the patient to complete the activity. If activity was not attempted, code reason: 7-Patient Refused. 9-Not Applicable-not attempted and the patient did not perform the activity before the current illness, exacerbation or injury. 10-Not Attempted due to Environmental Limitations-(lack of equipment, weather restraints, etc.). 88-Not Attempted due to Medical Conditions or Safety Concerns. Roll Left & Right (QC): 3 Sit to Lying (QC): 2 Lying to Sitting/Side of Bed(Q: 2 Sit to Stand (QC): 2 Chair/Uos-wa-Sqmur Xfer(QC): 2 Toilet Transfer (QC): 2 Greater difficulty with transfers and bed mobility today due to (L) hip/pelvis pain. Weight Bearing Right Lower Extremity: Right Weight Bearing/Tolerated Left Lower Extremity: Left Touch Toe Bearing Gait Training Does the Patient Walk?: Yes Distance: 26ft Walk 10 feet (QC): 4 Gait Persons Needed: 1 Gait Assistive Device: FWW Wheelchair Training Does the Pt Use a Wheelchair?: No Exercises Supine Ex: LE Protocol Supine Reps: 15 Assessment Current Status: Good Progress Pt was able to ambulate further today. Hip/pelvis pain limited (I) with bed mobility and transfers. PT Assisted Goals Cell Phone Repair Technician Goals PT Cell Phone Repair Technician Goals Time Frame: Oct 10, 2022 Roll Left & Right (QC): 6 Sit to Lying (QC): 6 Lying-Sitting on Side/Bed(QC): 6 Sit to Stand (QC): 6 Chair/Nbt-ek-Vuzyd Xfer(QC): 6 Toilet Transfer (QC): 6 Car Transfer (QC): 6 Does the Patient Walk: Yes Walk 10 feet (QC): 6 Walk 50ft with 2 Turns (QC): 6 Walk 150 ft (QC): 6 Walking 10ft on Uneven Surface: 6 1 Step (curb) (QC): 6 4 Steps (QC): 6 12 Steps (QC): 4 Does the Pt use WC or Scooter?: No PT Plan Treatment/Plan Treatment Plan: Continue Plan of Care Treatment Plan: Bed Mobility, Concurrent Therapy, Education, Functional Activity Jose, Functional Strength, Group Therapy, Gait, Safety, Therapeutic Exercise, Transfers Treatment Duration: Oct 10, 2022 Frequency: 6 times per week Estimated Hrs Per Day: .25 hour per day Patient and/or Family Agrees t: Yes Time Time In: 1000 Time Out: 1025 DATE: Sep 20, 2022 Total Billed Treatment Time: 25 Total Billed Treatment 1, ex 15, gt 10 MINH ELIZALDE PT Sep 20, 2022 11:56
[2022-09-20 12:32] VITALS: BP 166/74
[2022-09-21] MEDS ORDERED: lisINopril 40 MG (PRINIVIL) TABLET PO SCH (09:00)
== END 2022-09-20 09:22 ==
LOC: EDUNIT# 18:26 → ER 18:28 → 4TH 20:17
PROVIDERS: ADMIT Family Medicine; ATTEND Family Medicine
DX: S32.592A Other specified fracture of left pubis, initial encounter for closed fracture (principal); S32.402A Unspecified fracture of left acetabulum, initial encounter for closed fracture; S32.19XA Other fracture of sacrum, initial encounter for closed fracture; I10 Essential (primary) hypertension; E87.1 Hypo-osmolality and hyponatremia; D72.829 Elevated white blood cell count, unspecified; D64.9 Anemia, unspecified; F03.90 Unspecified dementia, unspecified severity, without behavioral disturbance, psychotic disturbance, mood disturbance, and anxiety; Z87.891 Personal history of nicotine dependence; Z79.899 Other long term (current) drug therapy; W19.XXXA Unspecified fall, initial encounter; Y93.01 Activity, walking, marching and hiking; Y92.009 Unspecified place in unspecified non-institutional (private) residence as the place of occurrence of the external cause
CPT/HCPCS: 72192; 73502; 80048; 80053; 81000; 85007; 85025; 85027 ×2; 85610; 86850; 86900; 86901; 96375; 96376; 97110; 97116; 97162; 99283; G0378; 36415

== ENCOUNTER 2022-09-20 11:58 | Inpatient (IN) | payer MEDICARE, OTHER ==
[2022-09-19] MEDS: DOCUSATE SODIUM 100 MG (COLACE) CAP PO SCH (21:00)
[2022-09-19] MEDS: SENNA W/DOCUSATE (SENOKOT S) TABLET PO SCH (21:00)
[2022-09-19] MEDS: polyethylene glycoL POWDER 17 GM (MIRALAX) PACK PO SCH (21:00)
[~2022-09-20] VITALS: Ht 177.8 cm; Wt 79.6 kg
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
[2022-09-20] MEDS: polyethylene glycoL POWDER 17 GM (MIRALAX) PACK PO SCH ×2 (09:00→19:37)
[2022-09-20] MEDS: DOCUSATE SODIUM 100 MG (COLACE) CAP PO SCH ×2 (09:00→19:37)
[2022-09-20] MEDS: SENNA W/DOCUSATE (SENOKOT S) TABLET PO SCH ×3 (09:00→19:38)
[~2022-09-20 11:58] MED LIST changes: +ALPRAZolam 0.25 MG (XANAX) TAB PO PRN; +CALCIUM CARBONATE 500 MG (TUMS) TAB.CHEW PO PRN; +DOCUSATE SODIUM 100 MG (COLACE) CAP PO PRN; +FLEET ENEMA ADULT 1 EA BTL PR PRN; +LACTULOSE SYRUP 10GM/15ML (ENULOSE) 30ML UDC PO PRN; +LISI40TA9 PO; +LOPERAMIDE 2 MG (IMODIUM) TABLET PO PRN; +MELATONIN 3 MG TABLET PO PRN; +ONDANSETRON 4 MG (ZOFRAN) ORAL DISSOLVE TAB PO PRN; +diphenhydrAMINE 25 MG TAB (BENADRYL) PO PRN; +guaiFENesin/CODEINE (ROBITUSSIN AC) 10ML UDC PO PRN
--- OUTSIDE RECORDS SUMMARY | 2022-09-20 12:04 | XMS REPORT | CCD ---
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 Role Phone [facility] Unavailable CCM Unavailable Summary Purpose Interface Exchange Insurance Providers Payer name Policy type / Coverage type Covered constitution party ID Effective Begin Date Effective End Date WPS Medicare Part B Medicare Part B [id number] Unknown Unkno w[facility] Insurance Medicare Part B No Plan Member ID Provided Unknown Unknown Family History Family History data not found Social History Social History Element Codes Description Effective Dates Marital status Unknown Edwina 07/09/2021 Number of children Unknown 3 01/01/2021 Employment Unknown Retired 01/01/[address]: 4493383 Former smoker 01/01/[address]: 990250132 Never drinks alcohol 2020 Allergies, Adverse Reactions, Alerts Substance Reaction Codes Entered Date Inactivated Date Status * NO KNOWN DRUG ALLERGIES Unknown 01/01/2021 No Inactiv e Date Active Problems Condition Codes Effective Dates Condition Status Dementia in other diseases classified elsewhere withou t behavioral disturbance ICD-10: F02.80 ICD-9: 294.10 07/01/2021 Active Essential (primary) hypertension ICD-10: I10 ICD-9: 401.1 01/02/2021 Active Mixed hyperlipidemia ICD-10: E78.2 ICD-9: 272.2 01/02/2021 Active BPH w urinary obs/LUTS ICD-10: N40.1 ICD-9: 600.01 01/02/2021 Active 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 ICD-10: G30.1 ICD-9: 331.0 01/02/2021 Active Biceps tendinosis of left shoulder ICD-10: M67.814 ICD-9: 726.10 12/19/2021 Active Left shoulder pain ICD-10: M25.512 ICD-9: 719.41 12/19/2021 Active Leg length discrepancy ICD-10: M21.70 ICD-9: 736.81 08/28/2021 Active URI (upper respiratory infection) ICD-10: J06.9 ICD-9: 465.9 08/14/2021 Active Flu vaccine need ICD-10: Z23 ICD-9: V04.81 07/01/2021 Active Bradycardia ICD-10: R00.1 ICD-9: 427.89 01/02/2021 Active Dementia in other diseases classified elsewhere withou t behavioral disturbance ICD-10: F02.80 01/02/2021 Active Other obstructive and reflux uropathy ICD-10: N13.8 01/02/2021 Active Recent fracture of hip ICD-10: S72.009A ICD-9: 820.8 01/02/2021 Active Medications Medication Codes Instructions Start Date Stop Date Status Fill Instructions metoprolol succinate ER 100 mg tablet,extended release 24 hr RxNorm: 136466 Take 1 Tablet(s) Oral every day 08/28/2022 08/22/2023 Active metoprolol succinate ER 50 mg tablet,extended release 24 hr RxNorm: 601327 Take 1 Tablet(s) Oral every day 08/28/2022 12/25/2022 Active this is in place of the 100mg dose - delete the metoprolol ER 100mg from his med list tamsulosin 0.4 mg capsule RxNorm: 516174 Take 1 Capsule(s) Oral every day 08/28/2022 02/23/2023 Active tamsulosin 0.4 mg capsule RxNorm: 354581 Take 1 Capsule(s) Oral every day 05/22/2022 05/22/2022 Inactive famotidine 20 mg tablet RxNorm: 424082 Take 1 Tablet(s) Oral tw o times a day 03/30/2022 03/24/2023 Active Euthyrox 112 mcg tablet RxNorm: 840166 Take 1 Tablet(s) Oral ev doug day 03/09/2022 12/03/2022 Active lisinopril 20 mg tablet RxNorm: 157025 Take 1 Tablet(s) Oral ev doug day 02/18/2022 No Stop Date Active atorvastatin 10 mg tablet RxNorm: 612091 Take 1 Tablet(s) Oral every day 01/15/2022 10/11/2022 Active metoprolol succinate ER 25 mg tablet,extended release 24 hr RxNorm: 879026 Take 1 Tablet(s) Oral every day 12/18/2021 08/27/2022 Inactive azithromycin 250 mg tablet RxNorm: 664195 Take 1 Tablet (s) Oral every day take 2 tablets on day 1, then 1 tablet on day 2-5 08/14/2021 08/18/2021 Inact keegan fluorouracil 5 % topical cream RxNorm: 352621 Apply 1 A pplication Topical two times a day 07/01/2021 07/10/2021 Inactive dispense 1 tube lisinopril 10 mg tablet RxNorm: 468819 1 Tablet(s) Oral every day 0 02/12/2021 02/17/2022 Inactive tamsulosin 0.4 mg capsule RxNorm: 566910 1 Capsule(s) Oral every da y 02/12/2021 02/12/2021 Inactive levothyroxine 112 mcg tablet RxNorm: 825962 1 Tablet(s) Oral ev doug day 02/12/2021 02/12/2021 Inactive famotidine 20 mg tablet RxNorm: 786723 1 Tablet(s) Oral two mike es a day 02/12/2021 02/12/2021 Inactive famotidine 20 mg tablet RxNorm: 278557 1 Tablet(s) Oral two mike es a day 02/12/2021 02/11/2021 Inactive levothyroxine 112 mcg tablet RxNorm: 060547 1 Tablet(s) Oral ev doug day 02/12/2021 02/11/2021 Inactive atorvastatin 10 mg tablet RxNorm: 999773 1 Tablet(s) Oral every day 01/15/2021 01/15/2021 Inactive metoprolol succinate ER 25 mg tablet,extended release 24 hr RxNorm: 733557 1 Tablet(s) Oral every day 01/02/2021 01/02/2021 Inactive zinc 50 mg tablet RxNorm: 1 Tablet(s) Oral every day 01/01/2021 No Stop Date Active magnesium RxNorm: Oral 01/01/2021 No Stop Date Active Fish Oil 1,000 mg (120 mg-180 mg) capsule RxNorm: 1 Caps ule(s) Oral every day 01/01/2021 No Stop Date Active atorvastatin 10 mg tablet RxNorm: 181281 1 Tablet(s) Oral every day 01/01/2021 01/14/2021 Inactive tamsulosin 0.4 mg capsule RxNorm: 114356 1 Capsule(s) Oral every da y 01/01/2021 02/11/2021 Inactive lisinopril 10 mg tablet RxNorm: 273785 1 Tablet(s) Oral every day 0 01/01/2021 02/11/2021 Inactive metoprolol succinate ER 50 mg tablet,extended release 24 hr RxNorm: 630799 1 Tablet(s) Oral every day 01/01/2021 01/02/2021 Inactive fiber oral RxNorm: 19224 oral 01/01/2021 Active iodine oral RxNorm: 5933 oral 01/01/2021 Active Medication Administered No Medication Administered data Immunizations Vaccine Codes Dose Date Status Influenza CVX: 197 0.5 07/01/2021 Complete Results Observation Observation Code Item Item Code Result Date S ervice Location C-Reactive Protein Qnt Crqnt CRP 0.1 mg/dl 2020 Unknown Comp Metabolic Xzp916 NA 134 mEq/L 01/29/2021 Unkn own Comp Metabolic Aks989 K 4.5 mEq/L 01/29/2021 Unkn own Comp Metabolic Kdu165 CL 100 mEq/L 01/29/2021 Unkn own Comp Metabolic Ilg800 CO2 26.0 mEq/L 01/29/2021 Unk nown Comp Metabolic Grx068 ANION GAP 13 01/29/2021 Unkn own Comp Metabolic Iga162 GLUCOSE 89 mg/dL 01/29/2021 Unkn own Comp Metabolic Gyp212 Creat 0.8 mg/dL 01/29/2021 Unkn own Comp Metabolic Woh383 eGFR 104 ml/min/1.73m2 021 Unknown Comp Metabolic Iob072 BUN 9 mg/dL 01/29/2021 Unkn own Comp Metabolic Zoo149 B/C Ratio 11.7 Ratio 01/29/2021 Unk nown Comp Metabolic Sjx371 CALCIUM 9.2 mg/dL 01/29/2021 Unkn own Comp Metabolic Vkt640 ALK PHOS 113 U/L 01/29/2021 Unkn own Comp Metabolic Dkn384 AST(SGOT) 20 U/L 01/29/2021 Unkn own Comp Metabolic Gnc109 ALT(SGPT) 18 U/L 01/29/2021 Unkn own Comp Metabolic Ymx554 BILI T 0.5 mg/dL 01/29/2021 Unkn own Comp Metabolic Snx343 ALBUMIN 4.2 g/dL 01/29/2021 Unkn own Comp Metabolic Xpy302 TPRO 6.9 g/dL 01/29/2021 Unkn own Comp Metabolic Vke690 GLOB 2.7 g/dL 01/29/2021 Unkn own Comp Metabolic Jfy802 A/G Ratio 1.6 Ratio 01/29/2021 Unkn own Comp Metabolic Jgb526 Osmo 266 mOsmo 01/29/2021 Unkn own Lipid Ord30 CHOL 146 mg/dL 01/29/2021 Unknown Lipid Ord30 HDL 40.0 mg/dl 01/29/2021 Unknown Lipid Ord30 TRIG 138 mg/dL 01/29/2021 Unknown Lipid Ord30 LDL 78 mg/dL 01/29/2021 Unknown Lipid Ord30 C/HDL 3.7 Ratio 01/29/2021 Unknown Magnesium Ord90 Mag 2.0 mg/dL 01/29/2021 Unknown Tsh Ord6 TSH (3rd IS) 4.60 uIU/mL 01/28/2021 Unkn own Vitamin D 25 Oh Dnn5121 VITAMIN D, 25 HYDROXY 43.18 ng/mL 01/28/2021 Unknown Procedures Procedure Codes Date INFLUENZA ASSAY W/OPTIC CPT-4: 92088 08/14/2021 INFLUENZA ASSAY W/OPTIC CPT-4: 49113 08/14/2021 SARSCOV CORONAVIRUS AG IA CPT-4: 38039 08/14/2021 ADMIN INFLUENZA VIRUS VAC CPT-4: G0008 07/01/2021 IIV NO PRSV INCREASED AG IM CPT-4: 25466 07/01/2021 Vital Signs Date Vital 08/28/2022 Blood Pressure 1: 136/74 Code: 8480-6 BMI: 25.1 Code: 31485-9 Heart Rate 1: 53 bpm Height: 5'9" Code: 8302-2 SpO2: 99% Temperature: 3 6.3 (C) / 97.3 (F) Weight: 170 lbs Code: 45002-9 02/23/2022 Blood Pressure 1: 140/76 Code: 8480-6 BMI: 25.0 Code: 89648-0 Heart Rate 1: 64 bpm Height: 5'9" Code: 8302-2 SpO2: 98% Temperature: 3 6.4 (C) / 97.5 (F) Weight: 169 lbs Code: 95950-0 12/19/2021 Blood Pressure 1: 140/80 Code: 8480-6 BMI: 25.7 Code: 68967-6 Heart Rate 1: 50 bpm Height: 5'9" Code: 8302-2 Respiratory Rate: 18 bpm SpO2: 94% Temperature: 36.2 (C) / 97.2 (F) Weight: 174 lbs Code: 08208-3 08/28/2021 Blood Pressure 1: 158/80 Code: 8480-6 BMI: 26.3 Code: 03875-2 Heart Rate 1: 56 bpm Height: 5'9" Code: 8302-2 Respiratory Rate: 18 bpm SpO2: 98% Temperature: 36.0 (C) / 96.8 (F) Weight: 178 lbs Code: 97095-3 07/01/2021 Blood Pressure 1: 154/76 Code: 8480-6 BMI: 25.8 Code: 46514-1 Heart Rate 1: 62 bpm Height: 5'9" Code: 8302-2 Respiratory Rate: 16 bpm SpO2: 97% Temperature: 36.2 (C) / 97.1 (F) Weight: 175 lbs Code: 96624-7 02/25/2021 Blood Pressure 1: 122/70 Code: 8480-6 BMI: 24.8 Code: 01828-9 Heart Rate 1: 56 bpm Height: 5'9" Code: 8302-2 Respiratory Rate: 16 bpm SpO2: 98% Temperature: 35.3 (C) / 95.6 (F) Weight: 168 lbs Code: 43884-3 01/02/2021 Blood Pressure 1: 118/64 Code: 8480-6 BMI: 24.5 Code: 11243-6 Heart Rate 1: 45 bpm Height: 5'9" Code: 8302-2 Respiratory Rate: 18 bpm SpO2: 99% Temperature: 36.2 (C) / 97.2 (F) Weight: 166 lbs Code: 68395-7 Functional Status No Functional Status data Reason For Visit Reason For Visit Effective Dates Notes hypertension 08/28/2022 hypertension 02/23/2022 shoulder pain 12/19/2021 hypertension 08/28/2021 sinus congestion 08/14/2021 cough 08/14/2021 hypertension 07/01/2021 vaccination against influenza 07/01/2021 hypertension 02/25/2021 Hospital Follow Up 01/02/2021 memory loss 01/02/2021 Encounters Encounter Performer Location Location Address Codes Date ([id number]) 63455 EST. PATIENT, LEVEL IV Diagnosis: Essential (primary) hypertension[ICD10: I10] Diagnosis: Mixed hyperlipidemia[ICD10: E78.2] Diagnosis: Dementia in other diseases classified elsewhere without behavioral disturbance[ICD10: F02.80] [facility], [facility] [address] [place] [address] CPT-4: 91569 08/28/2022 ([id number]) 27827 EST. PATIENT, LEVEL IV Diagnosis: Essential (primary) hypertension[ICD10: I10] Diagnosis: Late onset Alzheimer's dementia without behavioral disturbance[ICD10: G30.1] Diagnosis: BPH w urinary obs/LUTS[ICD10: N40.1] [facility] MD, [facility] [address] [place] [address] CPT-4: 9921 4 02/23/2022 ([id number]) 71136 EST. PATIENT, LEVEL III Diagnosis: Late onset Alzheimer's dementia without behavioral disturbance[ICD10: G30.1] Diagnosis: Left shoulder pain[ICD10: M25.512] Diagnosis: Biceps tendinosis of left shoulder[ICD10: M67.814] Selena Mauro MD, [facility] [address] [place] [address] CPT-4 : 87067 12/19/2021 ([id number]) 27631 EST. PATIENT, LEVEL IV Diagnosis: Essential (primary) hypertension[ICD10: I10] Diagnosis: Late onset Alzheimer's dementia without behavioral disturbance[ICD10: G30.1] Diagnosis: Leg length discrepancy[ICD10: M21.70] [facility] MD, [facility] [address] [place] [address] CPT-4: 9921 4 08/28/2021 ([id number]) [id number] EST. PATIENT, LEVEL III Diagnosis: Dementia in other diseases classified elsewhere without behavioral disturbance[ICD10: F02.80] Diagnosis: URI (upper respiratory infection)[ICD10: J06.9] Selena Mauro MD, [facility] [address] [place] [address] CPT-4: 9921 3 08/14/2021 ([id number]) 63124 EST. PATIENT, LEVEL IV Diagnosis: Flu vaccine need[ICD10: Z23] Diagnosis: Essential (primary) hypertension[ICD10: I10] Diagnosis: Dementia in other diseases classified elsewhere without behavioral disturbance[ICD10: F02.80] [facility] MD, [facility] [address] [place] [address] CPT-4: 22916 07/01/2021 ([id number]) 54219 EST. PATIENT, LEVEL IV Diagnosis: Essential (primary) hypertension[ICD10: I10] Diagnosis: Late onset Alzheimer's dementia without behavioral disturbance[ICD10: G30.1] Diagnosis: BPH w urinary obs/LUTS[ICD10: N40.1] [facility] MD, [facility] [address] [place] [address] CPT-4: 9921 4 02/25/2021 ([id number]) OFFICE VISIT, NEW - LEVEL 4 Diagnosis: Essential (primary) hypertension[ICD10: I10] Diagnosis: Mixed hyperlipidemia[ICD10: E78.2] Diagnosis: Other obstructive and reflux uropathy[ICD10: N13.8] Diagnosis: BPH w urinary obs/LUTS[ICD10: N40.1] Diagnosis: Recent fracture of hip[ICD10: S72.009A] Diagnosis: Dementia in other diseases classified elsewhere without behavioral disturbance[ICD10: F02.80] Diagnosis: Late onset Alzheimer's dementia without behavioral disturbance[ICD10: G30.1] Diagnosis: Bradycardia[ICD10: R00.1] [facility] MD, [facility] [address] [place] [address] CPT-4: 08264 01/02/2021 Plan of Care Planned Activity Notes Codes Status Date Visit Plan: Hypertension -wait on an inc rease in the metoprolol from 25mg to the 100mg due to his heart rate I will send out a 50mg dose to the pharmacy. The pt has been advised to call the office if there are any acute concerns about change in blood pressure readings at home. BPH - pt on flomax, defer to Dr. Resendez - advised they need to make sure he is getting yearly exams with Mal. Dementia - advanced - pt seeing a neurologist in [place], continue with current supportive care and management. 08/28/2022 Appointment: [facility] WPtel: [phone] [phone] [place] (15 min) Moderate 08/28/2022 Patient Education: Patient Medication Summary Completed 08/28/2022 Patient Education: Cholesterol Management Completed 08/28/2022 Visit Plan: Hypertension - stable- elif nue with current medications, continue with no added salt diet. Pt has been encouraged to exercise daily. The pt has been advised to call the office if there are any acute concerns about change in blood pressure readings at home. BPH - pt on flomax, defer to Dr. Resendez - advised they need to make sure he is getting yearly exams with Mal. Dementia - advanced - pt seeing a neurologist in [place], continue with current supportive care and management. 02/23/2022 Appointment: [facility] WPtel: [phone] [place] (15 min) Moderate 02/23/2022 Patient Education: Patient Medication Summary Completed 02/23/2022 Visit Plan: Biceps tendinitis - pt to do exercises as directed, ant- inflammatories directed to be taken per RX instructions and pt to call if symptoms are not improved. Encouraged use of Salonpas patches and to notify office if pain does not improve or worsens over the next week. 12/19/2021 [facility]ment[phone] [place] (30 min) Complex 12/19/2021 Patient Education: Patient Medication Summary Completed 12/19/2021 Visit Plan: Hypertension - well controll ed - monitor symptoms, continue with no added salt diet. Pt has been encouraged to exercise daily. The pt has been advised to call the office if there are any acute concerns about change in blood pressure readings at home. Actinic keratosis of face - use the efudex - fluorouracil cream to the skin lesion on face twice daily x 10 days then use neosporin on the lesion to help it heal once you stop the use of the efudex cream. Dementia - continue with current management - supportive care. Leg length discrepancy - with gait instability - pt advised the he needs eval by Orthotics to see if he will require a shoe lift or insert to help equalize his legs to improve his gait and decrease risk of falling due to unequal stride and stance. The orthotic will help to aide his independence as well as improve his mobility for IADL's and ADLS 08/28/2021 Appointment: [facility]uro WPtel: [address] [phone] (15 min) Moderate 08/28/2021 Patient Education: Patient Medication Summary Completed 08/28/2021 Appointment: Selena Salas WPtel: [phone] [phone] (30 min) Complex 08/14/2021 Patient Education: Patient Medication Summary Completed 08/14/2021 Visit Plan: Hypertension - well controll ed - monitor symptoms, continue with no added salt diet. Pt has been encouraged to exercise daily. The pt has been advised to call the office if there are any acute concerns about change in blood pressure readings at home. 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 If things worsen or he has progression of his grief then we can consider starting him on medications. 07/01/2021 Appointment: [facility] WPtel: [phone] [phone] (15 min) Moderate 07/01/2021 Patient Education: Patient Medication Summary Completed 07/01/2021 Visit Plan: Hypertension - well controll ed - monitor symptoms, continue with no added salt diet. Pt has been encouraged to exercise daily. The pt has been advised to call the office if there are any acute concerns about change in blood pressure readings at home. BPH - pt on flomax, defer to Dr. Resendez. Dementia - advanced - pt seeing a neurologist in [place]. At this time there are no behavior changes, but he does have significant memory loss with pt not able to form new memories. 02/25/2021 Appointment: [facility] WPtel: [address] [place] [phone] (15 min) Moderate 02/25/2021 Patient Education: Patient Medication Summary Completed 02/25/2021 Patient Education: Patient Medication Summary Completed 01/28/2021 Visit Plan: Hypertension - well controll ed - however with his decreased heart rate - continue with stop metoprolol due to bradycardia - - decrease metoprolol to 25mg and leave lisinopril at 20mg daily - monitor symptoms, continue with no added salt diet. Pt has been encouraged to exercise daily. The pt has been advised to call the office if there are any acute concerns about change in blood pressure readings at home. Bradycardia - we will get him set up for a holter monitor. We will also set a patient up for a referral to Dr. Jarvis. BPH - pt on flomax, defer to Dr. Resendez. Recent hip fracture - left side, healing well - pt on walker, receiving physical therapy. Dementia - advanced - pt seeing a neurologist in [place] - will try to get a copy of his appointments from the specialist. At this time there are no behavior changes, but he does have significant memory loss with pt not able to form new memories. 01/02/2021 Appointment: [facility] WPtel: [address] [place], [place] [phone] New Patient 01/02/2021 Patient Education: Patient Medication Summary Completed 01/02/2021 Patient Education: Cholesterol Management Completed 01/02/2021 Instructions Comment Date wait on an increase in the metoprolol fr om 25mg to the 100mg due to his heart rate I will send out a 50mg dose to the pharmacy. . Hypertension -wait on an increase in t he metoprolol from 25mg to the 100mg due to his heart rate I will send out a 50mg dose to the pharmacy. The pt has been advised to call the office if there are any acute concerns about change in blood pressure readings at home. BPH - pt on flomax, defer to Dr. Resendez - advised they need to make sure he is getting yearly exams with Mal. Dementia - advanced - pt seeing a neurologist in [place], continue with current supportive care and management. 08/28/2022 . Hypertension - stable- continue with c urrent medications, continue with no added salt diet. Pt has been encouraged to exercise daily. The pt has been advised to call the office if there are any acute concerns about change in blood pressure readings at home. BPH - pt on flomax, defer to Dr. Resendez - advised they need to make sure he is getting yearly exams with Mal. Dementia - advanced - pt seeing a neurologist in [place], continue with current supportive care and management. 02/23/2022 APPLY SALONPAS PATCH TO LEFT SHOULDER SEE HANDOUT FOR SHOULDER STRETCHES MAY TAKE IBUPROFEN INTERMITTENTLY NOTIFY OFFICE IF PAIN WORSENS OR DOES NOT IMPROVE IN THE NEXT WEEK . Biceps tendinitis - pt to do exercises as directed, ant-inflammatories directed to be taken per RX instructions and pt to call if symptoms are not improved. Encouraged use of Salonpas patches and to notify office if pain does not improve or worsens over the next week. 12/19/2021 . Hypertension - well controlled - monit or symptoms, continue with no added salt diet. Pt has been encouraged to exercise daily. The pt has been advised to call the office if there are any acute concerns about change in blood pressure readings at home. Actinic keratosis of face - use the efudex - fluorouracil cream to the skin lesion on face twice daily x 10 days then use neosporin on the lesion to help it heal once you stop the use of the efudex cream. Dementia - continue with current management - supportive care. Leg length discrepancy - with gait instability - pt advised the he needs eval by Orthotics to see if he will require a shoe lift or insert to help equalize his legs to improve his gait and decrease risk of falling due to unequal stride and stance. The orthotic will help to aide his independence as well as improve his mobility for IADL's and ADLS 08/28/2021 use the efudex - fluorouracil cream to t he skin lesion on left arm twice daily x 10 days then use neosporin on the lesion to help it heal once you stop the use of the efudex cream - and then once the site on the left arm is healed, start the efudex on the top of right hand . Hypertension - well controlled - monit or symptoms, continue with no added salt diet. Pt has been encouraged to exercise daily. The pt has been advised to call the office if there are any acute concerns about change in blood pressure readings at home. 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 If things worsen or he has progression of his grief then we can consider starting him on medications. 07/01/2021 . Hypertension - well controlled - monit or symptoms, continue with no added salt diet. Pt has been encouraged to exercise daily. The pt has been advised to call the office if there are any acute concerns about change in blood pressure readings at home. BPH - pt on flomax, defer to Dr. Resendez. Dementia - advanced - pt seeing a neurologist in [place]. At this time there are no behavior changes, but he does have significant memory loss with pt not able to form new memories. 02/25/2021 change metoprolol to a 25mg dose leave lisninopril at 20mg we will send an order to the hospital for a holter monitor . Hypertension - well controlled - howev er with his decreased heart rate - continue with stop metoprolol due to bradycardia - - decrease metoprolol to 25mg and leave lisinopril at 20mg daily - monitor symptoms, continue with no added salt diet. Pt has been encouraged to exercise daily. The pt has been advised to call the office if there are any acute concerns about change in blood pressure readings at home. Bradycardia - we will get him set up for a holter monitor. We will also set a patient up for a referral to Dr. Jarvis. BPH - pt on flomax, defer to Dr. Resendez. Recent hip fracture - left side, healing well - pt on walker, receiving physical therapy. Dementia - advanced - pt seeing a neurologist in [place] - will try to get a copy of his appointments from the specialist. At this time there are no behavior changes, but he does have significant memory loss with pt not able to form new memories. 01/02/2021 Medical Equipment No Medical Equipment data Health Concerns Section Health Concerns data not found Goals Section Goals data not found Interventions Section Interventions data not found Health Status Evaluations/Outcomes Section Health Status Evaluations/Outcomes data not found Advance Directives No Advance Directive data
--- OUTSIDE RECORDS SUMMARY | 2022-09-20 12:05 | XMS REPORT | CCD ---
Author Author Dayron Mauro Organization [facility] Address [address] [place] [address] Phone Care Team Providers Care Mother Tester Name Role Phone [facility] PP Unavailable CCM Unavailable Summary Purpose Interface Exchange Insurance Providers Payer name Policy type / Coverage type Covered democrat ID Effective Begin Date Effective End Date WPS Medicare Part B Medicare Part B [id number] Unknown Unkno wn [facility] Insurance Medicare Part B No Plan Member ID Provided Unknown Unknown Family History Family History data not found Social History Social History Element Codes Description Effective Dates Marital status Unknown Edwina 07/09/2021 Number of children Unknown 3 01/01/2021 Employment Unknown Retired 01/01/[address]: 0036544 Former smoker 01/01/[address]: 879676657 Never drinks alcohol 2020 Allergies, Adverse Reactions, Alerts Substance Reaction Codes Entered Date Inactivated Date Status * NO KNOWN DRUG ALLERGIES Unknown 01/01/2021 No Inactiv e Date Active Problems Condition Codes Effective Dates Condition Status BPH w urinary obs/LUTS ICD-10: N40.1 ICD-9: 600.01 01/02/2021 Active Essential (primary) hypertension ICD-10: I10 ICD-9: 401.1 01/02/2021 Active 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 ICD-10: G30.1 ICD-9: 331.0 01/02/2021 Active Biceps tendinosis of left shoulder ICD-10: M67.814 ICD-9: 726.10 12/19/2021 Active Left shoulder pain ICD-10: M25.512 ICD-9: 719.41 12/19/2021 Active Leg length discrepancy ICD-10: M21.70 ICD-9: 736.81 08/28/2021 Active Dementia in other diseases classified elsewhere withou t behavioral disturbance ICD-10: F02.80 ICD-9: 294.10 07/01/2021 Active URI (upper respiratory infection) ICD-10: J06.9 ICD-9: 465.9 08/14/2021 Active Flu vaccine need ICD-10: Z23 ICD-9: V04.81 07/01/2021 Active Mixed hyperlipidemia ICD-10: E78.2 ICD-9: 272.2 01/02/2021 Active Bradycardia ICD-10: R00.1 ICD-9: 427.89 01/02/2021 Active Dementia in other diseases classified elsewhere withou t behavioral disturbance ICD-10: F02.80 01/02/2021 Active Other obstructive and reflux uropathy ICD-10: N13.8 01/02/2021 Active Recent fracture of hip ICD-10: S72.009A ICD-9: 820.8 01/02/2021 Active Medications Medication Codes Instructions Start Date Stop Date Status Fill Instructions metoprolol succinate ER 100 mg tablet,extended release 24 hr RxNorm: 517098 Take 1 Tablet(s) Oral every day 08/28/2022 08/22/2023 Active metoprolol succinate ER 50 mg tablet,extended release 24 hr RxNorm: 971538 Take 1 Tablet(s) Oral every day 08/28/2022 12/25/2022 Active this is in place of the 100mg dose - delete the metoprolol ER 100mg from his med list tamsulosin 0.4 mg capsule RxNorm: 721721 Take 1 Capsule(s) Oral every day 08/28/2022 02/23/2023 Active tamsulosin 0.4 mg capsule RxNorm: 505873 Take 1 Capsule(s) Oral every day 05/22/2022 05/22/2022 Inactive famotidine 20 mg tablet RxNorm: 025139 Take 1 Tablet(s) Oral tw o times a day 03/30/2022 03/24/2023 Active Euthyrox 112 mcg tablet RxNorm: 614470 Take 1 Tablet(s) Oral ev doug day 03/09/2022 12/03/2022 Active lisinopril 20 mg tablet RxNorm: 957106 Take 1 Tablet(s) Oral ev doug day 02/18/2022 No Stop Date Active atorvastatin 10 mg tablet RxNorm: 520852 Take 1 Tablet(s) Oral every day 01/15/2022 10/11/2022 Active metoprolol succinate ER 25 mg tablet,extended release 24 hr RxNorm: 869215 Take 1 Tablet(s) Oral every day 12/18/2021 08/27/2022 Inactive azithromycin 250 mg tablet RxNorm: 054642 Take 1 Tablet (s) Oral every day take 2 tablets on day 1, then 1 tablet on day 2-5 08/14/2021 08/18/2021 Inact keegan fluorouracil 5 % topical cream RxNorm: 138186 Apply 1 A pplication Topical two times a day 07/01/2021 07/10/2021 Inactive dispense 1 tube lisinopril 10 mg tablet RxNorm: 807436 1 Tablet(s) Oral every day 0 02/12/2021 02/17/2022 Inactive tamsulosin 0.4 mg capsule RxNorm: 743171 1 Capsule(s) Oral every da y 02/12/2021 02/12/2021 Inactive levothyroxine 112 mcg tablet RxNorm: 889106 1 Tablet(s) Oral ev doug day 02/12/2021 02/12/2021 Inactive famotidine 20 mg tablet RxNorm: 354428 1 Tablet(s) Oral two mike es a day 02/12/2021 02/12/2021 Inactive famotidine 20 mg tablet RxNorm: 028122 1 Tablet(s) Oral two mike es a day 02/12/2021 02/11/2021 Inactive levothyroxine 112 mcg tablet RxNorm: 854996 1 Tablet(s) Oral ev doug day 02/12/2021 02/11/2021 Inactive atorvastatin 10 mg tablet RxNorm: 340199 1 Tablet(s) Oral every day 01/15/2021 01/15/2021 Inactive metoprolol succinate ER 25 mg tablet,extended release 24 hr RxNorm: 784910 1 Tablet(s) Oral every day 01/02/2021 01/02/2021 Inactive zinc 50 mg tablet RxNorm: 1 Tablet(s) Oral every day 01/01/2021 No Stop Date Active magnesium RxNorm: Oral 01/01/2021 No Stop Date Active Fish Oil 1,000 mg (120 mg-180 mg) capsule RxNorm: 1 Caps ule(s) Oral every day 01/01/2021 No Stop Date Active atorvastatin 10 mg tablet RxNorm: 608718 1 Tablet(s) Oral every day 01/01/2021 01/14/2021 Inactive tamsulosin 0.4 mg capsule RxNorm: 105003 1 Capsule(s) Oral every da y 01/01/2021 02/11/2021 Inactive lisinopril 10 mg tablet RxNorm: 791567 1 Tablet(s) Oral every day 0 01/01/2021 02/11/2021 Inactive metoprolol succinate ER 50 mg tablet,extended release 24 hr RxNorm: 413482 1 Tablet(s) Oral every day 01/01/2021 01/02/2021 Inactive fiber oral RxNorm: 04013 oral 01/01/2021 Active iodine oral RxNorm: 5933 oral 01/01/2021 Active Medication Administered No Medication Administered data Immunizations Vaccine Codes Dose Date Status Influenza CVX: 197 0.5 07/01/2021 Complete Results Observation Observation Code Item Item Code Result Date S ervice Location C-Reactive Protein Qnt Crqnt CRP 0.1 mg/dl 2020 Unknown Comp Metabolic Dma728 NA 134 mEq/L 01/29/2021 Unkn own Comp Metabolic Vho077 K 4.5 mEq/L 01/29/2021 Unkn own Comp Metabolic Vne349 CL 100 mEq/L 01/29/2021 Unkn own Comp Metabolic Prm031 CO2 26.0 mEq/L 01/29/2021 Unk nown Comp Metabolic Coe443 ANION GAP 13 01/29/2021 Unkn own Comp Metabolic Azv020 GLUCOSE 89 mg/dL 01/29/2021 Unkn own Comp Metabolic Mit178 Creat 0.8 mg/dL 01/29/2021 Unkn own Comp Metabolic Mfs835 eGFR 104 ml/min/1.73m2 021 Unknown Comp Metabolic Uig530 BUN 9 mg/dL 01/29/2021 Unkn own Comp Metabolic Acm245 B/C Ratio 11.7 Ratio 01/29/2021 Unk nown Comp Metabolic Rwc681 CALCIUM 9.2 mg/dL 01/29/2021 Unkn own Comp Metabolic Qgn746 ALK PHOS 113 U/L 01/29/2021 Unkn own Comp Metabolic Mnl436 AST(SGOT) 20 U/L 01/29/2021 Unkn own Comp Metabolic Hgx440 ALT(SGPT) 18 U/L 01/29/2021 Unkn own Comp Metabolic Vxk002 BILI T 0.5 mg/dL 01/29/2021 Unkn own Comp Metabolic Xqn910 ALBUMIN 4.2 g/dL 01/29/2021 Unkn own Comp Metabolic Jwm800 TPRO 6.9 g/dL 01/29/2021 Unkn own Comp Metabolic Zmy490 GLOB 2.7 g/dL 01/29/2021 Unkn own Comp Metabolic Bga740 A/G Ratio 1.6 Ratio 01/29/2021 Unkn own Comp Metabolic Zuu643 Osmo 266 mOsmo 01/29/2021 Unkn own Lipid Ord30 CHOL 146 mg/dL 01/29/2021 Unknown Lipid Ord30 HDL 40.0 mg/dl 01/29/2021 Unknown Lipid Ord30 TRIG 138 mg/dL 01/29/2021 Unknown Lipid Ord30 LDL 78 mg/dL 01/29/2021 Unknown Lipid Ord30 C/HDL 3.7 Ratio 01/29/2021 Unknown Magnesium Ord90 Mag 2.0 mg/dL 01/29/2021 Unknown Tsh Ord6 TSH (3rd IS) 4.60 uIU/mL 01/28/2021 Unkn own Vitamin D 25 Oh Cya0050 VITAMIN D, 25 HYDROXY 43.18 ng/mL 01/28/2021 Unknown Procedures Procedure Codes Date INFLUENZA ASSAY W/OPTIC CPT-4: 33329 08/14/2021 INFLUENZA ASSAY W/OPTIC CPT-4: 90534 08/14/2021 SARSCOV CORONAVIRUS AG IA CPT-4: 17764 08/14/2021 ADMIN INFLUENZA VIRUS VAC CPT-4: G0008 07/01/2021 IIV NO PRSV INCREASED AG IM CPT-4: 65383 07/01/2021 Vital Signs Date Vital 02/23/2022 Blood Pressure 1: 140/76 Code: 8480-6 BMI: 25.0 Code: 89841-3 Heart Rate 1: 64 bpm Height: 5'9" Code: 8302-2 SpO2: 98% Temperature: 3 6.4 (C) / 97.5 (F) Weight: 169 lbs Code: 92796-3 12/19/2021 Blood Pressure 1: 140/80 Code: 8480-6 BMI: 25.7 Code: 34362-3 Heart Rate 1: 50 bpm Height: 5'9" Code: 8302-2 Respiratory Rate: 18 bpm SpO2: 94% Temperature: 36.2 (C) / 97.2 (F) Weight: 174 lbs Code: 16485-2 08/28/2021 Blood Pressure 1: 158/80 Code: 8480-6 BMI: 26.3 Code: 18716-7 Heart Rate 1: 56 bpm Height: 5'9" Code: 8302-2 Respiratory Rate: 18 bpm SpO2: 98% Temperature: 36.0 (C) / 96.8 (F) Weight: 178 lbs Code: 28945-4 07/01/2021 Blood Pressure 1: 154/76 Code: 8480-6 BMI: 25.8 Code: 64490-2 Heart Rate 1: 62 bpm Height: 5'9" Code: 8302-2 Respiratory Rate: 16 bpm SpO2: 97% Temperature: 36.2 (C) / 97.1 (F) Weight: 175 lbs Code: 49739-6 02/25/2021 Blood Pressure 1: 122/70 Code: 8480-6 BMI: 24.8 Code: 71904-3 Heart Rate 1: 56 bpm Height: 5'9" Code: 8302-2 Respiratory Rate: 16 bpm SpO2: 98% Temperature: 35.3 (C) / 95.6 (F) Weight: 168 lbs Code: 49298-5 01/02/2021 Blood Pressure 1: 118/64 Code: 8480-6 BMI: 24.5 Code: 01618-7 Heart Rate 1: 45 bpm Height: 5'9" Code: 8302-2 Respiratory Rate: 18 bpm SpO2: 99% Temperature: 36.2 (C) / 97.2 (F) Weight: 166 lbs Code: 15968-6 Functional Status No Functional Status data Reason For Visit Reason For Visit Effective Dates Notes hypertension 02/23/2022 shoulder pain 12/19/2021 hypertension 08/28/2021 sinus congestion 08/14/2021 cough 08/14/2021 hypertension 07/01/2021 vaccination against influenza 07/01/2021 hypertension 02/25/2021 Hospital Follow Up 01/02/2021 memory loss 01/02/2021 Encounters Encounter Performer Location Location Address Codes ([id number]) [id number] EST. PATIENT, LEVEL IV Diagnosis: Essential (primary) hypertension[ICD10: I10] Diagnosis: Late onset Alzheimer's dementia without behavioral disturbance[ICD10: G30.1] Diagnosis: BPH w urinary obs/LUTS[ICD10: N40.1] Hlaey Mauro MD, [facility] [address] [place] [address] CPT-4: 9921 4 02/23/2022 ([id number]) [id number] EST. PATIENT, LEVEL III Diagnosis: Late onset Alzheimer's dementia without behavioral disturbance[ICD10: G30.1] Diagnosis: Left shoulder pain[ICD10: M25.512] Diagnosis: Biceps tendinosis of left shoulder[ICD10: M67.814] Selena Mauro MD, [facility] [address] [place] [address] CPT-4 : 04970 12/19/2021 ([id number]) 98054 EST. PATIENT, LEVEL IV Diagnosis: Essential (primary) hypertension[ICD10: I10] Diagnosis: Late onset Alzheimer's dementia without behavioral disturbance[ICD10: G30.1] Diagnosis: Leg length discrepancy[ICD10: M21.70] [facility]aley [facility] MD, [facility] [address] [place] [address] CPT-4: 9921 4 08/28/2021 ([id number]) 55430 EST. PATIENT, LEVEL III Diagnosis: Dementia in other diseases classified elsewhere without behavioral disturbance[ICD10: F02.80] Diagnosis: URI (upper respiratory infection)[ICD10: J06.9] Selena Mauro MD, [facility] [address] [place] [address] CPT-4: 9921 3 08/14/2021 ([id number]) 86023 EST. PATIENT, LEVEL IV Diagnosis: Flu vaccine need[ICD10: Z23] Diagnosis: Essential (primary) hypertension[ICD10: I10] Diagnosis: Dementia in other diseases classified elsewhere without behavioral disturbance[ICD10: F02.80] [facility]aley Mauro MD, [facility] [address] [place] [address] CPT-4: 57710 07/01/2021 ([id number] 08748 EST. PATIENT, LEVEL IV Diagnosis: Essential (primary) hypertension[ICD10: I10] Diagnosis: Late onset Alzheimer's dementia without behavioral disturbance[ICD10: G30.1] Diagnosis: BPH w urinary obs/LUTS[ICD10: N40.1] [facility] [address] [place] [address] CPT-4: 9921 4 02/25/2021 ([id number]) OFFICE VISIT, NEW - LEVEL 4 Diagnosis: Essential (primary) hypertension[ICD10: I10] Diagnosis: Mixed hyperlipidemia[ICD10: E78.2] Diagnosis: Other obstructive and reflux uropathy[ICD10: N13.8] Diagnosis: BPH w urinary obs/LUTS[ICD10: N40.1] Diagnosis: Recent fracture of hip[ICD10: S72.009A] Diagnosis: Dementia in other diseases classified elsewhere without behavioral disturbance[ICD10: F02.80] Diagnosis: Late onset Alzheimer's dementia without behavioral disturbance[ICD10: G30.1] Diagnosis: Bradycardia[ICD10: R00.1] [facility] [address] [place] [address] CPT-4: 35402 01/02/2021 Plan of Care Planned Activity Notes Codes Status Date Visit Plan: Hypertension - stable- elif nue [...] advanced - pt seeing a neurologist in [place], continue with current supportive care and management. 02/23/2022 Appointment: Haley Mauro WPtel: [phone] [place] (15 min) Moderate [...] next week. 12/19/2021 Appointment: Selena Salas WPtel: [phone] (30 min) Complex 12/19/2021 Patient Education: Patient [...] and ADLS 08/28/2021 Appointment: Haley Mauro WPtel: [address] [place], [place] [phone] (15 min) Moderate 08/28/2021 Patient Education: Patient Medication Summary Completed 08/28/2021 Appointment: Selena Salas WPtel: [address] [place], [place] [phone] [place] (30 min) Complex 08/14/2021 Patient Education: Patient [...] with patient's caregiver and his DTR - Mara - I think that rather than starting Dayron on medication, he needs more company, companionship. If things worsen or he has progression of his grief then we can consider starting him on medications. 07/01/2021 Appointment: Haley Maurotel: [phone] (15 min) Moderate 07/01/2021 [...] advanced - pt seeing a neurologist in [place]. At this time there are no behavior changes, but he does have significant memory loss with pt not able to form new memories. 02/25/2021 Appointment: Haley Mauro WPtel: [phone] (15 min) Moderate 02/25/2021 Patient Education: Patient [...] advanced - pt seeing a neurologist in [place] - will try to get a copy of his appointments from the specialist. At this time there are no behavior changes, but he does have significant memory loss with pt not able to form new memories. 01/02/2021 Appointment[facility] [address] [phone] [place] New Patient 01/02/2021 Patient Education: Patient Medication Summary Completed 01/02/2021 Patient Education: Cholesterol Management Completed 01/02/2021 Instructions Comment Date . Hypertension - stable- continue with c [...] advanced - pt seeing a neurologist in [place], continue with current supportive care and management. [...] with patient's caregiver and his DTR - Mara - I think that rather than starting [...] advanced - pt seeing a neurologist in [place]. At this time there are no behavior [...] advanced - pt seeing a neurologist in [place] - will try to get a copy [...]
[2022-09-20 12:40] VITALS: BP 110/75
[2022-09-20] MEDS: ACETAMINOPHEN 325 MG TABLET PO PRN (14:09)
[2022-09-20] MEDS ORDERED: CATHETER FLUSH 10 ML SYR IVP PRN (15:00)
[2022-09-20] MEDS: TAMSULOSIN 0.4 MG (FLOMAX) CAP PO SCH (17:44)
[2022-09-20] MEDS: CATHETER FLUSH 10 ML SYR IVP SCH (19:38)
[2022-09-20] MEDS: FAMOTIDINE 20 MG (PEPCID) TABLET PO SCH (20:22)
[2022-09-20] MEDS: AtorvaSTATin TABLET 10 MG TABLET PO SCH (20:22)
[2022-09-20] MEDS ORDERED: LORazepam INJ 2 MG/ML (ATIVAN) VIAL IM PRN (20:30)
[2022-09-20] MEDS ORDERED: HALOPERIDOL 5 MG/ML (HALDOL) VIAL IM PRN (20:30)
[2022-09-20] MEDS ORDERED: LORazepam 0.5 MG (ATIVAN) TABLET PO PRN (20:30)
[2022-09-20 20:40] VITALS: BP 168/79
[2022-09-21] MEDS: LEVOTHYROXINE 112 MCG (LEVOTHROID) TAB PO SCH (05:33)
[2022-09-21] MEDS: MULTIVIT W/MINERALS TAB (THERAGRAN M) PO SCH (05:34)
[2022-09-21 05:35] LABS: BASOPHILS # (AUTO) 0.1 10^3/uL (0.0-0.1); BASOPHILS % (AUTO) 1 % (0-10); EOSINOPHILS # (AUTO) 0.4 10^3/uL (0.0-0.3); EOSINOPHILS % (AUTO) 5 % (0-10); HEMATOCRIT 35 % (40-54); HEMOGLOBIN 12.2 g/dL (13.3-17.7); LYMPHOCYTES # (AUTO) 1.2 10^3/uL (1.0-4.0); LYMPHOCYTES % (AUTO) 14 % (12-44); MEAN CORPUSCULAR HEMOGLOBIN 33 pg (25-34); MEAN CORPUSCULAR HGB CONC 35 g/dL (32-36); MEAN CORPUSCULAR VOLUME 94 fL (80-99); MEAN PLATELET VOLUME 9.1 fL (9.0-12.2); MONOCYTES # (AUTO) 0.7 10^3/uL (0.0-1.0); MONOCYTES % (AUTO) 9 % (0-12); NEUTROPHILS # (AUTO) 6.2 10^3/uL (1.8-7.8); NEUTROPHILS % (AUTO) 72 % (42-75); PLATELET COUNT 174 10^3/uL (130-400); WHITE BLOOD COUNT 8.6 10^3/uL (4.3-11.0)
[2022-09-21] MEDS: CATHETER FLUSH 10 ML SYR IVP SCH ×3 (05:38→21:40)
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
[2022-09-21 05:59] LABS: ALBUMIN 3.6 GM/DL (3.2-4.5); BILIRUBIN,TOTAL 0.7 MG/DL (0.1-1.0); CALCIUM 8.7 MG/DL (8.5-10.1); CREATININE SERUM 0.81 MG/DL (0.60-1.30); TOTAL PROTEIN 6.5 GM/DL (6.4-8.2)
[2022-09-21 07:32] VITALS: BP 106/63
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
[2022-09-21] MEDS: DOCUSATE SODIUM 100 MG (COLACE) CAP PO SCH ×2 (08:41→21:39)
[2022-09-21] MEDS: meTOproloL SUCCINATE 50 MG (TOPROL XL) TAB PO SCH (08:41)
[2022-09-21] MEDS: FAMOTIDINE 20 MG (PEPCID) TABLET PO SCH ×2 (08:42→21:38)
[2022-09-21] MEDS: lisINopril 40 MG (PRINIVIL) TABLET PO SCH (08:42)
[2022-09-21] MEDS: HYDROcodone/APAP 7.5 MG/325 MG (LORTAB, LORCET PLUS) TABLET PO PRN (08:42)
[2022-09-21] MEDS: ENOXAPARIN 40 MG/0.4 ML (LOVENOX) SYR SC SCH (08:42)
[2022-09-21] MEDS: SENNA W/DOCUSATE (SENOKOT S) TABLET PO SCH ×4 (09:28→21:40)
[2022-09-21] MEDS: polyethylene glycoL POWDER 17 GM (MIRALAX) PACK PO SCH ×2 (09:28→21:39)
--- NOTE | 2022-09-21 10:30 | Physical Therapy Evaluation ---
PT Evaluation-General Medical Diagnosis Admission Date Sep 20, 2022 at 11:58 Medical Diagnosis: Left pelvic fx Onset Date: Sep 20, 2022 Therapy Diagnosis Therapy Diagnosis: impaired mobility Height/Weight Height (Feet): 5 Height (Inches): 6.00 Weight (Pounds): 178 Weight (Ounces): 4.0 Precautions Precautions/Isolations: Fall Prevention, Standard Precautions Referral Physician: Katy Velez DO Medical History Pertinent Medical History: Arthritis, Dementia, Fractures, HTN Current History Left superior pubic rami fracture Left Acetabulum fracture Left inferior pubic rami fracture Left Sacral Ala fracture Reviewed History: Yes Social History Home: Single Level Current Living Status: Alone Entry Into Home: Stairs With Railing PT Steps Into Home: 1 Prior Prior Level of Function SCALE: Activities may be completed with or without assistive devices. 2-Dhrikrnvkw-kojmxdp completes the activity by him/herself with no assistance from a helper. 5-Set-up or Clean-up Assistance-helper sets up or cleans up; patient completes activity. [place] assists only prior to or following the activity. 4-Supervision or Touching Assistance-helper provides verbal cues and/or touching/steadying and/or contact guard assistance as patient completes activity. Assistance may be provided throughout the activity or intermittently. 3-Partial/Moderate Assistance-helper does LESS THAN HALF the effort. [place] lift s, holds or supports trunk or limbs, but provides less than half the effort. 2-Substantial/Maximal Assistance-helper does MORE THAN HALF the effort. [place] lifts or holds trunk or limbs and provides more than half the effort. 2-Mhhoyrahu-lkbvsy does ALL the effort. Patient does none of the effort to complete the activity. Or, the assistance of 2 or more helpers is required for the patient to complete the activity. If activity was not attempted, code reason: 7-Patient Refused. 9-Not Applicable-not attempted and the patient did not perform the activity before the current illness, exacerbation or injury. 10-Not Attempted due to Environmental Limitations-(lack of equipment, weather restraints, etc.). 88-Not Attempted due to Medical Conditions or Safety Concerns. Bed Mobility: 6 Transfers (B,C,W/C): 6 Gait: 6 Stairs: 6 Indoor Mobility (Ambulation): Independent Stairs: Independent Prior Devices Use: None PT Evaluation-Current Subjective Patient in recliner pre tx, agrees to PT, has pain in left hip/pelvis, seems unable to give a value to his pain, will only say it hurts Pain Section J - Health Conditions 1. Rarely or not at all 2. Occasionally 3. Frequently 4. Almost constantly 8. Unable to answer Pain Effect on Sleep: 4 Pain Interference with Therapy: 4 Pain Interference w/Day-to-Day: 4 Pt/Family Goals to be independent at home Objective Patient Orientation: Person, Place, Situation Sensory Vision: Wears Glasses Hearing: Functional Sensation Right Lower Extremit: Intact Sensation Left Lower Extremity: Intact Transfers Roll Left & Right (QC): 4 Sit to Lying (QC): 4 Lying to Sitting/Side of Bed(Q: 2 Sit to Stand (QC): 3 Chair/Shx-vm-Brlil Xfer(QC): 3 Toilet Transfer (QC): 3 Car Transfer (QC): 3 Patient performs rolling and sit to supine with SBA, supine to sit max assist, sit <-> stand and transfers min assist, car transfer min assist. Patient needs frequent cues for safety and positioning and hand placement, has difficulty foll owing directions. Gait Does the Patient Walk?: Yes Mode of Locomotion: Walk Anticipated Mode of Locomotion: Walk Walk 10 feet (QC): 4 Walk 50 ft with 2 Turns(QC): 88 Walk 150 ft (QC): 88 Walking 10ft/uneven surface-QC: 4 Distance: 30', 20' Gait Assistive Device: FWW Comments/Gait Description Patient can ambulate 30' with a rolling walker with CGA (including 10' over an uneven surface), very slow and antalgic, compliant with TTWB on the left leg, poor foot clearance on the right side. Wheelchair Training Does the Pt Use a Wheelchair?: Yes Distance: 150' Wheel 50 ft with 2 turns (QC): 4 Wheel 150 ft (QC): 4 Type of Wheelchair: Manual Stairs 1 Step (curb) (QC): 88 4 Steps (QC): 88 12 Steps (QC): 88 Not safe for stairs yet, cannot step up onto the step with the right leg. Balance Sitting Static: Normal Sitting Dynamic: Normal Standing Static: Fair Standing Dynamic: Fair Picking up an Object (QC): 4 (CGA using a behavioral therapist) Treatment NuStep level 3 for 15 min, seated BLE exercise x20 (AP, hip abd/add, LAQ, hip flexion) Assessment/Needs Patient in recliner post tx with nurse call, phone, tray, all needs met. Patient has impaired mobility, seems to have fairly severe pain with activity, he is compliant with TTWB on the left leg. 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 Goals Time Frame: Oct 05, 2022 Roll Left to Right (QC): 6 Sit to Lying (QC): 6 Lying-Sitting on Side/Bed(QC): 6 Sit to Stand (QC): 4 (SBA) Chair/Ebh-ah-Llxbj Xfer(QC): 4 (SBA) Toilet/Commode Transfer (QC): 4 (SBA) Car Transfer (QC): 4 (SBA) Does the Patient Walk: Yes Walk 10 feet (QC): 4 (SBA) Walk 10ft-Uneven Surface(QC): 4 (SBA) Walk 50ft with 2 Turns (QC): 4 (SBA) Walk 150 ft (QC): 4 (SBA) Wheel 50 feet with 2 turns (QC: 9 Wheel 150 feet: 9 1 Step (curb) (QC): 4 (CGA) 4 Steps (QC): 4 (CGA) 12 Steps (QC): 88 Picking up an Object (QC): 4 (SBA using behavioral therapist) PT Plan Problem List Problem List: Activity Tolerance, Functional Strength, Safety, Balance, Gait, Transfer, Bed Mobility, ROM Treatment/Plan Treatment Plan: Continue Plan of Care Treatment Plan: Bed Mobility, Education, Functional Activity Jose, Functional Strength, Group Therapy, Gait, Safety, Therapeutic Exercise, Transfers Treatment Duration: Oct 05, 2022 Frequency: At least 5 of 7 days/Wk (IRF) Estimated Hrs Per Day: 1.5 hours per day Patient and/or Family Agrees t: Yes Safety Risks/Education Patient Education: Gait Training, Transfer Techniques, Reviewed Precautions, Correct Positioning, Safety Issues Teaching Recipient: Patient Teaching Methods: Demonstration, Discussion Response to Teaching: Reinforcement Needed Discharge Recommendations Plan Patient will perform bed mobility and transfer training, balance and endurance training, functional strengthening, stair training, gait training, and education, to improve functional mobility and independence at home. Therapy Discharge Recommendati: Home & Family, Post Acute PT Time Time In: 914 Time Out: 1030 DATE: Sep 21, 2022 Total Billed Treatment Time: 75 Total Billed Treatment 1 visit EVM 15' EX 20' FA 40' JAZMIN DIEGO PT Sep 21, 2022 10:30
[2022-09-21] MEDS: ACETAMINOPHEN 325 MG TABLET PO PRN (11:02)
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
--- NOTE | 2022-09-21 13:13 | Individualized Plan of Care ---
Individualized Plan of Care Rehab Nursing IPOC Order Admission Date Sep 20, 2022 at 11:58 Current Orders Orders Admission Order(Inpt,Obs,Sdc) (09/19/22 18:02) Vital Signs: Per Unit Policy ( 08,16,00 (09/19/22 18:02) Shelton Hernandez ,21 (09/19/22 18:02) Sequential Compression Device (09/19/22 18:02) Smog Technician-Inpt Rehab Con (09/19/22 18:02) Rehab Nursing Orders-Ipoc (09/19/22 18:02) Physical Therapy Rehab Orders (09/19/22 18:02) Occupational Therapy Rehab Ord (09/19/22 18:02) Speech Therapy Rehab Orders (09/19/22 18:02) Cbc With Automated Diff (09/21/22 06:00) Comprehensive Metabolic Panel (09/21/22 06:00) Precautions (Aru) (09/19/22 18:02) Weekly Weight WEEK (09/19/22 18:02) Rehab-Intensity Of Therapy (09/19/22 18:02) Initiate Admission Nursing Pro .admission (09/19/22 18:02) Alprazolam Tablet (Xanax Tablet) (09/19/22 18:15) Calcium Carbonate Chew Tablet (Antacid C (09/19/22 18:15) Diphenhydramine Tablet (Benadryl Tablet) (09/19/22 18:15) Docusate Sodium Capsule (Colace Capsule) (09/19/22 21:00) Docusate Sodium Capsule (Colace Capsule) (09/19/22 18:15) Bisacodyl Suppository (Dulcolax Supposit (09/19/22 18:15) Lactulose Oral Solution (Enulose Oral So (09/19/22 18:15) Na Phos/Na Biphos Enema (Fleet Enema Saroj (09/19/22 18:15) Guaifenesin/Codeine Syrup (Robitussin Ac (09/19/22 18:15) Loperamide Tablet (Imodium Tablet) (09/19/22 18:15) Melatonin Tablet (Melatonin Tablet) (09/19/22 18:15) Polyethylene Glycol Powder Pkt (Miralax (09/19/22 21:00) Ondansetron Oral Dissolve Tab (Zofran (09/19/22 18:15) Senna S Tablet (Senokot S Tablet) (09/19/22 21:00) Acetaminophen Tablet/Caplet (Tylenol T (09/19/22 18:15) Initiate Admission Nursing Pro .admission (09/19/22 18:02) Famotidine Tablet (Pepcid Tablet) (09/20/22 21:00) Hydrocodone/Apap 10/325 Tablet (Lortab 1 (09/20/22 10:15) Levothyroxine Tablet (Synthroid Tablet) (09/21/22 06:30) Lisinopril Tablet (Zestril Tablet) (09/21/22 09:00) Metoprolol Succinate (Xl) Tab (Toprol Xl (09/21/22 09:00) Senna S Tablet (Senokot S Tablet) (09/20/22 21:00) Tamsulosin Capsule (Flomax Capsule) (09/20/22 18:00) Therapeutic Multivitamin Tab (Vitamins, (09/21/22 07:00) Admission Arrival Bed Request (09/20/22 11:58) General/Regular (09/20/22 Lunch) Atorvastatin Tablet (Lipitor Tablet) (09/20/22 21:00) Sodium Chloride Flush (Catheter Flush Sy (09/20/22 15:00) Sodium Chloride Flush (Catheter Flush Sy (09/20/22 22:00) Hydrocodone/Apap 7.5/325 Tab (Lortab 7. (09/20/22 15:30) Enoxaparin Injection (Lovenox Injection) (09/21/22 08:00) Haloperidol Injection (Haldol Injectio (09/20/22 20:30) Lorazepam Injection (Ativan Injection) (09/20/22 20:30) Lorazepam Tablet (Ativan Tablet) (09/20/22 20:30) Transfer - Bed/Room/Location (09/20/22 22:35) Patient Visit (09/21/22 ) Pt Eval Moderate Complexity (09/21/22 ) Exercise Therap, Ea 15 Min (09/21/22 ) Functional Activities, Ea 15 (09/21/22 ) Patient Visit (09/21/22 ) Speech Sound Lang Comp (09/21/22 ) Treat. Speech/Lang/Voice (09/21/22 ) Rehab Nursing Orders: Ongoing Assess. of Cognitive Status, Ongoing Assess. of Function Status, Bladder Management, Bladder Scan, Bladder Training, Bowel Ma nagement, Bowel Training, Disease Management & Educaiton, DVT Prophylaxis, Fall Prevention, Fluid/Electrolyte/Nutrition Mgmt, Infection Prevention, Medication Management & Education, Management of Risks & Complications, Management of Skin Intergrity, Nutrition Management, Pain Management, Patient/Family Support, Safety Management, Weight Bearing Precaution Intensity of Therapy to be met Patient to be seen: Min.3h per day/5 of 7d PT IPOC Problem List: Activity Tolerance, Functional Strength, Safety, Balance, Gait, Transfer, Bed Mobility, ROM Treatment Plan: Continue Plan of Care Bed Mobility, Education, Functional Activity Jose, Functional Strength, Group Therapy, Gait, Safety, Therapeutic Exercise, Transfers Treatment Duration: Oct 05, 2022 Frequency: At least 5 of 7 days/Wk (IRF) Estimated Hrs Per Day: 1.5 hours per day OT IPOC Problems: Decreased Activ Tolerance, Decreased Safety Aware, Decreased UE Strength, Impaired Cognition, Impaired Funct Balance, Impaired Self-Care Skills OT Treatment, Training and Edu: Yes Plan of Care: ADL Retraining, Functional Mobility, Group Exercise/Act as Ind, UE Funct Exercise/Act Treatment Duration: Oct 10, 2022 Frequency: At least 5 of 7 days/Wk (IRF) Estimated Hrs Per Day: 1.[address] IPOC Speech Therapy Treatment Plan: Continue Plan of Care Treatment Duration: Sep 21, 2022 Frequency: Modified Program (IRF) Estimated Hrs Per Day: Other Smog Technician/Case Mgmt Smog Technician/Case Managemen: Discharge Planning Dietitian/Diploma Maker Dietitian/Diploma Maker to monitor nutritional status and make changes and/or recommendations as needed and work with speech pathology on dietary upgrades as the occur. Physician IPOC Medical Issues being managed closely and that require the 24 hour availability of a physician: Recent pelvic fracture along with dementia will require close monitoring for delirium and pain management side effects and will require close monitoring of vitals Medical Issues: Bowel/Bladder Function, DVT Prophylaxis, Falls Precautions, Fluid/Electrolyte/Nutrition Balance, Infection Protection, Pain Management, Weight Bearing Precautions Brief Synthesis of Preadmission Screen, Post-Admission Evaluation, and Therapy Evaluations: PT OT will focus on regaining function in order to return to independent living while ST works on regaining cognitive capabilities Medical Prognosis: Fair Anticipated Length of Stay: 7 days SANJUANA GRAY DO Sep 21, 2022 13:13
[2022-09-21] MEDS: TAMSULOSIN 0.4 MG (FLOMAX) CAP PO SCH (18:23)
[2022-09-21 20:15] VITALS: BP 148/64
[2022-09-21] MEDS: AtorvaSTATin TABLET 10 MG TABLET PO SCH (21:38)
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
[2022-09-22] MEDS: CATHETER FLUSH 10 ML SYR IVP SCH ×3 (06:00→20:49)
[2022-09-22] MEDS: LEVOTHYROXINE 112 MCG (LEVOTHROID) TAB PO SCH (06:55)
[2022-09-22] MEDS: MULTIVIT W/MINERALS TAB (THERAGRAN M) PO SCH (06:55)
[2022-09-22 08:00] VITALS: BP 120/70
--- NOTE | 2022-09-22 08:56 | Physical Therapy Daily Note ---
PT Daily Note-Current Subjective Patient in recliner pre tx, agrees to PT, has unrated left hip pain. Pain Section J - Health Conditions 1. Rarely or not at all 2. Occasionally 3. Frequently 4. Almost constantly 8. Unable to answer Pain Effect on Sleep: 4 Pain Interference with Therapy: 4 Pain Interference w/Day-to-Day: 4 Appearance Patient in recliner post tx with nurse call, phone, tray, all needs met. Mental Status Patient Orientation: Person, Place, Situation Transfers SCALE: Activities may be completed with or without assistive devices. 5-Jcglnlptdx-khxmchj completes the activity by him/herself with no assistance from a helper. 5-Set-up or Clean-up Assistance-helper sets up or cleans up; patient completes activity. [place] assists only prior to or following the activity. 4-Supervision or Touching Assistance-helper provides verbal cues and/or touching/steadying and/or contact guard assistance as patient completes activ ity. Assistance may be provided throughout the activity or intermittently. 3-Partial/Moderate Assistance-helper does LESS THAN HALF the effort. [place] lifts, holds or supports trunk or limbs, but provides less than half the effort. 2-Substantial/Maximal Assistance-helper does MORE THAN HALF the effort. [place] lifts or holds trunk or limbs and provides more than half the effort. 0-Rrluvujaj-zgvoon does ALL the effort. Patient does none of the effort to complete the activity. Or, the assistance of 2 or more helpers is required for the patient to complete the activity. If activity was not attempted, code reason: 7-Patient Refused. 9-Not Applicable-not attempted and the patient did not perform the activity before the current illness, exacerbation or injury. 10-Not Attempted due to Environmental Limitations-(lack of equipment, weather restraints, etc.). 88-Not Attempted due to Medical Conditions or Safety Concerns. Sit to Stand (QC): 4 Chair/Cbo-qs-Vgigm Xfer(QC): 4 Patient has some difficulty with sit to stand but can do it without assist, he may need occasional cues for positioning. Gait Training Distance: 60'x4 Walk 10 feet (QC): 4 Walk 50 ft with 2 Turns(QC): 4 Gait Persons Needed: 1 Gait Assistive Device: FWW slow, antalgic ambulation, decreased step through on the right side, decreased knee flexion on the left side Exercises Standing: Hamstring curls, 3 way Ex=Flex, Abd, Ext (not extension), Marching Standing Reps: 15 (only on LLE) LAQ alternating for 5 min Treatments transfers, ambulation, LE ROM/strengthening Assessment Current Status: Fair Progress improved transfers and ambulation, patient still compliant with TTWB on the left leg PT Short Term Goals Short Term Goals Time Frame: Sep 28, 2022 Lying to sitting on side of be: 3 Sit to stand: 4 Chair/vow-iz-vvjga transfer: 4 Walk 10 feet: 4 Walk 50 feet with two turns: 4 PT Custodial Goals Custodial Goals PT Custodial Goals Time Frame: Oct 05, 2022 Roll Left & Right (QC): 6 Sit to Lying (QC): 6 Lying-Sitting on Side/Bed(QC): 6 Sit to Stand (QC): 4 (SBA) Chair/Oys-ta-Rnffn Xfer(QC): 4 (SBA) Toilet Transfer (QC): 4 (SBA) Car Transfer (QC): 4 (SBA) Does the Patient Walk: Yes Walk 10 feet (QC): 4 (SBA) Walk 50ft with 2 Turns (QC): 4 (SBA) Walk 150 ft (QC): 4 (SBA) Walking 10ft on Uneven Surface: 4 (SBA) 1 Step (curb) (QC): 4 (CGA) 4 Steps (QC): 4 (CGA) 12 Steps (QC): 88 Picking up an Object (QC): 4 (SBA using engine buildup mechanic) Wheel 50 feet with 2 turns (QC: 9 Wheel 150 feet: 9 PT Plan Problem List Problem List: Activity Tolerance, Functional Strength, Safety, Balance, Gait, Transfer, Bed Mobility, ROM Treatment/Plan Treatment Plan: Continue Plan of Care Treatment Plan: Bed Mobility, Education, Functional Activity Jose, Functional Strength, Group Therapy, Gait, Safety, Therapeutic Exercise, Transfers Treatment Duration: Oct 05, 2022 Frequency: At least 5 of 7 days/Wk (IRF) Estimated Hrs Per Day: 1.5 hours per day Patient and/or Family Agrees t: Yes Safety Risks/Education Patient Education: Gait Training, Transfer Techniques, Reviewed Precautions, Correct Positioning, Safety Issues Teaching Recipient: Patient Teaching Methods: Demonstration, Discussion Response to Teaching: Reinforcement Needed Time Time In: 0800 Time Out: 0900 DATE: Sep 22, 2022 Total Billed Treatment Time: 60 Total Billed Treatment 1 visit EX 15' FA 45' JAZMIN DIEGO PT Sep 22, 2022 08:56
[2022-09-22] MEDS: DOCUSATE SODIUM 100 MG (COLACE) CAP PO SCH ×2 (09:11→20:48)
[2022-09-22] MEDS: ENOXAPARIN 40 MG/0.4 ML (LOVENOX) SYR SC SCH (09:11)
[2022-09-22] MEDS: meTOproloL SUCCINATE 50 MG (TOPROL XL) TAB PO SCH (09:11)
[2022-09-22] MEDS: FAMOTIDINE 20 MG (PEPCID) TABLET PO SCH ×2 (09:11→20:48)
[2022-09-22] MEDS: lisINopril 40 MG (PRINIVIL) TABLET PO SCH (09:11)
--- NOTE | 2022-09-22 09:54 | Occupational Ther Daily Note ---
OT Current Status-Daily Note Subjective Pt in recliner, agreeable to OT tx. Pt believes he would be more independent with crutches vs walker, OT provided education on AD. Pt states FWW causes UEs to become sore, did not verbalize pain rating. ADL-Treatment Therapy Code Descriptions/Definitions Functional [place] Measure: 0=Not Assessed/NA 4=Minimal Assistance 1=Total Assistance 5=Supervision or Setup 2=Maximal Assistance 6=Modified [place] 3=Moderate Assistance 7=Complete IndependenceSCALE: Activities may be completed with or without assistive devices. 0-Irbwrrmmzb-hzahzpl completes the activity by him/herself with no assistance from a helper. 5-Set-up or Clean-up Assistance-helper sets up or cleans up; patient completes activity. [place] assists only prior to or following the activity. 4-Supervision or Touching Assistance-helper provides verbal cues and/or touching/steadying and/or contact guard assistance as patient completes activity. Assistance may be provided throughout the activity or intermittently. 3-Partial/Moderate Assistance-helper does LESS THAN HALF the effort. [place] lifts, holds or supports trunk or limbs, but provides less than half the effort. 2-Substantial/Maximal Assistance-helper does MORE THAN HALF the effort. [place] lifts or holds trunk or limbs and provides more than half the effort. 8-Jtixqdgur-irllgy does ALL the effort. Patient does none of the effort to complete the activity. Or, the assistance of 2 or more helpers is required for the patient to complete the activity. If activity was not attempted, code reason: 7-Patient Refused. 9-Not Applicable-not attempted and the patient did not perform the activity before the current illness, exacerbation or injury. 10-Not Attempted due to Environmental Limitations-(lack of equipment, weather restraints, etc.). 88-Not Attempted due to Medical Conditions or Safety Concerns. Other Treatment Pt up in recliner, agreeable to OT tx. Pt's RN present to give pt medications. Pt able to take oral medications independently. Pt used FWW to perform functional mobility to therapy gym, CGA, cues required to maintain TTWB LLE, very slow pace. Pt required 1 seated rest break. OT tx focused on increasing BUE strength and activity tolerance. Pt completed arm bike, x15 mins, 15-20 Watt resistance, 0 rest breaks. Pt then completed BUE reaching task, 1lb wrist weights BUEs. Pt placed 1" pegs into foam pegboard, alternating hands, able to complete x100 pegs. Post tx, pt seated in therapy gym, PT present for continued tx. Education OT Patient Education: Correct positioning, Energy conservation, Modified ADL techniques, Progress toward Goal/Update tx plan, Purpose of tx/functional activities Teaching Recipient: Patient Teaching Methods: Discussion Response to Teaching: Verbalize Understanding OT Short Term Goals Short Term Goals Time Frame: Oct 03, 2022 Eatin Oral hygiene: 5 Toileting hygiene: 5 Shower/bathe self: 4 Upper body dressin Lower body dressin Putting on/taking off footwear: 5 OT Usp Goals Title I Teacher Goals Time Frame: Oct 09, 2022 Eating (QC): 6 Oral Hygiene (QC): 6 Toileting Hygiene (QC): 6 Shower/Bathe Self (QC): 5 Upper Body Dressing (QC): 6 Lower Body Dressing (QC): 6 On/Off Footwear (QC): 6 Additional Goals: 1-Demonstrate ADL Tasks, 2-Verbalize Understanding, 3- ImproveStrength/Jose 1=Demonstrate adherence to instructed precautions during ADL tasks. 2=Patient will verbalize/demonstrate understanding of assistive devices/modifications for ADL. 3=Patient will improve strength/tolerance for activity to enable patient to perform ADL's. OT Education/Plan Problem List/Assessment Assessment: Decreased Activ Tolerance, Decreased UE Strength, Impaired Funct Balance, Impaired I ADL's, Impaired Self-Care Skills Discharge Recommendations Plan/Recommendations: Continue POC Treatment Plan/Plan of Care Patient would benefit from OT for education, treatment and training to promote independence in ADL's, mobility, safety and/or upper extremity function for ADL's. Plan of Care: ADL Retraining, Functional Mobility, Group Exercise/Act as Ind, UE Funct Exercise/Act Treatment Duration: Oct 10, 2022 Frequency: At least 5 of 7 days/Wk (IRF) Estimated Hrs Per Day: 1.5 hours per day Agreement: Yes Rehab Potential: Guarded Time Start Time: 09:00 Stop Time: 10:00 DATE: Sep 22, 2022 Total Time Billed (hr/min): 60 Billed Treatment Time 1, FA 2 (30'), EX (15'), FA (15') ISADORA HUGHES OT Sep 22, 2022 09:54
--- NOTE | 2022-09-22 10:29 | Physical Therapy Daily Note ---
PT Daily Note-Current Subjective Patient in therapy gym pre tx, agrees to PT, has unrated left hip pain. Pain Section J - Health Conditions 1. Rarely or not at all 2. Occasionally 3. Frequently 4. Almost constantly 8. Unable to answer Pain Effect on Sleep: 4 Pain Interference with Therapy: 4 Pain Interference w/Day-to-Day: 4 Appearance Patient in recliner post tx, has nurse call, phone, tray, all needs met. Mental Status Patient Orientation: Person, Place, Situation Transfers SCALE: Activities may be completed with or without assistive devices. 4-Myoomgehvr-hqtiigu completes the activity by him/herself with no assistance from a helper. 5-Set-up or Clean-up Assistance-helper sets up or cleans up; patient completes activity. [place] assists only prior to or following the activity. 4-Supervision or Touching Assistance-helper provides verbal cues and/or touching/steadying and/or contact guard assistance as patient completes ac tivity. Assistance may be provided throughout the activity or intermittently. 3-Partial/Moderate Assistance-helper does LESS THAN HALF the effort. [place] lifts, holds or supports trunk or limbs, but provides less than half the effort. 2-Substantial/Maximal Assistance-helper does MORE THAN HALF the effort. [place] lifts or holds trunk or limbs and provides more than half the effort. 5-Uhiioyycm-ogrwkr does ALL the effort. Patient does none of the effort to complete the activity. Or, the assistance of 2 or more helpers is required for the patient to complete the activity. If activity was not attempted, code reason: 7-Patient Refused. 9-Not Applicable-not attempted and the patient did not perform the activity before the current illness, exacerbation or injury. 10-Not Attempted due to Environmental Limitations-(lack of equipment, weather restraints, etc.). 88-Not Attempted due to Medical Conditions or Safety Concerns. Sit to Stand (QC): 4 Chair/Lfn-nv-Sxree Xfer(QC): 4 Gait Training Distance: 10' Walk 10 feet (QC): 4 Gait Assistive Device: FWW slow, antalgic Wheelchair Training Does the Pt Use a Wheelchair?: Yes Wheel 50 ft with 2 turns (QC): 4 Wheel 150 ft (QC): 4 Type of Wheelchair: Manual 150' Exercises NuStep Minutes: 15 NuStep Workload: 3 (decreased resistance due to weight bearing restrictions) Treatments transfers, ambulation, strengthening, WC mobility Assessment Current Status: Fair Progress patient still having quite a bit of pain PT Short Term Goals Short Term Goals Time Frame: Sep 28, 2022 Lying to sitting on side of be: 3 Sit to stand: 4 Chair/bcx-fy-fhsjp transfer: 4 Walk 10 feet: 4 Walk 50 feet with two turns: 4 PT Associate Professor Of Media Arts Goals Longterm Goals PT Associate Professor Of Media Arts Goals Time Frame: Oct 05, 2022 Roll Left & Right (QC): 6 Sit to Lying (QC): 6 Lying-Sitting on Side/Bed(QC): 6 Sit to Stand (QC): 4 (SBA) Chair/Rez-eg-Vtjbx Xfer(QC): 4 (SBA) Toilet Transfer (QC): 4 (SBA) Car Transfer (QC): 4 (SBA) Does the Patient Walk: Yes Walk 10 feet (QC): 4 (SBA) Walk 50ft with 2 Turns (QC): 4 (SBA) Walk 150 ft (QC): 4 (SBA) Walking 10ft on Uneven Surface: 4 (SBA) 1 Step (curb) (QC): 4 (CGA) 4 Steps (QC): 4 (CGA) 12 Steps (QC): 88 Picking up an Object (QC): 4 (SBA using solar installer pv) Wheel 50 feet with 2 turns (QC: 9 Wheel 150 feet: 9 PT Plan Problem List Problem List: Activity Tolerance, Functional Strength, Safety, Balance, Gait, Transfer, Bed Mobility, ROM Treatment/Plan Treatment Plan: Continue Plan of Care Treatment Plan: Bed Mobility, Education, Functional Activity Jose, Functional Strength, Group Therapy, Gait, Safety, Therapeutic Exercise, Transfers Treatment Duration: Oct 05, 2022 Frequency: At least 5 of 7 days/Wk (IRF) Estimated Hrs Per Day: 1.5 hours per day Patient and/or Family Agrees t: Yes Safety Risks/Education Patient Education: Gait Training, Transfer Techniques, Reviewed Precautions, Correct Positioning, W/C Management, Safety Issues Teaching Recipient: Patient Teaching Methods: Demonstration, Discussion Response to Teaching: Reinforcement Needed Time Time In: 1000 Time Out: 1030 DATE: Sep 22, 2022 Total Billed Treatment Time: 30 Total Billed Treatment 1 visit EX 15' FA 15' JAZMIN DIEGO PT Sep 22, 2022 10:29
[2022-09-22] MEDS: SENNA W/DOCUSATE (SENOKOT S) TABLET PO SCH ×4 (10:39→20:49)
[2022-09-22] MEDS: polyethylene glycoL POWDER 17 GM (MIRALAX) PACK PO SCH ×2 (10:39→20:49)
[2022-09-22] MEDS: HYDROcodone/APAP 7.5 MG/325 MG (LORTAB, LORCET PLUS) TABLET PO PRN ×2 (10:59→23:59)
--- NOTE | 2022-09-22 14:25 | Occupational Ther Daily Note ---
OT Current Status-Daily Note Subjective Pt up EOB with nursing staff, states needs to use bathroom. Agreeable to OT tx. Mental Status/Objective Patient Orientation: Person, Place, Situation ADL-Treatment Therapy Code Descriptions/Definitions Functional [place] Measure: 0=Not Assessed/NA 4=Minimal Assistance 1=Total Assistance 5=Supervision or Setup 2=Maximal Assistance 6=Modified [place] 3=Moderate Assistance 7=Complete IndependenceSCALE: Activities may be completed with or without assistive devices. 8-Zjzekfpmrj-qqfpyrm completes the activity by him/herself with no assistance from a helper. 5-Set-up or Clean-up Assistance-helper sets up or cleans up; patient completes activity. [place] assists only prior to or following the activity. 4-Supervision or Touching Assistance-helper provides verbal cues and/or touching/steadying and/or contact guard assistance as patient completes activity. Assistance may be provided throughout the activity or intermittently. 3-Partial/Moderate Assistance-helper does LESS THAN HALF the effort. [place] lifts, holds or supports trunk or limbs, but provides less than half the effort. 2-Substantial/Maximal Assistance-helper does MORE THAN HALF the effort. [place] lifts or holds trunk or limbs and provides more than half the effort. 5-Ygtgjhynw-hmrgxo does ALL the effort. Patient does none of the effort to complete the activity. Or, the assistance of 2 or more helpers is required for the patient to complete the activity. If activity was not attempted, code reason: 7-Patient Refused. 9-Not Applicable-not attempted and the patient did not perform the activity before the current illness, exacerbation or injury. 10-Not Attempted due to Environmental Limitations-(lack of equipment, weather restraints, etc.). 88-Not Attempted due to Medical Conditions or Safety Concerns. Toileting Hygiene (QC): 4 Other Treatment Pt stood from EOB, VC for UE placement, CGA. Pt used FWW to transfer into bathroom, standing in front of toilet pt able to urinate and perform clothing management with SBA. Pt stood at sink with SBA for hand hygiene, then transferred to recliner. In order to increase BUE Strength and activity tolerance, pt educated on UE exercises. Pt completed 10 reps 5/5 exercises with moderate resistance (red) theraband, skilled VCs required for correct technique. Post tx, pt in recliner, call light in reach and all needs met. OT Short Term Goals Short Term Goals Time Frame: Oct 03, 2022 Eatin Oral hygiene: 5 Toileting hygiene: 5 Shower/bathe self: 4 Upper body dressin Lower body dressin Putting on/taking off footwear: 5 OT Hemodialysis Rn Goals Skilled Nursing Goals Time Frame: Oct 09, 2022 Eating (QC): 6 Oral Hygiene (QC): 6 Toileting Hygiene (QC): 6 Shower/Bathe Self (QC): 5 Upper Body Dressing (QC): 6 Lower Body Dressing (QC): 6 On/Off Footwear (QC): 6 Additional Goals: 1-Demonstrate ADL Tasks, 2-Verbalize Understanding, 3- ImproveStrength/Jose 1=Demonstrate adherence to instructed precautions during ADL tasks. 2=Patient will verbalize/demonstrate understanding of assistive devices/modifications for ADL. 3=Patient will improve strength/tolerance for activity to enable patient to perform ADL's. OT Education/Plan Problem List/Assessment Assessment: Decreased Activ Tolerance, Decreased UE Strength, Impaired Funct Balance, Impaired I ADL's, Impaired Self-Care Skills Discharge Recommendations Plan/Recommendations: Continue POC Treatment Plan/Plan of Care Patient would benefit from OT for education, treatment and training to promote independence in ADL's, mobility, safety and/or upper extremity function for ADL's. Plan of Care: ADL Retraining, Functional Mobility, Group Exercise/Act as Ind, UE Funct Exercise/Act Treatment Duration: Oct 10, 2022 Frequency: At least 5 of 7 days/Wk (IRF) Estimated Hrs Per Day: 1.5 hours per day Agreement: Yes Rehab Potential: Guarded Time Start Time: 14:00 Stop Time: 14:30 DATE: Sep 22, 2022 Total Time Billed (hr/min): 30 Billed Treatment Time 1, EX 2 ISADORA HUGHES OT Sep 22, 2022 14:25
[2022-09-22] MEDS: TAMSULOSIN 0.4 MG (FLOMAX) CAP PO SCH (18:10)
[2022-09-22 19:44] VITALS: BP 173/84
[2022-09-22 20:05] VITALS: BP 162/70
[2022-09-22] MEDS: AtorvaSTATin TABLET 10 MG TABLET PO SCH (20:48)
[2022-09-23] MEDS: MULTIVIT W/MINERALS TAB (THERAGRAN M) PO SCH (06:13)
[2022-09-23] MEDS: LEVOTHYROXINE 112 MCG (LEVOTHROID) TAB PO SCH (06:13)
[2022-09-23] MEDS: CATHETER FLUSH 10 ML SYR IVP SCH (06:14)
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
[2022-09-23 08:00] VITALS: BP 116/60
[2022-09-23] MEDS: FAMOTIDINE 20 MG (PEPCID) TABLET PO SCH ×2 (08:27→20:04)
[2022-09-23] MEDS: ENOXAPARIN 40 MG/0.4 ML (LOVENOX) SYR SC SCH (08:27)
[2022-09-23] MEDS: DOCUSATE SODIUM 100 MG (COLACE) CAP PO SCH ×2 (08:27→20:04)
[2022-09-23] MEDS: polyethylene glycoL POWDER 17 GM (MIRALAX) PACK PO SCH ×2 (08:27→19:41)
[2022-09-23] MEDS: SENNA W/DOCUSATE (SENOKOT S) TABLET PO SCH ×4 (08:27→20:04)
[2022-09-23] MEDS: meTOproloL SUCCINATE 50 MG (TOPROL XL) TAB PO SCH (08:30)
[2022-09-23] MEDS: lisINopril 40 MG (PRINIVIL) TABLET PO SCH (08:30)
[2022-09-23] MEDS: HYDROcodone/APAP 7.5 MG/325 MG (LORTAB, LORCET PLUS) TABLET PO PRN ×3 (08:35→20:05)
--- NOTE | 2022-09-23 10:20 | Occupational Ther Daily Note ---
OT Current Status-Daily Note Subjective Pt agreeable to OT Tx, reports some soreness in R shoulder but doesn't provide pain rating. ADL-Treatment Therapy Code Descriptions/Definitions Functional [place] Measure: 0=Not Assessed/NA 4=Minimal Assistance 1=Total Assistance 5=Supervision or Setup 2=Maximal Assistance 6=Modified [place] 3=Moderate Assistance 7=Complete IndependenceSCALE: Activities may be completed with or without assistive devices. 9-Tfhcljjlaa-jwtkzve completes the activity by him/herself with no assistance from a helper. 5-Set-up or Clean-up Assistance-helper sets up or cleans up; patient completes activity. [place] assists only prior to or following the activity. 4-Supervision or Touching Assistance-helper provides verbal cues and/or touching/steadying and/or contact guard assistance as patient completes activity. Assistance may be provided throughout the activity or intermittently. 3-Partial/Moderate Assistance-helper does LESS THAN HALF the effort. [place] lifts, holds or supports trunk or limbs, but provides less than half the effort. 2-Substantial/Maximal Assistance-helper does MORE THAN HALF the effort. [place] lifts or holds trunk or limbs and provides more than half the effort. 2-Idbavhbeq-ujeesx does ALL the effort. Patient does none of the effort to complete the activity. Or, the assistance of 2 or more helpers is required for the patient to complete the activity. If activity was not attempted, code reason: 7-Patient Refused. 9-Not Applicable-not attempted and the patient did not perform the activity before the current illness, exacerbation or injury. 10-Not Attempted due to Environmental Limitations-(lack of equipment, weather restraints, etc.). 88-Not Attempted due to Medical Conditions or Safety Concerns. Other Treatment Pt in recliner, declines ADLs on this date. Pt completed transfer from recliner to w/c, SBA. Pt propelled w/c to therapy gym instead of using FWW due to soreness in R shoulder. OT tx focused on increasing BUE strength and activity tolerance. Pt completed BUE reaching task, 2lb wrist weights BUEs. Pt placed x100, 1" pegs into foam pegboard, alternating hands. Pt then completed x15 mins on arm bike, 20-25 Watt resistance, no rest breaks. Pt propelled w/c back to his room, transferring to recliner using FWW SBA. Post tx, pt in recliner, call light in reach and all needs met. Education OT Patient Education: Correct positioning, Energy conservation, Modified ADL techniques, Progress toward Goal/Update tx plan, Purpose of tx/functional activities, Rehab process Teaching Recipient: Patient Teaching Methods: Discussion Response to Teaching: Verbalize Understanding OT Short Term Goals Short Term Goals Time Frame: Oct 03, 2022 Eatin Oral hygiene: 5 Toileting hygiene: 5 Shower/bathe self: 4 Upper body dressin Lower body dressin Putting on/taking off footwear: 5 OT Mcc Goals Filing Writer Goals Time Frame: Oct 09, 2022 Eating (QC): 6 Oral Hygiene (QC): 6 Toileting Hygiene (QC): 6 Shower/Bathe Self (QC): 5 Upper Body Dressing (QC): 6 Lower Body Dressing (QC): 6 On/Off Footwear (QC): 6 Additional Goals: 1-Demonstrate ADL Tasks, 2-Verbalize Understanding, 3- ImproveStrength/Jose 1=Demonstrate adherence to instructed precautions during ADL tasks. 2=Patient will verbalize/demonstrate understanding of assistive devices/modifications for ADL. 3=Patient will improve strength/tolerance for activity to enable patient to perform ADL's. OT Education/Plan Problem List/Assessment Assessment: Decreased Activ Tolerance, Decreased UE Strength, Impaired Funct Balance, Impaired I ADL's, Impaired Self-Care Skills Discharge Recommendations Plan/Recommendations: Continue POC Treatment Plan/Plan of Care Patient would benefit from OT for education, treatment and training to promote independence in ADL's, mobility, safety and/or upper extremity function for ADL's. Plan of Care: ADL Retraining, Functional Mobility, Group Exercise/Act as Ind, UE Funct Exercise/Act Treatment Duration: Oct 10, 2022 Frequency: At least 5 of 7 days/Wk (IRF) Estimated Hrs Per Day: 1.5 hours per day Agreement: Yes Rehab Potential: Guarded Time Start Time: 09:45 Stop Time: 10:45 DATE: Sep 23, 2022 Total Time Billed (hr/min): 60 Billed Treatment Time 1, EX (15'), FA 3 (45') ISADORA HUGHES OT Sep 23, 2022 10:20
--- NOTE | 2022-09-23 11:56 | Physical Therapy Daily Note ---
PT Daily Note-Current Subjective Pt laying Supine in bed upon arrival. Nurse present to give morning meds. Pt agrees to PT but reports pain in R shoulder to start tx. Pain Numeric Pain Scale: 5-Moderate Pain Location: Right Location Body Site: Shoulder Pain Description: Ache Section J - Health Conditions 1. Rarely or not at all 2. Occasionally 3. Frequently 4. Almost constantly 8. Unable to answer Pain Effect on Sleep: 4 Pain Interference with Therapy: 4 Pain Interference w/Day-to-Day: 4 Mental Status Patient Orientation: Person, Place, Situation Transfers SCALE: Activities may be completed with or without assistive devices. 0-Kpjsatcfvu-tuksnjb completes the activity by him/herself with no assistance from a helper. 5-Set-up or Clean-up Assistance-helper sets up or cleans up; patient completes activity. [place] assists only prior to or following the activity. 4-Supervision or Touching Assistance-helper provides verbal cues and/or touching/steadying and/or contact guard assistance as patient completes activity. Assistance may be provided throughout the activity or intermittently. 3-Partial/Moderate Assistance-helper does LESS THAN HALF the effort. [place] lifts, holds or supports trunk or limbs, but provides less than half the effort. 2-Substantial/Maximal Assistance-helper does MORE THAN HALF the effort. [place] lifts or holds trunk or limbs and provides more than half the effort. 4-Kjqfxpkcm-szezht does ALL the effort. Patient does none of the effort to complete the activity. Or, the assistance of 2 or more helpers is required for the patient to complete the activity. If activity was not attempted, code reason: 7-Patient Refused. 9-Not Applicable-not attempted and the patient did not perform the activity before the current illness, exacerbation or injury. 10-Not Attempted due to Environmental Limitations-(lack of equipment, weather restraints, etc.). 88-Not Attempted due to Medical Conditions or Safety Concerns. Lying to Sitting/Side of Bed(Q: 5 Sit to Stand (QC): 4 Weight Bearing Full Weight Bearing Touch Toe Bearing Gait Training Does the Patient Walk?: Yes Distance: 20' x2 Walk 10 feet (QC): 4 Gait Persons Needed: 1 Gait Assistive Device: FWW Pt needs VC to stay at TTWB as pt tends to be more like PWB when amb. Exercises Supine Ex: Ankle pumps, Quad Set, Glut sets, Heel Slides, Straight leg raise, Hip abd/add Supine Reps: 15 Treatments Pt completes Supine EX to start tx. Pt TF to EOB and practices sit to stand as pt feels dizzy upon standing. After this subsides, pt wants to use BR. Pt amb. to BR and washes hands before returning to recliner due to dizzy feeling again. DR Velez visits w/pt at end of tx. All needs met, call light in hand. Assessment Current Status: Fair Progress Pain and dizziness limit pt today. PT Short Term Goals Short Term Goals Time Frame: Sep 28, 2022 Lying to sitting on side of be: 3 Sit to stand: 4 Chair/jnc-ha-owezm transfer: 4 Walk 10 feet: 4 Walk 50 feet with two turns: 4 PT Campaign Worker Goals Mcfp Goals PT Mcfp Goals Time Frame: Oct 05, 2022 Roll Left & Right (QC): 6 Sit to Lying (QC): 6 Lying-Sitting on Side/Bed(QC): 6 Sit to Stand (QC): 4 (SBA) Chair/Yba-ye-Iolic Xfer(QC): 4 (SBA) Toilet Transfer (QC): 4 (SBA) Car Transfer (QC): 4 (SBA) Does the Patient Walk: Yes Walk 10 feet (QC): 4 (SBA) Walk 50ft with 2 Turns (QC): 4 (SBA) Walk 150 ft (QC): 4 (SBA) Walking 10ft on Uneven Surface: 4 (SBA) 1 Step (curb) (QC): 4 (CGA) 4 Steps (QC): 4 (CGA) 12 Steps (QC): 88 Picking up an Object (QC): 4 (SBA using general farm manager) Wheel 50 feet with 2 turns (QC: 9 Wheel 150 feet: 9 PT Plan Problem List Problem List: Activity Tolerance, Balance Treatment/Plan Treatment Plan: Continue Plan of Care Treatment Plan: Bed Mobility, Education, Functional Activity Jose, Functional Strength, Group Therapy, Gait, Safety, Therapeutic Exercise, Transfers Treatment Duration: Oct 05, 2022 Frequency: At least 5 of 7 days/Wk (IRF) Estimated Hrs Per Day: 1.5 hours per day Patient and/or Family Agrees t: Yes Safety Risks/Education Patient Education: Gait Training, Transfer Techniques, Reviewed Precautions Teaching Recipient: Patient Teaching Methods: Discussion Response to Teaching: Reinforcement Needed Time Time In: 815 Time Out: 915 DATE: Sep 23, 2022 Total Billed Treatment Time: 60 Total Billed Treatment 1, EX (20m), FA x2 (25m) & GT (15m) VALENTE STANFORD BANK REPRESENTATIVE Sep 23, 2022 11:56
--- NOTE | 2022-09-23 14:47 | Therapy Group Daily Note ---
Therapy Daily Group Note Patient Education Topic Other List Below (Proper Transfer Technique) Exercises LE Seated Exercise, UE Exercise Session Ratio (pt:therapist): 4:1 Goal of Session: Education on ARU Expectations, Home Safety Strategies, UE/LE Strengthing, Safety with Transfers Goal Met for this Session: Yes Pt Benefit of Group: Contributions to Others, F/U Use of Strategies @Home, Increased Functional Safety, Increased Functional Strength, Improved Cognition, Recognition of Peers, Socialization Other/Notes Pt ambulates to PT Group in Therapy Commons Area. Group consists of Intro ductions(Name, Where From & Favorite Childhood Memory), Socialization, Seated UE & LE Exercises, ARU Expectations and Review of Proper Transfer Techniques. Pt actively participated in Group by completing Exercises as well as listening and answering questions pertaining to car transfers, sit to stand transfers and transfers from Supine in bed. Pt were also instructed on ARU Expectations. Pt returned to room at end of Group with all needs met. Start Time: 13:00 Stop Time: 14:00 Total Billed Treatment Time: 60 Total Billed Treatment 1, [facility] VALENTE STANFORD PRESETTER OPERATOR Sep 23, 2022 14:47
[2022-09-23] MEDS ORDERED: FLU QUAD HIGH DOSE 240 MCG/0.7 ML 2022-23 (FLUZONE) IM ONE (16:00)
[2022-09-23] MEDS: TAMSULOSIN 0.4 MG (FLOMAX) CAP PO SCH (17:59)
[2022-09-23] MEDS: AtorvaSTATin TABLET 10 MG TABLET PO SCH (20:04)
[2022-09-23 20:48] VITALS: BP 167/73
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
[2022-09-24] MEDS: MULTIVIT W/MINERALS TAB (THERAGRAN M) PO SCH (06:38)
[2022-09-24] MEDS: LEVOTHYROXINE 112 MCG (LEVOTHROID) TAB PO SCH (06:38)
[2022-09-24 07:26] VITALS: BP 171/90
[2022-09-24] MEDS: polyethylene glycoL POWDER 17 GM (MIRALAX) PACK PO SCH ×2 (08:07→20:24)
[2022-09-24] MEDS: SENNA W/DOCUSATE (SENOKOT S) TABLET PO SCH ×4 (08:07→20:24)
[2022-09-24] MEDS: meTOproloL SUCCINATE 50 MG (TOPROL XL) TAB PO SCH (08:07)
[2022-09-24] MEDS: DOCUSATE SODIUM 100 MG (COLACE) CAP PO SCH ×2 (08:07→20:23)
[2022-09-24] MEDS: lisINopril 40 MG (PRINIVIL) TABLET PO SCH (08:07)
[2022-09-24] MEDS: FAMOTIDINE 20 MG (PEPCID) TABLET PO SCH ×2 (08:07→20:23)
[2022-09-24] MEDS: ENOXAPARIN 40 MG/0.4 ML (LOVENOX) SYR SC SCH (08:10)
[2022-09-24] MEDS: HYDROcodone/APAP 7.5 MG/325 MG (LORTAB, LORCET PLUS) TABLET PO PRN ×2 (08:16→18:09)
--- NOTE | 2022-09-24 09:04 | Occupational Ther Daily Note ---
OT Current Status-Daily Note Subjective Pt in recliner, agreeable to OT tx. ADL-Treatment Therapy Code Descriptions/Definitions Functional [place] Measure: 0=Not Assessed/NA 4=Minimal Assistance 1=Total Assistance 5=Supervision or Setup 2=Maximal Assistance 6=Modified [place] 3=Moderate Assistance 7=Complete IndependenceSCALE: Activities may be completed with or without assistive devices. 2-Rauykdddvl-oceakxs completes the activity by him/herself with no assistance from a helper. 5-Set-up or Clean-up Assistance-helper sets up or cleans up; patient completes activity. [place] assists only prior to or following the activity. 4-Supervision or Touching Assistance-helper provides verbal cues and/or touching/steadying and/or contact guard assistance as patient completes activity. Assistance may be provided throughout the activity or intermittently. 3-Partial/Moderate Assistance-helper does LESS THAN HALF the effort. [place] lifts, holds or supports trunk or limbs, but provides less than half the effort. 2-Substantial/Maximal Assistance-helper does MORE THAN HALF the effort. [place] lifts or holds trunk or limbs and provides more than half the effort. 0-Qpwrqqzbd-waxvec does ALL the effort. Patient does none of the effort to compl ete the activity. Or, the assistance of 2 or more helpers is required for the patient to complete the activity. If activity was not attempted, code reason: 7-Patient Refused. 9-Not Applicable-not attempted and the patient did not perform the activity before the current illness, exacerbation or injury. 10-Not Attempted due to Environmental Limitations-(lack of equipment, weather restraints, etc.). 88-Not Attempted due to Medical Conditions or Safety Concerns. Eating (QC): 6 Shower/Bathe Self (QC): 4 (SBA) Upper Body Dressing (QC): 5 Lower Body Dressing (QC): 4 (Min VCs with skein yarn dyer to doff, CGA in stand for pant hike. Pt able to thread BLEs without AE.) On/Off Footwear: 5 (slip on shoes.) Toileting Hygiene (QC): 4 (CGA-SBA) Toilet Transfer (QC): 3 (Mod A sit to stand from regular height toilet. Pt does not have a tall toilet at home.) Other Treatment Pt in recliner, used FWW to transfer into bathroom and onto toilet. Pt unable to toilet seated, mod A sit to stand. Pt does not have a tall toilet or toilet riser. OT provided education to pt about getting a BSC or toilet riser, he verb alized understanding. Pt stood at toilet to urinate, SBA, then transferred to AL. Pt completed shower, LH sponge provided for LEs, education provided on adaptive techniques to dry LEs. Pt donned underwear without AE, CGA in stand for pant hike. OT assisted pt with donning pants due to time constraint. QC score reflects pt's ability to complete underwear due to pt not given opportunity to complete pants himself. Pt donned slip on shoes and button up shirt. Pt returned to recliner, SBA using FWW. VCs to maintain TTWB LLE. Post tx, pt in recliner, call light in reach and all needs met, chair alarm activated. Education OT Patient Education: Correct positioning, Energy conservation, Modified ADL techniques, Progress toward Goal/Update tx plan, Purpose of tx/functional activities, Rehab process Teaching Recipient: Patient Teaching Methods: Discussion Response to Teaching: Verbalize Understanding OT Short Term Goals Short Term Goals Time Frame: Oct 03, 2022 Eatin Oral hygiene: 5 Toileting hygiene: 5 Shower/bathe self: 4 Upper body dressin Lower body dressin Putting on/taking off footwear: 5 OT Half-Way Goals Half-Way Goals Time Frame: Oct 09, 2022 Eating (QC): 6 Oral Hygiene (QC): 6 Toileting Hygiene (QC): 6 Shower/Bathe Self (QC): 5 Upper Body Dressing (QC): 6 Lower Body Dressing (QC): 6 On/Off Footwear (QC): 6 Additional Goals: 1-Demonstrate ADL Tasks, 2-Verbalize Understanding, 3- ImproveStrength/Jose 1=Demonstrate adherence to instructed precautions during ADL tasks. 2=Patient will verbalize/demonstrate understanding of assistive devices/modifications for ADL. 3=Patient will improve strength/tolerance for activity to enable patient to perform ADL's. OT Education/Plan Problem List/Assessment Assessment: Decreased Activ Tolerance, Decreased UE Strength, Impaired Funct Balance, Impaired I ADL's, Impaired Self-Care Skills Discharge Recommendations Plan/Recommendations: Continue POC Treatment Plan/Plan of Care Patient would benefit from OT for education, treatment and training to promote independence in ADL's, mobility, safety and/or upper extremity function for ADL's. Plan of Care: ADL Retraining, Functional Mobility, Group Exercise/Act as Ind, UE Funct Exercise/Act Treatment Duration: Oct 10, 2022 Frequency: At least 5 of 7 days/Wk (IRF) Estimated Hrs Per Day: 1.5 hours per day Agreement: Yes Rehab Potential: Guarded Time Start Time: 08:00 Stop Time: 09:00 DATE: Sep 24, 2022 Total Time Billed (hr/min): 60 Billed Treatment Time 1, ADL 4 ISADORA HUGHES OT Sep 24, 2022 09:04
--- NOTE | 2022-09-24 10:06 | Physical Therapy Daily Note ---
PT Daily Note-Current Subjective Pt. agrees to Rx, states he has pain at 7/10 in left hip with supine AROM and sometimes with TRFs . Pt. resistive to request pain meds, uses analgesic ointment/foam he applied himself Pain Numeric Pain Scale: 7 Location: Left Location Body Site: Hip Pain Description: Stabbing Section J - Health Conditions 1. Rarely or not at all 2. Occasionally 3. Frequently 4. Almost constantly 8. Unable to answer Pain Effect on Sleep: 1 Pain Interference with Therapy: 4 Pain Interference w/Day-to-Day: 3 Mental Status Patient Orientation: Person, Place, Situation Transfers SCALE: Activities may be completed with or without assistive devices. 2-Ynafcnsitx-wzjrmis completes the activity by him/herself with no assistance from a helper. 5-Set-up or Clean-up Assistance-helper sets up or cleans up; patient completes activity. [place] assists only prior to or following the activity. 4-Supervision or Touching Assistance-helper provides verbal cues and/or touchi ng/steadying and/or contact guard assistance as patient completes activity. Assistance may be provided throughout the activity or intermittently. 3-Partial/Moderate Assistance-helper does LESS THAN HALF the effort. [place] lifts, holds or supports trunk or limbs, but provides less than half the effort. 2-Substantial/Maximal Assistance-helper does MORE THAN HALF the effort. [place] lifts or holds trunk or limbs and provides more than half the effort. 5-Txfwguiie-vikqwp does ALL the effort. Patient does none of the effort to complete the activity. Or, the assistance of 2 or more helpers is required for the patient to complete the activity. If activity was not attempted, code reason: 7-Patient Refused. 9-Not Applicable-not attempted and the patient did not perform the activity before the current illness, exacerbation or injury. 10-Not Attempted due to Environmental Limitations-(lack of equipment, weather restraints, etc.). 88-Not Attempted due to Medical Conditions or Safety Concerns. Roll Left & Right (QC): 6 Sit to Lying (QC): 6 Lying to Sitting/Side of Bed(Q: 6 Sit to Stand (QC): 6 Chair/Wwi-ta-Bdlni Xfer(QC): 4 TRFs are slow and deliberate, guarded, with some wincing and c/o pain which subside while at rest Weight Bearing Full Weight Bearing Touch Toe Bearing Gait Training Does the Patient Walk?: Yes Walk 10 feet (QC): 4 Walk 50 ft with 2 Turns(QC): 4 Walk 150 ft (QC): 4 Gait Persons Needed: 1 Gait Assistive Device: FWW pt. needs reminders occas to maintain TTWBing left, pt. does this with flat foot but is definitely using heavy wt bearing bilat UEs Exercises Supine Ex: Ankle pumps, Quad Set, Rolling, Glut sets, Heel Slides, Short Arc Quads, Scooting, Straight leg raise (assisted), Hip abd/add (assisted) Supine Reps: 15 Seated Therapy Exercises: Ankle pumps, Sit to stand, Hip abd/add Seated Reps: 15 NuStep Minutes: 8 NuStep Workload: 1 Treatments TRFs, gait, LE therex, Nustep with no wt bearing LLE Assessment Current Status: Good Progress PT Short Term Goals Short Term Goals Time Frame: Sep 28, 2022 Lying to sitting on side of be: 3 Sit to stand: 4 Chair/ygc-av-mdefw transfer: 4 Walk 10 feet: 4 Walk 50 feet with two turns: 4 PT Barrel Drainer Goals Usp Goals PT Barrel Drainer Goals Time Frame: Oct 05, 2022 Roll Left & Right (QC): 6 Sit to Lying (QC): 6 Lying-Sitting on Side/Bed(QC): 6 Sit to Stand (QC): 4 (SBA) Chair/Kzc-hu-Hcouc Xfer(QC): 4 (SBA) Toilet Transfer (QC): 4 (SBA) Car Transfer (QC): 4 (SBA) Does the Patient Walk: Yes Walk 10 feet (QC): 4 (SBA) Walk 50ft with 2 Turns (QC): 4 (SBA) Walk 150 ft (QC): 4 (SBA) Walking 10ft on Uneven Surface: 4 (SBA) 1 Step (curb) (QC): 4 (CGA) 4 Steps (QC): 4 (CGA) 12 Steps (QC): 88 Picking up an Object (QC): 4 (SBA using sole cementer) Wheel 50 feet with 2 turns (QC: 9 Wheel 150 feet: 9 PT Plan Treatment/Plan Treatment Plan: Continue Plan of Care Treatment Plan: Bed Mobility, Education, Functional Activity Jose, Functional Strength, Group Therapy, Gait, Safety, Therapeutic Exercise, Transfers Treatment Duration: Oct 05, 2022 Frequency: At least 5 of 7 days/Wk (IRF) Estimated Hrs Per Day: 1.5 hours per day Patient and/or Family Agrees t: Yes Safety Risks/Education Patient Education: Gait Training, Transfer Techniques, Reviewed Precautions, Correct Positioning, Disease Process, Safety Issues Teaching Recipient: Patient Teaching Methods: Demonstration, Discussion Response to Teaching: Verbalize Understanding, Return Demonstration, Reinforcement Needed Time Time In: 900 Time Out: 1000 DATE: Sep 24, 2022 Total Billed Treatment Time: 60 Total Billed Treatment 1,EX35m,GT25m YOEL ANDERSON TOE PULLER Sep 24, 2022 10:06
[2022-09-24 11:31] VITALS: BP 131/63
--- NOTE | 2022-09-24 12:05 | Physical Therapy Daily Note ---
PT Daily Note-Current Subjective Agrees to Rx. "hoping i can get a nap in soon" Pain Location: No Pain Reported Section J - Health Conditions 1. Rarely or not at all 2. Occasionally 3. Frequently 4. Almost constantly 8. Unable to answer Pain Effect on Sleep: 1 Pain Interference with Therapy: 2 Pain Interference w/Day-to-Day: 2 Mental Status Patient Orientation: Normal For Age Transfers SCALE: Activities may be completed with or without assistive devices. 7-Vnonbznkfe-fhpudcq completes the activity by him/herself with no assistance from a helper. 5-Set-up or Clean-up Assistance-helper sets up or cleans up; patient completes activity. [place] assists only prior to or following the activity. 4-Supervision or Touching Assistance-helper provides verbal cues and/or touching/steadying and/or contact guard assistance as patient completes activity. Assistance may be provided throughout the activity or intermittently. 3-Partial/Moderate Assistance-helper does LESS THAN HALF the effort. [place] lifts, holds or supports trunk or limbs, but provides less than half the effort. 2-Substantial/Maximal Assistance-helper does MORE THAN HALF the effort. [place] lifts or holds trunk or limbs and provides more than half the effort. 9-Crajleczw-belxsq does ALL the effort. Patient does none of the effort to complete the activity. Or, the assistance of 2 or more helpers is required for the patient to complete the activity. If activity was not attempted, code reason: 7-Patient Refused. 9-Not Applicable-not attempted and the patient did not perform the activity before the current illness, exacerbation or injury. 10-Not Attempted due to Environmental Limitations-(lack of equipment, weather restraints, etc.). 88-Not Attempted due to Medical Conditions or Safety Concerns. Roll Left & Right (QC): 6 Sit to Lying (QC): 6 Lying to Sitting/Side of Bed(Q: 6 Sit to Stand (QC): 6 Chair/Zjo-td-Slyjp Xfer(QC): 6 pt. moves slowly for bed mob, uses RLE to support and move LLE during bed TRFs Weight Bearing Full Weight Bearing Touch Toe Bearing Gait Training Does the Patient Walk?: Yes Gait Assistive Device: FWW 50 ft x 2 FWW maintaining TTWB L Exercises Supine Ex: Ankle pumps, Quad Set, Rolling, Glut sets, Heel Slides, Short Arc Quads, Hip abd/add Supine Reps: 20 Treatments supine LE ex, TRFs, gait, toileting, up in recliner awaiting lunch after Rxguillermina at hand Assessment Current Status: Good Progress pain c/o decreased this Rx PT Short Term Goals Short Term Goals Time Frame: Sep 28, 2022 Lying to sitting on side of be: 3 Sit to stand: 4 Chair/yro-td-qlvdm transfer: 4 Walk 10 feet: 4 Walk 50 feet with two turns: 4 PT Snf Goals Snf Goals PT Line Assigner Goals Time Frame: Oct 05, 2022 Roll Left & Right (QC): 6 Sit to Lying (QC): 6 Lying-Sitting on Side/Bed(QC): 6 Sit to Stand (QC): 4 (SBA) Chair/Boa-mr-Gnbry Xfer(QC): 4 (SBA) Toilet Transfer (QC): 4 (SBA) Car Transfer (QC): 4 (SBA) Does the Patient Walk: Yes Walk 10 feet (QC): 4 (SBA) Walk 50ft with 2 Turns (QC): 4 (SBA) Walk 150 ft (QC): 4 (SBA) Walking 10ft on Uneven Surface: 4 (SBA) 1 Step (curb) (QC): 4 (CGA) 4 Steps (QC): 4 (CGA) 12 Steps (QC): 88 Picking up an Object (QC): 4 (SBA using packing checker) Wheel 50 feet with 2 turns (QC: 9 Wheel 150 feet: 9 PT Plan Treatment/Plan Treatment Plan: Continue Plan of Care Treatment Plan: Bed Mobility, Education, Functional Activity Jose, Functional Strength, Group Therapy, Gait, Safety, Therapeutic Exercise, Transfers Treatment Duration: Oct 05, 2022 Frequency: At least 5 of 7 days/Wk (IRF) Estimated Hrs Per Day: 1.5 hours per day Patient and/or Family Agrees t: Yes Safety Risks/Education Patient Education: Gait Training, Transfer Techniques, Correct Positioning Teaching Recipient: Patient Teaching Methods: Demonstration, Discussion Response to Teaching: Verbalize Understanding, Return Demonstration, Reinforcement Needed Time Time In: 1130 Time Out: 1200 DATE: Sep 24, 2022 Total Billed Treatment Time: 30 Total Billed Treatment 1,GT10m,EX20m YOEL ANDERSON LEAD WAREHOUSE ASSOCIATE Sep 24, 2022 12:05
--- NOTE | 2022-09-24 14:02 | Occupational Ther Daily Note ---
OT Current Status-Daily Note Subjective Pt in recliner, agreeable to OT Tx. ADL-Treatment Therapy Code Descriptions/Definitions Functional [place] Measure: 0=Not Assessed/NA 4=Minimal Assistance 1=Total Assistance 5=Supervision or Setup 2=Maximal Assistance 6=Modified [place] 3=Moderate Assistance 7=Complete IndependenceSCALE: Activities may be completed with or without assistive devices. 3-Hbeegeozrk-oddxrkc completes the activity by him/herself with no assistance from a helper. 5-Set-up or Clean-up Assistance-helper sets up or cleans up; patient completes activity. [place] assists only prior to or following the activity. 4-Supervision or Touching Assistance-helper provides verbal cues and/or touching/steadying and/or contact guard assistance as patient completes activity. Assistance may be provided throughout the activity or intermittently. 3-Partial/Moderate Assistance-helper does LESS THAN HALF the effort. [place] lifts, holds or supports trunk or limbs, but provides less than half the effort. 2-Substantial/Maximal Assistance-helper does MORE THAN HALF the effort. [place] lifts or holds trunk or limbs and provides more than half the effort. 3-Alxoytqig-iyjjvc does ALL the effort. Patient does none of the effort to compl ete the activity. Or, the assistance of 2 or more helpers is required for the patient to complete the activity. If activity was not attempted, code reason: 7-Patient Refused. 9-Not Applicable-not attempted and the patient did not perform the activity before the current illness, exacerbation or injury. 10-Not Attempted due to Environmental Limitations-(lack of equipment, weather restraints, etc.). 88-Not Attempted due to Medical Conditions or Safety Concerns. Other Treatment Pt declined need to toilet or other ADLs at this time. OT tx focused on increasing BUE strength and activity tolerance. Pt completed x15 reps each, 5/5 UE exercises using moderate resistance (red) theraband. Pt required rest breaks between each exercises, and redirection to task. Pt easily distractible, often talking about stories of his life. Post tx, pt in recliner, call light in reach and all needs met. OT Short Term Goals Short Term Goals Time Frame: Oct 03, 2022 Eatin Oral hygiene: 5 Toileting hygiene: 5 Shower/bathe self: 4 Upper body dressin Lower body dressin Putting on/taking off footwear: 5 OT [facility] Goals Signals Intelligence Superintendent Goals Time Frame: Oct 09, 2022 Eating (QC): 6 Oral Hygiene (QC): 6 Toileting Hygiene (QC): 6 Shower/Bathe Self (QC): 5 Upper Body Dressing (QC): 6 Lower Body Dressing (QC): 6 On/Off Footwear (QC): 6 Additional Goals: 1-Demonstrate ADL Tasks, 2-Verbalize Understanding, 3- ImproveStrength/Jose 1=Demonstrate adherence to instructed precautions during ADL tasks. 2=Patient will verbalize/demonstrate understanding of assistive devices/modifications for ADL. 3=Patient will improve strength/tolerance for activity to enable patient to perform ADL's. OT Education/Plan Problem List/Assessment Assessment: Decreased Activ Tolerance, Decreased UE Strength, Impaired Funct Balance, Impaired I ADL's, Impaired Self-Care Skills Discharge Recommendations Plan/Recommendations: Continue POC Treatment Plan/Plan of Care Patient would benefit from OT for education, treatment and training to promote independence in ADL's, mobility, safety and/or upper extremity function for ADL's. Plan of Care: ADL Retraining, Functional Mobility, Group Exercise/Act as Ind, UE Funct Exercise/Act Treatment Duration: Oct 10, 2022 Frequency: At least 5 of 7 days/Wk (IRF) Estimated Hrs Per Day: 1.5 hours per day Agreement: Yes Rehab Potential: Guarded Time Start Time: 13:30 Stop Time: 14:00 DATE: Sep 24, 2022 Total Time Billed (hr/min): 30 Billed Treatment Time 1, EX ISADORA HUGHES OT Sep 24, 2022 14:02
[2022-09-24] MEDS: TAMSULOSIN 0.4 MG (FLOMAX) CAP PO SCH (17:23)
[2022-09-24] MEDS: BISACODYL 10 MG SUPP (DULCOLAX) PR PRN (18:08)
[2022-09-24 19:58] VITALS: BP 159/91
[2022-09-24] MEDS: AtorvaSTATin TABLET 10 MG TABLET PO SCH (20:23)
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
[2022-09-25] MEDS: LEVOTHYROXINE 112 MCG (LEVOTHROID) TAB PO SCH (06:29)
[2022-09-25] MEDS: MULTIVIT W/MINERALS TAB (THERAGRAN M) PO SCH (06:29)
[2022-09-25 07:12] VITALS: BP 169/89
[2022-09-25] MEDS: SENNA W/DOCUSATE (SENOKOT S) TABLET PO SCH ×4 (08:00→21:18)
[2022-09-25] MEDS: DOCUSATE SODIUM 100 MG (COLACE) CAP PO SCH ×2 (08:00→21:18)
[2022-09-25] MEDS: FAMOTIDINE 20 MG (PEPCID) TABLET PO SCH ×2 (08:00→21:17)
[2022-09-25] MEDS: meTOproloL SUCCINATE 50 MG (TOPROL XL) TAB PO SCH (08:00)
[2022-09-25] MEDS: lisINopril 40 MG (PRINIVIL) TABLET PO SCH (08:00)
[2022-09-25] MEDS: polyethylene glycoL POWDER 17 GM (MIRALAX) PACK PO SCH ×2 (08:01→21:18)
[2022-09-25] MEDS: ENOXAPARIN 40 MG/0.4 ML (LOVENOX) SYR SC SCH (08:01)
[2022-09-25] MEDS: HYDROcodone/APAP 7.5 MG/325 MG (LORTAB, LORCET PLUS) TABLET PO PRN ×2 (08:12→13:35)
--- NOTE | 2022-09-25 08:25 | Occupational Ther Daily Note ---
OT Current Status-Daily Note Subjective Pt in recliner, agreeable to OT Tx. Nurse present, states pt had refused pain medication this AM due to not having pain at rest. After pt got up, c/o pain in hip, agreeable to pain pill at that time. ADL-Treatment Therapy Code Descriptions/Definitions Functional [place] Measure: 0=Not Assessed/NA 4=Minimal Assistance 1=Total Assistance 5=Supervision or Setup 2=Maximal Assistance 6=Modified [place] 3=Moderate Assistance 7=Complete IndependenceSCALE: Activities may be completed with or without assistive devices. 2-Rjyrnuawwn-vymrrvf completes the activity by him/herself with no assistance from a helper. 5-Set-up or Clean-up Assistance-helper sets up or cleans up; patient completes activity. Brookesmith assists only prior to or following the activity. 4-Supervision or Touching Assistance-helper provides verbal cues and/or touching/steadying and/or contact guard assistance as patient completes activity. Assistance may be provided throughout the activity or intermittently. 3-Partial/Moderate Assistance-helper does LESS THAN HALF the effort. Brookesmith lifts, holds or supports trunk or limbs, but provides less than half the effort. 2-Substantial/Maximal Assistance-helper does MORE THAN HALF the effort. Brookesmith lifts or holds trunk or limbs and provides more than half the effort. 2-Rhhkcyrlo-treonk does ALL the effort. Patient does none of the effort to complete the activity. Or, the assistance of 2 or more helpers is required for the patient to complete the activity. If activity was not attempted, code reason: 7-Patient Refused. 9-Not Applicable-not attempted and the patient did not perform the activity before the current illness, exacerbation or injury. 10-Not Attempted due to Environmental Limitations-(lack of equipment, weather restraints, etc.). 88-Not Attempted due to Medical Conditions or Safety Concerns. Oral Hygiene (QC): 4 (SBA. 1 VC to locate cup at sink.) Other Treatment Pt in recliner, denies pain. Pt transferred sit to stand with FWW, IND. Pt used FWW to transfer into bathroom and stand at sink. Pt states he is unable to walk to therapy gym today due to pain, when asked where pain was located, pt stated hip/leg. OT informed pt that he declined a pain pill this AM, and if he would like one, RN can bring one in. Pt agreeable to pain pill at this time. Pt sat at sink to complete oral care. Pt refused to attempt functional mobility to therapy gym using FWW due to pain. Pt instead propelled w/c to therapy gym, VCs for direction. OT Tx focused on increasing BEU Strength and activity tolerance. Pt completed arm bike x20 mins, 20-25 Watt resistance, 1 rest break. Pt removed beads from moderate resistance (green) theraputty, c/o increased pain in R t humb, so pt primarily used L hand for task. This was complete to increase fine motor strength. Pt propelled w/c back to his room. Pt transferred to recliner from w/c using FWW, VCs required for UE placement with sit to stand transfer. Post tx, pt in recliner, call light in reach and all needs met. Chair alarm activated. Education OT Patient Education: Correct positioning, Energy conservation, Exercise program, Modified ADL techniques, Progress toward Goal/Update tx plan, Purpose of tx/functional activities, Rehab process Teaching Recipient: Patient Teaching Methods: Discussion Response to Teaching: Verbalize Understanding OT Short Term Goals Short Term Goals Time Frame: Oct 03, 2022 Eatin Oral hygiene: 5 Toileting hygiene: 5 Shower/bathe self: 4 Upper body dressin Lower body dressin Putting on/taking off footwear: 5 OT Prison Goals Tabulating Machine Mechanic Goals Time Frame: Oct 09, 2022 Eating (QC): 6 Oral Hygiene (QC): 6 Toileting Hygiene (QC): 6 Shower/Bathe Self (QC): 5 Upper Body Dressing (QC): 6 Lower Body Dressing (QC): 6 On/Off Footwear (QC): 6 Additional Goals: 1-Demonstrate ADL Tasks, 2-Verbalize Understanding, 3-Im proveStrength/Jose 1=Demonstrate adherence to instructed precautions during ADL tasks. 2=Patient will verbalize/demonstrate understanding of assistive devices/modifications for ADL. 3=Patient will improve strength/tolerance for activity to enable patient to perform ADL's. OT Education/Plan Problem List/Assessment Assessment: Decreased Activ Tolerance, Decreased UE Strength, Impaired Funct Balance, Impaired I ADL's, Impaired Self-Care Skills Discharge Recommendations Plan/Recommendations: Continue POC Treatment Plan/Plan of Care Patient would benefit from OT for education, treatment and training to promote independence in ADL's, mobility, safety and/or upper extremity function for ADL's. Plan of Care: ADL Retraining, Functional Mobility, Group Exercise/Act as Ind, UE Funct Exercise/Act Treatment Duration: Oct 10, 2022 Frequency: At least 5 of 7 days/Wk (IRF) Estimated Hrs Per Day: 1.5 hours per day Agreement: Yes Rehab Potential: Guarded Time Start Time: 08:00 Stop Time: 09:00 DATE: Sep 25, 2022 Total Time Billed (hr/min): 60 Billed Treatment Time 1, ADL 2 (25'), EX (20'), FA (15') ISADORA HUGHES OT Sep 25, 2022 08:25
[2022-09-25] MEDS: ACETAMINOPHEN 325 MG TABLET PO PRN (11:09)
--- NOTE | 2022-09-25 11:40 | Physical Therapy Daily Note ---
PT Daily Note-Current Subjective Pt. in bed, unlike his usual self ( usually smiling, talkative and more than ready to get up and out of his room, smiling etc) pt. resists activity , complaining of pain exquisitely in right thumb at 10/10 as well as in left arm and shoulder pointing to triceps area and the left hip and low back area of pelvis , pt. not rating shoulder and left hip/pelvic pain. "You know I pride myself on telling you that I can usually work through pain/ignore pain but this I just cant" In discussing his c/o with him pt agrees it is likely from doing so much wt bearing through UEs on FWW and right hand. This SURVEYOR GEOPHYSICAL PROSPECTING consulted RN who states pt had pain meds earlier but could still have Tylenol if he wants it, pt. quickly accepts this suggestion. Several attempts made to move slowly and warm up slowly but pt. could not tolerate pain for gait much more than 5-6 feet. sup to side to sit TRF also brought on c/o from pt. at high level with him requesting assist to TRF. Pain Numeric Pain Scale: 10-Worst Possible Pain Location: Right Location Body Site: Hand (thumb) Pain Description: Stabbing Section J - Health Conditions 1. Rarely or not at all 2. Occasionally 3. Frequently 4. Almost constantly 8. Unable to answer Pain Effect on Sleep: 1 Pain Interference with Therapy: 4 Pain Interference w/Day-to-Day: 4 Appearance pt. with wincing and Stringer Miranda facial pain scale rating at 8. No edema or dis coloration noted on right thumb. Mental Status Patient Orientation: Person, Place, Situation Transfers SCALE: Activities may be completed with or without assistive devices. 6-Pvawxbwzem-khsxrrx completes the activity by him/herself with no assistance from a helper. 5-Set-up or Clean-up Assistance-helper sets up or cleans up; patient completes activity. [place]mer assists only prior to or following the activity. 4-Supervision or Touching Assistance-helper provides verbal cues and/or touching/steadying and/or contact guard assistance as patient completes activity. Assistance may be provided throughout the activity or intermittently. 3-Partial/Moderate Assistance-helper does LESS THAN HALF the effort. Elmer lifts, holds or supports trunk or limbs, but provides less than half the effort. 2-Substantial/Maximal Assistance-helper does MORE THAN HALF the effort. Elmer lifts or holds trunk or limbs and provides more than half the effort. 8-Hpyzeoqev-qbozlg does ALL the effort. Patient does none of the effort to complete the activity. Or, the assistance of 2 or more helpers is required for the patient to complete the activity. If activity was not attempted, code reason: 7-Patient Refused. 9-Not Applicable-not attempted and the patient did not perform the activity before the current illness, exacerbation or injury. 10-Not Attempted due to Environmental Limitations-(lack of equipment, weather restraints, etc.). 88-Not Attempted due to Medical Conditions or Safety Concerns. Roll Left & Right (QC): 6 Lying to Sitting/Side of Bed(Q: 4 Sit to Stand (QC): 4 Chair/Bpu-cr-Bfrvn Xfer(QC): 4 all TRFs slower with pain c/o escalating and requiring assist whereas pt had previously been indep or SBA Weight Bearing Full Weight Bearing Touch Toe Bearing Gait Training Does the Patient Walk?: Yes Gait Assistive Device: FWW poor tolerance for gait with pt. resisting using right hand on tooth clerk of FWW , placing wt bearing between 2nd and 3rd digit to avoid thumb bearing any wt. pt. also expressing increased pain when walking just 5-6 feet bed to recliner MIN to CGA Exercises Supine Ex: Ankle pumps, Quad Set, Rolling, Glut sets, Heel Slides (assisted left), Short Arc Quads, Scooting (up in bed), Straight leg raise (not done on left), Hip abd/add (assisted left) Supine Reps: 12 (x2) Seated Therapy Exercises: Ankle pumps, Shoulder Flex (for stretching), Long arc quads, Shoulder Abd (for stretching), Hip abd/add Seated Reps: 12 (x2) Treatments pt. with consistent poor tolerance for gait and wt bearing and consistent c/o pain in right thumb and left shoulder and left hip and pelvic area, bed mobility, supine LE exercises and gentle attempts at bed TRFs and gait , pt. cooperative to take Tylenol but unwilling to try further gait secondary to pain. Pt up in recliner after rx with positioning attempts for right thumb, and pelvis as well as warmed Kpad and blankets with call sarmiento at hand, Pt. unable to complete scheduled Rx time, this SURVEYOR GEOPHYSICAL PROSPECTING will attempt further Rx in PM per pts tolerance. pt. likely having pain in joints due to heavy weight bearing on UEs during TTWBing left during gait Assessment Current Status: Fair Progress poor tolerance for Rx, pain c/o limit participation PT Short Term Goals Short Term Goals Time Frame: Sep 28, 2022 Lying to sitting on side of be: 3 Sit to stand: 4 Chair/xwo-qf-qgcdy transfer: 4 Walk 10 feet: 4 Walk 50 feet with two turns: 4 PT Aws Consultant Goals [facility] Goals PT Aws Consultant Goals Time Frame: Oct 05, 2022 Roll Left & Right (QC): 6 Sit to Lying (QC): 6 Lying-Sitting on Side/Bed(QC): 6 Sit to Stand (QC): 4 (SBA) Chair/Zpj-fo-Dbclv Xfer(QC): 4 (SBA) Toilet Transfer (QC): 4 (SBA) Car Transfer (QC): 4 (SBA) Does the Patient Walk: Yes Walk 10 feet (QC): 4 (SBA) Walk 50ft with 2 Turns (QC): 4 (SBA) Walk 150 ft (QC): 4 (SBA) Walking 10ft on Uneven Surface: 4 (SBA) 1 Step (curb) (QC): 4 (CGA) 4 Steps (QC): 4 (CGA) 12 Steps (QC): 88 Picking up an Object (QC): 4 (SBA using pearl diver) Wheel 50 feet with 2 turns (QC: 9 Wheel 150 feet: 9 PT Plan Treatment/Plan Treatment Plan: Continue Plan of Care Treatment Plan: Bed Mobility, Education, Functional Activity Jose, Functional Strength, Group Therapy, Gait, Safety, Therapeutic Exercise, Transfers Treatment Duration: Oct 05, 2022 Frequency: At least 5 of 7 days/Wk (IRF) Estimated Hrs Per Day: 1.5 hours per day Patient and/or Family Agrees t: Yes Safety Risks/Education Patient Education: Gait Training, Transfer Techniques, Correct Positioning, Disease Process, Safety Issues Teaching Recipient: Patient Response to Teaching: Reinforcement Needed Time Time In: 1030 Time Out: 1130 DATE: Sep 25, 2022 Total Billed Treatment Time: 60 Total Billed Treatment 1,EX30m,FA20m,GT10m YOEL ANDERSON SURVEYOR GEOPHYSICAL PROSPECTING Sep 25, 2022 11:40
--- NOTE | 2022-09-25 14:02 | Physical Therapy Daily Note ---
PT Daily Note-Current Subjective Pt. inn recliner, still contends he has so much pain in rigt thumb and left hip/pelvis sarahi wit attempts at wt bearing and gait. Pt. agrees to try to ambulate with FWW with RUE platform attachment to try to alleviate pain in thumb etc. Pain Numeric Pain Scale: 7 Location: Left Location Body Site: Pelvic Pain Description: Stabbing Section J - Health Conditions 1. Rarely or not at all 2. Occasionally 3. Frequently 4. Almost constantly 8. Unable to answer Pain Effect on Sleep: 1 Pain Interference with Therapy: 4 Pain Interference w/Day-to-Day: 4 Transfers SCALE: Activities may be completed with or without assistive devices. 8-Kqlwebmscl-dosndfm completes the activity by him/herself with no assistance from a helper. 5-Set-up or Clean-up Assistance-helper sets up or cleans up; patient completes activity. [place] assists only prior to or following the activity. 4-Supervision or Touching Assistance-helper provides verbal cues and/or touching/steadying and/or contact guard assistance as patient completes activity. Assistance may be provided throughout the activity or intermittently. 3-Partial/Moderate Assistance-helper does LESS THAN HALF the effort. [place] lifts, holds or supports trunk or limbs, but provides less than half the effort. 2-Substantial/Maximal Assistance-helper does MORE THAN HALF the effort. [place] lifts or holds trunk or limbs and provides more than half the effort. 1-Dzkuguwpe-xcogbx does ALL the effort. Patient does none of the effort to complete the activity. Or, the assistance of 2 or more helpers is required for the patient to complete the activity. If activity was not attempted, code reason: 7-Patient Refused. 9-Not Applicable-not attempted and the patient did not perform the activity before the current illness, exacerbation or injury. 10-Not Attempted due to Environmental Limitations-(lack of equipment, weather restraints, etc.). 88-Not Attempted due to Medical Conditions or Safety Concerns. Sit to Stand (QC): 4 Chair/Lzs-vy-Lbkrl Xfer(QC): 4 Weight Bearing Full Weight Bearing Touch Toe Bearing Gait Training Does the Patient Walk?: Yes Walk 50 ft with 2 Turns(QC): 4 Gait Persons Needed: 1 Gait Assistive Device: Walker Platform (right) gait 25 ft x 2 very slow, no wt bearing on medial right thumb musculature with platform insitu, pt. walking very slowly and maintaining TTWBing LLE but ind icates exquisite pain with each step. Pt. ambulated to bathroom , stood at sink for brushing teeth per his requests as well as washing hands all TTWB left and needing min assist for balance occas as he stood nearly on one leg to use both hands to put paste on brush etc. Exercises Seated Therapy Exercises: Ankle pumps, Sit to stand, Long arc quads Seated Reps: 8 Treatments TRFs, gait with newly applied platform on right UE, FA at sink, up in recliner after Rx at pt. request Assessment Current Status: Fair Progress pt. still plagued by exquisite right thumb pain and left hip pelvis pain that greatly limits gait and wt bearing PT Short Term Goals Short Term Goals Time Frame: Sep 28, 2022 Lying to sitting on side of be: 3 Sit to stand: 4 Chair/ipr-ts-vgnpi transfer: 4 Walk 10 feet: 4 Walk 50 feet with two turns: 4 PT Penitentiary Goals Railroad Commissioner Goals PT [facility] Goals Time Frame: Oct 05, 2022 Roll Left & Right (QC): 6 Sit to Lying (QC): 6 Lying-Sitting on Side/Bed(QC): 6 Sit to Stand (QC): 4 (SBA) Chair/Hwz-ku-Nolft Xfer(QC): 4 (SBA) Toilet Transfer (QC): 4 (SBA) Car Transfer (QC): 4 (SBA) Does the Patient Walk: Yes Walk 10 feet (QC): 4 (SBA) Walk 50ft with 2 Turns (QC): 4 (SBA) Walk 150 ft (QC): 4 (SBA) Walking 10ft on Uneven Surface: 4 (SBA) 1 Step (curb) (QC): 4 (CGA) 4 Steps (QC): 4 (CGA) 12 Steps (QC): 88 Picking up an Object (QC): 4 (SBA using mens locker room attendant) Wheel 50 feet with 2 turns (QC: 9 Wheel 150 feet: 9 PT Plan Treatment/Plan Treatment Plan: Continue Plan of Care Treatment Plan: Bed Mobility, Education, Functional Activity Jose, Functional Strength, Group Therapy, Gait, Safety, Therapeutic Exercise, Transfers Treatment Duration: Oct 05, 2022 Frequency: At least 5 of 7 days/Wk (IRF) Estimated Hrs Per Day: 1.5 hours per day Patient and/or Family Agrees t: Yes Safety Risks/Education Patient Education: Gait Training, Transfer Techniques, Correct Positioning, Safety Issues Response to Teaching: Reinforcement Needed Time Time In: 1310 Time Out: 1340 DATE: Sep 25, 2022 Total Billed Treatment Time: 30 Total Billed Treatment 1,GT15m,FA15m YOEL ANDERSON ATOMIC PROCESS ENGINEER Sep 25, 2022 14:02
--- NOTE | 2022-09-25 14:08 | Occupational Ther Daily Note ---
OT Current Status-Daily Note Subjective Pt alert, sitting in recliner. Pt c/o R thumb pain. Nrsg in room and aware of pain. Mental Status/Objective Patient Orientation: Person, Place, Time, Situation ADL-Treatment Therapy Code Descriptions/Definitions Functional [place] Measure: 0=Not Assessed/NA 4=Minimal Assistance 1=Total Assistance 5=Supervision or Setup 2=Maximal Assistance 6=Modified [place] 3=Moderate Assistance 7=Complete IndependenceSCALE: Activities may be completed with or without assistive devices. 1-Weaikblxbs-vcfnrvo completes the activity by him/herself with no assistance from a helper. 5-Set-up or Clean-up Assistance-helper sets up or cleans up; patient completes activity. [place] assists only prior to or following the activity. 4-Supervision or Touching Assistance-helper provides verbal cues and/or t ouching/steadying and/or contact guard assistance as patient completes activity. Assistance may be provided throughout the activity or intermittently. 3-Partial/Moderate Assistance-helper does LESS THAN HALF the effort. [place] lifts, holds or supports trunk or limbs, but provides less than half the effort. 2-Substantial/Maximal Assistance-helper does MORE THAN HALF the effort. [place] lifts or holds trunk or limbs and provides more than half the effort. 3-Mbucpveyi-pqjczy does ALL the effort. Patient does none of the effort to complete the activity. Or, the assistance of 2 or more helpers is required for the patient to complete the activity. If activity was not attempted, code reason: 7-Patient Refused. 9-Not Applicable-not attempted and the patient did not perform the activity before the current illness, exacerbation or injury. 10-Not Attempted due to Environmental Limitations-(lack of equipment, weather restraints, etc.). 88-Not Attempted due to Medical Conditions or Safety Concerns. Other Treatment Massage and stretch to R thumb and R UE to decrease pain. Tightness and slight swelling at MCP jt noted. Pt able to demonstrate understanding of ROM and stretching to assist with mobility of joint to decrease pain. After therapy, pt sitting in recliner with call light/phone in reach. All needs met in room. OT Short Term Goals Short Term Goals Time Frame: Oct 03, 2022 Eatin Oral hygiene: 5 Toileting hygiene: 5 Shower/bathe self: 4 Upper body dressin Lower body dressin Putting on/taking off footwear: 5 OT Geotechnical Department Manager Goals [facility] Goals Time Frame: Oct 09, 2022 Eating (QC): 6 Oral Hygiene (QC): 6 Toileting Hygiene (QC): 6 Shower/Bathe Self (QC): 5 Upper Body Dressing (QC): 6 Lower Body Dressing (QC): 6 On/Off Footwear (QC): 6 Additional Goals: 1-Demonstrate ADL Tasks, 2-Verbalize Understanding, 3-ImproveStrength/Jose 1=Demonstrate adherence to instructed precautions during ADL tasks. 2=Patient will verbalize/demonstrate understanding of assistive devices/modifications for ADL. 3=Patient will improve strength/tolerance for activity to enable patient to perf orm ADL's. OT Education/Plan Discharge Recommendations Plan/Recommendations: Continue POC Treatment Plan/Plan of Care Patient would benefit from OT for education, treatment and training to promote independence in ADL's, mobility, safety and/or upper extremity function for ADL's. Plan of Care: ADL Retraining, Functional Mobility, Group Exercise/Act as Ind, UE Funct Exercise/Act Treatment Duration: Oct 10, 2022 Frequency: At least 5 of 7 days/Wk (IRF) Estimated Hrs Per Day: 1.5 hours per day Agreement: Yes Rehab Potential: Guarded Time Start Time: 13:35 Stop Time: 14:05 DATE: Sep 25, 2022 Total Time Billed (hr/min): 30 Billed Treatment Time 1 visit-EX 2 (30 min) DANIELA SIMEON Sep 25, 2022 14:08
[2022-09-25] MEDS: TAMSULOSIN 0.4 MG (FLOMAX) CAP PO SCH (17:16)
[2022-09-25 20:15] VITALS: BP 153/70
[2022-09-25] MEDS: AtorvaSTATin TABLET 10 MG TABLET PO SCH (21:17)
[2022-09-26] MEDS: LEVOTHYROXINE 112 MCG (LEVOTHROID) TAB PO SCH (06:03)
[2022-09-26] MEDS: MULTIVIT W/MINERALS TAB (THERAGRAN M) PO SCH (06:03)
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
[2022-09-26 08:00] VITALS: BP 132/69
[2022-09-26] MEDS: polyethylene glycoL POWDER 17 GM (MIRALAX) PACK PO SCH ×2 (08:49→19:28)
[2022-09-26] MEDS: SENNA W/DOCUSATE (SENOKOT S) TABLET PO SCH ×4 (08:50→20:11)
[2022-09-26] MEDS: meTOproloL SUCCINATE 50 MG (TOPROL XL) TAB PO SCH (09:03)
[2022-09-26] MEDS: ENOXAPARIN 40 MG/0.4 ML (LOVENOX) SYR SC SCH (09:03)
[2022-09-26] MEDS: DOCUSATE SODIUM 100 MG (COLACE) CAP PO SCH ×2 (09:04→20:11)
[2022-09-26] MEDS: lisINopril 40 MG (PRINIVIL) TABLET PO SCH (09:04)
[2022-09-26] MEDS: FAMOTIDINE 20 MG (PEPCID) TABLET PO SCH ×2 (09:04→20:07)
--- NOTE | 2022-09-26 11:04 | Physical Therapy Daily Note ---
PT Daily Note-Current Subjective Upon arrival, pt was supine in bed. Pt states that he slept pretty good and that he had no pain. Pt agrees to PT. Pain Section J - Health Conditions 1. Rarely or not at all 2. Occasionally 3. Frequently 4. Almost constantly 8. Unable to answer Pain Effect on Sleep: 1 Pain Interference with Therapy: 4 Pain Interference w/Day-to-Day: 4 Appearance Pt had call light and tray in reach. Mental Status Patient Orientation: Person, Time, Situation Transfers SCALE: Activities may be completed with or without assistive devices. 8-Ejozhyujrt-zfiudzp completes the activity by him/herself with no assistance from a helper. 5-Set-up or Clean-up Assistance-helper sets up or cleans up; patient completes activity. [place] assists only prior to or following the activity. 4-Supervision or Touching Assistance-helper provides verbal cues and/or touching/steadying and/or contact guard assistance as patient completes activity. Assistance may be provided throughout the activity or intermittently. 3-Partial/Moderate Assistance-helper does LESS THAN HALF the effort. [place] lifts, holds or supports trunk or limbs, but provides less than half the effort. 2-Substantial/Maximal Assistance-helper does MORE THAN HALF the effort. [place] lifts or holds trunk or limbs and provides more than half the effort. 6-Empkhukwi-ruqtbl does ALL the effort. Patient does none of the effort to complete the activity. Or, the assistance of 2 or more helpers is required for the patient to complete the activity. If activity was not attempted, code reason: 7-Patient Refused. 9-Not Applicable-not attempted and the patient did not perform the activity before the current illness, exacerbation or injury. 10-Not Attempted due to Environmental Limitations-(lack of equipment, weather restraints, etc.). 88-Not Attempted due to Medical Conditions or Safety Concerns. Weight Bearing Full Weight Bearing Touch Toe Bearing Gait Training Does the Patient Walk?: No and Walking Goal IS indicated Exercises Supine Ex: Ankle pumps, Quad Set, Glut sets, Heel Slides, Straight leg raise, Hip abd/add Supine Reps: 20 Treatments Pt completed all activities listed above. During session RN arrives and admini sters meds. Once PT was concluded, pt was supine in bed with call light and tray in reach and all needs met. Assessment Current Status: Good Progress Pt required min assistance with moving L LE to complete activities. Pt would benefit from continued skilled PT to address strength and activity tolerance. PT Short Term Goals Short Term Goals Time Frame: Sep 28, 2022 Lying to sitting on side of be: 3 Sit to stand: 4 Chair/use-at-pnsjj transfer: 4 Walk 10 feet: 4 Walk 50 feet with two turns: 4 PT Digital Imaging Technician Goals Correction Goals PT Correction Goals Time Frame: Oct 05, 2022 Roll Left & Right (QC): 6 Sit to Lying (QC): 6 Lying-Sitting on Side/Bed(QC): 6 Sit to Stand (QC): 4 (SBA) Chair/Xom-wj-Agdpy Xfer(QC): 4 (SBA) Toilet Transfer (QC): 4 (SBA) Car Transfer (QC): 4 (SBA) Does the Patient Walk: Yes Walk 10 feet (QC): 4 (SBA) Walk 50ft with 2 Turns (QC): 4 (SBA) Walk 150 ft (QC): 4 (SBA) Walking 10ft on Uneven Surface: 4 (SBA) 1 Step (curb) (QC): 4 (CGA) 4 Steps (QC): 4 (CGA) 12 Steps (QC): 88 Picking up an Object (QC): 4 (SBA using shooter's helper) Wheel 50 feet with 2 turns (QC: 9 Wheel 150 feet: 9 PT Plan Problem List Problem List: Activity Tolerance, Functional Strength Treatment/Plan Treatment Plan: Continue Plan of Care Treatment Plan: Bed Mobility, Education, Functional [place], Functional Strength, Group Therapy, Gait, Safety, Therapeutic Exercise, Transfers Treatment Duration: Oct 05, 2022 Frequency: At least 5 of 7 days/Wk (IRF) Estimated Hrs Per Day: 1.5 hours per day Patient and/or Family Agrees t: Yes Time Time In: 857 Time Out: 914 DATE: Sep 26, 2022 Total Billed Treatment Time: 17 Total Billed Treatment 1, Ex IVONE DUARTE PTA Sep 26, 2022 11:04
[2022-09-26] MEDS: TAMSULOSIN 0.4 MG (FLOMAX) CAP PO SCH (17:32)
[2022-09-26 20:06] VITALS: BP 168/81
[2022-09-26] MEDS: AtorvaSTATin TABLET 10 MG TABLET PO SCH (20:07)
[2022-09-26] MEDS: HYDROcodone/APAP 7.5 MG/325 MG (LORTAB, LORCET PLUS) TABLET PO PRN (20:49)
[2022-09-27] MEDS: LEVOTHYROXINE 112 MCG (LEVOTHROID) TAB PO SCH (06:29)
[2022-09-27] MEDS: MULTIVIT W/MINERALS TAB (THERAGRAN M) PO SCH (06:29)
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
[2022-09-27] MEDS: FAMOTIDINE 20 MG (PEPCID) TABLET PO SCH ×2 (08:07→19:53)
[2022-09-27] MEDS: lisINopril 40 MG (PRINIVIL) TABLET PO SCH (08:07)
[2022-09-27] MEDS: SENNA W/DOCUSATE (SENOKOT S) TABLET PO SCH ×4 (08:07→19:56)
[2022-09-27] MEDS: ENOXAPARIN 40 MG/0.4 ML (LOVENOX) SYR SC SCH (08:07)
[2022-09-27] MEDS: polyethylene glycoL POWDER 17 GM (MIRALAX) PACK PO SCH ×2 (08:07→19:55)
[2022-09-27] MEDS: DOCUSATE SODIUM 100 MG (COLACE) CAP PO SCH ×2 (08:07→19:53)
[2022-09-27] MEDS: meTOproloL SUCCINATE 50 MG (TOPROL XL) TAB PO SCH (08:07)
[2022-09-27 09:09] VITALS: BP 126/75
[2022-09-27] MEDS: TAMSULOSIN 0.4 MG (FLOMAX) CAP PO SCH (17:10)
[2022-09-27] MEDS: BISACODYL 10 MG SUPP (DULCOLAX) PR PRN (18:12)
[2022-09-27 19:51] VITALS: BP 189/88
[2022-09-27] MEDS: AtorvaSTATin TABLET 10 MG TABLET PO SCH (19:53)
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
[2022-09-28 06:07] LABS: BASOPHILS # (AUTO) 0.1 10^3/uL (0.0-0.1); BASOPHILS % (AUTO) 1 % (0-10); EOSINOPHILS # (AUTO) 0.3 10^3/uL (0.0-0.3); EOSINOPHILS % (AUTO) 3 % (0-10); HEMATOCRIT 33 % (40-54); HEMOGLOBIN 11.7 g/dL (13.3-17.7); LYMPHOCYTES % (AUTO) 25 % (12-44); MEAN CORPUSCULAR HEMOGLOBIN 33 pg (25-34); MEAN CORPUSCULAR HGB CONC 35 g/dL (32-36); MEAN CORPUSCULAR VOLUME 93 fL (80-99); MONOCYTES # (AUTO) 0.8 10^3/uL (0.0-1.0); MONOCYTES % (AUTO) 10 % (0-12); NEUTROPHILS % (AUTO) 60 % (42-75); PLATELET COUNT 329 10^3/uL (130-400); WHITE BLOOD COUNT 8.3 10^3/uL (4.3-11.0)
[2022-09-28] MEDS: MULTIVIT W/MINERALS TAB (THERAGRAN M) PO SCH (06:17)
[2022-09-28] MEDS: LEVOTHYROXINE 112 MCG (LEVOTHROID) TAB PO SCH (06:17)
[2022-09-28 06:26] LABS: ALBUMIN 3.6 GM/DL (3.2-4.5)
[2022-09-28 06:29] LABS: TOTAL PROTEIN 6.6 GM/DL (6.4-8.2)
[2022-09-28 06:31] LABS: BILIRUBIN,TOTAL 0.4 MG/DL (0.1-1.0)
[2022-09-28 06:32] LABS: CREATININE SERUM 0.79 MG/DL (0.60-1.30)
[2022-09-28 07:28] VITALS: BP 119/77
[2022-09-28] MEDS: FAMOTIDINE 20 MG (PEPCID) TABLET PO SCH ×2 (07:46→20:02)
[2022-09-28] MEDS: meTOproloL SUCCINATE 50 MG (TOPROL XL) TAB PO SCH (07:46)
[2022-09-28] MEDS: lisINopril 40 MG (PRINIVIL) TABLET PO SCH (07:46)
[2022-09-28] MEDS: polyethylene glycoL POWDER 17 GM (MIRALAX) PACK PO SCH ×2 (07:47→20:07)
[2022-09-28] MEDS: ENOXAPARIN 40 MG/0.4 ML (LOVENOX) SYR SC SCH (07:47)
[2022-09-28] MEDS: SENNA W/DOCUSATE (SENOKOT S) TABLET PO SCH ×4 (07:47→20:07)
[2022-09-28] MEDS: DOCUSATE SODIUM 100 MG (COLACE) CAP PO SCH ×2 (07:47→20:02)
[2022-09-28] MEDS: HYDROcodone/APAP 7.5 MG/325 MG (LORTAB, LORCET PLUS) TABLET PO PRN ×2 (07:47→20:03)
--- NOTE | 2022-09-28 09:20 | Occupational Ther Daily Note ---
OT Current Status-Daily Note Subjective Pt in recliner, agreeable to OT Tx. Pt denies pain at rest, increased pain with activity. Pt did not verbalize a pain rating. ADL-Treatment Therapy Code Descriptions/Definitions Functional [place] Measure: 0=Not Assessed/NA 4=Minimal Assistance 1=Total Assistance 5=Supervision or Setup 2=Maximal Assistance 6=Modified [place] 3=Moderate Assistance 7=Complete IndependenceSCALE: Activities may be completed with or without assistive devices. 1-Qbgruqyiwl-kwvcrsj completes the activity by him/herself with no assistance from a helper. 5-Set-up or Clean-up Assistance-helper sets up or cleans up; patient completes activity. [place] assists only prior to or following the activity. 4-Supervision or Touching Assistance-helper provides verbal cues and/or touching/steadying and/or contact guard assistance as patient completes activity. Assistance may be provided throughout the activity or intermittently. 3-Partial/Moderate Assistance-helper does LESS THAN HALF the effort. [place] lifts, holds or supports trunk or limbs, but provides less than half the effort. 2-Substantial/Maximal Assistance-helper does MORE THAN HALF the effort. [place] lifts or holds trunk or limbs and provides more than half the effort. 0-Zstmurvct-muunpe does ALL the effort. Patient does none of the effort to complete the activity. Or, the assistance of 2 or more helpers is required for the patient to complete the activity. If activity was not attempted, code reason: 7-Patient Refused. 9-Not Applicable-not attempted and the patient did not perform the activity before the current illness, exacerbation or injury. 10-Not Attempted due to Environmental Limitations-(lack of equipment, weather restraints, etc.). 88-Not Attempted due to Medical Conditions or Safety Concerns. Eating (QC): 6 Oral Hygiene (QC): 6 Shower/Bathe Self (QC): 6 Upper Body Dressing (QC): 5 Lower Body Dressing (QC): 4 (SBA, 1 VC for safety) On/Off Footwear: 5 Toileting Hygiene (QC): 6 Other Treatment Pt in recliner, used FWW to transfer into bathroom. Pt initially agreeable to donning clothes he was wearing. Pt stood at toilet to urinate, independently, then transferred to OK. Pt doffed clothes, completed shower. During shower, pt requesting different clothes than he had originally worn, requiring set up assistance from OT. Pt then donned clothes at SC. 1 VC required for safety during LE clothing, pt attempting to stand to thread feet, cue to sit down. Pt used FWW to stand at sink to complete oral care and grooming tasks, independently. Pt returned to recliner. Post tx, pt in recliner, call light in reach and all needs met. Education OT Patient Education: Correct positioning, Modified ADL techniques, Progress toward Goal/Update tx plan, Purpose of tx/functional activities Teaching Recipient: Patient Teaching Methods: Discussion Response to Teaching: Verbalize Understanding BIMS CAM BIMS Expression of Ideas and Wants: Without Difficulty Understanding Verbal Content: Usually Understands Brief Interview/Mental Status: Yes IRF SHEREE BIMS: IRF SHEREE BIMS Response (Comments) Value Repitition of Three Words Three 3 Recalls Socks Yes, After Cueing (Wear) 1 Recalls Blue Yes, After Cueing (Color) 1 Recalls Bed No, Could Not Recall 0 Month Missed by 6 Days/1 Month 1 Day Correct 1 Total 7 Should Staff Asses. Mental St.: No CAM Mental Status Change/Baseline: 0 Inattention: 1 Disorganized thinkin Altered level of consciousness: 0 OT Short Term Goals Short Term Goals Time Frame: Oct 03, 2022 Eatin Oral hygiene: 5 Toileting hygiene: 5 Shower/bathe self: 4 Upper body dressin Lower body dressin Putting on/taking off footwear: 5 OT Button Sewer Hand Goals Button Sewer Hand Goals Time Frame: Oct 09, 2022 Eating (QC): 6 (met) Oral Hygiene (QC): 6 (met) Toileting Hygiene (QC): 6 (met) Shower/Bathe Self (QC): 5 (met) Upper Body Dressing (QC): 6 (not met) Lower Body Dressing (QC): 6 (ntot met) On/Off Footwear (QC): 6 (not met) Additional Goals: 1-Demonstrate ADL Tasks, 2-Verbalize Understanding, 3- ImproveStrength/Jose 1=Demonstrate adherence to instructed precautions during ADL tasks. 2=Patient will verbalize/demonstrate understanding of assistive devices/modifications for ADL. 3=Patient will improve strength/tolerance for activity to enable patient to perform ADL's. OT Education/Plan Problem List/Assessment Assessment: Decreased Activ Tolerance, Decreased UE Strength, Impaired I ADL's Discharge Recommendations Plan/Recommendations: Continue POC Treatment Plan/Plan of Care Patient would benefit from OT for education, treatment and training to promote independence in ADL's, mobility, safety and/or upper extremity function for ADL's. Plan of Care: ADL Retraining, Functional Mobility, Group Exercise/Act as Ind, UE Funct Exercise/Act Treatment Duration: Oct 10, 2022 Frequency: At least 5 of 7 days/Wk (IRF) Estimated Hrs Per Day: 1.5 hours per day Agreement: Yes Rehab Potential: Guarded Time Start Time: 09:00 Stop Time: 10:00 DATE: Sep 28, 2022 Total Time Billed (hr/min): 60 Billed Treatment Time 1, ADL 4 ISADORA HUGHES OT Sep 28, 2022 09:19
--- NOTE | 2022-09-28 10:51 | Progress Note ---
JESUS LOPEZ 09/28/22 1051: Progress Note 82 y/o M with history of stroke, hypertensive vascular dementia, HTN, hyperlipidemia, and chronic left knee pain/weakness/instability, and multiple repairs of the the left hip admitted to med-surg from the ER on 09/18 after sustaining a fall. XR at the ER showed comminuted minimally displaced fracture involving the base of the left superior pubic ramus extending to the left acetabulum without offset of the articulating surface; hospital workup further revealed left inferior pubic rami fracture and left sacral ala fracture as well as leukocytosis, hyponatremia and anemia. PT, hydorocodone 7.5mg, home medications, and supportive care were initiated. He was transferred to inpatient rehab for further LE stenghtening and pain control on 09/20. At this time, he rated his the effect of his hip pain on sleep and interference with therapy and day to day activities to be 4. He also noted right thumb pain on 09/25; tighness and swelling at the right MCP was noted and stretching was initiated. retirement OT termite control technician goals were eating, oral hygeine, toileting hygeine, body dressing, and footwear at 6, and showering/bathing at 5. He met eating, hygeine and showering/bathing goals. He did not meet dressing or footwear goals. PT termite control technician goals were: rolling left and right, sitting to lying, lying to sitting of 6, chair to bed movement, walking goals of and and shwweling goals of 6. Prior to discharge, he denied any pain at rest and appeared to be alert and co mfortable. He continued to report hip pain with ADLs and therapy to be roughly a 4. Hemoglobin, sodium and vitals remained stable throughout. He is to be discharged on 09/29. KATY GRAY DO 09/28/222041: Supervisory-Addendum Brief Verification & Attestation Participated in pt care: history, MDM, physical Personally performed: exam, history, MDM, supervision of care Care discussed with: Medical Student Procedures: n/a Results interpretation: Verified all documentation Verification and Attestation of Medical Student E/M Service A medical student performed and documented this service in my presence. I reviewed and verified all information documented by the medical student and made modifications to such information, when appropriate. I personally performed the physical exam and medical decision making. Katy Gray, Sep 28, 2022,20:42 JESUS LOPEZ Sep 28, 2022 10:51 KATY GRAY DO Sep 28, 2022 20:42
--- NOTE | 2022-09-28 12:13 | Physical Therapy Daily Note ---
PT Daily Note-Current Subjective Pt sitting in recliner upon arrival. Pt agrees to PT for QC scoring for anticipated d/c tomorrow. Pain Location: Left Location Body Site: Hip Section J - Health Conditions 1. Rarely or not at all 2. Occasionally 3. Frequently 4. Almost constantly 8. Unable to answer Pain Effect on Sleep: 1 Pain Interference with Therapy: 4 Pain Interference w/Day-to-Day: 4 Mental Status Patient Orientation: Person, Place, Situation Transfers SCALE: Activities may be completed with or without assistive devices. 7-Jspsbiicqh-wzbwmnu completes the activity by him/herself with no assistance from a helper. 5-Set-up or Clean-up Assistance-helper sets up or cleans up; patient completes activity. [place] assists only prior to or following the activity. 4-Supervision or Touching Assistance-helper provides verbal cues and/or touching/steadying and/or contact guard assistance as patient completes activity. Assistance may be provided throughout the activity or intermittently. 3-Partial/Moderate Assistance-helper does LESS THAN HALF the effort. [place] lifts, holds or supports trunk or limbs, but provides less than half the effort. 2-Substantial/Maximal Assistance-helper does MORE THAN HALF the effort. [place] lifts or holds trunk or limbs and provides more than half the effort. 8-Aqgcvnkqh-sllnny does ALL the effort. Patient does none of the effort to complete the activity. Or, the assistance of 2 or more helpers is required for the patient to complete the activity. If activity was not attempted, code reason: 7-Patient Refused. 9-Not Applicable-not attempted and the patient did not perform the activity before the current illness, exacerbation or injury. 10-Not Attempted due to Environmental Limitations-(lack of equipment, weather restraints, etc.). 88-Not Attempted due to Medical Conditions or Safety Concerns. Roll Left & Right (QC): 6 Sit to Lying (QC): 6 Lying to Sitting/Side of Bed(Q: 6 Sit to Stand (QC): 6 Chair/Gpp-ek-Bqvkh Xfer(QC): 6 Toilet Transfer (QC): 6 Car Transfer (QC): 6 Weight Bearing Full Weight Bearing Touch Toe Bearing Gait Training Does the Patient Walk?: Yes Distance: 150' x2 Walk 10 feet (QC): 5 Walk 50 ft with 2 Turns(QC): 5 Walk 150 ft (QC): 5 Walking 10ft/uneven surface-QC: 5 Gait Assistive Device: FWW Wheelchair Training Does the Pt Use a Wheelchair?: No Stair Training Stair Training: Handrails/: 2 handrails #of Steps: 8 1 Step (curb) (QC): 5 4 Steps (QC): 5 12 Steps (QC): 7 Stairs: Pattern: Step to Balance Picking up an Object (QC): 6 Treatments Pt completes QC scoring items listed above before returning to room to rest in recliner . Pt rests with all needs met, call light in hand. Assessment Current Status: Good Progress Pt rubia. tx well. PT Short Term Goals Short Term Goals Time Frame: Sep 28, 2022 Lying to sitting on side of be: 3 Sit to stand: 4 Chair/nhw-no-flvxp transfer: 4 Walk 10 feet: 4 Walk 50 feet with two turns: 4 PT Usp Goals Trim Stencil Maker Goals PT Usp Goals Time Frame: Oct 05, 2022 Roll Left & Right (QC): 6 Sit to Lying (QC): 6 Lying-Sitting on Side/Bed(QC): 6 Sit to Stand (QC): 4 (SBA) Chair/Who-fc-Pmeao Xfer(QC): 4 (SBA) Toilet Transfer (QC): 4 (SBA) Car Transfer (QC): 4 (SBA) Does the Patient Walk: Yes Walk 10 feet (QC): 4 (SBA) Walk 50ft with 2 Turns (QC): 4 (SBA) Walk 150 ft (QC): 4 (SBA) Walking 10ft on Uneven Surface: 4 (SBA) 1 Step (curb) (QC): 4 (CGA) 4 Steps (QC): 4 (CGA) 12 Steps (QC): 88 Picking up an Object (QC): 4 (SBA using staffing rn) Wheel 50 feet with 2 turns (QC: 9 Wheel 150 feet: 9 PT Plan Treatment/Plan Treatment Plan: Continue Plan of Care Treatment Plan: Bed Mobility, Education, Functional Activity Jose, Functional Strength, Group Therapy, Gait, Safety, Therapeutic Exercise, Transfers Treatment Duration: Oct 05, 2022 Frequency: At least 5 of 7 days/Wk (IRF) Estimated Hrs Per Day: 1.5 hours per day Patient and/or Family Agrees t: Yes Time Time In: 1000 Time Out: 1100 DATE: Sep 28, 2022 Total Billed Treatment Time: 60 Total Billed Treatment 1, GT (20m) & FA x3 (40m) VALENTE STANFORD IT INVESTMENT/PORTFOLIO MANAGER Sep 28, 2022 12:12
[2022-09-28] MEDS ORDERED: ACHYD1T PO (12:58)
--- NOTE | 2022-09-28 13:00 | D/C HH Face to Face Order ---
D/C Face to Face Orders Reconcile Patient Problems Problems Reviewed?: Yes Instructions for Patient [facility], Patient Instructions/FollowUp: PCP 1 week Physician to follow Patient: Zunilda Discharge Diet for Home: No Restrictions Patient Problems: Pelvic fracture Patient Data-Allergies,Ht & Wt Patient Allergies: Coded Allergies: No Known Drug Allergies (Unverified , 05/06/18) Height (Feet): 5 Height (Inches): 6.00 Weight (Pounds): 178 Weight (Ounces): 4.0 Home Health Need/Face to Face Date of Face to Face: Sep 28, 2022 Clinical Findings: Generalized weakness and fatigue, Instability, Muscle weakness, Unsteady gait I have seen Pt kqcg-ab-irkp: Yes Discharged To: Home Diagnosis/Conditions: Pelvic fracture Patient is Homebound due to: [place] fall risk due to instabilty, Muscle weakness Homebound Status Due to the above stated illness, injury or surgical procedure (medical condition or diagnosis) and associated clinical findings, the patient is homebound because of his/her inability to leave home except with aid of a supportive device and/or person AND leaving the home requires a considerable and taxing effort or is medically contraindicated. Pt req the following assistanc: Walker Home Health Nursing Orders Home Health Services Order: Nursing Services, Fast Food Delivery Driver-Evaluate & Treat, Physical Therapy-Evaluate & Treat Certify Stmt I certify that this patient is under my care and that I, a nurse practitioner or a physician; a gift shop assistant working with me, had a face to face encounter that - meets the physician face to face encounter requirements with this patient as SANJUANA Thomas DO Sep 28, 2022 12:59
--- NOTE | 2022-09-28 14:37 | Occupational Ther Daily Note ---
OT Current Status-Daily Note Subjective Pt sleeping in bed, woke easily to name. Pt agrees to therapy. No c/o pain. Mental Status/Objective Patient Orientation: Person, Time ADL-Treatment Therapy Code Descriptions/Definitions Functional [place] Measure: 0=Not Assessed/NA 4=Minimal Assistance 1=Total Assistance 5=Supervision or Setup 2=Maximal Assistance 6=Modified [place] 3=Moderate Assistance 7=Complete IndependenceSCALE: Activities may be completed with or without assistive devices. 9-Hckoddxzwg-wnsdbvg completes the activity by him/herself with no assistance from a helper. 5-Set-up or Clean-up Assistance-helper sets up or cleans up; patient completes activity. [place] assists only prior to or following the activity. 4-Supervision or Touching Assistance-helper provides verbal cues and/or touching/steadying and/or contact guard assistance as patient completes activity. Assistance may be provided throughout the activity or intermittently. 3-Partial/Moderate Assistance-helper does LESS THAN HALF the effort. [place] lifts, holds or supports trunk or limbs, but provides less than half the effort. 2-Substantial/Maximal Assistance-helper does MORE THAN HALF the effort. [place] lifts or holds trunk or limbs and provides more than half the effort. 6-Ulqtwgsla-jnjoeu does ALL the effort. Patient does none of the effort to complete the activity. Or, the assistance of 2 or more helpers is required for the patient to complete the activity. If activity was not attempted, code reason: 7-Patient Refused. 9-Not Applicable-not attempted and the patient did not perform the activity before the current illness, exacerbation or injury. 10-Not Attempted due to Environmental Limitations-(lack of equipment, weather restraints, etc.). 88-Not Attempted due to Medical Conditions or Safety Concerns. Other Treatment Pt ambulated using FWW to therapy gym. Pt completed gross/fine motor tasks to increase strength for daily fine motor tasks. Pt required assistance to problem solve steps of activity but stayed focused on task until completion. After therapy, pt left in care of PT. All needs met. OT Short Term Goals Short Term Goals Time Frame: Oct 03, 2022 Eatin Oral hygiene: 5 Toileting hygiene: 5 Shower/bathe self: 4 Upper body dressin Lower body dressin Putting on/taking off footwear: 5 OT Custodial Goals Line Helper Goals Time Frame: Oct 09, 2022 Acute change in mental status: 0 Inattention: 1 Disorganized thinkin Altered level of consciousness: 0 Eating (QC): 6 (met) Oral Hygiene (QC): 6 (met) Toileting Hygiene (QC): 6 (met) Shower/Bathe Self (QC): 5 (met) Upper Body Dressing (QC): 6 (not met) Lower Body Dressing (QC): 6 (ntot met) On/Off Footwear (QC): 6 (not met) Additional Goals: 1-Demonstrate ADL Tasks, 2-Verbalize Understanding, 3- ImproveStrength/Jose 1=Demonstrate adherence to instructed precautions during ADL tasks. 2=Patient will verbalize/demonstrate understanding of assistive devices/modifications for ADL. 3=Patient will improve strength/tolerance for activity to enable patient to perform ADL's. OT Education/Plan Problem List/Assessment Assessment: Decreased Activ Tolerance, Decreased UE Strength, Impaired Cognition Discharge Recommendations Plan/Recommendations: Continue POC Treatment Plan/Plan of Care Patient would benefit from OT for education, treatment and training to promote independence in ADL's, mobility, safety and/or upper extremity function for ADL's. Plan of Care: ADL Retraining, Functional Mobility, Group Exercise/Act as Ind, UE Funct Exercise/Act Treatment Duration: Oct 10, 2022 Frequency: At least 5 of 7 days/Wk (IRF) Estimated Hrs Per Day: 1.5 hours per day Agreement: Yes Rehab Potential: Guarded Time Start Time: 14:00 Stop Time: 14:30 DATE: Sep 28, 2022 Total Time Billed (hr/min): 30 Billed Treatment Time 1 visit-EX 2 (30 min) DANIELA SIMEON Sep 28, 2022 14:37
--- NOTE | 2022-09-28 16:04 | Physical Therapy Daily Note ---
PT Daily Note-Current Subjective Pt sitting in chair in Therapy Gym after just finishing w/CABLE STRANDER upon arrival. Pt agrees to PT. Pain Numeric Pain Scale: 5-Moderate Pain Location: Medial, Left, Upper Location Body Site: Thigh Pain Description: Ache Section J - Health Conditions 1. Rarely or not at all 2. Occasionally 3. Frequently 4. Almost constantly 8. Unable to answer Pain Effect on Sleep: 1 Pain Interference with Therapy: 4 Pain Interference w/Day-to-Day: 4 Mental Status Patient Orientation: Person, Place, Situation Transfers SCALE: Activities may be completed with or without assistive devices. 3-Ibjmrpyblh-qovybjg completes the activity by him/herself with no assistance from a helper. 5-Set-up or Clean-up Assistance-helper sets up or cleans up; patient completes activity. [place] assists only prior to or following the activity. 4-Supervision or Touching Assistance-helper provides verbal cues and/or touching/steadying and/or contact guard assistance as patient completes activity. Assistance may be provided throughout the activity or intermittently. 3-Partial/Moderate Assistance-helper does LESS THAN HALF the effort. [place] lifts, holds or supports trunk or limbs, but provides less than half the effort. 2-Substantial/Maximal Assistance-helper does MORE THAN HALF the effort. [place] lifts or holds trunk or limbs and provides more than half the effort. 9-Zrmjueyso-tuoooy does ALL the effort. Patient does none of the effort to complete the activity. Or, the assistance of 2 or more helpers is required for the patient to complete the activity. If activity was not attempted, code reason: 7-Patient Refused. 9-Not Applicable-not attempted and the patient did not perform the activity before the current illness, exacerbation or injury. 10-Not Attempted due to Environmental Limitations-(lack of equipment, weather restraints, etc.). 88-Not Attempted due to Medical Conditions or Safety Concerns. Sit to Stand (QC): 5 Weight Bearing Full Weight Bearing Touch Toe Bearing Gait Training Does the Patient Walk?: Yes Distance: 500' Walk 10 feet (QC): 5 Walk 50 ft with 2 Turns(QC): 5 Walk 150 ft (QC): 5 Gait Assistive Device: FWW Pt continues to walk not at TTWB but at more like PWB status. Wheelchair Training Does the Pt Use a Wheelchair?: No Treatments TF to standing and amb. in hallway, taking RB as needed. Pt amb. in hallway returning to room at end of tx. Pt rests in recliner w/all needs met,call light in hand. Assessment Current Status: Good Progress Pt rubia. tx well. but cannot keep TTWB status. PT Short Term Goals Short Term Goals Time Frame: Sep 28, 2022 Lying to sitting on side of be: 3 Sit to stand: 4 Chair/fpn-pb-pgyiv transfer: 4 Walk 10 feet: 4 Walk 50 feet with two turns: 4 PT Heavy Mobile Equipment Operator Goals Heavy Mobile Equipment Operator Goals PT Half-Way Goals Time Frame: Oct 05, 2022 Roll Left & Right (QC): 6 Sit to Lying (QC): 6 Lying-Sitting on Side/Bed(QC): 6 Sit to Stand (QC): 4 (SBA) Chair/Iqc-rd-Hofrf Xfer(QC): 4 (SBA) Toilet Transfer (QC): 4 (SBA) Car Transfer (QC): 4 (SBA) Does the Patient Walk: Yes Walk 10 feet (QC): 4 (SBA) Walk 50ft with 2 Turns (QC): 4 (SBA) Walk 150 ft (QC): 4 (SBA) Walking 10ft on Uneven Surface: 4 (SBA) 1 Step (curb) (QC): 4 (CGA) 4 Steps (QC): 4 (CGA) 12 Steps (QC): 88 Picking up an Object (QC): 4 (SBA using vice president safety) Wheel 50 feet with 2 turns (QC: 9 Wheel 150 feet: 9 PT Plan Treatment/Plan Treatment Plan: Continue Plan of Care Treatment Plan: Bed Mobility, Education, Functional Activity Jose, Functional Strength, Group Therapy, Gait, Safety, Therapeutic Exercise, Transfers Treatment Duration: Oct 05, 2022 Frequency: At least 5 of 7 days/Wk (IRF) Estimated Hrs Per Day: 1.5 hours per day Patient and/or Family Agrees t: Yes Safety Risks/Education Patient Education: Reviewed Precautions Teaching Recipient: Patient Teaching Methods: Discussion Response to Teaching: Verbalize Understanding Time Time In: 1430 Time Out: 1500 DATE: Sep 28, 2022 Total Billed Treatment Time: 30 Total Billed Treatment 1, GT (20m) & FA (10m) VALENTE STANFORD TRACK WORKER Sep 28, 2022 16:04
[2022-09-28] MEDS: TAMSULOSIN 0.4 MG (FLOMAX) CAP PO SCH (17:03)
[2022-09-28 19:50] VITALS: BP 151/73
[2022-09-28] MEDS: AtorvaSTATin TABLET 10 MG TABLET PO SCH (20:02)
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
[2022-09-29] MEDS: LEVOTHYROXINE 112 MCG (LEVOTHROID) TAB PO SCH (06:27)
[2022-09-29] MEDS: MULTIVIT W/MINERALS TAB (THERAGRAN M) PO SCH (06:27)
[2022-09-29 07:31] VITALS: BP 121/60
[2022-09-29] MEDS: lisINopril 40 MG (PRINIVIL) TABLET PO SCH (08:21)
[2022-09-29] MEDS: SENNA W/DOCUSATE (SENOKOT S) TABLET PO SCH ×2 (08:21→08:25)
[2022-09-29] MEDS: DOCUSATE SODIUM 100 MG (COLACE) CAP PO SCH (08:21)
[2022-09-29] MEDS: FAMOTIDINE 20 MG (PEPCID) TABLET PO SCH (08:21)
[2022-09-29] MEDS: HYDROcodone/APAP 7.5 MG/325 MG (LORTAB, LORCET PLUS) TABLET PO PRN (08:22)
[2022-09-29] MEDS: meTOproloL SUCCINATE 50 MG (TOPROL XL) TAB PO SCH (08:22)
[2022-09-29] MEDS: polyethylene glycoL POWDER 17 GM (MIRALAX) PACK PO SCH (08:24)
[2022-09-29] MEDS: ENOXAPARIN 40 MG/0.4 ML (LOVENOX) SYR SC SCH (08:24)
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
[2022-09-29 10:54] VITALS: BP 121/60
== END 2022-09-29 10:50 | disposition home health service (06) | DRG 560 ==
PROVIDERS: ADMIT Internal Medicine; ATTEND Internal Medicine
DX: S32.592D Other specified fracture of left pubis, subsequent encounter for fracture with routine healing (principal); E87.1 Hypo-osmolality and hyponatremia; S32.402D Unspecified fracture of left acetabulum, subsequent encounter for fracture with routine healing; S32.119D Unspecified Zone I fracture of sacrum, subsequent encounter for fracture with routine healing; F01.50 Vascular dementia, unspecified severity, without behavioral disturbance, psychotic disturbance, mood disturbance, and anxiety; D64.9 Anemia, unspecified; I10 Essential (primary) hypertension; E03.9 Hypothyroidism, unspecified; N40.0 Benign prostatic hyperplasia without lower urinary tract symptoms; K21.9 Gastro-esophageal reflux disease without esophagitis; M19.91 Primary osteoarthritis, unspecified site; H26.9 Unspecified cataract; F41.9 Anxiety disorder, unspecified; F32.A Depression, unspecified; E78.5 Hyperlipidemia, unspecified; K59.00 Constipation, unspecified; N39.9 Disorder of urinary system, unspecified; W19.XXXD Unspecified fall, subsequent encounter; Z23 Encounter for immunization
CPT/HCPCS: 36415; 80053; 85025; 90662